=== PATIENT | male | born 1985 | race Caucasian/White ===

== ENCOUNTER 2020-03-30 17:06 | Inpatient (IN) | payer MEDICARE, MEDICAID ==
[~2020-03-30] VITALS: Ht 175.3 cm; Wt 114.1 kg
[~2020-03-30 17:06] MED LIST: CLON1TAB12 PO; DIVA500T2 PO; LIT300C PO; NICO-668 BC; PALI234D IM; QUET100T33 PO; QUET400T12 PO; TIZA4TAB5 PO
[2020-03-30] MEDS ORDERED: magnesium hydroxide 30ml (MOM) UD suspension PO PRN (21:20)
[2020-03-30] MEDS ORDERED: loperamide 2mg capsule PO PRN (21:20)
[2020-03-30] MEDS ORDERED: acetaminophen 325mg tablet PO PRN (21:20)
[2020-03-30] MEDS ORDERED: PALI234D IM (21:38)
[2020-03-30] MEDS ORDERED: NICO-668 MM (21:38)
[2020-03-30] MEDS ORDERED: CLON-527 PO (21:38)
[2020-03-30] MEDS ORDERED: QUET-1 PO (21:38)
[2020-03-30] MEDS ORDERED: QUET400T PO (21:38)
[2020-03-30] MEDS ORDERED: DIVA-76 PO ×2 (21:38)
[2020-03-30] MEDS ORDERED: TIZA4TAB11 PO (21:38)
[2020-03-30] MEDS ORDERED: LIT300C PO (21:38)
[2020-03-30] MEDS: LORazepam 1 MG tablet PO PRN (21:57)
--- NOTE | 2020-03-30 22:21 | NUR ---
RN PROGRESS NOTE: LEGAL HOLD: LPS Conserved/5150 for DTS REASON FOR ADMIT: Client reported increased auditory and visual hallucinations. Client hears voices coming from buildings saying, "We're going to kill you." Client believes others are controlling him. Client believes camera's are watching him in his car. Client is currently homeless and may not have been taking his meds. He had Invega Sustena IM on 03.14.20 and 03.15.20. Client has multiple small scabs on both hands from punching a mirror. THIS SHIFT: Client arrived at 21:10. He is disheveled with poor hygiene. Client was cooperative, participated with admission. Personal Belongings were inventoried and client took a shower. Changed into green scrubs. Offered a snack. Affect is flat and mood is anxious. Client thanked staff for their help. His anxiety is relatively high. Client perfers to wear his hat while on unit and while he is sleeping. Appears to be relieved to be on unit. DISCHARGE: Needs med stabilization and therapeutic environment.
--- NOTE | 2020-03-30 22:37 | NUR ---
Registration made a new chart on Client. The new chart needs to be combined with the old. I asked registration to take care of it. Please follow up.
--- NOTE | 2020-03-30 22:39 | NUR ---
Shaneka Flores IM given 03.14.20 and 03.15.20.
[2020-03-30] MEDS ORDERED: NICOTINE POLACRILEX 2 MG LOZENGE BC PRN (22:40)
[2020-03-30] MEDS ORDERED: paliperidone palmitate inj 234 MG/1.5 ML SYRINGE IM SCH (22:40)
[2020-03-30] MEDS: quetiapine 100mg tablet PO SCH (22:51)
[2020-03-31 07:38] VITALS: BP 117/66
[2020-03-31] MEDS: nicotine 21mg patch - 24 hr TD SCH ×2 (07:41→07:48)
[2020-03-31] MEDS: divalproex sodium 500mg tablet.DR PO SCH ×2 (07:41→20:13)
[2020-03-31] MEDS: QUEtiapine 25mg tablet PO SCH ×2 (07:42→12:53)
[2020-03-31] MEDS: quetiapine 100mg tablet PO SCH ×3 (07:42→20:13)
[2020-03-31] MEDS: tizanidine 4mg tablet PO SCH ×3 (07:42→15:26)
[2020-03-31] MEDS: lithium carbonate 150mg capsule PO SCH ×2 (07:43→20:12)
[2020-03-31] MEDS: clonazePAM 1mg tablet PO SCH ×3 (07:43→20:13)
--- NOTE | 2020-03-31 10:34 | NUR ---
NURSING PROGRESS NOTE Legal hold: 5150 Client on involuntary status for DTS Report received from MARIBEL Serrano with use of SBAR Why are they here: Client reported increased auditory and visual hallucinations. Client hears voices coming from buildings saying, "We're going to kill you." Client believes others are controlling him. Client believes camera's are watching him in his car. Client is currently homeless and may not have been taking his medications. Assessment What has happened this shift: Alert and oriented to self, place and circumstances. Up for breakfast and medications and then back to sleep. Having auditory command hallucinations to harm himself which he recognizes as such. Some visual disturbances. Although very cooperative, having difficulty expressing symptoms. Photos of wounds to hands were obtained. Slept for most of morning but easily arousable. States feels safe here. Medication compliant. S/I, H/I: denies wanting to act A/VH: Command Auditory and visual Sleep: napped frequently ADL's: needs encouragement Group attendance: none Were meds taken: yes Any med S/E: sleepiness Mental Status Exam Appearance: disheveled, wearing knitted hat with ear flaps Eye contact: poor Behavior: cooperative Speech: soft, slightly mumbled Mood: sad Affect: flat Thought process: hallucinating Thought Content: GEORGETTE Cognition: alert when awakened Insight: fair Judgment: fair Interventions PRN's used: none Therapeutic interventions: 1:1 assessment, establish rapport, active listening, reality orientation, medication education/administration/monitoring, encouragement to perform personal care and attend groups, maintained q15m safety checks. Restraints/seclusion/emergency medication: None Justification of Continued Inpatient Treatment: Requires interruption of current crisis, medication adjustments, and a safe and supportive environment to prevent readmission.
--- NOTE | 2020-03-31 10:53 | NUR ---
CM Presenting Issues: Pt is a re-admit after being d/c from [facility] on 03/06. Pt is readmitted due to GD concerns associated with a sxs of a severe mental illness. Interventions: SS had t/c with pt's [facility] STAR team's clinician, Ankur Ricketts [phone], per t/c STAR team had already completed a referral to [facility] requesting that pt be consider for LPS conservatorship. Ankur also informed SS that [facility] had indicated that pt meets criteria for a LPS evaluation. Ankur requested for the recent Declaration in Support of Appointment of LPS conservatorship be sent to him so he can fwd it to [facility]. Plan: Pt will receive eval to determine need for LPS conservatorship. SS will continue to monitor and engage [facility] in pt's dcp when appropriate. Maria Luisa Murphy LCSW Addendum: 03/31/20 at 1058 by Maria Luisa Murphy Amended: Links added.
[2020-03-31 12:18] LABS: HEMOGLOBIN A1C 5.5 % (4.5-6.2)
[2020-03-31 12:22] LABS: CHOL/HDL RATIO 2.9 (0.00-4.99); CHOLESTEROL 140 MG/DL (0-200); HDL CHOLESTEROL 49 MG/DL (35-60); LDL CHOLESTEROL 73 MG/DL (50-100); TRIGLYCERIDES 89 MG/DL (20-135)
[2020-03-31] MEDS: NICOTINE POLACRILEX 2 MG LOZENGE BC PRN ×4 (13:09→20:49)
[2020-03-31] MEDS: acetaminophen 325mg tablet PO PRN (13:10)
[2020-03-31 19:00] VITALS: BP 135/86
--- NOTE | 2020-04-01 00:47 | NUR ---
NURSING PROGRESS NOTE Legal hold: 5150 Client on involuntary status for DTS Report received from MARIBEL Serrano with use of SBAR Why are they here: Client reported increased auditory and visual hallucinations. Client hears voices coming from buildings saying, "We're going to kill you." Client believes others are controlling him. Client believes camera's are watching him in his car. Client is currently homeless and may not have been taking his medications. Assessment What has happened this shift: Pt active on the unit at various times during the evening shift. Pt appears slightly more agitated this evening. Pt asked why he hasnt been given his klonopin, but when checked, pt was given it earlier in the day. When informed of this, pt responded in an angry voice, why is she lying about it? Pt mostly kept to himself when out of his room, appearing like he did not want to interact with his peers. S/I, H/I: denies A/VH: Command Auditory and visual Sleep: napped frequently ADL's: needs encouragement Group attendance: none Were meds taken: yes Any med S/E: sleepiness Mental Status Exam Appearance: disheveled, wearing knitted hat with ear flaps Eye contact: poor Behavior: cooperative, slightly agitated Speech: soft, slightly mumbled Mood: sad Affect: flat Thought process: hallucinating Thought Content: GEORGETTE Cognition: alert when awakened Insight: fair Judgment: fair Interventions PRN's used: none Therapeutic interventions: 1:1 assessment, establish rapport, active listening, reality orientation, medication education/administration/monitoring, encouragement to perform personal care and attend groups, maintained q15m safety checks. Restraints/seclusion/emergency medication: None Justification of Continued Inpatient Treatment: Requires interruption of current crisis, medication adjustments, and a safe and supportive environment to prevent readmission.
[2020-04-01] MEDS: NICOTINE POLACRILEX 2 MG LOZENGE BC PRN ×6 (07:22→21:52)
[2020-04-01] MEDS: nicotine 21mg patch - 24 hr TD SCH (07:24)
[2020-04-01 07:26] VITALS: BP 150/78
[2020-04-01] MEDS: QUEtiapine 25mg tablet PO SCH ×2 (07:57→12:24)
[2020-04-01] MEDS: divalproex sodium 500mg tablet.DR PO SCH ×2 (07:57→20:14)
[2020-04-01] MEDS: clonazePAM 1mg tablet PO SCH ×3 (07:58→20:14)
[2020-04-01] MEDS: quetiapine 100mg tablet PO SCH ×3 (07:58→20:14)
[2020-04-01] MEDS: tizanidine 4mg tablet PO SCH ×3 (07:58→15:08)
[2020-04-01] MEDS: lithium carbonate 150mg capsule PO SCH ×2 (07:58→20:15)
[2020-04-01] MEDS: LORazepam 1 MG tablet PO PRN ×2 (09:23→15:07)
[2020-04-01] MEDS: acetaminophen 325mg tablet PO PRN ×2 (09:50→14:02)
[2020-04-01] MEDS ORDERED: OLANZapine 5mg rapidly disint. tablet PO ONE (11:15)
[2020-04-01] MEDS ORDERED: LORazepam 1 MG tablet PO ONE (11:15)
--- NOTE | 2020-04-01 15:35 | NUR ---
NURSING PROGRESS NOTE Legal hold: 5150 Client on involuntary status for DTS Report received from MARIBEL Serrano with use of SBAR Why are they here: Client reported increased auditory and visual hallucinations. Client hears voices coming from buildings saying, "We're going to kill you." Client believes others are controlling him. Client believes camera's are watching him in his car. Client is currently homeless and may not have been taking his medications. Assessment What has happened this shift: Patient awakened before breakfast wanting coffee and Gilles Beth which was provided. C/O sore on lip, refused offer of Anbesol. Had increasingly hard morning with auditory command hallucinations becoming severe. PRN's were used with little effect and Dr. Huddleston was notified. New order for one time Zydis and Ativan were received. Given at 1130 without much effect. Regular dose of Seroquel and Klonopin given at 1230 which helped a bit. Patient did not feel much relief until after 1500 dose of Zanaflex and another prn of Ativan. During all hallucinations patient was aware he was experiencing auditory hallucinations and recognized such as "the voices." He took all medications without incident and willingly. S/I, H/I: denies A/VH: Command Auditory Sleep: drifted off a few times ADL's: needs encouragement Group attendance: none Were meds taken: yes Any med S/E: none Mental Status Exam Appearance: disheveled Eye contact: poor Behavior: cooperative, agitated at times yelling back at the voices Speech: soft, slightly mumbled Mood: distressed with voices Affect: flat or agitated at times Thought process: hallucinating Thought Content: wants and asks for help to make voices stop Cognition: A&Ox4 Insight: fair Judgment: fair Interventions PRN's used: Ativan, Zydis, Tylenol, Gilles Beth Therapeutic interventions: 1:1 assessment, establish rapport, active listening, reality orientation, medication education/administration/monitoring, encouragement to perform personal care and attend groups, maintained q15m safety checks. Restraints/seclusion/emergency medication: None Justification of Continued Inpatient Treatment: Requires interruption of current crisis, medication adjustments, and a safe and supportive environment to prevent readmission.
[2020-04-01] MEDS ORDERED: OLANZapine **IM** 10 mg inj. IM ONE (17:00)
[2020-04-01] MEDS ORDERED: LORazepam 2 mg/ml vial IM ONE (17:00)
--- NOTE | 2020-04-01 17:19 | NUR ---
PATIENT CONTINUED TO BE AGITATED The patient continued to be tormented and agitated by command hallucinations. The patient requested this nurse to "call the doctor and get me a shot." Dr. Huddleston was notified of patient's distress and new order was received for IM injection of Zyprexa 10mg and Ativan 2mg. The patient willingly accepted the injection to left gluteal without incident.
[2020-04-02] MEDS: tizanidine 4mg tablet PO SCH ×4 (00:36→23:46)
[2020-04-02] MEDS: LORazepam 1 MG tablet PO PRN ×3 (00:36→21:23)
[2020-04-02] MEDS: mag hydrox/Alum hydrox/simeth 30ml oral suspension PO PRN (00:36)
[2020-04-02] MEDS: NICOTINE POLACRILEX 2 MG LOZENGE BC PRN ×5 (00:38→20:50)
--- NOTE | 2020-04-02 02:16 | NUR ---
NURSING PROGRESS NOTE Legal hold: 5150 Client on involuntary status for DTS Report received from MARIBEL Luciano with use of SBAR Why are they here: Client reported increased auditory and visual hallucinations. Client hears voices coming from buildings saying, "We're going to kill you." Client believes others are controlling him. Client believes camera's are watching him in his car. Client is currently homeless and may not have been taking his medications. Assessment What has happened this shift: Patient asleep in bed at start of shift. Woke up and came for a snack . He was agitated and paced in posadas wearing headphones. His speech is difficult to understand at times because he mumbles and speaks very quietly. It was unclear why he was agitated. He does not appear to be responding to internal Stimuli. When asked if he hears voices he said "Look in my chart" He took all HS meds and went back to sleep. Woke up about midnight agitated. Given PRN Ativan, Nicotine lozenge and scheduled Zanaflex. Pt angry and yelled at times calmed down and went back to sleep. S/I, H/I: denies A/VH: Command Auditory Sleep: Sleeping with a few interruptions ADL's: needs encouragement Group attendance: none Were meds taken: yes Any med S/E: none Mental Status Exam Appearance: disheveled Eye contact: poor Behavior: agitated, at times yelling Speech: soft, slightly mumbled Mood: angry agitated Affect: flat or agitated at times Thought process: hallucinating Thought Content: unable to assess Cognition: A&Ox4 Insight: fair Judgment: fair Interventions PRN's used: Ativan, Gilles Beth Therapeutic interventions: 1:1 assessment, establish rapport, active listening, reality orientation, medication education/administration/monitoring, encouragement to perform personal care and attend groups, maintained q15m safety checks. Restraints/seclusion/emergency medication: None Justification of Continued Inpatient Treatment: Requires interruption of current crisis, medication adjustments, and a safe and supportive environment to prevent readmission.
[2020-04-02 08:00] VITALS: BP 123/86
[2020-04-02] MEDS: nicotine 21mg patch - 24 hr TD SCH (08:00)
[2020-04-02 08:19] LABS: BASOPHILS # (AUTO) 0.1 X10'3 (0-0.2); EOSINOPHILS # (AUTO) 0.2 X10'3 (0-0.9); EOSINOPHILS % (AUTO) 3.1 % (0-6); HEMATOCRIT 46.4 % (42.0-52.0); HEMOGLOBIN 15.2 g/dl (14.0-17.9); LYMPHOCYTES # (AUTO) 2.1 X10'3 (1.1-4.8); LYMPHOCYTES % (AUTO) 39.9 % (21-51); MEAN CORPUSCULAR HEMOGLOBIN 28.4 PG (27.0-31.0); MEAN CORPUSCULAR HGB CONC 32.8 g/dL (33.0-36.5); MEAN CORPUSCULAR VOLUME 86.5 FL (78-98); MEAN PLATELET VOLUME 8.6 FL (7.4-10.4); MONOCYTES # (AUTO) 0.3 X10'3 (0-0.9); MONOCYTES % (AUTO) 5.6 % (2-12); NEUTROPHILS # (AUTO) 2.7 X10'3 (1.8-7.7); NEUTROPHILS % (AUTO) 50.4 % (42-75); PLATELET COUNT 244 X10'3 (140-440); RED BLOOD COUNT 5.36 X10'6 (4.70-6.10); RED CELL DISTRIBUTION WIDTH 15.2 % (11.5-14.5); WHITE BLOOD COUNT 5.3 X10'3 (4.5-11.0)
[2020-04-02] MEDS: quetiapine 100mg tablet PO SCH ×3 (08:23→20:09)
[2020-04-02] MEDS: clonazePAM 1mg tablet PO SCH ×3 (08:23→20:09)
[2020-04-02] MEDS: lithium carbonate 150mg capsule PO SCH ×2 (08:24→20:10)
[2020-04-02] MEDS: QUEtiapine 25mg tablet PO SCH ×2 (08:24→12:59)
[2020-04-02] MEDS: divalproex sodium 500mg tablet.DR PO SCH ×2 (08:24→20:10)
[2020-04-02] MEDS: acetaminophen 325mg tablet PO PRN ×2 (09:20→21:50)
[2020-04-02] MEDS ORDERED: NICOTINE POLACRILEX 4 MG LOZENGE BC PRN (09:25)
[2020-04-02] MEDS ORDERED: NICOTINE POLACRILEX 2 MG LOZENGE BC PRN (09:34)
[2020-04-02 09:39] LABS: ALANINE AMINOTRANSFERASE 21 U/L (12-78); ALBUMIN 3.8 G/DL (3.4-5.0); ALBUMIN/GLOBULIN RATIO 1.2 (1.1-1.5); ALKALINE PHOSPHATASE 59 IU/L (46-116); ANION GAP 12 (8-16); ASPARTATE AMINO TRANSFERASE 8 U/L (10-37); BILIRUBIN,TOTAL 0.2 MG/DL (0.1-1.0); BLOOD UREA NITROGEN 14 MG/DL (7-18); BUN/CREATININE RATIO 15.2 (5.4-32.0); CALCIUM 9.1 MG/DL (8.5-10.1); CHLORIDE 105 MMOL/L (99-107); CREATININE 0.92 MG/DL (0.60-1.10); GLUCOSE 92 MG/DL (70-104); POTASSIUM 4.8 MMOL/L (3.5-5.1); SODIUM 142 MMOL/L (135-145); TOTAL CARBON DIOXIDE 25.4 MMOL/L (24-32); eGFR > 90 ML/MIN
[2020-04-02] MEDS ORDERED: QUEtiapine 25mg tablet PO ONE (09:55)
--- NOTE | 2020-04-02 17:48 | NUR ---
NURSING PROGRESS NOTE Legal hold: 5150 Client on involuntary status for DTS Report received from Nabila Bunn RN with use of SBAR Why are they here: Client reported increased auditory and visual hallucinations. Client hears voices coming from buildings saying, "We're going to kill you." Client believes others are controlling him. Client believes camera's are watching him in his car. Client is currently homeless and may not have been taking his medications. Assessment What has happened this shift: Patient asleep with headphones on at change of shift. Took off headphones and has ear plugs in. Took ear plugs out to talk to this RN. When asked how he is doing he states "bad", and immediately put the headphones back on and closes his eyes. Pt cooperative with taking medications, and mumbled something about snorting the pills. When this was questioned, he laughed and stated "I'm just kidding, don't worry." Moved pt to his own room due to outbursts of yelling at the voices. Late morning patient states his voices are terrible and was given Ativan. Later in the afternoon patient began yelling in his room at the voices, "You can look in the bathroom! They're right in there!". Reassured pt of his safety (he had just received Klonopin which had not taken effect yet). S/I, H/I: denies A/VH: Command Auditory Sleep: Sleeping with a few interruptions ADL's: independent. Did not shower today Group attendance: none Were meds taken: yes Any med S/E: none Mental Status Exam Appearance: disheveled Eye contact: poor Behavior: agitated from A/H, yells at voices Speech: soft, mumbled Mood: agitated at times Affect: flat or agitated at times Thought process: linear Thought Content: paranoid delusions Cognition: A&Ox3 Insight: fair Judgment: fair Interventions PRN's used: Ativan, Gilles Beth Therapeutic interventions: 1:1 assessment, establish rapport, active listening, reality orientation, medication education/administration/monitoring, encouragement to perform personal care and attend groups, maintained q15m safety checks. Restraints/seclusion/emergency medication: None Justification of Continued Inpatient Treatment: Requires interruption of current crisis, medication adjustments, and a safe and supportive environment to prevent readmission.
[2020-04-02 20:00] VITALS: BP 133/92
--- NOTE | 2020-04-03 02:34 | NUR ---
NURSING PROGRESS NOTE Legal hold: 5150 Client on involuntary status for DTS Report received from MARIBEL Byrne with use of SBAR Why are they here: Client reported increased auditory and visual hallucinations. Client hears voices coming from buildings saying, "We're going to kill you." Client believes others are controlling him. Client believes camera's are watching him in his car. Client is currently homeless and may not have been taking his medications. Assessment What has happened this shift: The patient was pacing the halls at shift change. He stopped to talk to this flex o writer operator. He was mumbling, and speech is too soft. Then, he takes his finger and pushes into his larynx as if to plug a hole. His speech seems to be more clear. He explains that the 'voices' put a hole there, so he couldn't talk. A little later, after he had been medicated, he was on his bed. He started yelling at the voices, "get off me, get off me you fuckin' Georgian terrorist bitch, stop holding me down." He was seen shaking his leg trying to get her off it. He was given Ativan and a nicotine lozenge. He went to sleep until ~2330, when he got up and asked for more Ativan. It was too soon, so he paced for a while, asked for his jacket from his locker, then went back to his room. S/I, H/I: Denies A/VH: Command Auditory Sleep: See sleep assessment ADL's: Needs encouragement Group attendance: None Were meds taken: yes Any med S/E: None reported or observed Mental Status Exam Appearance: Disheveled man with hall and short hair, wearing unit scrubs andheadphones Eye contact: Good Behavior: Agitated, at times yelling, irritable Speech: soft, slightly mumbled Mood: angry agitated Affect: flat or agitated at times Thought process: hallucinating Thought Content: unable to assess Cognition: A&Ox4 Insight: fair Judgment: fair Interventions PRN's used: Ativan, Gilles Beth Therapeutic interventions: 1:1 assessment, establish rapport, active listening, reality orientation, medication education/administration/monitoring, encouragement to perform personal care and attend groups, maintained q15m safety checks. Restraints/seclusion/emergency medication: None Justification of Continued Inpatient Treatment: Requires interruption of current crisis, medication adjustments, and a safe and supportive environment to prevent readmission.
[2020-04-03] MEDS: QUEtiapine 25mg tablet PO SCH ×2 (07:00→12:22)
[2020-04-03] MEDS: NICOTINE POLACRILEX 2 MG LOZENGE BC PRN ×6 (07:00→19:02)
[2020-04-03] MEDS: quetiapine 100mg tablet PO SCH ×3 (07:00→20:14)
[2020-04-03 07:37] VITALS: BP 128/91
[2020-04-03] MEDS: lithium carbonate 150mg capsule PO SCH ×2 (08:15→20:14)
[2020-04-03] MEDS: tizanidine 4mg tablet PO SCH ×2 (08:15→16:36)
[2020-04-03] MEDS: divalproex sodium 500mg tablet.DR PO SCH ×2 (08:16→20:14)
[2020-04-03] MEDS: clonazePAM 1mg tablet PO SCH ×3 (08:16→20:15)
[2020-04-03] MEDS: LORazepam 1 MG tablet PO PRN ×2 (10:05→19:02)
--- NOTE | 2020-04-03 11:59 | NUR ---
Initial: Pt admit DX psychosis and schizophrenia per EMR. PO 75-100% avg regular diet meeting needs. LBM 04/02. No nutrition concerns at this time. Will continue to monitor. Rec: 1. continue regular diet 2. bowel care per rx 3. wts per rx Addendum: 04/03/20 at [address] Amended: Links added.
[2020-04-03] MEDS ORDERED: gabapentin 100mg capsule PO ONE (14:10)
--- NOTE | 2020-04-03 17:26 | NUR ---
NURSING PROGRESS NOTE Legal hold: 5250 Expires 04/16. Client on involuntary status for DTS Report received from MARIBEL Gonzales with use of SBAR Why are they here: Client reported increased auditory and visual hallucinations. Client hears voices coming from buildings saying, "We're going to kill you." Client believes others are controlling him. Client believes camera's are watching him in his car. Client is currently homeless and may not have been taking his medications. Assessment What has happened this shift: Received patient pacing in the posadas at shift change. Pt greets screenplay writer appropriately. Pt later came screenplay writer and requested an Ativan and Nicotine lozenge. Pt was administered his 0730 Klonopin. Pt was overheard in his room yelling. Headphones were given with effect. Pt went to breakfast then returned to his room to sleep. Pt was medication compliant. Pt had three separate outburst yelling in his room when asked "its the voices!" Pt was redirectable. Pt is also noted when walking down the posadas he is looking over his shoulder as if someone is following him. Pt requested an Ativan and asked this screenplay writer "will you stay with me to make sure it gets in my system." Pt believes the voices take his medication out of his stomach. Pt drink half of his wolf pitcher of water to consume one Ativan pill. After each administration of medication screenplay writer reassured pt that his medication was in his system, pt stated "thank you." S/I, H/I: Denies both. A/VH: Endorses and observed CAH and VH. Sleep: 2.25 hours per sleep assessment. Slept intermittently throughout the day. ADL's: Needs encouragement, but can perform independently. Group attendance: No Were meds taken: Yes, without hesitation. Any med S/E: None reported or observed Mental Status Exam Appearance: Disheveled man with hall and short hair, wearing unit scrub pants and hoodie. Eye contact: Good Behavior: Agitated, at times yelling, irritable. Can be cooperative. Speech: Mumbles, loud and rapid at times. Mood: Labile Affect: Flat Thought process: CAH/VH. Thought Content: Hallucinations. Cognition: A&Ox4 Insight: Poor. Judgment: Poor. Interventions PRN's used: Nicotine lozenge, Ativan, Therapeutic interventions: 1:1 assessment, establish rapport, active listening, reality orientation, medication education/administration/monitoring, encouragement to perform personal care and attend groups, maintained q15m safety checks. Restraints/seclusion/emergency medication: None Justification of Continued Inpatient Treatment: Patient continues to exhibit psychotic symptoms and mood lability, irritability. Patient continues to be a high risk for dishcarge and requires continued medication adjustment in a safe and supportive milieu. Pt isreasonably aware that he will be going for LPS conservatorship.
[2020-04-03 20:13] VITALS: BP 130/80
[2020-04-03] MEDS: gabapentin 300mg capsule PO SCH (20:14)
[2020-04-04] MEDS: NICOTINE POLACRILEX 2 MG LOZENGE BC PRN ×6 (03:05→22:31)
--- NOTE | 2020-04-04 03:34 | NUR ---
NURSING PROGRESS NOTE Legal hold: 5150 Client on involuntary status for DTS Report received from MARIBEL Byrne with use of SBAR Why are they here: Client reported increased auditory and visual hallucinations. Client hears voices coming from buildings saying, "We're going to kill you." Client believes others are controlling him. Client believes camera's are watching him in his car. Client is currently homeless and may not have been taking his medications. Assessment What has happened this shift: Received the patient walking the halls. He appears tired and withdrawn. He came up and greeted me by name, while asking for a nicotine lozenge. He continues pacing for a while, lays down for a few, then starts pacing again. He was more subdued tonight, and didn't have any outbursts. He has spent more time in his room tonight, like standing in front of his shelves staring at them for a while. He wears a hoodie with the botello covering his head. S/I, H/I: Denies A/VH: Command Auditory Sleep: See sleep assessment ADL's: Needs encouragement Group attendance: None Were meds taken: yes Any med S/E: None reported or observed Mental Status Exam Appearance: Disheveled man with hall and short hair, wearing unit scrubs and hoodie jacket Eye contact: Good Behavior: Agitated, at times yelling, irritable Speech: soft, slightly mumbled Mood: angry agitated Affect: flat or agitated at times Thought process: hallucinating Thought Content: unable to assess Cognition: A&Ox4 Insight: fair Judgment: fair Interventions PRN's used: Ativan, Gilles Beth Therapeutic interventions: 1:1 assessment, establish rapport, active listening, reality orientation, medication education/administration/monitoring, encouragement to perform personal care and attend groups, maintained q15m safety checks. Restraints/seclusion/emergency medication: None Justification of Continued Inpatient Treatment: Requires interruption of current crisis, medication adjustments, and a safe and supportive environment to prevent readmission.
[2020-04-04] MEDS: LORazepam 1 MG tablet PO PRN ×2 (04:16→18:18)
[2020-04-04] MEDS: QUEtiapine 25mg tablet PO SCH ×2 (07:20→12:46)
[2020-04-04] MEDS: quetiapine 100mg tablet PO SCH ×3 (07:20→20:03)
[2020-04-04] MEDS: gabapentin 100mg capsule PO SCH ×2 (07:20→12:46)
[2020-04-04 08:00] VITALS: BP 142/92
[2020-04-04] MEDS: lithium carbonate 150mg capsule PO SCH ×2 (08:31→20:04)
[2020-04-04] MEDS: clonazePAM 1mg tablet PO SCH ×3 (08:31→20:03)
[2020-04-04] MEDS: tizanidine 4mg tablet PO SCH ×3 (08:32→15:55)
[2020-04-04] MEDS: divalproex sodium 500mg tablet.DR PO SCH ×2 (08:32→20:03)
--- NOTE | 2020-04-04 14:44 | NUR ---
NURSING PROGRESS NOTE Legal hold: 5250 Expires 04/16. Client on involuntary status for DTS Report received from MARIBEL Boston with use of SBAR Why are they here: Client reported increased auditory and visual hallucinations. Client hears voices coming from buildings saying, "We're going to kill you." Client believes others are controlling him. Client believes camera's are watching him in his car. Client is currently homeless and may not have been taking his medications. Assessment What has happened this shift: Received patient awake in his room at shift change, not distress noted. Pt was a little calmer this morning. Pt was administered his 0730 medications then again at 0830. During AM med pass pt stated the voices in my head are stupid. Pt required no PRNs this morning and only requested one Nicotine lozenge. Pt still has some paranoia regarding his voices taking the medication out of his stomach, but he did not perseverate on thought. Pt attends meals and snacks then returns to his room to sit or nap. Pt utilizes headphone to distract from AH. Noted pt talking to A/VH, pt raises his voice, but does not yell. No PRNs required or requested as of this writing. S/I, H/I: Denies both. A/VH: Endorses and observed CAH and VH. Sleep: 5.0 hours per sleep assessment. Slept intermittently throughout the day. ADL's: Needs encouragement, but can perform independently. Group attendance: No Were meds taken: Yes, without hesitation. Any med S/E: None reported or observed Mental Status Exam Appearance: Disheveled man with hall and short hair, wearing unit scrub pants and hoodie. Pt wearing an aviator type hat. Eye contact: Fair Behavior: No outbursts, current paranoia. Can be cooperative. Isolates to room or ambulates halls. Speech: Mumbles, loud and rapid at times. Mood: Labile Affect: Flat Thought process: CAH/VH. Thought Content: Hallucinations. Cognition: A&Ox4 Insight: Poor. Judgment: Poor. Interventions PRN's used: Nicotine lozenge. Therapeutic interventions: 1:1 assessment, active listening, reality orientation, medication education/administration/monitoring, encouragement to perform personal care and attend groups, maintained q15m safety checks. Restraints/seclusion/emergency medication: None Justification of Continued Inpatient Treatment: Patient continues to exhibit psychotic symptoms and mood lability, irritability. Patient continues to be a high risk for discharge and requires continued medication adjustment in a safe and supportive milieu. Pt is reasonably aware that he will be going for LPS conservatorship.
--- NOTE | 2020-04-04 18:19 | NUR ---
Pt requested Ativan for agitation. Administered PRN 1 mg.
[2020-04-04] MEDS: gabapentin 300mg capsule PO SCH (20:04)
[2020-04-04 20:53] VITALS: BP 144/86
[2020-04-05] MEDS: traZODone 50mg tablet PO PRN (00:07)
[2020-04-05] MEDS: tizanidine 4mg tablet PO SCH ×3 (00:07→16:44)
[2020-04-05] MEDS: LORazepam 1 MG tablet PO PRN ×3 (00:07→23:11)
--- NOTE | 2020-04-05 02:24 | NUR ---
NURSING PROGRESS NOTE Legal hold: 5150 Client on involuntary status for DTS Report received from MARIBEL Byrne with use of SBAR Why are they here: Client reported increased auditory and visual hallucinations. Client hears voices coming from buildings saying, "We're going to kill you." Client believes others are controlling him. Client believes camera's are watching him in his car. Client is currently homeless and may not have been taking his medications. Assessment What has happened this shift: Received the patient walking the halls. He's wearing scrub pants with boots, heavy jacket, and furry cap. He's agitated with the 'voices', and just received Ativan. He requests a nicotine lozenge from this field underwriter. The patient spent a lot of the evening quietly in his room. When he gets restless, he gets up and paces. He naps for short periods. At one time tonight, he could be heard in his room loudly talking to his voices. This field underwriter approached his room, and asked him about his tormentor. "It's fuckin Satan, he keeps popping into my bathroom, and when I go in there to kick his teeth in, he leaves. I aint afraid of that punk ass bitch...I'll tear him apart when I catch him." He was provided his Zanaflex, Ativan, and Trazodone at that time. He laid down to sleep after that, and slept good for an hour or so, but is now up pacing again. S/I, H/I: Denies A/VH: Command Auditory Sleep: See sleep assessment ADL's: Needs encouragement Group attendance: None Were meds taken: yes Any med S/E: None reported or observed Mental Status Exam Appearance: Disheveled man with hall and short hair, wearing unit scrubs, heavy jacket, and furry cap. Eye contact: Good Behavior: Agitated, at times yelling, irritable, angry Speech: soft, slightly mumbled Mood: angry agitated Affect: flat or agitated at times Thought process: hallucinating Thought Content: unable to assess Cognition: A&Ox4 Insight: fair Judgment: fair Interventions PRN's used: Ativan, Nicotine Beth Therapeutic interventions: 1:1 assessment, establish rapport, active listening, reality orientation, medication education/administration/monitoring, encouragement to perform personal care and attend groups, maintained q15m safety checks. Restraints/seclusion/emergency medication: None Justification of Continued Inpatient Treatment: Requires interruption of current crisis, medication adjustments, and a safe and supportive environment to prevent readmission.
[2020-04-05] MEDS: lithium carbonate 150mg capsule PO SCH ×2 (07:15→20:08)
[2020-04-05] MEDS: clonazePAM 1mg tablet PO SCH ×3 (07:15→20:08)
[2020-04-05] MEDS: divalproex sodium 500mg tablet.DR PO SCH ×2 (07:15→20:06)
[2020-04-05] MEDS: quetiapine 100mg tablet PO SCH ×3 (07:16→20:07)
[2020-04-05] MEDS: gabapentin 100mg capsule PO SCH ×2 (07:16→11:33)
[2020-04-05] MEDS: QUEtiapine 25mg tablet PO SCH ×2 (07:16→11:32)
[2020-04-05 08:02] VITALS: BP 139/85
--- NOTE | 2020-04-05 12:11 | NUR ---
LPS Investigation Caryn from [employer] and George Gomez [facility], both met with Gianni on the unit yesterday. Caryn reported he only talked to them for about 2 minutes. She called to request information. Emailed her RN and Doctor's notes to assist with the investigation. DOMO Saldana
[2020-04-05] MEDS: NICOTINE POLACRILEX 2 MG LOZENGE BC PRN ×3 (12:43→20:59)
--- NOTE | 2020-04-05 17:25 | NUR ---
NURSING PROGRESS NOTE Legal hold: 5250 Expires 04/16. Client on involuntary status for DTS Report received from MARIBEL Boston with use of SBAR Why are they here: Client reported increased auditory and visual hallucinations. Client hears voices coming from buildings saying, "We're going to kill you." Client believes others are controlling him. Client believes camera's are watching him in his car. Client is currently homeless and may not have been taking his medications. Assessment What has happened this shift: Pt. awake at start of shift and pacing in halls with headphones on. Shortly after pt. became agitated due to AH that were threatening him. Pt. states, "The voices won't leave me alone". Pt. given AM medications with good effect. Pt. displays compulsive behaviors, when scanning pt.'s armband to give medications, pt. wanted only one particular bar code scanned and when it wasn't scanned pt. became agitated. Pt. ate breakfast and layed down. 1:1 done at bedside, pt. appears agitated with RNs questions. Pt. denies SI/but endorses AH/VH. S/I, H/I: Denies both. A/VH: Endorses and observed CAH and VH. Sleep: Pt. did not appear to nap today. ADL's: Needs encouragement, but can perform independently. Group attendance: No Were meds taken: Yes Any med S/E: None reported or observed Mental Status Exam Appearance: Disheveled man with hall and short hair, wearing unit scrub pants, hoodie, and jacket and winter hat. Eye contact: Fair Behavior: Pacing halls and listening to headphones. Agitated by voices. Yelling back at the voices. Speech: Mumbles, loud and rapid at times. Mood: Anxious, agitated. Affect: Flat Thought process: Paranoid delusions due to auditory hallucinations. Thought Content: Hallucinations. Cognition: A&Ox4 Insight: Poor. Judgment: Poor. Interventions PRN's used: Ativan x1 Therapeutic interventions: 1:1 assessment, active listening, reality orientation, medication education/administration/monitoring, encouragement to perform personal care and attend groups, maintained q15m safety checks. Restraints/seclusion/emergency medication: None Justification of Continued Inpatient Treatment: Patient continues to exhibit psychotic symptoms and mood lability, irritability. Patient continues to be a high risk for discharge and requires continued medication adjustment in a safe and supportive milieu. Pt is reasonably aware that he will be going for LPS conservatorship.
[2020-04-05 19:41] VITALS: BP 107/65
[2020-04-05] MEDS: gabapentin 400mg capsule PO SCH (20:31)
--- NOTE | 2020-04-05 20:51 | NUR ---
NURSING PROGRESS NOTE Legal hold: 5250 Expires 04/16. Client on involuntary status for DTS Report received from MARIBEL Schultz with use of SBAR Why are they here: Client reported increased auditory and visual hallucinations. Client hears voices coming from buildings saying, "We're going to kill you." Client believes others are controlling him. Client believes camera's are watching him in his car. Client is currently homeless and may not have been taking his medications. Assessment What has happened this shift: Pt is seen on the unit in wearing a coat and fuzzy hat. She smiles occasionally and after eating snack heads to his room and lays in bed with his hat on. He is cooperative with assessment and medication compliant. He asks what medications are in the cup and inspector automatic typewriter tells him what each pill is. Pt smiles and says thank you. When asked how his day was he replies, "better then yesterday." He denies SI/HI at this time. He does endorse auditory hallucinations, but does not go into detail. When inspector automatic typewriter tells him to have a good night and get some sleep and smiles and laughs for awhile and says , "okay okay okay okay." S/I, H/I: Denies both. A/VH: Endorses auditory hallucinations Sleep: see sleep assessment ADL's: Needs encouragement, but can perform independently. Group attendance: No Were meds taken: Yes Any med S/E: None reported or observed Mental Status Exam Appearance: Disheveled man with hall and short hair, wearing unit scrub pants, hoodie, and jacket and winter hat. Eye contact: Fair Behavior:cooperative, isolative Speech: Mumbles Mood: labile Affect: upbeat occasionally Thought process: Paranoid delusions due to auditory hallucinations. Thought Content: Hallucinations. Cognition: A&Ox4 Insight: Poor. Judgment: Poor. Interventions PRN's used: Therapeutic interventions: 1:1 assessment, active listening, reality orientation, medication education/administration/monitoring, encouragement to perform personal care and attend groups, maintained q15m safety checks. Restraints/seclusion/emergency medication: None Justification of Continued Inpatient Treatment: Patient continues to exhibit psychotic symptoms and mood lability, irritability. Patient continues to be a high risk for discharge and requires continued medication adjustment in a safe and supportive milieu. Pt is reasonably aware that he will be going for LPS conservatorship.
[2020-04-06] MEDS: NICOTINE POLACRILEX 2 MG LOZENGE BC PRN ×7 (01:09→20:54)
[2020-04-06] MEDS: tizanidine 4mg tablet PO SCH ×3 (07:25→16:56)
[2020-04-06] MEDS: QUEtiapine 25mg tablet PO SCH ×2 (07:25→12:28)
[2020-04-06] MEDS: quetiapine 100mg tablet PO SCH ×3 (07:25→20:45)
[2020-04-06] MEDS: divalproex sodium 500mg tablet.DR PO SCH ×2 (07:26→20:46)
[2020-04-06] MEDS: clonazePAM 1mg tablet PO SCH ×3 (07:26→20:46)
[2020-04-06] MEDS: gabapentin 100mg capsule PO SCH ×2 (07:26→12:28)
[2020-04-06] MEDS: lithium carbonate 150mg capsule PO SCH ×2 (07:27→20:47)
[2020-04-06 07:30] VITALS: BP 126/84
--- NOTE | 2020-04-06 17:20 | NUR ---
NURSING PROGRESS NOTE Legal hold: 5250 Expires 04/16. Client on involuntary status for DTS Report received from MARIBEL Boston with use of SBAR Why are they here: Client reported increased auditory and visual hallucinations. Client hears voices coming from buildings saying, "We're going to kill you." Client believes others are controlling him. Client believes camera's are watching him in his car. Client is currently homeless and may not have been taking his medications. Assessment What has happened this shift: Pt. awake at start of shift and pacing halls. Pt. took medications and ate all meals in community room. 1:1 done at bedside, pt. denies SI/HI, however, pt. reports AH, stating that voices are threatening him as well as the staff. Pt. denies VHAt time of noon medications pt. appeared agitated. When asked how pt. was feeling, pt. responded, I dont want to talk about it, Pt. then began perseverating on numbers. Pt. socially withdrawn and isolated to room most of the day. S/I, H/I: Denies both. A/VH: +AH. Denies VH Sleep: Pt. did not appear to nap today. ADL's: Independent with prompting. Group attendance: No Were meds taken: Yes Any med S/E: Pt. c/o restlessness from his Seroquel. Mental Status Exam Appearance: Disheveled man with hall and short hair, wearing unit scrub pants, hoodie, and jacket and winter hat. Eye contact: Fair Behavior: Pacing halls and listening to headphones. Looking out window in his room. Agitated by voices. Speech: Mumbles, loud and rapid at times. Mood: Anxious, agitated. Affect: Flat Thought process: Paranoid delusions due to auditory hallucinations. Patient is also circumstantial Thought Content: Hallucinations. Getting needs met. Cognition: A&Ox4 Insight: Poor. Judgment: Poor. Interventions PRN's used: Therapeutic interventions: 1:1 assessment, active listening, reality orientation, medication education/administration/monitoring, encouragement to perform personal care and attend groups, maintained q15m safety checks. Restraints/seclusion/emergency medication: None Justification of Continued Inpatient Treatment: Patient continues to exhibit psychotic symptoms and mood lability, irritability. Patient continues to be a high risk for discharge and requires continued medication adjustment in a safe and supportive milieu. Pt is reasonably aware that he will be going for LPS conservatorship.
--- NOTE | 2020-04-06 17:30 | NUR ---
NURSING PROGRESS NOTE Legal hold: 5250 Expires 04/16. Client on involuntary status for DTS Report received from MARIBEL Boston with use of SBAR Why are they here: Client reported increased auditory and visual hallucinations. Client hears voices coming from buildings saying, "We're going to kill you." Client believes others are controlling him. Client believes camera's are watching him in his car. Client is currently homeless and may not have been taking his medications. Assessment What has happened this shift: Pt. awake at start of shift and pacing halls. Pt. took medications and ate all meals in community room. 1:1 done at bedside, pt. denies SI/HI, however, pt. reports AH, stating that voices are threatening him as well as the staff. Pt. denies VHAt time of noon medications pt. appeared agitated. When asked how pt. was feeling, pt. responded, I dont want to talk about it, Pt. then began perseverating on numbers. Pt. socially withdrawn and isolated to room most of the day. Pt. requested nicotine lozenge and received a smaller lozenge than normal and pt. became upset. RN attempted to explain to the pt. that the dosage is the same, however, pt. did not understand. Pt. then slammed his door. S/I, H/I: Denies both. A/VH: +AH. Denies VH Sleep: Pt. did not appear to nap today. ADL's: Independent with prompting. Group attendance: No Were meds taken: Yes Any med S/E: Pt. c/o restlessness from his Seroquel. Mental Status Exam Appearance: Disheveled man with hall and short hair, wearing unit scrub pants, hoodie, and jacket and winter hat. Eye contact: Fair Behavior: Pacing halls and listening to headphones. Looking out window in his room. Agitated by voices. Speech: Mumbles, loud and rapid at times. Mood: Anxious, agitated. Affect: Flat Thought process: Paranoid delusions due to auditory hallucinations. Patient is also circumstantial Thought Content: Hallucinations. Getting needs met. Cognition: A&Ox4 Insight: Poor. Judgment: Poor. Interventions PRN's used: Therapeutic interventions: 1:1 assessment, active listening, reality orientation, medication education/administration/monitoring, encouragement to perform personal care and attend groups, maintained q15m safety checks. Restraints/seclusion/emergency medication: None Justification of Continued Inpatient Treatment: Patient continues to exhibit psychotic symptoms and mood lability, irritability. Patient continues to be a high risk for discharge and requires continued medication adjustment in a safe and supportive milieu. Pt is reasonably aware that he will be going for LPS conservatorship.
--- NOTE | 2020-04-06 17:31 | NUR ---
Pt. c/o of restless legs side effect from Seroquel and started on Cogentin 1mg BID.
[2020-04-06 20:00] VITALS: BP 124/85
[2020-04-06] MEDS: benztropine 1mg tablet PO SCH (20:45)
[2020-04-06] MEDS: gabapentin 400mg capsule PO SCH (20:48)
--- NOTE | 2020-04-06 22:39 | NUR ---
NURSING PROGRESS NOTE Legal hold: 5250 Expires 04/16. Client on involuntary status for DTS Report received from MARIBLE Schultz with use of SBAR Why are they here: Client reported increased auditory and visual hallucinations. Client hears voices coming from buildings saying, "We're going to kill you." Client believes others are controlling him. Client believes camera's are watching him in his car. Client is currently homeless and may not have been taking his medications. Assessment What has happened this shift: Pt isolates to his room most of shift. He is in a black jacket with the hoos up responding to internal stimuli. When asked how his day was he says, "not good." Aerobics Instructor asks why not he responds, "I am not talking about that." Aerobics Instructor asks if he is feeling SI/HI/ he responds, "I am not talking about that!" He remains distant and guarded. S/I, H/I: Denies both. A/VH: Endorses auditory hallucinations Sleep: see sleep assessment ADL's: Needs encouragement, but can perform independently. Group attendance: No Were meds taken: Yes Any med S/E: None reported or observed Mental Status Exam Appearance: Disheveled man with hall and short hair, wearing unit scrub pants, hoodie, and jacket and winter hat. Eye contact: Fair Behavior:cooperative, isolative Speech: Mumbles Mood: labile Affect: upbeat occasionally Thought process: Paranoid delusions due to auditory hallucinations. Thought Content: Hallucinations. Cognition: A&Ox4 Insight: Poor. Judgment: Poor. Interventions PRN's used: Therapeutic interventions: 1:1 assessment, active listening, reality orientation, medication education/administration/monitoring, encouragement to perform personal care and attend groups, maintained q15m safety checks. Restraints/seclusion/emergency medication: None Justification of Continued Inpatient Treatment: Patient continues to exhibit psychotic symptoms and mood lability, irritability. Patient continues to be a high risk for discharge and requires continued medication adjustment in a safe and supportive milieu. Pt is reasonably aware that he will be going for LPS conservatorship.
[2020-04-07] MEDS: NICOTINE POLACRILEX 2 MG LOZENGE BC PRN ×3 (00:30→17:37)
[2020-04-07] MEDS: gabapentin 100mg capsule PO SCH ×2 (07:37→11:49)
[2020-04-07] MEDS: benztropine 1mg tablet PO SCH ×2 (07:38→20:54)
[2020-04-07] MEDS: clonazePAM 1mg tablet PO SCH ×3 (07:38→20:53)
[2020-04-07] MEDS: quetiapine 100mg tablet PO SCH ×3 (07:38→20:53)
[2020-04-07] MEDS: divalproex sodium 500mg tablet.DR PO SCH ×2 (07:38→20:52)
[2020-04-07] MEDS: lithium carbonate 150mg capsule PO SCH ×2 (07:38→20:54)
[2020-04-07] MEDS: tizanidine 4mg tablet PO SCH ×3 (07:38→16:24)
[2020-04-07] MEDS: QUEtiapine 25mg tablet PO SCH ×2 (07:38→11:49)
[2020-04-07 08:16] VITALS: BP 133/90
[2020-04-07] MEDS: LORazepam 1 MG tablet PO PRN (09:05)
--- NOTE | 2020-04-07 17:22 | NUR ---
NURSING PROGRESS NOTE Legal hold: 5250 Expires 04/16. Client on involuntary status for DTS Report received from MARIBEL [place] with use of SBAR Why are they here: Client reported increased auditory and visual hallucinations. Client hears voices coming from buildings saying, "We're going to kill you." Client believes others are controlling him. Client believes camera's are watching him in his car. Client is currently homeless and may not have been taking his medications. Assessment What has happened this shift: RN assumed care of pt. at 0900am. RN received in report that pt. was stating that his brother was speaking to him and telling him that he was going to kill someone. When staff attempted to do reality testing, pt. insisted that his brothers threats were legitimate and that the police needed to be contacted. During this time pt. was agitated due to AH and given Ativan 1mg po with good effect. Later in the AM pt. c/o of anxiety and given noon time medications early. Pt. observed in room yelling at times but is able to control outbursts. Pt. seen wearing headphones in attempt to quiet voices. When asked what voices are telling him, pt. replies, I dont want to say. Pt. denies seeing VH. Pt. denies SI/HI. Pt. isolated to his room most of the day. Psychologist Dr. Vigil came to assess pt. for conservatorship. Pt. states, I dont want to speak to him. Psychologist approached pt. and pt. replied, Dont talk to me I want to go to [facility] I want to be conserved. Pt. wears overcoat, when asked about it, pt. states, I dont want my coat being taken. Pt.s Neurontin increased to 200 BID. Voices. Requested Ativan. S/I, H/I: Denies both. A/VH: +AH. Denies VH Sleep: Pt. did not appear to nap today. ADL's: Independent with prompting. Group attendance: No Were meds taken: Yes Any med S/E: Denies Mental Status Exam Appearance: Disheveled man with hall and short hair, wearing unit scrub pants, hoodie, winter jacket and winter hat. Eye contact: Fair Behavior: Pacing halls and listening to headphones. Looking out window in his room. Agitated by voices. Speech: Mumbles, loud and rapid at times. Mood: Anxious, agitated. Affect: Flat Thought process: Paranoid delusions due to auditory hallucinations. Circumstantial. Thought Content: Hallucinations. Getting needs met. Cognition: A&Ox4 Insight: Poor. Judgment: Poor. Interventions PRN's used: Ativan 1mg po. Nicotine x3 Therapeutic interventions: 1:1 assessment, active listening, reality orientation, medication education/administration/monitoring, encouragement to perform personal care and attend groups, maintained q15m safety checks. Restraints/seclusion/emergency medication: None Justification of Continued Inpatient Treatment: Patient continues to exhibit psychotic symptoms and mood lability, irritability. Patient continues to be a high risk for discharge and requires continued medication adjustment in a safe and supportive milieu. Pt is reasonably aware that he will be going for LPS conservatorship.
[2020-04-07 19:00] VITALS: BP 135/68
[2020-04-07] MEDS: gabapentin 400mg capsule PO SCH (20:54)
[2020-04-08] MEDS: tizanidine 4mg tablet PO SCH ×3 (00:18→16:08)
[2020-04-08] MEDS: traZODone 50mg tablet PO PRN (00:25)
[2020-04-08] MEDS: LORazepam 1 MG tablet PO PRN ×2 (00:25→09:41)
--- NOTE | 2020-04-08 03:29 | NUR ---
NURSING PROGRESS NOTE Legal hold: 5250 Expires 04/16. Client on involuntary status for DTS Report received from MARIBEL Gonzales with use of SBAR Why are they here: Client reported increased auditory and visual hallucinations. Client hears voices coming from buildings saying, "We're going to kill you." Client believes others are controlling him. Client believes camera's are watching him in his car. Client is currently homeless and may not have been taking his medications. Assessment What has happened this shift: Patient isolated in his room this shift. Patient came out of his room to request medication and snacks. Patient is quiet, appears to be responding to internal stimuli. Patient will not elaborate. Anxiety noted later in shift, patient not sleeping. Ativan given PO. Trazadone given for sleep. MOM given for stomach indigestion. Patient is cooperative. Primary complaint of indigestion, pain in joints. Patient is restless at times. Sleep is intermittent. Patient denies S/I or H/I. S/I, H/I: Denies both. A/VH: Denies. Sleep: Poor. Will tally at 0500 hours. . ADL's: Independent with prompting. Group attendance: No group on nights. Were meds taken: Yes, medication. Any med S/E: Denies. Mental Status Exam. Appearance: Disheveled. Eye contact: Fair Behavior: Isolating, Speech: Soft, mumbles at times. Mood: Anxious, mild agitation. Affect: Flat. Thought process: Circumstantial. Thought Content: Getting needs met.. Cognition: A&Ox4 Insight: Poor. Judgment: Poor. Interventions PRN's used: Trazidone, Ativan, MOM. Therapeutic interventions: 1:1 assessment, active listening, reality orientation, medication education/administration/monitoring, encouragement to perform personal care and attend groups, maintained q15m safety checks. Restraints/seclusion/emergency medication: None Justification of Continued Inpatient Treatment: Patient continues to exhibit psychotic symptoms and mood lability, irritability. Patient continues to be a high risk for discharge and requires continued medication adjustment in a safe and supportive milieu. Pt is reasonably aware that he will be going for LPS conservatorship.
[2020-04-08] MEDS: NICOTINE POLACRILEX 2 MG LOZENGE BC PRN ×4 (05:08→19:14)
--- NOTE | 2020-04-08 05:08 | NUR ---
Patient is awake and pacing the halls, he listens to music. Patient tells this feature writer he has insomnia, "there is nothing you can do about it, it just cycles." Patient is linear at this time, he does not look to be responding to internal stimuli.
[2020-04-08 08:00] VITALS: BP 131/80
[2020-04-08] MEDS: clonazePAM 1mg tablet PO SCH ×3 (08:34→20:44)
[2020-04-08] MEDS: benztropine 1mg tablet PO SCH ×2 (08:35→20:45)
[2020-04-08] MEDS: lithium carbonate 150mg capsule PO SCH ×2 (08:36→20:48)
[2020-04-08] MEDS: gabapentin 100mg capsule PO SCH ×2 (08:36→13:23)
[2020-04-08] MEDS: divalproex sodium 500mg tablet.DR PO SCH ×2 (08:37→20:44)
[2020-04-08] MEDS: QUEtiapine 25mg tablet PO SCH ×2 (08:37→13:23)
[2020-04-08] MEDS: quetiapine 100mg tablet PO SCH ×3 (08:38→20:45)
--- NOTE | 2020-04-08 15:59 | NUR ---
NURSING PROGRESS NOTE Legal hold: 5250 Expires 04/16. Client on involuntary status for DTS Report received from RN with use of SBAR Why are they here: Client reported increased auditory and visual hallucinations. Client hears voices coming from buildings saying, "We're going to kill you." Client believes others are controlling him. Client believes camera's are watching him in his car. Client is currently homeless and may not have been taking his medications. Assessment What has happened this shift: Received Pt in his room awake and writing on paper, and in no distress. Pt cooperative with vitals and meds throughout the day. Pt responds to voices and delusions, in the middle of the night he put a bone in my knee, I can feel it. Pt spent most of the day listening to music with headphones and isolating to his room. He spent time looking out the window and talked about a scene in the movie Jar Head r/t snipers and rooftops he was looking at. Pt was calm most of the day with a few moments of irritability at AHs and delusions r/t them. He continues to wear a winter hat and coat. Pt denies SI/HI. Endorses AHs but denies VH. S/I, H/I: Denies both A/VH: +AH. Denies VH Sleep: Did not sleep this shift ADL's: Independent with prompting Group attendance: NA Were meds taken: Yes Any med S/E: Denies Mental Status Exam Appearance: Disheveled, wearing winter cap and jacket Eye contact: Fair Behavior: Pacing halls and listening to headphones. Looking out window in his room. Labile yet cooperative Speech: Mumbles, loud and rapid at times Mood: Cooperative yet anxious at times Affect: Flat Thought process: Paranoid delusions r/t auditory hallucinations. Circumstantial Thought Content: Getting needs met. Responding to AH Cognition: A&Ox4 Insight: Poor. Judgment: Poor. Interventions PRN's used: Ativan 1mg po. Nicotine Beth. Therapeutic interventions: 1:1 assessment, active listening, reality orientation, medication education/administration/monitoring, encouragement to perform personal care and attend groups, maintained q15m safety checks. Restraints/seclusion/emergency medication: None Justification of Continued Inpatient Treatment: Patient continues to exhibit psychotic symptoms and mood lability, irritability. Patient continues to be a high risk for discharge and requires continued medication adjustment in a safe and supportive milieu. Pt is reasonably aware that he will be going for LPS conservatorship.
[2020-04-08] MEDS: gabapentin 400mg capsule PO SCH (19:46)
[2020-04-08] MEDS: acetaminophen 325mg tablet PO PRN (19:51)
[2020-04-08 20:00] VITALS: BP 121/85
--- NOTE | 2020-04-09 05:18 | NUR ---
NURSING PROGRESS NOTE Legal hold: 5250 Expires 04/16. Client on involuntary status for DTS Report received from MARIBEL Gonzales with use of SBAR Why are they here: Client reported increased auditory and visual hallucinations. Client hears voices coming from buildings saying, "We're going to kill you." Client believes others are controlling him. Client believes camera's are watching him in his car. Client is currently homeless and may not have been taking his medications. Assessment What has happened this shift: Pt isolated to room mostly but was observed to pace the halls a few times. He listened to headphones most of the shift. At initial assessment, pt stated his "knee was being removed in the middle of the night" and that "there are rape people on the unit." He stated "I can read you" and "I know you don't believe me". He was unable to be redirected from these thoughts but remained quiet in his room. Later in the shift, pt apologized for his comments stating "I'm sorry about that earlier. It just happens sometimes." Pt attended snack, and was medication compliant. He awoke one this evening to ask for water. S/I, H/I: Denies both. A/VH: Denies, but appears to be thought blocking at times Sleep: See Sleep Assessment ADL's: Independent with prompting Group attendance: N/A Were meds taken: Yes. Any med S/E: Denies. Mental Status Exam Appearance: Disheveled wearing personal clothing Eye contact: Fair Behavior: pacing, isolating to self Speech: Soft, mumbles at times. Mood: Labile Affect: Flat. Thought process: Circumstantial. Thought Content: snacks, medications Cognition: A&Ox4 Insight: Poor Judgment: Poor to fair Interventions PRN's used: Tylenol Therapeutic interventions: 1:1 assessment, active listening, reality orientation, medication education/administration/monitoring, encouragement to perform personal care and attend groups, maintained q15m safety checks. Restraints/seclusion/emergency medication: None Justification of Continued Inpatient Treatment: Patient continues to exhibit psychotic symptoms and mood lability, irritability. Patient continues to be a high risk for discharge and requires continued medication adjustment in a safe and supportive milieu. Pt is reasonably aware that he will be going for [facility] conservatorship.
[2020-04-09] MEDS: gabapentin 300mg capsule PO SCH ×2 (07:12→12:52)
[2020-04-09] MEDS: quetiapine 100mg tablet PO SCH ×3 (07:12→20:22)
[2020-04-09] MEDS: QUEtiapine 25mg tablet PO SCH ×2 (07:12→12:52)
[2020-04-09 08:48] VITALS: BP 136/86
[2020-04-09] MEDS: benztropine 1mg tablet PO SCH ×2 (08:48→20:18)
[2020-04-09] MEDS: clonazePAM 1mg tablet PO SCH ×3 (08:49→20:19)
[2020-04-09] MEDS: divalproex sodium 500mg tablet.DR PO SCH ×2 (08:49→20:19)
[2020-04-09] MEDS: tizanidine 4mg tablet PO SCH ×3 (08:49→16:09)
[2020-04-09] MEDS: NICOTINE POLACRILEX 2 MG LOZENGE BC PRN ×2 (11:04→16:10)
--- NOTE | 2020-04-09 15:19 | NUR ---
NURSING PROGRESS NOTE Legal hold: 5250 Expires 04/16. Client on involuntary status for DTS Report received from RN with use of SBAR. MARIBEL Eric Why are they here: Client reported increased auditory and visual hallucinations. Client hears voices coming from buildings saying, "We're going to kill you." Client believes others are controlling him. Client believes camera's are watching him in his car. Client is currently homeless and may not have been taking his medications. Assessment What has happened this shift: Received patient awake in his room sitting on side of bed. Pt greets sba underwriter. Pt cooperative with care and medications. Spends most of the day in his room listening to headphones. Comes out for meals and snacks, ambulates the halls. Pt continues with intermittent agitation r/t auditory hallucinations, pt is redirectable when needed. S/I, H/I: Denies both. A/VH: +AH. Denies VH. Sleep: 6.25 hours per sleep assessment. Intermittent naps today. ADL's: Independent with prompting Group attendance: Yes. AM only scheduled group. Were meds taken: Yes, without hesitation. Any med S/E: Pt denies, none observed. Mental Status Exam Appearance: Disheveled. Dressed in green unit scrubs, covered with a black jacket and diego cap. Eye contact: Fair Behavior: Pacing halls and listening to headphones. Labile yet cooperative Speech: Mumbles, loud and rapid at times Mood: Cooperative yet anxious at times Affect: Flat Thought process: Paranoid delusions r/t auditory hallucinations. Circumstantial Thought Content: Getting needs met. Responding to AH Cognition: A&Ox4 Insight: Poor. Judgment: Poor. Interventions PRN's used: Nicotine lozenges. Therapeutic interventions: 1:1 assessment, active listening, reality orientation, medication education/administration/monitoring, encouragement to perform personal care and attend groups, maintained q15m safety checks. Restraints/seclusion/emergency medication: None Justification of Continued Inpatient Treatment: Patient continues to exhibit psychotic symptoms and mood lability, irritability. Patient continues to be a high risk for discharge and requires continued medication adjustment in a safe and supportive milieu. Pt is reasonably aware that he will be going for LPS conservatorship.
[2020-04-09] MEDS: LORazepam 1 MG tablet PO PRN (16:10)
--- NOTE | 2020-04-09 16:10 | NUR ---
Patient requested Nicotine lozenge and Ativan. Will continue to monitor.
[2020-04-09] MEDS ORDERED: OLANZapine 5mg rapidly disint. tablet PO ONE (19:20)
[2020-04-09] MEDS: gabapentin 400mg capsule PO SCH (20:18)
[2020-04-09] MEDS: lithium carbonate 150mg capsule PO SCH (20:20)
[2020-04-09 20:45] VITALS: BP 128/88
[2020-04-10] MEDS: tizanidine 4mg tablet PO SCH ×3 (00:16→16:05)
--- NOTE | 2020-04-10 00:41 | NUR ---
NURSING PROGRESS NOTE Legal hold: 5250 Expires 04/16. Client on involuntary status for DTS Report received from RN with use of SBAR. MARIBEL Gonzales Why are they here: Client reported increased auditory and visual hallucinations. Client hears voices coming from buildings saying, "We're going to kill you." Client believes others are controlling him. Client believes camera's are watching him in his car. Client is currently homeless and may not have been taking his medications. Assessment What has happened this shift: Received patient awake in his room . Pt isolating to his room most of shift only coming out for snack and Prn.. Pt cooperative with care . Spends most of the day in his room listening to headphones. Pt continues with intermittent agitation r/t auditory hallucinations, pt is redirectable when needed. S/I, H/I: Denies both. A/VH: +AH. Denies VH. Sleep: 6.25 hours per sleep assessment. Intermittent naps today. ADL's: Independent with prompting Group attendance: Yes. AM only scheduled group. Were meds taken: Yes, without hesitation. Any med S/E: Pt denies, none observed. Mental Status Exam Appearance: Disheveled. Dressed in green unit scrubs, covered with a black jacket and diego cap. Eye contact: Fair Behavior: Pacing halls and listening to headphones. Labile yet cooperative Speech: Mumbles, loud and rapid at times Mood: Cooperative yet anxious at times Affect: Flat Thought process: Paranoid delusions r/t auditory hallucinations. Circumstantial Thought Content: Getting needs met. Responding to AH Cognition: A&Ox4 Insight: Poor. Judgment: Poor. Interventions PRN's used: Zyprexa Zydis Therapeutic interventions: 1:1 assessment, active listening, reality orientation, medication education/administration/monitoring, encouragement to perform personal care and attend groups, maintained q15m safety checks. Restraints/seclusion/emergency medication: None Justification of Continued Inpatient Treatment: Patient continues to exhibit psychotic symptoms and mood lability, irritability. Patient continues to be a high risk for discharge and requires continued medication adjustment in a safe and supportive milieu. Pt is reasonably aware that he will be going for LPS conservatorship.
[2020-04-10] MEDS: NICOTINE POLACRILEX 2 MG LOZENGE BC PRN ×5 (02:29→18:50)
[2020-04-10] MEDS: traZODone 50mg tablet PO PRN (02:48)
[2020-04-10] MEDS: gabapentin 300mg capsule PO SCH ×2 (07:02→12:46)
[2020-04-10] MEDS: QUEtiapine 25mg tablet PO SCH ×2 (07:02→12:46)
[2020-04-10] MEDS: quetiapine 100mg tablet PO SCH ×3 (07:03→20:16)
[2020-04-10 07:30] VITALS: BP 120/76
[2020-04-10] MEDS ORDERED: OLANZapine 5mg rapidly disint. tablet PO SCH (08:00)
[2020-04-10] MEDS: benztropine 1mg tablet PO SCH ×2 (08:54→20:16)
[2020-04-10] MEDS: clonazePAM 1mg tablet PO SCH ×3 (08:54→20:17)
[2020-04-10] MEDS: divalproex sodium 500mg tablet.DR PO SCH ×2 (08:54→20:15)
--- NOTE | 2020-04-10 09:02 | NUR ---
Hold pt's AM dose of Zyprexa Zydis. Authorized by Dr. Huddleston. Will administer BID dose at 1999.
[2020-04-10] MEDS: lithium carbonate 150mg capsule PO SCH (20:16)
[2020-04-10] MEDS: gabapentin 400mg capsule PO SCH (20:17)
[2020-04-10 20:29] VITALS: BP 145/84
[2020-04-11] MEDS: LORazepam 1 MG tablet PO PRN ×3 (02:48→21:20)
[2020-04-11] MEDS: NICOTINE POLACRILEX 2 MG LOZENGE BC PRN ×6 (05:36→19:04)
[2020-04-11] MEDS: quetiapine 100mg tablet PO SCH ×3 (07:24→20:09)
[2020-04-11] MEDS: gabapentin 300mg capsule PO SCH ×2 (07:24→12:46)
[2020-04-11] MEDS: QUEtiapine 25mg tablet PO SCH ×2 (07:24→12:46)
[2020-04-11 07:39] VITALS: BP 130/91
[2020-04-11] MEDS: benztropine 1mg tablet PO SCH ×2 (08:37→20:11)
[2020-04-11] MEDS: clonazePAM 1mg tablet PO SCH ×3 (08:37→20:10)
[2020-04-11] MEDS: tizanidine 4mg tablet PO SCH ×3 (08:37→16:23)
[2020-04-11] MEDS: divalproex sodium 500mg tablet.DR PO SCH ×2 (08:37→20:10)
[2020-04-11] MEDS ORDERED: OLANZapine 5mg rapidly disint. tablet PO ONE (13:35)
--- NOTE | 2020-04-11 13:41 | NUR ---
Reassessment: Pt PO 75-100% avg regular diet meeting needs. LBM 04/10. No nutrition concerns at this time. Will continue to monitor. Rec: 1. continue regular diet 2. bowel care per rx 3. wts per rx Addendum: 04/11/20 at [address] Amended: Links added.
--- NOTE | 2020-04-11 16:43 | NUR ---
NURSING PROGRESS NOTE Legal hold: 5250 Expires 04/16. Client on involuntary status for DTS Report received from RN with use of SBAR. MARIBEL Boston Why are they here: Client reported increased auditory and visual hallucinations. Client hears voices coming from buildings saying, "We're going to kill you." Client believes others are controlling him. Client believes camera's are watching him in his car. Client is currently homeless and may not have been taking his medications. Assessment What has happened this shift: Patient was lying in his bed at shift change, appeared to be sleeping without distress. Pt found underwriter mortgage loan and requested his morning Nicotine lozenge. When asked how he slept pt stated "I had visible dreams." He laughed then said "but I slept good." Pt continues to isolate to his room, but comes out for meals and snacks. Occasionally comes out for a short walk. Pt requested a "prn Zydis." Asked about voices pt stated "I talked to them for a while, now I am laying back resting." Pt states he sleeps "because there is nothing to do." Pt states he is reading the Bible and observed a [employer] magazine on shelf. Talking about medications pt said he thought "[facility] was trying to poison me." Pt then stated "I know that is not true." Pt is difficult to understand at times r/t his mumbling. No outbursts today. Still internally preoccupied, but shows more insight. S/I, H/I: Denies both. A/VH: +AH. Denies VH. Sleep: 5.0 hours per sleep assessment. Intermittent naps today. ADL's: Independent. Pt showered today. Group attendance: Declined. Were meds taken: Yes, without hesitation. Any med S/E: Pt denies, none observed. Mental Status Exam Appearance: Clean. Dressed in green unit scrubs, rubber solded boots, winter type cap. Eye contact: Fair Behavior: Isolates to room, usually listening to headset or reading his Bible. Out for meals and snacks. No outbursts today. Speech: Mumbles, loud and rapid at times Mood: Cooperative yet anxious at times Affect: Flat Thought process: Paranoid delusions r/t auditory hallucinations, BUT improving. Thought Content: Situational. Cognition: A&Ox4 Insight: Poor. Judgment: Poor. Interventions PRN's used: Nicotine lozenges, Ativan, Zydis 5mg. Therapeutic interventions: 1:1 assessment, active listening, reality orientation, medication education/administration/monitoring, encouragement to perform personal care and attend groups, maintained q15m safety checks. Restraints/seclusion/emergency medication: None Justification of Continued Inpatient Treatment: Patient continues to exhibit psychotic symptoms and mood lability, irritability. Patient continues to be a high risk for discharge and requires continued medication adjustment in a safe and supportive milieu. Pt is reasonably aware that he will be going for LPS conservatorship.
[2020-04-11] MEDS: lithium carbonate 150mg capsule PO SCH (20:10)
[2020-04-11] MEDS: gabapentin 400mg capsule PO SCH (20:10)
[2020-04-11] MEDS: traZODone 50mg tablet PO PRN (20:11)
[2020-04-11 20:31] VITALS: BP 146/94
--- NOTE | 2020-04-12 00:13 | NUR ---
NURSING PROGRESS NOTE Legal hold: 5250 Expires 04/16. Client on involuntary status for DTS Report received from RN with use of SBAR. Christian LÓPEZ Why are they here: Client reported increased auditory and visual hallucinations. Client hears voices coming from buildings saying, "We're going to kill you." Client believes others are controlling him. Client believes camera's are watching him in his car. Client is currently homeless and may not have been taking his medications. Assessment What has happened this shift: Patient continues to isolate to his room. Pt was cooperative but became agitated and hit the wall several times. Pt stated that he was mad because he awoke after taking his meds and could not go back to sleep. Prn Ativan and Trazodone given and helpful. S/I, H/I: Denies both. A/VH: +AH. Denies VH. Sleep: 5.0 hours per sleep assessment. Intermittent naps today. ADL's: Independent. Pt showered today. Group attendance: Declined. Were meds taken: Yes, without hesitation. Any med S/E: Pt denies, none observed. Mental Status Exam Appearance: Clean. Dressed in green unit scrubs, rubber solded boots, winter type cap. Eye contact: Fair Behavior: Isolates to room, usually listening to headset or reading his Bible. Out for meals and snacks. No outbursts today. Speech: Mumbles, loud and rapid at times Mood: Cooperative yet anxious at times Affect: Flat Thought process: Paranoid delusions r/t auditory hallucinations, BUT improving. Thought Content: Situational. Cognition: A&Ox4 Insight: Poor. Judgment: Poor. Interventions PRN's used: Nicotine lozenges, Ativan, Trazodone Therapeutic interventions: 1:1 assessment, active listening, reality orientation, medication education/administration/monitoring, encouragement to perform personal care and attend groups, maintained q15m safety checks. Restraints/seclusion/emergency medication: None Justification of Continued Inpatient Treatment: Patient continues to exhibit psychotic symptoms and mood lability, irritability. Patient continues to be a high risk for discharge and requires continued medication adjustment in a safe and supportive milieu. Pt is reasonably aware that he will be going for [facility] conservatorship.
[2020-04-12] MEDS: LORazepam 1 MG tablet PO PRN (06:07)
[2020-04-12] MEDS ORDERED: OLANZapine 5mg rapidly disint. tablet PO ONE (07:10)
[2020-04-12] MEDS: gabapentin 300mg capsule PO SCH ×2 (07:24→13:13)
[2020-04-12 08:00] VITALS: BP 134/92
[2020-04-12] MEDS: clonazePAM 1mg tablet PO SCH ×3 (08:37→20:31)
[2020-04-12] MEDS: quetiapine 100mg tablet PO SCH ×3 (08:38→20:31)
[2020-04-12] MEDS: benztropine 1mg tablet PO SCH ×2 (08:38→20:31)
[2020-04-12] MEDS: QUEtiapine 25mg tablet PO SCH ×2 (08:38→13:14)
[2020-04-12] MEDS: divalproex sodium 500mg tablet.DR PO SCH ×2 (08:39→20:30)
[2020-04-12] MEDS: tizanidine 4mg tablet PO SCH ×3 (08:39→16:49)
[2020-04-12] MEDS: NICOTINE POLACRILEX 2 MG LOZENGE BC PRN ×4 (08:41→18:15)
[2020-04-12] MEDS: OLANZapine 5mg rapidly disint. tablet PO PRN (13:19)
--- NOTE | 2020-04-12 15:18 | NUR ---
NURSING PROGRESS NOTE Legal hold: 5250 Expires 04/16. Client on involuntary status for DTS Report received from MARIBEL Boston with use of SBAR Why are they here: Client reported increased auditory and visual hallucinations. Client hears voices coming from buildings saying, "We're going to kill you." Client believes others are controlling him. Client believes camera's are watching him in his car. Client is currently homeless and may not have been taking his medications. Assessment What has happened this shift: Pt served [employer]. He continues to isolate to his room. He is seen throughout the day pacing the halls wearing a headset occasionally laughing out loud inappropriately. Pt slept zheng 6 hours last night. He was given Ativan 1mg by night staff right at the end of their shift then when this flex o writer operator walked out of report at 0630 pt asked this nurse, "why was the Zydis PRN stopped, "it helps me." Consult with Dr. Huddleston. Per doctor Flaquito Zydis 5mg one time dose give for agitation. stated he would put it back on the eMAR. S/I, H/I: Denies both. A/VH: +AH. Denies VH. Sleep: Rest on his bed during the day; his eyes are usually open ADL's: Independent; requires reminders and encouragement Group attendance: Declined. Were Meds taken: Yes, without hesitation. Any med S/E: Pt denies, none observed. Mental Status Exam Appearance: Clean. Dressed in green unit scrubs, rubber solded boots, winter type cap. Same clothes as yesterday. Eye contact: Fair Behavior: Isolates to room, usually listening to headset or reading his Bible. Out for meals and snacks. Speech: Mumbles, loud and rapid at times Mood: Cooperative yet anxious at times Affect: Flat Thought process: Paranoid delusions r/t auditory hallucinations, BUT improving. Thought Content: Situational. Cognition: A&Ox4 Insight: Poor. Judgment: Poor. Interventions PRN's used: Nicotine lozenges, Zydis 5mg x2 Therapeutic interventions: 1:1 assessment, provided therapeutic communication with active listening, reality orientation, medication education/administration/monitoring, encouragement to perform personal care and attend groups, maintained q15m safety checks. Restraints/seclusion/emergency medication: None Justification of Continued Inpatient Treatment: Patient continues to exhibit psychotic symptoms and mood lability, irritability. Patient continues to be a high risk for discharge and requires continued medication adjustment in a safe and supportive milieu. Pt is reasonably aware that he will be going for LPS conservatorship.
[2020-04-12 20:20] VITALS: BP 124/84
[2020-04-12] MEDS: gabapentin 400mg capsule PO SCH (20:29)
[2020-04-12] MEDS: lithium carbonate 150mg capsule PO SCH (20:30)
--- NOTE | 2020-04-12 22:45 | NUR ---
NURSING PROGRESS NOTE Legal hold: tcon Client on involuntary status for DTS Report received from MARIBEL Schultz with use of SBAR Why are they here: Client reported increased auditory and visual hallucinations. Client hears voices coming from buildings saying, "We're going to kill you." Client believes others are controlling him. Client believes camera's are watching him in his car. Client is currently homeless and may not have been taking his medications. Assessment What has happened this shift: Pt isolates to his room most of shift. He is in a black jacket with a winter hat on. Pt states his favorite animal is an elephant and his favorite color is green. He then says, "genius." He remains distant and guarded. He is not talkative and remains isolative. S/I, H/I: Denies both. A/VH: Endorses auditory hallucinations Sleep: see sleep assessment ADL's: Needs encouragement, but can perform independently. Group attendance: No Were meds taken: Yes Any med S/E: None reported or observed Mental Status Exam Appearance: Disheveled man with hall and short hair, wearing unit scrub pants, hoodie, and jacket and winter hat. Eye contact: Fair Behavior:cooperative, isolative Speech: Mumbles Mood: labile Affect: upbeat occasionally Thought process: Paranoid delusions due to auditory hallucinations. Thought Content: Hallucinations. Cognition: A&Ox4 Insight: Poor. Judgment: Poor. Interventions PRN's used: Therapeutic interventions: 1:1 assessment, active listening, reality orientation, medication education/administration/monitoring, encouragement to perform personal care and attend groups, maintained q15m safety checks. Restraints/seclusion/emergency medication: None Justification of Continued Inpatient Treatment: Patient continues to exhibit psychotic symptoms and mood lability, irritability. Patient continues to be a high risk for discharge and requires continued medication adjustment in a safe and supportive milieu. Pt is reasonably aware that he will be going for [facility] conservatorship. Addendum: 04/13/20 at 0600 by Viky Groves RN Pt is walking the halls in AM making his hands into a gun and pretending to shoot staff. Manager [employer] tells pt this is not appropriate and that what he is doing is threatening. Pt responds, "yes I can, I can do it." "I see the sick things you guys do to people here, raping people and plotting to murder." Manager [employer] tries to enforce reality and assure him of his safety, he responds, "they rape people." "Whatever."
[2020-04-13] MEDS: traZODone 50mg tablet PO PRN (00:49)
[2020-04-13] MEDS: NICOTINE POLACRILEX 2 MG LOZENGE BC PRN ×5 (00:49→16:25)
[2020-04-13] MEDS: gabapentin 300mg capsule PO SCH ×2 (07:29→12:37)
[2020-04-13] MEDS: clonazePAM 1mg tablet PO SCH ×3 (07:29→20:54)
[2020-04-13] MEDS: benztropine 1mg tablet PO SCH ×2 (07:30→20:54)
[2020-04-13] MEDS: quetiapine 100mg tablet PO SCH ×3 (07:30→20:53)
[2020-04-13] MEDS: divalproex sodium 500mg tablet.DR PO SCH ×2 (07:30→20:53)
[2020-04-13] MEDS: tizanidine 4mg tablet PO SCH ×3 (07:30→16:24)
[2020-04-13] MEDS: QUEtiapine 25mg tablet PO SCH ×2 (07:30→12:37)
[2020-04-13 08:00] VITALS: BP 130/83
[2020-04-13] MEDS: OLANZapine 5mg rapidly disint. tablet PO PRN ×2 (09:42→15:56)
[2020-04-13] MEDS: LORazepam 1 MG tablet PO PRN (11:21)
--- NOTE | 2020-04-13 14:46 | NUR ---
NURSING PROGRESS NOTE Legal hold: 5250 Expires 04/16. Client on involuntary status for DTS Report received from RN with use of EVIEARBrian Boston RN Why are they here: Client reported increased auditory and visual hallucinations. Client hears voices coming from buildings saying, "We're going to kill you." Client believes others are controlling him. Client believes camera's are watching him in his car. Client is currently homeless and may not have been taking his medications. Assessment What has happened this shift: Patient was up before breakfast requesting a nicotine lozenge at 0731. Pt was cooperative with routine medications. He appeared agitated walking down the [address]adas talking and swearing to himself after breakfast. Pt requested a Zydis and another nicotine lozenge at 0942. Asked pt if he wanted the Zydis to help with the voices. Pt replied, "yeah...the staff's voices are bothering me." Pt c/o his sleep cycle being off, "I don't know what's going on, I fall asleep at 9 and get up at 9, I get up at 9 and fall asleep at 9." Pt is delusional. He stated that he was missing the bone from his right knee. Pt felt both knees and said, "it's on this side but not on this one, it's just gone." Asked pt if his knee hurt, he denied pain. Realty orientation provided that knees don't always feel exactly the same but he is walking around fine so the bone must be there. Pt replied, "okay." Pt paces around the unit listening to the radio headphones, he is mostly isolative to self appears internally preoccupied, and responds to internal stimuli at times. Pt requested a PRN Ativan 1 mg at 1121. S/I, H/I: Pt denies. A/VH: Pt is evasive in his answers. Sleep: Pt slept 6 hours last night per noc shift report, takes short naps during the day. ADL's: Independent Group attendance: No Were meds taken: Yes Any med S/E: None noted or reported. Mental Status Exam Appearance: Stocky man with facial hair dressed for snow with a big heavy jacket and hat. Eye contact: Fair Behavior: Paces unit listening to radio headphones, mostly isolative to self, has brief periods of agitation and responds to internal stimuli at times. Speech: Mumbles, difficult to understand at times. Mood: Irritable, mild agitation Affect: Internally preoccupied Thought process: Bizarre, delusional, disorganized, some paranoia Thought Content: He is missing a bone from his knee, the staff's voices are bothering him, his sleep pattern is off. Cognition: A/O X 3 Insight: Impaired though is insightful enough to realize that he needs medication and to ask for PRNs when he needs them. Judgment: Impaired Interventions PRN's used: Nicotine lozenges, Zydis, Ativan Therapeutic interventions: 1:1 assessment, therapeutic communication, medication education/administration/monitoring, encouragement to perform personal care and attend groups, behavior monitoring and intervention, redirection, distraction, reality orientation, positive reinforcement provided, maintained Q 15 minute safety checks. Restraints/seclusion/emergency medication: None Justification of Continued Inpatient Treatment: Patient continues to exhibit psychotic symptoms and mood lability, irritability. Patient continues to be a high risk for discharge and requires continued medication adjustment in a safe and supportive milieu. Pt is reasonably aware that he will be going for [facility] conservatorship, pt has been served [employer] papers.
[2020-04-13] MEDS: lithium carbonate 150mg capsule PO SCH (20:54)
[2020-04-13] MEDS: gabapentin 400mg capsule PO SCH (20:54)
--- NOTE | 2020-04-13 22:04 | NUR ---
NURSING PROGRESS NOTE Legal hold: tcon Client on involuntary status for DTS Report received from MARIBEL Byrne with use of SBAR Why are they here: Client reported increased auditory and visual hallucinations. Client hears voices coming from buildings saying, "We're going to kill you." Client believes others are controlling him. Client believes camera's are watching him in his car. Client is currently homeless and may not have been taking his medications. Assessment What has happened this shift: Pt isolates to his room the entirety of the shift, mostly laying down. He refuses vital signs and physical assessment. He requests nicotine lozenges Q2 hours almost on the dot. Pt does not make good eye contact and remains distant. Top Loader asks if he is hearing any voices today and he responds, "nope" and pulls the covers over himself. S/I, H/I: Denies both. A/VH: denies Sleep: see sleep assessment ADL's: Needs encouragement, but can perform independently. Group attendance: No Were meds taken: Yes Any med S/E: None reported or observed Mental Status Exam Appearance: Disheveled man with hall and short hair, wearing unit scrub pants, hoodie, and jacket and winter hat. Eye contact: Fair Behavior:cooperative, isolative Speech: Mumbles Mood: labile Affect: upbeat occasionally Thought process: GEORGETTE Thought Content: GEORGETTE Cognition: A&Ox4 Insight: Poor. Judgment: Poor. Interventions PRN's used: Therapeutic interventions: 1:1 assessment, active listening, reality orientation, medication education/administration/monitoring, encouragement to perform personal care and attend groups, maintained q15m safety checks. Restraints/seclusion/emergency medication: None Justification of Continued Inpatient Treatment: Patient continues to exhibit psychotic symptoms and mood lability, irritability. Patient continues to be a high risk for discharge and requires continued medication adjustment in a safe and supportive milieu. Pt is reasonably aware that he will be going for LPS conservatorship.
[2020-04-14] MEDS: NICOTINE POLACRILEX 2 MG LOZENGE BC PRN ×6 (05:45→20:43)
[2020-04-14 08:00] VITALS: BP 133/95
[2020-04-14] MEDS: quetiapine 100mg tablet PO SCH ×3 (08:02→20:43)
[2020-04-14] MEDS: QUEtiapine 25mg tablet PO SCH ×2 (08:05→12:41)
[2020-04-14] MEDS: benztropine 1mg tablet PO SCH ×2 (08:05→20:44)
[2020-04-14] MEDS: gabapentin 300mg capsule PO SCH ×2 (08:06→12:41)
[2020-04-14] MEDS: clonazePAM 1mg tablet PO SCH ×3 (08:06→20:44)
[2020-04-14] MEDS: divalproex sodium 500mg tablet.DR PO SCH ×2 (08:06→20:44)
[2020-04-14] MEDS: tizanidine 4mg tablet PO SCH ×3 (08:06→16:22)
[2020-04-14] MEDS: OLANZapine 5mg rapidly disint. tablet PO PRN (11:52)
--- NOTE | 2020-04-14 14:48 | NUR ---
NURSING PROGRESS NOTE: Legal hold: 5250 Expires 04/16. Client on involuntary status for DTS Report received from RN with use of SBAR. Nabila Holliday RN Why are they here: Client reported increased auditory and visual hallucinations. Client hears voices coming from buildings saying, "We're going to kill you." Client believes others are controlling him. Client believes camera's are watching him in his car. Client is currently homeless and may not have been taking his medications. Assessment What has happened this shift: Patient was pleasant and cooperative with morning medications. He requested a Zydis later in the morning and was given Zydis 5 mg ODT at 1152. Pt conveyed that he asked for a PRN because of voices, "they just won't stop, I can't sleep." Pt reports that the voices say things like "shut up" or "do this, do that , don't do that." Pt paces in the hallway dressed as though to go outside in the snow listening to the radio headphones. Pt approached the manager of community relations after lunch to tell her that tomorrow is his birthday and to ask if he could have chocolate cake. Tomorrow actually is his birthday and staff is conspiring to make the chocolate cake request happen. S/I, H/I: Pt denies. A/VH: +AH Sleep: Pt slept 6.5 hours last night per noc shift report, takes short naps during the day. ADL's: Independent Group attendance: No groups today. Were meds taken: Yes Any med S/E: None noted or reported. Mental Status Exam Appearance: Stocky man with facial hair dressed for snow with a big heavy jacket and red and black lumberjack hat with radio headphones over that hat giving them the appearance of ear muffs. Eye contact: Fair to good. Behavior: Paces unit listening to radio headphones, mostly isolative to self and room, requests PRNs when he needs them. Speech: Mumbles, difficult to understand at times. Mood: Anxious Affect: Internally preoccupied Thought process: Internally preoccupied Thought Content: The voices won't stop, tomorrow is his birthday Cognition: A/O X 3 Insight: Impaired though is insightful enough to realize that he needs medication and to ask for PRNs when he needs them. Judgment: Fair Interventions PRN's used: Zydis, nicotine lozenges Therapeutic interventions: 1:1 assessment, therapeutic conversation, medication education/administration/monitoring, behavior monitoring and intervention, redirection, distraction, reality orientation, positive reinforcement provided, maintained Q 15 minute safety checks. Restraints/seclusion/emergency medication: None Justification of Continued Inpatient Treatment: Patient continues to exhibit psychotic symptoms and mood lability, irritability. Patient continues to be a high risk for discharge and requires continued medication adjustment in a safe and supportive milieu. Pt is reasonably aware that he will be going for [employer] conservatorship, pt has been served [facility] papers.
[2020-04-14 20:10] VITALS: BP 125/83
[2020-04-14] MEDS: gabapentin 400mg capsule PO SCH (20:43)
[2020-04-14] MEDS: traZODone 50mg tablet PO PRN (20:44)
[2020-04-14] MEDS: lithium carbonate 150mg capsule PO SCH (20:44)
[2020-04-15] MEDS: traZODone 50mg tablet PO PRN ×2 (02:17→20:27)
[2020-04-15] MEDS: LORazepam 1 MG tablet PO PRN ×2 (02:17→11:42)
[2020-04-15] MEDS: NICOTINE POLACRILEX 2 MG LOZENGE BC PRN ×7 (02:17→19:11)
--- NOTE | 2020-04-15 05:20 | NUR ---
NURSING PROGRESS NOTE: Legal hold: 5250 Client on involuntary status for DTS Report received from RN with use of SBAR. MARIBEL Byrne Why are they here: Client reported increased auditory and visual hallucinations. Client hears voices coming from buildings saying, "We're going to kill you." Client believes others are controlling him. Client believes camera's are watching him in his car. Client is currently homeless and may not have been taking his medications. Assessment What has happened this shift: Patient observed awake in his room at the beginning of shift. Pleasant and cooperative with care; compliant with medication. PRN Ativan, Trazodone and Nicotine lozenge provided. Patient denies SI, HI, A/VH this shift; appears internally preoccupied and no delusional thought expressed this shift. Patient participated in HS snack and briefly paced the unit prior to returning to his room. Patient appeared to have some difficulty sleeping prior to Trazodone and Ativan. S/I, H/I: Denies A/VH: Denies Sleep: Refer to sleep assessment ADL's: Independent Group attendance: NA Were meds taken: Yes Any med S/E: None observed or reported Mental Status Exam Appearance: Neat, appropriately dressed, wearing his beanie. Eye contact: Fair Behavior: Mostly isolative; listening to headphones, social with staff Speech: Mumbles, difficult to understand at times. Mood: Anxious Affect: Congruent to mood Thought process: Internally preoccupied Thought Content: Meeting needs Cognition: A/O X 3 Insight: Impaired Judgment: Fair Interventions PRN's used: Ativan, Trazodone and Nicotine lozenges Therapeutic interventions: 1:1 assessment, therapeutic conversation, medication education/administration/monitoring, behavior monitoring and intervention, redirection, distraction, reality orientation, positive reinforcement provided, maintained Q 15 minute safety checks. Restraints/seclusion/emergency medication: None Justification of Continued Inpatient Treatment: Patient continues to exhibit psychotic symptoms and mood lability, irritability. Patient continues to be a high risk for discharge and requires continued medication adjustment in a safe and supportive milieu. Pt is reasonably aware that he will be going for [facility] conservatorship, pt has been served [employer].
[2020-04-15] MEDS: quetiapine 100mg tablet PO SCH ×3 (07:43→20:24)
[2020-04-15] MEDS: QUEtiapine 25mg tablet PO SCH ×2 (07:43→11:43)
[2020-04-15] MEDS: tizanidine 4mg tablet PO SCH ×3 (07:44→16:25)
[2020-04-15] MEDS: benztropine 1mg tablet PO SCH ×2 (07:44→20:24)
[2020-04-15] MEDS: divalproex sodium 500mg tablet.DR PO SCH ×2 (07:44→20:24)
[2020-04-15] MEDS: clonazePAM 1mg tablet PO SCH ×3 (07:44→20:24)
[2020-04-15] MEDS: gabapentin 300mg capsule PO SCH ×2 (07:44→11:42)
[2020-04-15 08:00] VITALS: BP 126/76
--- NOTE | 2020-04-15 17:21 | NUR ---
NURSING PROGRESS NOTE: Legal hold: 5250 Expires 04/16. Client on involuntary status for DTS Report received from RN with use of SBAR. Nabila Holliday RN Why are they here: Client reported increased auditory and visual hallucinations. Client hears voices coming from buildings saying, "We're going to kill you." Client believes others are controlling him. Client believes camera's are watching him in his car. Client is currently homeless and may not have been taking his medications. Assessment What has happened this shift: Received pt sleeping in bed at shift change. Patient is medication compliant. Attends all meals and snacks in the community room. Patient is dressed in green scrub pants, t-shirt and coat with red and white hat. Patient is wearing earphones. Before a.m. medications, patient stated that he didnt want to talk and appeared to be responding to internal stimuli. S/I, H/I: Pt denies. A/VH: +AH Sleep: 5.25 hrs NOC, napped on and off throughout day. ADL's: Independent Group attendance: No groups today. Were meds taken: Yes Any med S/E: None noted or reported. Mental Status Exam Appearance: Clean and neat wearing scrub pants, t-shirt, heavy coat and red and black plaid hat. Eye contact: Fair to good. Behavior: Paces unit listening to radio headphones, mostly isolative to self and room, requests PRNs when he needs them. Speech: Mumbles, difficult to understand at times. Mood: Anxious Affect: Internally preoccupied Thought process: Internally preoccupied Thought Content: The voices wont stop. Today is his birthday. Cognition: A/O X 3 Insight: Impaired though is insightful enough to realize that he needs medication and to ask for PRNs when he needs them. Judgment: Fair Interventions PRN's used: nicotine lozenges Therapeutic interventions: 1:1 assessment, therapeutic conversation, medication education/administration/monitoring, behavior monitoring and intervention, redirection, distraction, reality orientation, positive reinforcement provided, maintained Q 15 minute safety checks. Restraints/seclusion/emergency medication: None Justification of Continued Inpatient Treatment: Patient continues to exhibit psychotic symptoms and mood lability, irritability. Patient continues to be a high risk for discharge and requires continued medication adjustment in a safe and supportive milieu. Pt is reasonably aware that he will be going for [facility] conservatorship, pt has been served [facility]CON papers.
[2020-04-15] MEDS: mag hydrox/Alum hydrox/simeth 30ml oral suspension PO PRN (19:11)
[2020-04-15 19:32] VITALS: BP 129/80
[2020-04-15] MEDS: lithium carbonate 150mg capsule PO SCH (20:24)
[2020-04-15] MEDS: gabapentin 400mg capsule PO SCH (20:24)
[2020-04-16] MEDS: NICOTINE POLACRILEX 2 MG LOZENGE BC PRN ×6 (03:39→23:19)
[2020-04-16] MEDS: OLANZapine 5mg rapidly disint. tablet PO PRN (05:01)
--- NOTE | 2020-04-16 05:45 | NUR ---
NURSING PROGRESS NOTE: Legal hold: TCON Client on involuntary status for DTS Report received from RN with use of SBAR. MARIBEL Byrne Why are they here: Client reported increased auditory and visual hallucinations. Client hears voices coming from buildings saying, "We're going to kill you." Client believes others are controlling him. Client believes camera's are watching him in his car. Client is currently homeless and may not have been taking his medications. Assessment What has happened this shift: Patient observed walking the posadas at the beginning of shift. Pleasant and cooperative with care; compliant with medication. PRN Trazodone and Nicotine lozenge provided upon request. Patient denies SI, HI, A/VH this shift. He had a big smile when told happy birthday and reported having a good day. He stayed in his room majority of shift, participated in HS snack, later observed sleeping and did not appear to be having difficulty sleeping. He woke early this AM and provided Zydis upon request. S/I, H/I: Denies A/VH: Denies Sleep: Refer to sleep assessment ADL's: Independent Group attendance: NA Were meds taken: Yes Any med S/E: None observed or reported Mental Status Exam Appearance: Neat, appropriately dressed, wearing his beanie. Eye contact: Fair Behavior: Mostly isolative; listening to headphones, social with staff Speech: Mumbles, difficult to understand at times. Mood: Euphoric Affect: Constricted Thought process: Internally preoccupied Thought Content: Meeting needs Cognition: A/O X 3 Insight: Impaired Judgment: Fair Interventions PRN's used: Zydis, Trazodone and Nicotine lozenges Therapeutic interventions: 1:1 assessment, therapeutic conversation, medication education/administration/monitoring, behavior monitoring and intervention, redirection, distraction, reality orientation, positive reinforcement provided, maintained Q 15 minute safety checks. Restraints/seclusion/emergency medication: None Justification of Continued Inpatient Treatment: Patient continues to exhibit psychotic symptoms and mood lability, irritability. Patient continues to be a high risk for discharge and requires continued medication adjustment in a safe and supportive milieu. Pt is reasonably aware that he will be going for [employer] conservatorship, pt has been served [employer].
[2020-04-16 07:48] VITALS: BP 137/93
[2020-04-16] MEDS: divalproex sodium 500mg tablet.DR PO SCH ×2 (07:59→20:19)
[2020-04-16] MEDS: QUEtiapine 25mg tablet PO SCH ×2 (07:59→12:27)
[2020-04-16] MEDS: clonazePAM 1mg tablet PO SCH ×3 (07:59→20:19)
[2020-04-16] MEDS: quetiapine 100mg tablet PO SCH ×3 (07:59→20:19)
[2020-04-16] MEDS: benztropine 1mg tablet PO SCH ×2 (07:59→20:19)
[2020-04-16] MEDS: gabapentin 300mg capsule PO SCH ×2 (08:00→12:28)
[2020-04-16] MEDS: tizanidine 4mg tablet PO SCH ×4 (08:00→23:19)
[2020-04-16] MEDS: LORazepam 1 MG tablet PO PRN (08:05)
--- NOTE | 2020-04-16 16:48 | NUR ---
NURSING PROGRESS NOTE: Legal hold: T-Con Client on involuntary status for DTS Report received from RN with use of SBAR. Antoine RN Why are they here: Client reported increased auditory and visual hallucinations. Client hears voices coming from buildings saying, "We're going to kill you." Client believes others are controlling him. Client believes camera's are watching him in his car. Client is currently homeless and may not have been taking his medications. Assessment What has happened this shift: Pt. awake sitting on his bed at shift change. Patient reports that the voices are bad, requests Ativan. Patient states that if he doesnt get Ativan he will likely start screaming up and down the halls. Ativan given and patient took a nap after morning medications. Patient seems to have some insight into his mental illness, and he knows when to ask for help. Patient has been tired today and has been sleeping on and off. S/I, H/I: Pt denies. A/VH: +AH Sleep: 6.5 hrs NOC, napped on and off throughout day. ADL's: Independent Group attendance: No groups today. Were meds taken: Yes Any med S/E: None noted or reported. Mental Status Exam Appearance: Clean and neat wearing scrub pants, t-shirt, heavy coat and red and black plaid hat. Eye contact: Fair to good. Behavior: Paces unit listening to radio headphones, mostly isolative to self and room, requests PRNs when he needs them. Speech: Mumbles, difficult to understand at times. Mood: Anxious Affect: Internally preoccupied Thought process: Internally preoccupied Thought Content: The voices are bad. Cognition: A/O X 3 Insight: Impaired though is insightful enough to realize that he needs medication and to ask for PRNs when he needs them. Judgment: Fair Interventions PRN's used: nicotine lozenges Therapeutic interventions: 1:1 assessment, therapeutic conversation, medication education/administration/monitoring, behavior monitoring and intervention, redirection, distraction, reality orientation, positive reinforcement provided, maintained Q 15 minute safety checks. Restraints/seclusion/emergency medication: None Justification of Continued Inpatient Treatment: Patient continues to exhibit psychotic symptoms and mood lability, irritability. Patient continues to be a high risk for discharge and requires continued medication adjustment in a safe and supportive milieu. Pt is reasonably aware that he will be going for [facility] conservatorship, pt has been served [employer] papers.
[2020-04-16 19:14] VITALS: BP 137/78
[2020-04-16] MEDS: traZODone 50mg tablet PO PRN ×2 (20:19→23:19)
[2020-04-16] MEDS: gabapentin 400mg capsule PO SCH (20:19)
[2020-04-16] MEDS: lithium carbonate 150mg capsule PO SCH (20:19)
[2020-04-17] MEDS: mag hydrox/Alum hydrox/simeth 30ml oral suspension PO PRN ×2 (03:04→22:12)
[2020-04-17] MEDS: NICOTINE POLACRILEX 2 MG LOZENGE BC PRN ×4 (03:04→22:12)
--- NOTE | 2020-04-17 04:48 | NUR ---
NURSING PROGRESS NOTE: Legal hold: TCON Client on involuntary status for DTS Report received from RN with use of SBAR. MARIBEL Byrne Why are they here: Client reported increased auditory and visual hallucinations. Client hears voices coming from buildings saying, "We're going to kill you." Client believes others are controlling him. Client believes camera's are watching him in his car. Client is currently homeless and may not have been taking his medications. Assessment What has happened this shift: Patient observed awake in his room at the beginning of shift. Pleasant and cooperative with care; compliant with medication. PRN Nicotine lozenge, Maalox and Trazodone provided upon request. Patient continues to deny SI, HI, A/VH this shift. Patient requested a slice of his birthday cake and lit up with a big smile and thankful when it was brought to him. Patient remained in his room the majority of the shift. He expressed some agitation with a female peer that kept shutting his door as it was startling him; he was easily verbally redirected. Patient is observed sleeping; appears to be sleeping without difficulty but with some interruption. S/I, H/I: Denies A/VH: Denies Sleep: Refer to sleep assessment ADL's: Independent Group attendance: NA Were meds taken: Yes Any med S/E: None observed or reported Mental Status Exam Appearance: Neat, appropriately dressed, wearing his beanie. Eye contact: Fair Behavior: Mostly isolative; pleasant and cooperative Speech: Mumbles, difficult to understand at times. Mood: Euphoric Affect: Constricted Thought process: Thought blocking Thought Content: Meeting needs Cognition: A/O X 3 Insight: Impaired Judgment: Fair Interventions PRN's used: Maalox, Trazodone and Nicotine lozenges Therapeutic interventions: 1:1 assessment, therapeutic conversation, medication education/administration/monitoring, behavior monitoring and intervention, redirection, distraction, reality orientation, positive reinforcement provided, maintained Q 15 minute safety checks. Restraints/seclusion/emergency medication: None Justification of Continued Inpatient Treatment: Patient continues to exhibit psychotic symptoms and mood lability, irritability. Patient continues to be a high risk for discharge and requires continued medication adjustment in a safe and supportive milieu. Pt is reasonably aware that he will be going for [employer] comatorship, pt has been served [employer].
[2020-04-17] MEDS: acetaminophen 325mg tablet PO PRN (06:04)
[2020-04-17] MEDS: gabapentin 300mg capsule PO SCH ×2 (07:33→12:42)
[2020-04-17] MEDS: clonazePAM 1mg tablet PO SCH ×3 (07:33→20:10)
[2020-04-17] MEDS: quetiapine 100mg tablet PO SCH ×3 (07:34→20:10)
[2020-04-17] MEDS: benztropine 1mg tablet PO SCH ×2 (07:34→20:11)
[2020-04-17] MEDS: divalproex sodium 500mg tablet.DR PO SCH ×2 (07:34→20:10)
[2020-04-17] MEDS: QUEtiapine 25mg tablet PO SCH ×2 (07:34→12:43)
[2020-04-17] MEDS: tizanidine 4mg tablet PO SCH ×2 (07:34→16:54)
[2020-04-17 07:48] VITALS: BP 128/68
--- NOTE | 2020-04-17 16:08 | NUR ---
CM-Placement Presenting Issues: Pt is on T-Con and has been isolating himself as a way to cope w/his psychoses. Since his admission, pt's been requesting help to get into an [facility] here in [place]. Per MDT consultation pt, is very close to baseline functioning and would benefit from placement services. Interventions: SS had t/c with [facility], left vm apprising [facility] of pt's readiness for placement. SS also faxed placement packet to [facility]. Plan: SS will contact [facility] to inform of placement readiness and engage [facility] & [facility] in dcp & placement activities. Maria Luisa Murphy LCSW Addendum: 04/17/20 at 1627 by Maria Luisa Murphy Amended: Links added.
--- NOTE | 2020-04-17 16:50 | NUR ---
NURSING PROGRESS NOTE: Legal hold: T-Con Client on involuntary status for DTS Report received from RN with use of PAL. MARIBEL Ramirez Why are they here: Client reported increased auditory and visual hallucinations. Client hears voices coming from buildings saying, "We're going to kill you." Client believes others are controlling him. Client believes camera's are watching him in his car. Client is currently homeless and may not have been taking his medications. Assessment What has happened this shift: Pt. awake and pacing halls and wearing headphones at change of shift. Pt. took all medications. While waiting for meds, pt. mumbling under his breath, "I'm just a guinnea pig, they are doing experiments on me". Pt. napped after medications. 1:1 done at bedside, pt. denies SI/HI, visual hallucinations, but states he heares voices that say, "awful things to me but they are more quiet now". Pt. napped after lunch. S/I, H/I: Denies A/VH: +AH that say "awful things to him". Sleep: napped x2 today. ADL's: Independent. Group attendance: No Were meds taken: Yes Any med S/E: Denies Mental Status Exam Appearance: Clean and neat wearing scrub pants, t-shirt, heavy coat and red and black plaid hat. Eye contact: Fair to good. Behavior: Paces unit listening to radio headphones, isolates to room often. Speech: Mumbles, difficult to understand at times. Mood: Anxious Affect: Congruent with mood. Thought process: Internally preoccupied Thought Content: Circumstantial. Cognition: A/O X 3 (Not to circumstance) Insight: Fair Judgment: Fair Interventions PRN's used: nicotine lozenges Therapeutic interventions: 1:1 assessment, therapeutic conversation, medication education/administration/monitoring, behavior monitoring and intervention, redirection, distraction, reality orientation, positive reinforcement provided, maintained Q 15 minute safety checks. Restraints/seclusion/emergency medication: None Justification of Continued Inpatient Treatment: Patient continues to exhibit psychotic symptoms and mood lability, irritability. Patient continues to be a high risk for discharge and requires continued medication adjustment in a safe and supportive milieu. Pt is reasonably aware that he will be going for [employer], pt has been served [employer].
[2020-04-17 19:25] VITALS: BP 125/84
[2020-04-17] MEDS: lithium carbonate 150mg capsule PO SCH (20:11)
[2020-04-17] MEDS: gabapentin 400mg capsule PO SCH (20:11)
[2020-04-17] MEDS: traZODone 50mg tablet PO PRN (20:11)
[2020-04-18] MEDS: LORazepam 1 MG tablet PO PRN ×3 (03:22→20:38)
--- NOTE | 2020-04-18 04:58 | NUR ---
NURSING PROGRESS NOTE: Legal hold: TCON Client on involuntary status for DTS Report received from RN with use of SBAR. MARIBEL Byrne Why are they here: Client reported increased auditory and visual hallucinations. Client hears voices coming from buildings saying, "We're going to kill you." Client believes others are controlling him. Client believes camera's are watching him in his car. Client is currently homeless and may not have been taking his medications. Assessment What has happened this shift: Patient observed laying in his room at the beginning of shift. Pleasant and cooperative with care; compliant with medication. PRN Trazodone, Ativan, Maalox and Nicotine lozenge provided upon request. Patient expressed his acid reflux is getting worse this shift. He originally refused HS snack but later came out to get a snack and quickly returned to bed. Patient continues to deny SI, HI, A/VH. He reports; I just want to sleep. Patient observed sleeping with some interruption d/t acid reflux. S/I, H/I: Denies A/VH: Denies Sleep: Refer to sleep assessment ADL's: Independent Group attendance: NA Were meds taken: Yes Any med S/E: None observed or reported Mental Status Exam Appearance: Neat, appropriately dressed, wearing his beanie. Eye contact: Fair Behavior: Mostly isolative; pleasant and cooperative Speech: Mumbles, difficult to understand at times. Mood: Depressed Affect: Constricted Thought process: Thought blocking Thought Content: Meeting needs; acid reflux is bothering him Cognition: A/O X 3 Insight: Impaired Judgment: Fair Interventions PRN's used: Ativan, Maalox, Trazodone and Nicotine lozenges Therapeutic interventions: 1:1 assessment, therapeutic conversation, medication education/administration/monitoring, behavior monitoring and intervention, redirection, distraction, reality orientation, positive reinforcement provided, maintained Q 15 minute safety checks. Restraints/seclusion/emergency medication: None Justification of Continued Inpatient Treatment: Patient continues to exhibit psychotic symptoms and mood lability, irritability. Patient continues to be a high risk for discharge and requires continued medication adjustment in a safe and supportive milieu. Pt is reasonably aware that he will be going for [employer] conservatorship, pt has been served [employer] papers.
[2020-04-18] MEDS: NICOTINE POLACRILEX 2 MG LOZENGE BC PRN ×4 (07:24→19:53)
[2020-04-18] MEDS: gabapentin 300mg capsule PO SCH ×2 (07:29→12:46)
[2020-04-18] MEDS: benztropine 1mg tablet PO SCH ×2 (07:29→20:37)
[2020-04-18] MEDS: clonazePAM 1mg tablet PO SCH ×3 (07:29→20:38)
[2020-04-18] MEDS: divalproex sodium 500mg tablet.DR PO SCH ×2 (07:29→20:37)
[2020-04-18] MEDS: QUEtiapine 25mg tablet PO SCH ×2 (07:30→12:46)
[2020-04-18] MEDS: quetiapine 100mg tablet PO SCH ×3 (07:30→20:37)
[2020-04-18] MEDS: tizanidine 4mg tablet PO SCH ×3 (07:31→16:47)
[2020-04-18 08:00] VITALS: BP 154/80
--- NOTE | 2020-04-18 10:14 | NUR ---
Reassessment: Pt continues eating well with average 75-100% PO intake on regular diet. Pt participating in HS snack per RN notes. LBM 04/15. D/w dietary to send prunes and prune juice with next meal to assist with bowel regularity. Will continue to follow and monitor need for further nutrition intervention. Rec: 1. continue regular diet 2. routine bowel care 3. scaled wts per rx Addendum: 04/18/20 at [address] Amended: Links added.
[2020-04-18] MEDS: mag hydrox/Alum hydrox/simeth 30ml oral suspension PO PRN ×2 (10:19→17:11)
--- NOTE | 2020-04-18 17:14 | NUR ---
NURSING PROGRESS NOTE: Legal hold: T-Con Client on involuntary status for DTS Report received SBAR hand-off from MARIBEL Boston Why are they here: Client reported increased auditory and visual hallucinations. Client hears voices coming from buildings saying, "We're going to kill you." Client believes others are controlling him. Client believes camera's are watching him in his car. Client is currently homeless and may not have been taking his medications. Assessment What has happened this shift: Pt. is asleep at start of shift. Pt. awake before breakfast and took medications. Pt. is friendly upon greeting, asking this RN how he is. Pt. pacing in halls with headphones. Pt. approaches RN and asks for Ativan prn. When asked about anxiety pt. states, My family abandoned me. Now they are tormenting me. 1:1 done at bedside. Pt. denies SI/HI. However, pt. reports +A/V hallucinations. Pt. reports command AH, states he has to appease the voices. Pt. states, If I read the Bible too much, the voices tell me to stop it. Pt. reports the voices are more quiet that previously. Pt. states, Im not screaming as much as I was. Im trying to work with the voices. Pt. also reports seeing shadows at times. Pt. napped in AM and after lunch. S/I, H/I: Denies A/VH: +CAH. Pt. states he must appease the voices Sleep: napped x2 today. ADL's: Independent. Group attendance: No Were meds taken: Yes Any med S/E: Denies Mental Status Exam Appearance: Clean but disheveled, wearing scrub pants, t-shirt, heavy coat and red and black plaid hat. Eye contact: Fair. Behavior: Paces unit, listening to radio headphones, isolates to room often and naps. Speech: Mumbles, difficult to understand at times. Mood: Anxious Affect: Congruent with mood. Thought process: Thought blocking. Disorganized. Thought Content: Circumstantial. Cognition: A/O X 3 (Not to circumstance) Insight: Fair Judgment: Fair Interventions PRN's used: Ativan 1mg po x1. Nicotine lozenges Therapeutic interventions: 1:1 assessment, therapeutic conversation, medication education/administration/monitoring, behavior monitoring and intervention, redirection, distraction, reality orientation, positive reinforcement provided, maintained Q 15 minute safety checks. Restraints/seclusion/emergency medication: None Justification of Continued Inpatient Treatment: Patient continues to exhibit psychotic symptoms and mood lability, irritability. Patient continues to be a high risk for discharge and requires continued medication adjustment in a safe and supportive milieu. Pt is reasonably aware that he will be going for [facility] conservatorship, pt has been served [facility] papers.
[2020-04-18] MEDS: OLANZapine 5mg rapidly disint. tablet PO PRN (18:44)
[2020-04-18 19:17] VITALS: BP 140/90
[2020-04-18] MEDS: lithium carbonate 150mg capsule PO SCH (20:37)
[2020-04-18] MEDS: traZODone 50mg tablet PO PRN (20:37)
[2020-04-18] MEDS: gabapentin 400mg capsule PO SCH (20:37)
[2020-04-19] MEDS: NICOTINE POLACRILEX 2 MG LOZENGE BC PRN ×5 (01:04→16:16)
[2020-04-19] MEDS: mag hydrox/Alum hydrox/simeth 30ml oral suspension PO PRN (01:04)
[2020-04-19] MEDS: LORazepam 1 MG tablet PO PRN (04:57)
--- NOTE | 2020-04-19 05:43 | NUR ---
NURSING PROGRESS NOTE: Legal hold: TCON Client on involuntary status for DTS Report received from RN with use of SBAR. MARIBEL Byrne Why are they here: Client reported increased auditory and visual hallucinations. Client hears voices coming from buildings saying, "We're going to kill you." Client believes others are controlling him. Client believes camera's are watching him in his car. Client is currently homeless and may not have been taking his medications. Assessment What has happened this shift: Patient observed laying on his bed and listening to headphones at the beginning of shift. Pleasant and cooperative with care; compliant with medication. PRN Ativan, Zydis, Trazodone, Maalox and Nicotine lozenges provided upon requests. Patient continues to deny SI, HI, VH but express AH that make him poke himself as he was observed aggressively poking at himself. Patient apologetic and reported he would calm down; senior technical writer reassured him provided PRN upon his request. Patient continues to report difficulty with acid reflux. He ate snack in his room and only came out to make requests this shift. Patient observed sleeping and does not appear to be having difficulty; some interruptions d/t anxiety and acid reflux. S/I, H/I: Denies A/VH: +AH Sleep: Refer to sleep assessment ADL's: Independent Group attendance: NA Were meds taken: Yes Any med S/E: None observed or reported Mental Status Exam Appearance: Neat, appropriately dressed, wearing his beanie. Eye contact: Fair Behavior: Mostly isolative; pleasant and cooperative Speech: Mumbles, difficult to understand at times. Mood: Depressed Affect: Constricted Thought process: Thought blocking Thought Content: Meeting needs; acid reflux, voices making him poke himself, increased anxiety Cognition: A/O X 3 Insight: Impaired Judgment: Fair Interventions PRN's used: Zydis, Ativan, Maalox, Trazodone and Nicotine lozenges Therapeutic interventions: 1:1 assessment, therapeutic conversation, medication education/administration/monitoring, behavior monitoring and intervention, redirection, distraction, reality orientation, positive reinforcement provided, maintained Q 15 minute safety checks. Restraints/seclusion/emergency medication: None Justification of Continued Inpatient Treatment: Patient continues to exhibit psychotic symptoms and mood lability, irritability. Patient continues to be a high risk for discharge and requires continued medication adjustment in a safe and supportive milieu. Pt is reasonably aware that he will be going for LPS conservatorship, pt has been served TCON papers.
[2020-04-19 08:04] VITALS: BP 126/93
[2020-04-19] MEDS: divalproex sodium 500mg tablet.DR PO SCH ×2 (08:06→20:52)
[2020-04-19] MEDS: QUEtiapine 25mg tablet PO SCH ×2 (08:06→13:28)
[2020-04-19] MEDS: gabapentin 300mg capsule PO SCH ×2 (08:06→13:28)
[2020-04-19] MEDS: benztropine 1mg tablet PO SCH ×2 (08:06→20:51)
[2020-04-19] MEDS: clonazePAM 1mg tablet PO SCH ×3 (08:06→20:52)
[2020-04-19] MEDS: tizanidine 4mg tablet PO SCH ×3 (08:06→16:17)
[2020-04-19] MEDS: quetiapine 100mg tablet PO SCH ×3 (08:06→20:52)
[2020-04-19] MEDS: OLANZapine 5mg rapidly disint. tablet PO PRN (09:31)
[2020-04-19] MEDS ORDERED: pantoprazole 40mg Tablet.DR PO ONE (10:10)
--- NOTE | 2020-04-19 16:51 | NUR ---
NURSING PROGRESS NOTE: Legal hold: T-Con Client on involuntary status for DTS Report received SBAR hand-off from MARIBEL Boston Why are they here: Client reported increased auditory and visual hallucinations. Client hears voices coming from buildings saying, "We're going to kill you." Client believes others are controlling him. Client believes camera's are watching him in his car. Client is currently homeless and may not have been taking his medications. Assessment What has happened this shift: Pt. is asleep at start of shift. Pt. awake for breakfast. Pt. ate all meals in community room. Pt. took all medications. Pt. napped after breakfast. 1:1 done at bedside, pt. continues to report +AH/VH, reports hearing the voices of his family as well as seeing shadows. Pt. reports feeling depressed, pt. states, Im from my family, Im worried about them. Pt. requested Zyprexa Zydis PRN and received with good effect. Pt. paces hallway listening to headphones, but mostly isolates to his room and naps. Pt. reports feeling better in the after states, Im feeling better now that my brother is out of my head. Then pt. mumbles something incoherent. S/I, H/I: Denies A/VH: +A/V hallucinations. Pt. reports his brother is saying derogatory things to him. Sleep: napped approximately 4 hours today between AM and afternoon. ADL's: Independent. Group attendance: No Were meds taken: Yes Any med S/E: Denies Mental Status Exam Appearance: Clean but disheveled, wearing scrub pants, t-shirt, heavy coat and red and black plaid hat. Eye contact: Fair. Behavior: Cooperative, paces unit, listening to radio headphones, isolates to room and naps. Speech: Mumbles, difficult to understand at times. Mood: Depressed, anxious Affect: Congruent with mood. Thought process: Thought blocking. Disorganized. Thought Content: Circumstantial. Concern for his family. Cognition: A/O X 3 (Not to circumstance) Insight: Fair Judgment: Fair Interventions PRN's used: Zyprexa Zydis x1. Nicotine lozenges Therapeutic interventions: 1:1 assessment, therapeutic conversation, medication education/administration/monitoring, behavior monitoring and intervention, redirection, distraction, reality orientation, positive reinforcement provided, maintained Q 15 minute safety checks. Restraints/seclusion/emergency medication: None Justification of Continued Inpatient Treatment: Patient continues to exhibit psychotic symptoms and mood lability, irritability. Patient continues to be a high risk for discharge and requires continued medication adjustment in a safe and supportive milieu. Pt is reasonably aware that he will be going for [facility] conservatorship, pt has been served TCON papers.
[2020-04-19 19:46] VITALS: BP 136/81
[2020-04-19] MEDS: gabapentin 400mg capsule PO SCH (20:51)
[2020-04-19] MEDS: lithium carbonate 150mg capsule PO SCH (20:52)
[2020-04-20] MEDS: tizanidine 4mg tablet PO SCH ×3 (00:49→15:14)
[2020-04-20] MEDS: mag hydrox/Alum hydrox/simeth 30ml oral suspension PO PRN (00:49)
--- NOTE | 2020-04-20 03:42 | NUR ---
NURSING PROGRESS NOTE: Gianni Legal hold: T-Con Client on involuntary status for DTS Report received SBAR hand-off from MARIBEL Schultz Why are they here: Client reported increased auditory and visual hallucinations. Client hears voices coming from buildings saying, "We're going to kill you." Client believes others are controlling him. Client believes camera's are watching him in his car. Client is currently homeless and may not have been taking his medications. Assessment What has happened this shift: Pt. in bed at change of shift, pt states he is feeling tired, did not want to talk, did not answer RN when asked mental health assessment. Could not assess S/I; H/I assessment. Pt took all medications without issue, calm and cooperative. Pt retired to bed early. S/I, H/I: could not assess A/VH: +A/V : could not assess Sleep: ADL's: Independent. Group attendance: No Were meds taken: Yes Any med S/E: Denies Mental Status Exam Appearance: Clean but disheveled, wearing scrub pants, t-shirt, heavy coat and red and black plaid hat. Eye contact: Fair. Behavior: Cooperative, paces unit, listening to radio headphones, isolates to room and naps. Speech: Mumbles, difficult to understand at times. Mood: Depressed, anxious Affect: Congruent with mood. Thought process: Thought blocking. Disorganized. Thought Content: Circumstantial. Cognition: A/O X 3 (Not to circumstance) Insight: Fair Judgment: Fair Interventions PRN's used: Nicotine lozenges Therapeutic interventions: 1:1 assessment, therapeutic conversation, medication education/administration/monitoring, behavior monitoring and intervention, redirection, distraction, reality orientation, positive reinforcement provided, maintained Q 15 minute safety checks. Restraints/seclusion/emergency medication: None Justification of Continued Inpatient Treatment: Patient continues to exhibit psychotic symptoms and mood lability, irritability. Patient continues to be a high risk for discharge and requires continued medication adjustment in a safe and supportive milieu. Pt is reasonably aware that he will be going for [employer] conservatorship, pt has been served [employer].
[2020-04-20] MEDS: NICOTINE POLACRILEX 2 MG LOZENGE BC PRN ×5 (06:06→21:03)
[2020-04-20] MEDS: OLANZapine 5mg rapidly disint. tablet PO PRN (06:27)
[2020-04-20] MEDS: LORazepam 1 MG tablet PO PRN ×2 (07:43→15:15)
[2020-04-20] MEDS: benztropine 1mg tablet PO SCH ×2 (07:44→20:43)
[2020-04-20] MEDS: pantoprazole 40mg Tablet.DR PO SCH (07:44)
[2020-04-20] MEDS: gabapentin 300mg capsule PO SCH ×2 (07:44→13:12)
[2020-04-20] MEDS: quetiapine 100mg tablet PO SCH ×3 (07:45→20:42)
[2020-04-20] MEDS: divalproex sodium 500mg tablet.DR PO SCH ×2 (07:45→20:42)
[2020-04-20] MEDS: QUEtiapine 25mg tablet PO SCH ×2 (07:46→13:12)
[2020-04-20] MEDS: clonazePAM 1mg tablet PO SCH ×3 (07:47→20:41)
[2020-04-20 08:06] VITALS: BP 143/87
--- NOTE | 2020-04-20 16:34 | NUR ---
NURSING PROGRESS NOTE: Legal hold: T-Con Client on involuntary status for DTS Report received SBAR hand-off from MARIBEL Boston Why are they here: Client reported increased auditory and visual hallucinations. Client hears voices coming from buildings saying, "We're going to kill you." Client believes others are controlling him. Client believes camera's are watching him in his car. Client is currently homeless and may not have been taking his medications. Assessment What has happened this shift: Patient was asleep at change of shift and up for breakfast. Patient is quiet and reserved. Patient asks for Nicotine lozenges and asked once for Ativan. Patient states he is doing "okay." Patient is hearing voices but does not elaborate. Patient does not respond when RN asked if patient is seeing things. Patient listens to music on his headphones and paces the halls. Patient does not go to group and keeps to himself. Patient napped in the afternoon. Patient is in the process of being conserved. S/I, H/I: Denies A/VH: +Audio hallucinations. probably visual but would not answer. Sleep: napped most of the afternoon ADL's: Independent. Group attendance: No Were meds taken: Yes Any med S/E: Denies Mental Status Exam Appearance: Patient took a shower today wearing his own clothes and his daily red and black plaid hat. Eye contact: Fair. Behavior: Cooperative, paces unit, listening to radio headphones, isolates to room and naps. Speech: Mumbles, difficult to understand at times. Poverty of speech. Mood: Depressed, anxious Affect: Congruent with mood. Thought process: Thought blocking. Disorganized. Thought Content: Circumstantial. Cognition: A/O X 3 (Not to circumstance) Insight: Fair Judgment: Fair Interventions PRN's used: Nicotine lozenges, Ativan x 1 Therapeutic interventions: 1:1 assessment, therapeutic conversation, medication education/administration/monitoring, behavior monitoring and intervention, redirection, distraction, reality orientation, positive reinforcement provided, maintained Q 15 minute safety checks. Restraints/seclusion/emergency medication: None Justification of Continued Inpatient Treatment: Patient continues to exhibit psychotic symptoms and mood lability, irritability. Patient continues to be a high risk for discharge and requires continued medication adjustment in a safe and supportive milieu. Pt is reasonably aware that he will be going for LPS conservatorship, pt has been served [employer] papers.
[2020-04-20 19:22] VITALS: BP 158/99
[2020-04-20] MEDS: gabapentin 400mg capsule PO SCH (20:41)
[2020-04-20] MEDS: lithium carbonate 150mg capsule PO SCH (20:41)
--- NOTE | 2020-04-21 03:44 | NUR ---
NURSING PROGRESS NOTE: Gianni: Legal hold: T-Con Client on involuntary status for DTS Report received SBAR hand-off from MARIBEL Schultz Why are they here: Client reported increased auditory and visual hallucinations. Client hears voices coming from buildings saying, "We're going to kill you." Client believes others are controlling him. Client believes camera's are watching him in his car. Client is currently homeless and may not have been taking his medications. Assessment What has happened this shift: Pt was lying in bed awake at change of shift. Patient is quiet and reserved. Patient states he is doing "okay." Patient is hearing voices and states that he is talking to his voices. Pt states, they are telling me jokes and making me laugh. Patient listens to music on his headphones and paces the halls. Pt requested nicotine lozenge. Pt up at 0200 requesting snacks/drinks, redirected to room. S/I, H/I: Denies A/VH: +Audio hallucinations. Talking to his voices Sleep: ADL's: Independent. Group attendance: No Were meds taken: Yes Any med S/E: Denies Mental Status Exam Appearance: Patient wearing his own clothes and his daily red and black plaid hat. Eye contact: Fair. Behavior: Cooperative, paces unit, listening to radio headphones, isolates to room Speech: Mumbles, difficult to understand at times. Poverty of speech. Mood: Depressed, anxious Affect: Congruent with mood. Thought process: Thought blocking. Disorganized. Thought Content: Circumstantial. Cognition: A/O X 3 (Not to circumstance) Insight: Fair Judgment: Fair Interventions PRN's used: Nicotine lozenges Therapeutic interventions: 1:1 assessment, therapeutic conversation, medication education/administration/monitoring, behavior monitoring and intervention, redirection, distraction, reality orientation, positive reinforcement provided, maintained Q 15 minute safety checks. Restraints/seclusion/emergency medication: None Justification of Continued Inpatient Treatment: Patient continues to exhibit psychotic symptoms and mood lability, irritability. Patient continues to be a high risk for discharge and requires continued medication adjustment in a safe and supportive milieu. Pt is reasonably aware that he will be going for [employer] conservatorship, pt has been served [id number].
[2020-04-21 08:00] VITALS: BP 113/82
[2020-04-21] MEDS: tizanidine 4mg tablet PO SCH ×3 (08:25→16:58)
[2020-04-21] MEDS: clonazePAM 1mg tablet PO SCH ×3 (08:26→20:26)
[2020-04-21] MEDS: pantoprazole 40mg Tablet.DR PO SCH (08:26)
[2020-04-21] MEDS: quetiapine 100mg tablet PO SCH ×3 (08:27→20:27)
[2020-04-21] MEDS: QUEtiapine 25mg tablet PO SCH ×2 (08:27→12:23)
[2020-04-21] MEDS: gabapentin 300mg capsule PO SCH ×2 (08:28→12:23)
[2020-04-21] MEDS: divalproex sodium 500mg tablet.DR PO SCH ×2 (08:29→20:27)
[2020-04-21] MEDS: benztropine 1mg tablet PO SCH ×2 (08:30→20:26)
[2020-04-21] MEDS: NICOTINE POLACRILEX 2 MG LOZENGE BC PRN ×4 (08:30→21:39)
[2020-04-21] MEDS: LORazepam 1 MG tablet PO PRN (09:59)
[2020-04-21] MEDS: OLANZapine 5mg rapidly disint. tablet PO PRN (10:04)
--- NOTE | 2020-04-21 17:35 | NUR ---
NURSING PROGRESS NOTE Legal hold: T-Con Client on involuntary status for GD/DTO Report received from RN with use of SBAR Why are they here: Client reported increased auditory and visual hallucinations. Client hears voices coming from buildings saying, "We're going to kill you." Client believes others are controlling him. Client believes camera's are watching him in his car. Client is currently homeless and may not have been taking his medications. Assessment What has happened this shift: Received Pt in bed sleeping w/o distress at beginning of shift. Pt awoke and was cooperative with vitals and attended breakfast and all meals and snacks, ate well and was appropriate with others. Pt became irritable and aggressive in mid morning, demanding a PRN for anxiety. He received Ativan and then Zyprexa which was helpful. He answered angrily that he did not want to talk about what was making him anxious. Pt appropriately isolated to his room for the rest of the morning. He came out for lunch and his mood was not reactive and he listened to music and walked after lunch. Pt continues to wear a winter jacket and hat around unit and denies being warm. After waking from nap he stated someone comes in my room when I sleep. My water wasnt empty and my shoes were moved. He does not entertain the possibility that he is wrong. S/I, H/I: Denies both A/VH: +AH. Denies VH Sleep: Did not sleep this shift ADL's: Independent with prompting Group attendance: NA Were meds taken: Yes Any med S/E: Denies Mental Status Exam Appearance: Disheveled, wearing winter cap and jacket Eye contact: Fair Behavior: Pacing halls and listening to headphones. Labile yet cooperative Speech: Mumbles, loud and rapid at times Mood: Anxious, paranoid Affect: Flat Thought process: Paranoid delusions r/t auditory hallucinations. Circumstantial Thought Content: Getting needs met. Responding to AH Cognition: A&Ox4 Insight: Poor. Judgment: Poor. Interventions PRN's used: Ativan 1mg, Zyprexa 10mg, Nicotine Beth.X2 Therapeutic interventions: 1:1 assessment, active listening, reality orientation, medication education/administration/monitoring, encouragement to perform personal care and attend groups, maintained q15m safety checks. Restraints/seclusion/emergency medication: None Justification of Continued Inpatient Treatment: Patient continues to exhibit psychotic symptoms and mood lability, irritability. Patient continues to be a high risk for discharge and requires continued medication adjustment in a safe and supportive milieu. Pt is reasonably aware that he will be going for LPS conservatorship.
[2020-04-21 19:37] VITALS: BP 146/97
[2020-04-21] MEDS: lithium carbonate 150mg capsule PO SCH (20:26)
[2020-04-21] MEDS: OLANZapine 5mg rapidly disint. tablet PO SCH (20:30)
[2020-04-21] MEDS: gabapentin 400mg capsule PO SCH (20:30)
[2020-04-22] MEDS: traZODone 50mg tablet PO PRN (01:52)
[2020-04-22] MEDS: NICOTINE POLACRILEX 2 MG LOZENGE BC PRN ×7 (01:52→20:25)
--- NOTE | 2020-04-22 03:17 | NUR ---
NURSING PROGRESS NOTE Gianni: Legal hold: T-Con Client on involuntary status for GD/DTO Report received from RN with use of SBAR Why are they here: Client reported increased auditory and visual hallucinations. Client hears voices coming from buildings saying, "We're going to kill you." Client believes others are controlling him. Client believes camera's are watching him in his car. Client is currently homeless and may not have been taking his medications. Assessment What has happened this shift: Received pt lying in bed resting, Pt stated he had an okay day, denied S/I and H/I. States he is hearing voices but doesn't go into detail about what they are saying. Pt gives me a blank stare after trying to ask furthur mental health questions. Pt calm and cooperative. Pt seen walking the hallways with headphones on before snack time. Pt in bed after medication administration. At 0200 pt requested trazadone and nicotine lozenge. S/I, H/I: Denies both A/VH: +AH. Denies VH Sleep: ADL's: Independent with prompting Group attendance: NA Were meds taken: Yes Any med S/E: Denies Mental Status Exam Appearance: Disheveled, wearing winter cap and jacket Eye contact: Fair Behavior: Pacing halls and listening to headphones. Labile yet cooperative Speech: Mumbles, loud and rapid at times Mood: Anxious, paranoid Affect: Flat Thought process: Paranoid delusions r/t auditory hallucinations. Circumstantial Thought Content: Getting needs met. Responding to AH Cognition: A&Ox4 Insight: Poor. Judgment: Poor. Interventions PRN's used: Nicotine Beth, trazadone Therapeutic interventions: 1:1 assessment, active listening, reality orientation, medication education/administration/monitoring, encouragement to perform personal care and attend groups, maintained q15m safety checks. Restraints/seclusion/emergency medication: None Justification of Continued Inpatient Treatment: Patient continues to exhibit psychotic symptoms and mood lability, irritability. Patient continues to be a high risk for discharge and requires continued medication adjustment in a safe and supportive milieu. Pt is reasonably aware that he will be going for LPS conservatorship.
[2020-04-22] MEDS: LORazepam 1 MG tablet PO PRN (06:46)
[2020-04-22 08:00] VITALS: BP 139/94
[2020-04-22] MEDS: QUEtiapine 25mg tablet PO SCH ×2 (08:47→13:17)
[2020-04-22] MEDS: clonazePAM 1mg tablet PO SCH ×3 (08:47→20:26)
[2020-04-22] MEDS: divalproex sodium 500mg tablet.DR PO SCH ×2 (08:48→20:27)
[2020-04-22] MEDS: quetiapine 100mg tablet PO SCH ×3 (08:48→20:26)
[2020-04-22] MEDS: gabapentin 300mg capsule PO SCH ×2 (08:49→13:17)
[2020-04-22] MEDS: tizanidine 4mg tablet PO SCH ×3 (08:49→16:05)
[2020-04-22] MEDS: benztropine 1mg tablet PO SCH ×2 (08:49→20:27)
[2020-04-22] MEDS: pantoprazole 40mg Tablet.DR PO SCH (08:49)
[2020-04-22] MEDS: OLANZapine 5mg rapidly disint. tablet PO SCH ×2 (08:50→20:26)
--- NOTE | 2020-04-22 16:18 | NUR ---
NURSING PROGRESS NOTE Legal hold: T-Con Client on involuntary status for GD/DTO Report received from MARIBEL Gonzalez with use of SBAR Why are they here: Client reported increased auditory and visual hallucinations. Client hears voices coming from buildings saying, "We're going to kill you." Client believes others are controlling him. Client believes camera's are watching him in his car. Client is currently homeless and may not have been taking his medications. Assessment What has happened this shift: Pt had a rough morning loudly RIS. Pt describes his internal stimuli as "mean, they want to hurt me." He also went into a loud physical description of a "person inside of me (with both hands at his stomach) and he hates me and wants to get out." Pt later shared, "things have been better this time." Pt self isolates when RIS until the "voices quiet down." S/I, H/I: Denies both A/VH: +AH. Denies VH Sleep: Did not sleep this shift ADL's: Independent with prompting Group attendance: NA Were Meds taken: Yes Any med S/E: Denies Mental Status Exam Appearance: Disheveled, wearing winter cap and jacket same clothes as yesterday Eye contact: Fair Behavior: Pacing halls and listening to headphones. Labile yet cooperative Speech: Mumbles, loud and rapid at times, pressured Mood: Anxious, paranoid Affect: Flat Thought process: Paranoid delusions r/t auditory hallucinations. Circumstantial Thought Content: Getting needs met. Responding to AH Cognition: A&Ox4 Insight: Poor. Judgment: Poor. Interventions PRN's used: Ativan 1mg, Nicotine Beth.X2 Therapeutic interventions: 1:1 assessment, provided therapeutic communication with active listening, medication administration/education/monitoring, encouragement to perform personal care and attend groups, maintained q15m safety checks. Restraints/seclusion/emergency medication: None Justification of Continued Inpatient Treatment: Patient continues to exhibit psychotic symptoms and mood lability, irritability. Patient continues to be a high risk for discharge and requires continued medication adjustment in a safe and supportive milieu. Pt is reasonably aware that he will be going for LPS conservatorship.
[2020-04-22 19:20] VITALS: BP 130/91
[2020-04-22] MEDS: gabapentin 400mg capsule PO SCH (20:26)
[2020-04-22] MEDS: lithium carbonate 150mg capsule PO SCH (20:27)
[2020-04-23] MEDS: NICOTINE POLACRILEX 2 MG LOZENGE BC PRN ×5 (06:09→20:28)
[2020-04-23 08:00] VITALS: BP 118/82
[2020-04-23] MEDS: pantoprazole 40mg Tablet.DR PO SCH (08:05)
[2020-04-23] MEDS: QUEtiapine 25mg tablet PO SCH ×2 (08:05→12:32)
[2020-04-23] MEDS: gabapentin 300mg capsule PO SCH ×2 (08:05→12:32)
[2020-04-23] MEDS: benztropine 1mg tablet PO SCH ×2 (08:05→20:06)
[2020-04-23] MEDS: tizanidine 4mg tablet PO SCH ×3 (08:06→16:43)
[2020-04-23] MEDS: divalproex sodium 500mg tablet.DR PO SCH ×2 (08:06→20:09)
[2020-04-23] MEDS: clonazePAM 1mg tablet PO SCH ×3 (08:06→20:08)
[2020-04-23] MEDS: OLANZapine 5mg rapidly disint. tablet PO SCH ×2 (08:06→20:08)
[2020-04-23] MEDS: quetiapine 100mg tablet PO SCH ×3 (08:06→20:10)
[2020-04-23] MEDS: LORazepam 1 MG tablet PO PRN (10:37)
[2020-04-23] MEDS: acetaminophen 325mg tablet PO PRN ×2 (13:41→19:09)
--- NOTE | 2020-04-23 14:11 | NUR ---
Nursing Progress Note: Legal hold: TCon Client on involuntary status for DTS Report received from nurse with use of SBAR: Antoine RN Why are they here: Client reported increased auditory and visual hallucinations. Client hears voices coming from buildings saying, "We're going to kill you." Client believes others are controlling him. Client believes camera's are watching him in his car. Client is currently homeless and may not have been taking his medications. Assessment What has happened this shift: Received pt. sleeping in bed at the beginning of the shift, he was awoken by staff to attend breakfast. Pt. continues to require some direction and encouragement. 1:1 completed afterwards at bedside, pt. presents as cooperative, anxious, isolative, and guarded. He denies any S/I or H/I, however admits to ongoing A/KEYES. When this ticket writer attempted to question pt. further regarding these A/KEYES he stated irritably, "They piss me off!" When questioned by this ticket writer regarding any thoughts that others may want to hurt him, pt. reports he believes his family wants to hurt him. When questioned further he states in a paranoid delusional way, "They talk to me in the supernatural." Pt. isolates in his room throughout much of the day, laying in bed and listening to headphones. He request's PRN Ativan for anxiety, administered with effectiveness. This ticket writer attempted to obtain follow-up wound pictures of the back of pt's bilateral hands, however he refused. Areas are scabbed and appear to be healing well and he denies any pain. Later, pt. requested PRN Tylenol for rt. ankle pain. He stated, "There's a dog with a color shocking me there." Medication administered with effectiveness. S/I, H/I: Denies A/VH: Ongoing A/KEYES and possible V/KEYES Sleep: Pt. reports he slept well, sleep hours are 8 ADL's: Pt. requires some direction and encouragement Group attendance: N/A Were meds taken: Yes Any med S/E: Yes Mental Status Exam Appearance: Slightly disheveled, scruffy hall, however appropriately dressed Eye contact: Fair Behavior: Cooperative, anxious, isolative, and guarded Speech: Soft and mumbles Mood: Guarded Affect: Constricted Thought process:Poverty of thought with possible thought blocking Thought Content: A/KEYES and paranoid delusions Cognition: A&O X3 Insight: Poor Judgment: Poor Interventions PRN's used: Ativan, Tylenol, and Nicotine Lozenge Therapeutic interventions: Maintained a safe and therapeutic environment, ensured contract for safety, provided clear and simple instructions, attempted to orient to reality, monitored behaviors and need for intervention, and maintained Q 15min safety checks. Restraints/seclusion/emergency medication: N/A Justification of Continued Inpatient Treatment: JAYLIN Lee, pt. continues to require titration of medications and a safe and supportive environment. Working on placement.
[2020-04-23 19:45] VITALS: BP 137/88
[2020-04-23] MEDS: gabapentin 400mg capsule PO SCH (20:10)
[2020-04-23] MEDS: lithium carbonate 150mg capsule PO SCH (20:10)
--- NOTE | 2020-04-24 00:56 | NUR ---
Nursing Progress Note: Legal hold: TCon Client on involuntary status for DTS Report received from nurse with use of SBAR: MARIBEL Gonzales Why are they here: Client reported increased auditory and visual hallucinations. Client hears voices coming from buildings saying, "We're going to kill you." Client believes others are controlling him. Client believes camera's are watching him in his car. Client is currently homeless and may not have been taking his medications. Assessment What has happened this shift: Received pt. in his room where he stayed all shift. Pt asked for Tylenol and a nicotine lozenge. Pt was calm and cooperative Med compliant this shift. Pt thanked this public relations writer for meds and stayed in his room S/I, H/I: Denies A/VH: Ongoing A/KEYES and possible V/KEYES Sleep: Pt. reports he slept well, sleep hours are 8 ADL's: Pt. requires some direction and encouragement Group attendance: N/A Were meds taken: Yes Any med S/E: Yes Mental Status Exam Appearance: Slightly disheveled, scruffy hall, however appropriately dressed Eye contact: Fair Behavior: Cooperative, anxious, isolative, and guarded Speech: Soft and mumbles Mood: Guarded Affect: Constricted Thought process:Poverty of thought with possible thought blocking Thought Content: A/KEYES and paranoid delusions Cognition: A&O X3 Insight: Poor Judgment: Poor Interventions PRN's used: Ativan, Tylenol, and Nicotine Lozenge Therapeutic interventions: Maintained a safe and therapeutic environment, ensured contract for safety, provided clear and simple instructions, attempted to orient to reality, monitored behaviors and need for intervention, and maintained Q 15min safety checks. Restraints/seclusion/emergency medication: N/A Justification of Continued Inpatient Treatment: JAYLIN Lee, pt. continues to require titration of medications and a safe and supportive environment. Working on placement.
[2020-04-24] MEDS: NICOTINE POLACRILEX 2 MG LOZENGE BC PRN ×7 (03:04→23:39)
[2020-04-24] MEDS: clonazePAM 1mg tablet PO SCH ×3 (07:46→20:08)
[2020-04-24] MEDS: gabapentin 300mg capsule PO SCH ×2 (07:47→12:59)
[2020-04-24] MEDS: benztropine 1mg tablet PO SCH ×2 (07:47→20:07)
[2020-04-24] MEDS: tizanidine 4mg tablet PO SCH ×3 (07:47→16:18)
[2020-04-24] MEDS: QUEtiapine 25mg tablet PO SCH ×2 (07:47→12:56)
[2020-04-24] MEDS: divalproex sodium 500mg tablet.DR PO SCH ×2 (07:47→20:09)
[2020-04-24] MEDS: quetiapine 100mg tablet PO SCH ×3 (07:47→20:10)
[2020-04-24] MEDS: OLANZapine 5mg rapidly disint. tablet PO SCH ×2 (07:47→20:08)
[2020-04-24] MEDS: pantoprazole 40mg Tablet.DR PO SCH (07:47)
[2020-04-24 08:00] VITALS: BP 122/94
[2020-04-24] MEDS ORDERED: quetiapine 100mg tablet PO PRN (09:05)
[2020-04-24] MEDS: ALPRAZolam 0.5mg tablet PO PRN ×3 (09:36→19:10)
[2020-04-24] MEDS: QUEtiapine 25mg tablet PO PRN ×2 (14:05→19:11)
--- NOTE | 2020-04-24 16:02 | NUR ---
NURSING PROGRESS NOTE Legal hold: T-Con Client on involuntary status for GD/DTO Report received from Ashley LÓPEZ with use of SBAR Why are they here: Client reported increased auditory and visual hallucinations. Client hears voices coming from buildings saying, "We're going to kill you." Client believes others are controlling him. Client believes camera's are watching him in his car. Client is currently homeless and may not have been taking his medications. Assessment What has happened this shift: Received pt asleep in. Pt up for all meals. Pt seemed calm in the morning; though, he did request xanax and seroquel for anxiety r/t internal stimuli. Later after lunch, pt seemed more bothered by the voices in his head which he said were his brother. Pt again received seroquel and xanax upon request. Pt encouraged to come to group, but refused and spent most of the day sitting in his room with headphones. S/I, H/I: Denies both A/VH: +AH. Denies VH Sleep: Did not sleep this shift ADL's: Independent with prompting Group attendance: NA Were meds taken: Yes Any med S/E: Denies Mental Status Exam Appearance: Disheveled, wearing winter cap and jacket Eye contact: Fair Behavior: Pacing halls and listening to headphones. Labile yet cooperative Speech: Mumbles, loud and rapid at times Mood: Anxious, paranoid Affect: Flat Thought process: Paranoid delusions r/t auditory hallucinations. Circumstantial Thought Content: Getting needs met. Responding to AH Cognition: A&Ox4 Insight: Poor. Judgment: Poor. Interventions PRN's used: seroquel x 2, xanax x 2, Nicotine Beth.X2 Therapeutic interventions: 1:1 assessment, active listening, reality orientation, medication education/administration/monitoring, encouragement to perform personal care and attend groups, maintained q15m safety checks. Restraints/seclusion/emergency medication: None Justification of Continued Inpatient Treatment: Patient continues to exhibit psychotic symptoms and mood lability, irritability. Patient continues to be a high risk for discharge and requires continued medication adjustment in a safe and supportive milieu. Pt is reasonably aware that he will be going for LPS conservatorship.
[2020-04-24] MEDS: lithium carbonate 150mg capsule PO SCH (20:08)
[2020-04-24] MEDS: gabapentin 400mg capsule PO SCH (20:10)
[2020-04-24 20:23] VITALS: BP 133/90
[2020-04-25] MEDS: tizanidine 4mg tablet PO SCH ×3 (00:14→16:53)
--- NOTE | 2020-04-25 00:25 | NUR ---
NURSING PROGRESS NOTE Legal hold: T-Con Client on involuntary status for GD/DTO Report received from Christian LÓPZE with use of SBAR Why are they here: Client reported increased auditory and visual hallucinations. Client hears voices coming from buildings saying, "We're going to kill you." Client believes others are controlling him. Client believes camera's are watching him in his car. Client is currently homeless and may not have been taking his medications. Assessment What has happened this shift: Received pt in his room this shift. Pt up for snack and meds. Pt seemed calm though, he did request Xanax and Seroquel for anxiety r/t internal stimuli. Pt wearing headphones in his room and fell asleep after med pass. S/I, H/I: Denies both A/VH: +AH. Denies VH Sleep: Did not sleep this shift ADL's: Independent with prompting Group attendance: NA Were meds taken: Yes Any med S/E: Denies Mental Status Exam Appearance: Disheveled, wearing winter cap and jacket Eye contact: Fair Behavior: Pacing halls and listening to headphones. Labile yet cooperative Speech: Mumbles, loud and rapid at times Mood: Anxious, paranoid Affect: Flat Thought process: Paranoid delusions r/t auditory hallucinations. Circumstantial Thought Content: Getting needs met. Responding to AH Cognition: A&Ox4 Insight: Poor. Judgment: Poor. Interventions PRN's used: seroquel , xanax , Nicotine Beth.X3 Therapeutic interventions: 1:1 assessment, active listening, reality orientation, medication education/administration/monitoring, encouragement to perform personal care and attend groups, maintained q15m safety checks. Restraints/seclusion/emergency medication: None Justification of Continued Inpatient Treatment: Patient continues to exhibit psychotic symptoms and mood lability, irritability. Patient continues to be a high risk for discharge and requires continued medication adjustment in a safe and supportive milieu. Pt is reasonably aware that he will be going for LPS conservatorship.
[2020-04-25] MEDS: ALPRAZolam 0.5mg tablet PO PRN ×2 (06:06→13:15)
[2020-04-25] MEDS: QUEtiapine 25mg tablet PO PRN (06:06)
[2020-04-25] MEDS: NICOTINE POLACRILEX 2 MG LOZENGE BC PRN ×4 (06:09→18:08)
[2020-04-25 07:29] VITALS: BP 123/85
[2020-04-25] MEDS: OLANZapine 5mg rapidly disint. tablet PO SCH ×2 (07:50→20:09)
[2020-04-25] MEDS: quetiapine 100mg tablet PO SCH ×3 (07:50→20:10)
[2020-04-25] MEDS: QUEtiapine 25mg tablet PO SCH ×2 (07:50→13:04)
[2020-04-25] MEDS: benztropine 1mg tablet PO SCH ×2 (07:51→20:09)
[2020-04-25] MEDS: clonazePAM 1mg tablet PO SCH ×3 (07:51→20:11)
[2020-04-25] MEDS: pantoprazole 40mg Tablet.DR PO SCH (07:51)
[2020-04-25] MEDS: gabapentin 300mg capsule PO SCH ×2 (07:51→13:04)
[2020-04-25] MEDS: divalproex sodium 500mg tablet.DR PO SCH ×2 (07:51→20:11)
--- NOTE | 2020-04-25 08:41 | NUR ---
CM-Placement Presenting Issues: Pt's is temporarily conserved and will need placement upon d/c. had referred pt to [facility]-Transition & Discharge Team for placement services. Interventions: hadt/c w/[facility]-TAD office & f/u on placement referral. Per t/c [facility] had referred pt to [facility] (on locked down due to COVID), [facility]; [facility] will f/u with [facility] re pt's referral and get back to later on in the week. Plan: will continue to engage [facility] & [facility] [place] in dcp and placement activities. Maria Luisa Murphy LCSW Addendum: 04/25/20 at 8189 by Maria Luisa Murphy Amended: Links added.
--- NOTE | 2020-04-25 12:31 | NUR ---
Reassessment: Pt continues eating well with average 75-100% PO intake on regular diet. LBM 04/22. D/w dietary to send prunes and prune juice with next meal to assist with bowel regularity. Will continue to follow and monitor need for further nutrition intervention. Rec: 1. continue regular diet 2. routine bowel care 3. scaled wts per rx Addendum: 04/25/20 at [address] Amended: Links added.
--- NOTE | 2020-04-25 15:06 | NUR ---
NURSING PROGRESS NOTE Legal hold: T-Con Client on involuntary status for GD/DTO Report received from Ashley LÓPEZ with use of SBAR Why are they here: Client reported increased auditory and visual hallucinations. Client hears voices coming from buildings saying, "We're going to kill you." Client believes others are controlling him. Client believes camera's are watching him in his car. Client is currently homeless and may not have been taking his medications. Assessment What has happened this shift: Pt received awake lying on bed. Pt up for breakfast and took am meds and cooperative with am assessment. Pt states he feels a little better than yesterday; though, he continues to complain of auditory hallucinations of his brother. Pt did not request seroquel PRN today which is also indicative of his being less tormented by int. stimuli. S/I, H/I: Denies both A/VH: +AH. Denies VH Sleep: Did not sleep this shift ADL's: Independent with prompting Group attendance: NA Were meds taken: Yes Any med S/E: Denies Mental Status Exam Appearance: Disheveled, wearing winter cap and jacket Eye contact: Fair Behavior: Pacing halls and listening to headphones. Labile yet cooperative Speech: Mumbles, loud and rapid at times Mood: Anxious, paranoid Affect: Flat Thought process: Paranoid delusions r/t auditory hallucinations. Circumstantial Thought Content: Getting needs met. Responding to AH Cognition: A&Ox4 Insight: Poor. Judgment: Poor. Interventions PRN's used: xanax, Nicotine Beth.X2 Therapeutic interventions: 1:1 assessment, active listening, reality orientation, medication education/administration/monitoring, encouragement to perform personal care and attend groups, maintained q15m safety checks. Restraints/seclusion/emergency medication: None Justification of Continued Inpatient Treatment: Patient continues to exhibit psychotic symptoms and mood lability, irritability. Patient continues to be a high risk for discharge and requires continued medication adjustment in a safe and supportive milieu. Pt is reasonably aware that he will be going for LPS conservatorship.
[2020-04-25] MEDS: gabapentin 400mg capsule PO SCH (20:09)
[2020-04-25] MEDS: lithium carbonate 150mg capsule PO SCH (20:11)
[2020-04-25 20:39] VITALS: BP 146/100
--- NOTE | 2020-04-26 00:39 | NUR ---
NURSING PROGRESS NOTE Legal hold: T-Con Client on involuntary status for GD/DTO Report received from Christian LÓPEZ with use of SBAR Why are they here: Client reported increased auditory and visual hallucinations. Client hears voices coming from buildings saying, "We're going to kill you." Client believes others are controlling him. Client believes camera's are watching him in his car. Client is currently homeless and may not have been taking his medications. Assessment What has happened this shift: Pt received sleeping in bed. Pt up for snack and took hs meds and cooperative with assessment. Pt states he feels more calm than yesterday; though, he continues to complain of auditory hallucinations of his brother. Pt did not request PRN today other than a nicotine lozenge. S/I, H/I: Denies both A/VH: +AH. Denies VH Sleep: Did not sleep this shift ADL's: Independent with prompting Group attendance: NA Were meds taken: Yes Any med S/E: Denies Mental Status Exam Appearance: Disheveled, wearing winter cap and jacket Eye contact: Fair Behavior: Pacing halls and listening to headphones. Labile yet cooperative Speech: Mumbles, loud and rapid at times Mood: Anxious, paranoid Affect: Flat Thought process: Paranoid delusions r/t auditory hallucinations. Circumstantial Thought Content: Getting needs met. Responding to AH Cognition: A&Ox4 Insight: Poor. Judgment: Poor. Interventions PRN's used: Nicotine Beth.X2 Therapeutic interventions: 1:1 assessment, active listening, reality orientation, medication education/administration/monitoring, encouragement to perform personal care and attend groups, maintained q15m safety checks. Restraints/seclusion/emergency medication: None Justification of Continued Inpatient Treatment: Patient continues to exhibit psychotic symptoms and mood lability, irritability. Patient continues to be a high risk for discharge and requires continued medication adjustment in a safe and supportive milieu. Pt is reasonably aware that he will be going for LPS conservatorship.
[2020-04-26] MEDS: NICOTINE POLACRILEX 2 MG LOZENGE BC PRN ×4 (05:02→16:53)
[2020-04-26] MEDS: ALPRAZolam 0.5mg tablet PO PRN ×2 (06:06→18:12)
[2020-04-26] MEDS: QUEtiapine 25mg tablet PO PRN ×2 (06:07→18:12)
[2020-04-26] MEDS: quetiapine 100mg tablet PO SCH ×3 (07:52→20:34)
[2020-04-26] MEDS: QUEtiapine 25mg tablet PO SCH ×2 (07:53→12:35)
[2020-04-26] MEDS: clonazePAM 1mg tablet PO SCH ×3 (07:54→20:32)
[2020-04-26] MEDS: OLANZapine 5mg rapidly disint. tablet PO SCH ×2 (07:54→20:33)
[2020-04-26] MEDS: benztropine 1mg tablet PO SCH ×2 (07:54→20:32)
[2020-04-26] MEDS: pantoprazole 40mg Tablet.DR PO SCH (07:54)
[2020-04-26] MEDS: divalproex sodium 500mg tablet.DR PO SCH ×2 (07:54→20:33)
[2020-04-26] MEDS: gabapentin 300mg capsule PO SCH ×2 (07:54→12:35)
[2020-04-26] MEDS: tizanidine 4mg tablet PO SCH ×3 (07:55→16:53)
[2020-04-26 08:33] VITALS: BP 147/95
--- NOTE | 2020-04-26 17:28 | NUR ---
NURSING PROGRESS NOTE Legal hold: T-Con Client on involuntary status for GD/DTO Report received from Ludy LÓPEZ with use of SBAR Why are they here: Client reported increased auditory and visual hallucinations. Client hears voices coming from buildings saying, "We're going to kill you." Client believes others are controlling him. Client believes camera's are watching him in his car. Client is currently homeless and may not have been taking his medications. Assessment What has happened this shift: Pt. awake shortly after change of shift and listening to headphones in his room. Pt. took all meds and ate all meals in the community room. 1:1 done at bedside, Pt. reports waking up multiple times in the night, but that he feels he got enough sleep. pt. states that the voices are telling him funny things, when asked what they are saying, pt. states, funny things, I like listening to them. Pt. also reports seeing shadows. Pt. denies symptoms of anxiety, depression, SI/HI. S/I, H/I: Denies A/VH: Reports hearing voices that tell him funny things as well as seeing shadows. Sleep: Pt napped intermittently. ADL's: Independent with prompting Group attendance: No Were meds taken: Yes Any med S/E: Denies Mental Status Exam Appearance: Disheveled, wearing heavy winter jacket and hat. Eye contact: Fair Behavior: Pacing halls and listening to headphones. Napping in his room. Speech: Mumbles softly and rapid at times Mood: Anxious Affect: Flat Thought process: Paranoid delusions r/t auditory hallucinations. Circumstantial. Thought Content: Getting needs met. Responding to AH. Cognition: A&Ox3 Insight: Poor. Judgment: Poor. Interventions PRN's used: Nicotine Therapeutic interventions: 1:1 assessment, active listening, reality orientation, medication education/administration/monitoring, encouragement to perform personal care and attend groups, maintained q15m safety checks. Restraints/seclusion/emergency medication: None Justification of Continued Inpatient Treatment: Patient continues to exhibit psychotic symptoms and mood lability, irritability. Patient continues to be a high risk for discharge and requires continued medication adjustment in a safe and supportive milieu. Pt is reasonably aware that he will be going for [facility] conservatorship. Addendum: 04/26/20 at 1823 by Mustapha Mahan RN Pt. reported anxiety, when asked what was causing his anxiety, pt. did not want to talk about it. Pt. given Xanax 1mg and Seroquel 50mg po.
[2020-04-26 19:40] VITALS: BP 134/82
[2020-04-26] MEDS: lithium carbonate 150mg capsule PO SCH (20:32)
[2020-04-26] MEDS: gabapentin 400mg capsule PO SCH (20:32)
--- NOTE | 2020-04-27 00:25 | NUR ---
NURSING PROGRESS NOTE Legal hold: tcon Client on involuntary status for DTS Report received from MARIBEL Schultz with use of SBAR Why are they here: Client reported increased auditory and visual hallucinations. Client hears voices coming from buildings saying, "We're going to kill you." Client believes others are controlling him. Client believes camera's are watching him in his car. Client is currently homeless and may not have been taking his medications. Assessment What has happened this shift: Pt isolates to his room most of shift but when he comes out he is pleasant. He is in a black jacket with a winter hat on. Pt says he had "a good day today." When asked how his AH were he responds, "not bad , I actually had a positive conversation with one today and it helped them." He then asks if poem writer wants to be a pirate because " you look like you want to be a pirate." He smiles and laughs after this statement and takes his HS medications with no issue. S/I, H/I: Denies both. A/VH: Endorses auditory hallucinations Sleep: see sleep assessment ADL's: Needs encouragement, but can perform independently. Group attendance: No Were meds taken: Yes Any med S/E: None reported or observed Mental Status Exam Appearance: wearing unit scrubs, and winter hat. Eye contact: Fair Behavior:cooperative, isolative Speech: Mumbles Mood: upbeat Affect: congruent with cosme Thought process: circumstantial Thought Content: Hallucinations. Cognition: A&Ox4 Insight: Poor. Judgment: Poor. Interventions PRN's used: Therapeutic interventions: 1:1 assessment, active listening, reality orientation, medication education/administration/monitoring, encouragement to perform personal care and attend groups, maintained q15m safety checks. Restraints/seclusion/emergency medication: None Justification of Continued Inpatient Treatment: Patient continues to exhibit psychotic symptoms and mood lability, irritability. Patient continues to be a high risk for discharge and requires continued medication adjustment in a safe and supportive milieu. Pt is reasonably aware that he will be going for LPS conservatorship.
[2020-04-27] MEDS: ALPRAZolam 0.5mg tablet PO PRN ×3 (03:01→20:26)
[2020-04-27] MEDS: clonazePAM 1mg tablet PO SCH ×3 (07:17→20:18)
[2020-04-27] MEDS: gabapentin 300mg capsule PO SCH ×2 (07:21→12:57)
[2020-04-27] MEDS: quetiapine 100mg tablet PO SCH ×3 (07:21→20:19)
[2020-04-27] MEDS: QUEtiapine 25mg tablet PO SCH ×2 (07:21→12:57)
[2020-04-27] MEDS: tizanidine 4mg tablet PO SCH ×3 (07:21→16:24)
[2020-04-27] MEDS: divalproex sodium 500mg tablet.DR PO SCH ×2 (07:21→20:18)
[2020-04-27] MEDS: pantoprazole 40mg Tablet.DR PO SCH (07:21)
[2020-04-27] MEDS: OLANZapine 5mg rapidly disint. tablet PO SCH ×2 (07:21→20:18)
[2020-04-27] MEDS: benztropine 1mg tablet PO SCH ×2 (07:21→20:18)
[2020-04-27 08:00] VITALS: BP 127/89
[2020-04-27] MEDS: NICOTINE POLACRILEX 2 MG LOZENGE BC PRN ×4 (10:21→19:36)
--- NOTE | 2020-04-27 17:21 | NUR ---
NURSING PROGRESS NOTE Legal hold: T-Con Client on involuntary status for GD/DTO Report received from Ludy LÓPEZ with use of SBAR Why are they here: Client reported increased auditory and visual hallucinations. Client hears voices coming from buildings saying, "We're going to kill you." Client believes others are controlling him. Client believes camera's are watching him in his car. Client is currently homeless and may not have been taking his medications. Assessment What has happened this shift: Pt. awake shortly after change of shift and listening to headphones in his room. Pt. took all meds and ate all meals in the community room. 1:1 done at bedside, Pt. reports that he slept well last night. Pt. reports that he continues to hear voices that tell him good things. Pt. states that he received a new voice today, and said the voice was saying nice things, but then states, but thats the problem. Pt. states, I may look like I have everything together on the outside, but on the inside Im not ok. Pt. then requested Xanax and received with good effect. Pt. participated in afternoon group. S/I, H/I: Denies A/VH: Reports hearing voices that tell him good things. Sleep: Pt. did not appear to nap during the day ADL's: Independent with prompting Group attendance: Yes Were meds taken: Yes Any med S/E: Denies Mental Status Exam Appearance: Disheveled, wearing heavy winter jacket and hat. Eye contact: Fair Behavior: Pacing halls and listening to headphones. Napping in his room. Speech: Mumbles softly and rapid at times Mood: Anxious Affect: Flat Thought process: Paranoid delusions r/t auditory hallucinations. Circumstantial. Thought Content: Getting needs met. Responding to AH. Cognition: A&Ox3 Insight: Poor. Judgment: Poor. Interventions PRN's used: Nicotine, Xanax Therapeutic interventions: 1:1 assessment, active listening, reality orientation, medication education/administration/monitoring, encouragement to perform personal care and attend groups, maintained q15m safety checks. Restraints/seclusion/emergency medication: None Justification of Continued Inpatient Treatment: Patient continues to exhibit psychotic symptoms and mood lability, irritability. Patient continues to be a high risk for discharge and requires continued medication adjustment in a safe and supportive milieu. Pt is reasonably aware that he will be going for LPS conservatorship.
[2020-04-27 19:00] VITALS: BP 157/102
[2020-04-27] MEDS: traZODone 50mg tablet PO PRN (20:18)
[2020-04-27] MEDS: gabapentin 400mg capsule PO SCH (20:18)
[2020-04-27] MEDS: lithium carbonate 150mg capsule PO SCH (20:19)
--- NOTE | 2020-04-28 04:54 | NUR ---
NURSING PROGRESS NOTE Legal hold: TCON Client on involuntary status for GD/DTO Report received from Caty LÓPEZ with use of SBAR Why are they here: Client reported increased auditory and visual hallucinations. Client hears voices coming from buildings saying, "We're going to kill you." Client believes others are controlling him. Client believes camera's are watching him in his car. Client is currently homeless and may not have been taking his medications. Assessment What has happened this shift: Patient pacing in his room at the beginning of shift. Pleasant and cooperative with care; compliant with medication. PRN Xanax and Nicotine lozenge provided upon request. Patient denies SI, HI, VH. He endorses AH but didn't want to explain. Patient apologetic toward play writer for "being jaramillo" and continued to explain "it just happens." Patient remained in his room the majority of the shift. Ate HS snack in his room. He is observed sleeping and does not appear to be having difficulty. S/I, H/I: Denies A/VH: Reports AH Sleep: Refer to sleep assessment ADL's: Independent Group attendance: NA Were meds taken: Yes Any med S/E: None observed or reported Mental Status Exam Appearance: Disheveled, wearing heavy winter jacket and hat. Eye contact: Fair Behavior: Pleasant, cooperative, isolative to room Speech: Mumbles softly and rapid at times Mood: Anxious Affect: Flat Thought process: Thought blocking Thought Content: Meeting needs; voices are bothering him Cognition: A&Ox3 Insight: Poor Judgment: Poor Interventions PRN's used: Nicotine lozenge, Xanax Therapeutic interventions: 1:1 assessment, active listening, reality orientation, medication education/administration/monitoring, encouragement to perform personal care and attend groups, maintained q15m safety checks. Restraints/seclusion/emergency medication: None Justification of Continued Inpatient Treatment: Patient continues to exhibit psychotic symptoms and mood lability, irritability. Patient continues to be a high risk for discharge and requires continued medication adjustment in a safe and supportive milieu. Pt is reasonably aware that he will be going for LPS conservatorship.
[2020-04-28] MEDS: NICOTINE POLACRILEX 2 MG LOZENGE BC PRN ×4 (05:40→16:58)
[2020-04-28] MEDS: ALPRAZolam 0.5mg tablet PO PRN ×3 (06:10→18:55)
[2020-04-28] MEDS: QUEtiapine 25mg tablet PO SCH ×2 (07:38→12:19)
[2020-04-28] MEDS: clonazePAM 1mg tablet PO SCH ×3 (07:38→20:02)
[2020-04-28] MEDS: OLANZapine 5mg rapidly disint. tablet PO SCH ×2 (07:38→20:02)
[2020-04-28] MEDS: tizanidine 4mg tablet PO SCH ×3 (07:38→16:14)
[2020-04-28] MEDS: quetiapine 100mg tablet PO SCH ×3 (07:38→20:03)
[2020-04-28] MEDS: benztropine 1mg tablet PO SCH ×2 (07:39→20:03)
[2020-04-28] MEDS: pantoprazole 40mg Tablet.DR PO SCH (07:39)
[2020-04-28] MEDS: divalproex sodium 500mg tablet.DR PO SCH ×2 (07:39→20:02)
[2020-04-28] MEDS: gabapentin 300mg capsule PO SCH ×2 (07:39→12:19)
[2020-04-28 08:00] VITALS: BP 134/93
[2020-04-28] MEDS: QUEtiapine 25mg tablet PO PRN ×2 (14:06→18:55)
--- NOTE | 2020-04-28 17:50 | NUR ---
NURSING PROGRESS NOTE Legal hold: T-Con Client on involuntary status for GD/DTO Report received from Nabila Holliday RN with use of SBAR Why are they here: Client reported increased auditory and visual hallucinations. Client hears voices coming from buildings saying, "We're going to kill you." Client believes others are controlling him. Client believes camera's are watching him in his car. Client is currently homeless and may not have been taking his medications. Assessment What has happened this shift: Pt. awake at start of shift and listening to headphones and pacing halls. Pt. took all meds and ate all meals in the community room. 1:1 done at bedside, pt. reports that the voices are yelling at each other and yelling at me. Pt. denies SI/HI, VH. Pt. overheard yelling in his room. Pt. given Xanax 1mg and Seroquel 50mg prn with good effect. S/I, H/I: Denies A/VH: +AH. -VH. Sleep: Pt. did not appear to nap during the day ADL's: Independent with prompting Group attendance: NA Were meds taken: Yes Any med S/E: Denies Mental Status Exam Appearance: Disheveled, wearing heavy winter jacket and hat. Eye contact: Fair Behavior: Mostly calm. Pacing halls and listening to headphones. Lying on bed and listening to headphones. Watching TV in Rec Room. Speech: Mumbles softly and rapid at times Mood: Anxious Affect: Flat Thought process: Paranoid delusions r/t auditory hallucinations. Circumstantial. Thought Content: Getting needs met. Responding to AH. Cognition: A&Ox3 Insight: Fair Judgment: Fair Interventions PRN's used: Nicotine, Xanax x1, Seroquel x1 Therapeutic interventions: 1:1 assessment, active listening, reality orientation, medication education/administration/monitoring, encouragement to perform personal care and attend groups, maintained q15m safety checks. Restraints/seclusion/emergency medication: None Justification of Continued Inpatient Treatment: Patient continues to exhibit psychotic symptoms and mood lability, irritability. Patient continues to be a high risk for discharge and requires continued medication adjustment in a safe and supportive milieu. Pt is reasonably aware that he will be going for [facility] conservatorship.
[2020-04-28 19:43] VITALS: BP 135/84
[2020-04-28] MEDS: gabapentin 400mg capsule PO SCH (20:02)
[2020-04-28] MEDS: traZODone 50mg tablet PO PRN (20:03)
[2020-04-28] MEDS: lithium carbonate 150mg capsule PO SCH (20:03)
[2020-04-29] MEDS: tizanidine 4mg tablet PO SCH ×3 (00:33→16:49)
[2020-04-29] MEDS: NICOTINE POLACRILEX 2 MG LOZENGE BC PRN ×5 (00:33→18:08)
--- NOTE | 2020-04-29 04:59 | NUR ---
NURSING PROGRESS NOTE Legal hold: TCON Client on involuntary status for GD/DTO Report received from Caty LÓPEZ with use of SBAR Why are they here: Client reported increased auditory and visual hallucinations. Client hears voices coming from buildings saying, "We're going to kill you." Client believes others are controlling him. Client believes camera's are watching him in his car. Client is currently homeless and may not have been taking his medications. Assessment What has happened this shift: Patient in his room pacing at the beginning of shift. Pleasant and cooperative with care; compliant with medication. PRN Xanax, Quetiapine, Trazodone and Nicotine lozenge provided this shift. Shortly after start of shift patient requested Xanax and Quetiapine and expressed paranoid thoughts of family wanting him locked away. He continued to explain the voices were bothering him. After receiving Xanax and Quetiapine patient laid down and briefly napped. When policy writer sales provided HS snack and meds patient expressed gratitude, "thank you miss; you saved my life." He briefly walked the unit prior to returning to bed. Patient observed sleeping and does not appear to be having difficulty sleeping. S/I, H/I: Denies A/VH: Reports AH Sleep: Refer to sleep assessment ADL's: Independent Group attendance: NA Were meds taken: Yes Any med S/E: None observed or reported Mental Status Exam Appearance: Disheveled, wearing heavy winter jacket and hat. Eye contact: Fair Behavior: Pleasant, cooperative, isolative to room Speech: Mumbles softly and rapid at times Mood: Anxious Affect: Flat Thought process: Paranoid Thought Content: Meeting needs; voices, all his family wanting him locked away Cognition: A&Ox3 Insight: Poor Judgment: Poor Interventions PRN's used: Nicotine lozenge, Xanax, Quetiapine, Trazodone Therapeutic interventions: 1:1 assessment, active listening, reality orientation, medication education/administration/monitoring, encouragement to perform personal care and attend groups, maintained q15m safety checks. Restraints/seclusion/emergency medication: None Justification of Continued Inpatient Treatment: Patient continues to exhibit psychotic symptoms and mood lability, irritability. Patient continues to be a high risk for discharge and requires continued medication adjustment in a safe and supportive milieu. Pt is reasonably aware that he will be going for [facility] conservatorship.
[2020-04-29 07:52] VITALS: BP 134/89
[2020-04-29] MEDS: clonazePAM 1mg tablet PO SCH ×3 (08:23→20:08)
[2020-04-29] MEDS: pantoprazole 40mg Tablet.DR PO SCH (08:23)
[2020-04-29] MEDS: benztropine 1mg tablet PO SCH ×2 (08:23→20:08)
[2020-04-29] MEDS: divalproex sodium 500mg tablet.DR PO SCH ×2 (08:24→20:08)
[2020-04-29] MEDS: gabapentin 300mg capsule PO SCH ×2 (08:24→12:56)
[2020-04-29] MEDS: OLANZapine 5mg rapidly disint. tablet PO SCH ×2 (08:25→20:07)
[2020-04-29] MEDS: QUEtiapine 25mg tablet PO SCH ×2 (08:25→12:56)
[2020-04-29] MEDS: quetiapine 100mg tablet PO SCH ×3 (08:25→20:07)
[2020-04-29] MEDS: ALPRAZolam 0.5mg tablet PO PRN ×2 (08:39→14:28)
--- NOTE | 2020-04-29 12:29 | NUR ---
NURSING PROGRESS NOTE Legal hold: T-Con Client on involuntary status for GD/DTO Report received from RN with use of SBAR Why are they here: Client reported increased auditory and visual hallucinations. Client hears voices coming from buildings saying, "We're going to kill you." Client believes others are controlling him. Client believes camera's are watching him in his car. Client is currently homeless and may not have been taking his medications. Assessment What has happened this shift: Received Pt in bed sleeping w/o distress at beginning of shift. Pt awoke and was cooperative with vitals and attended breakfast and all meals and snacks, ate well and was appropriate with others. Pt took AM meds w/o issue and was also given PRN Xanax for anxiety. Pt was pleasant and talkative, but anxious r/t a greater awareness of his psychotic sxs. He continues to enjoy listening to music and tends to isolate. Did not want to go out to patio and took a nap instead. Pt continues to wear a winter hat and warm clothing on unit. S/I, H/I: Denies both A/VH: +AH. Denies VH Sleep: Did not sleep this shift ADL's: Independent with prompting Group attendance: NA Were meds taken: Yes Any med S/E: Denies Mental Status Exam Appearance: Disheveled, wearing winter cap and jacket Eye contact: Fair Behavior: Cooperative, anxious, pacing halls with headphones Speech: Mumbles, loud and rapid at times Mood: Anxious, but pleasant Affect: Smiled at times Thought process: Circumstantial Thought Content: Getting needs met. Decreasing anxiety Cognition: A&Ox4 Insight: Poor. Judgment: Poor. Interventions PRN's used: Xanax, Nicotine Beth. Therapeutic interventions: 1:1 assessment, active listening, reality orientation, medication education/administration/monitoring, encouragement to perform personal care and attend groups, maintained q15m safety checks. Restraints/seclusion/emergency medication: None Justification of Continued Inpatient Treatment: Patient continues to exhibit psychotic symptoms and mood lability, irritability. Patient continues to be a high risk for discharge and requires continued medication adjustment in a safe and supportive milieu. Pt is reasonably aware that he will be going for LPS conservatorship.
[2020-04-29] MEDS: QUEtiapine 25mg tablet PO PRN (14:29)
[2020-04-29 19:42] VITALS: BP 127/83
[2020-04-29] MEDS: lithium carbonate 150mg capsule PO SCH (20:08)
[2020-04-29] MEDS: gabapentin 400mg capsule PO SCH (20:08)
[2020-04-29] MEDS: traZODone 50mg tablet PO PRN (20:08)
--- NOTE | 2020-04-30 05:01 | NUR ---
NURSING PROGRESS NOTE Legal hold: TCON Client on involuntary status for GD/DTO Report received from Caty LÓPEZ with use of SBAR Why are they here: Client reported increased auditory and visual hallucinations. Client hears voices coming from buildings saying, "We're going to kill you." Client believes others are controlling him. Client believes camera's are watching him in his car. Client is currently homeless and may not have been taking his medications. Assessment What has happened this shift: Patient observed sleeping in bed at the beginning of shift. Pleasant and cooperative with care; compliant with medication. PRN Trazodone and Nicotine lozenge provided. Patient denies SI, HI, A/VH this shift. Reports, "I've just been sleeping so good," with a big grin. Patient got up to eat HS snack and immediately returned to bed. Observed sleeping without difficulty. He woke early this AM and appears to in bright mood. S/I, H/I: Denies A/VH: Denies Sleep: Refer to sleep assessment ADL's: Independent Group attendance: NA Were meds taken: Yes Any med S/E: None observed or reported Mental Status Exam Appearance: Disheveled, wearing heavy winter jacket and hat. Eye contact: Good Behavior: Pleasant, cooperative, isolative to room Speech: Mumbles softly and rapid at times Mood: Euthymic, Tired Affect: Congruent to mood Thought process: Linear, no delusions expressed this shift Thought Content: Meeting needs; good sleep Cognition: A&Ox3 Insight: Poor Judgment: Poor Interventions PRN's used: Nicotine lozenge and Trazodone Therapeutic interventions: 1:1 assessment, active listening, reality orientation, medication education/administration/monitoring, encouragement to perform personal care and attend groups, maintained q15m safety checks. Restraints/seclusion/emergency medication: None Justification of Continued Inpatient Treatment: Patient continues to exhibit psychotic symptoms and mood lability, irritability. Patient continues to be a high risk for discharge and requires continued medication adjustment in a safe and supportive milieu. Pt is reasonably aware that he will be going for LPS conservatorship.
[2020-04-30 07:33] VITALS: BP 124/85
[2020-04-30] MEDS: QUEtiapine 25mg tablet PO SCH ×2 (07:45→12:29)
[2020-04-30] MEDS: benztropine 1mg tablet PO SCH ×2 (07:45→20:14)
[2020-04-30] MEDS: gabapentin 300mg capsule PO SCH ×2 (07:45→12:29)
[2020-04-30] MEDS: clonazePAM 1mg tablet PO SCH ×3 (07:45→20:14)
[2020-04-30] MEDS: divalproex sodium 500mg tablet.DR PO SCH ×2 (07:45→20:14)
[2020-04-30] MEDS: pantoprazole 40mg Tablet.DR PO SCH (07:45)
[2020-04-30] MEDS: quetiapine 100mg tablet PO SCH ×3 (07:45→20:14)
[2020-04-30] MEDS: tizanidine 4mg tablet PO SCH ×3 (07:45→16:50)
[2020-04-30] MEDS: OLANZapine 5mg rapidly disint. tablet PO SCH ×2 (07:45→20:14)
[2020-04-30] MEDS: ALPRAZolam 0.5mg tablet PO PRN ×2 (08:59→13:22)
[2020-04-30] MEDS: NICOTINE POLACRILEX 2 MG LOZENGE BC PRN ×4 (09:02→17:43)
--- NOTE | 2020-04-30 17:53 | NUR ---
NURSING PROGRESS NOTE Legal hold: T-Con Client on involuntary status for GD/DTO Report received from Nabila Holliday RN with use of SBAR Why are they here: Client reported increased auditory and visual hallucinations. Client hears voices coming from buildings saying, "We're going to kill you." Client believes others are controlling him. Client believes camera's are watching him in his car. Client is currently homeless and may not have been taking his medications. Assessment What has happened this shift: Pt. awake at beginning of shift and lying in bed with light on. Soon afterward pt. observed pacing halls and wearing headphones. Pt. took all medication and ate all meals in the community room. 1:1 done at bedside, pt. reports there is a copier field service technician artem movie going on in my head. Pt. states, Its funny but then says, Its kind of making me mad though But I dont want to talk about it. Pt. denies SI/HI V/H. Pt. requested Xanax for increased anxiety and received 1mg po with good effect, when asked about source of anxiety, pt. states, I dont want to talk about it. Medication was effective. In the afternoon pt. again requested Xananx and did not want to discuss his anxiety, medication was effective. Pt. observed pacing in the halls. Pt. c/o of urinary retention, states he is unable to completely empty his bladder. RN asked S/I, H/I: Denies A/VH: +AH. -VH. Sleep: Pt. did not appear to nap during the day ADL's: Independent with prompting Group attendance: NA Were meds taken: Yes Any med S/E: Denies Mental Status Exam Appearance: Disheveled, wearing heavy winter jacket and hat, green scrub bottoms and street shoes. Eye contact: Fair Behavior: Mostly calm. Pacing halls and listening to headphones. Lying on bed and listening to headphones. Speech: Mumbles softly and rapid at times. Mood: Anxious Affect: Flat Thought process: Though blocking due to internal stimuli. Circumstantial. Thought Content: Getting needs met. Responding to AH. Cognition: A&Ox3 Insight: Fair Judgment: Fair Interventions PRN's used: Nicotine, Xanax x2, Pt. refused Seroquel. Therapeutic interventions: 1:1 assessment, active listening, reality orientation, medication education/administration/monitoring, encouragement to perform personal care and attend groups, maintained q15m safety checks. Restraints/seclusion/emergency medication: None Justification of Continued Inpatient Treatment: Patient continues to exhibit psychotic symptoms and mood lability, irritability. Patient continues to be a high risk for discharge and requires continued medication adjustment in a safe and supportive milieu. Pt is reasonably aware that he will be going for LPS conservatorship.
--- NOTE | 2020-04-30 17:54 | NUR ---
Pt. c/o of urinary retention. RN informed provider and bladder scanner ordered for residual urine post void. PT. REFUSED BLADDER SCANNER. Pt. states, "I want to wait until tomorrow".
--- NOTE | 2020-04-30 18:15 | NUR ---
Pt. allowed RN to bladder scan him post-void and pt. had 159ml residual. RN informed Dr. Huddleston.
[2020-04-30 19:29] VITALS: BP 135/86
[2020-04-30] MEDS: gabapentin 400mg capsule PO SCH (20:14)
[2020-04-30] MEDS: traZODone 50mg tablet PO PRN (20:14)
[2020-04-30] MEDS: lithium carbonate 150mg capsule PO SCH (20:14)
[2020-05-01] MEDS: NICOTINE POLACRILEX 2 MG LOZENGE BC PRN ×4 (04:36→13:46)
--- NOTE | 2020-05-01 05:00 | NUR ---
NURSING PROGRESS NOTE Legal hold: TCON Client on involuntary status for GD/DTO Report received from Caty LÓPEZ with use of SBAR Why are they here: Client reported increased auditory and visual hallucinations. Client hears voices coming from buildings saying, "We're going to kill you." Client believes others are controlling him. Client believes camera's are watching him in his car. Client is currently homeless and may not have been taking his medications. Assessment What has happened this shift: Patient observed awake and pacing in his room and responding to IS at the beginning of shift. Pleasant and cooperative with care; compliant with medication. PRN Nicotine lozenge and Trazodone provided. Patient denies SI, HI, A/VH but when asked about hearing voices reports, "all day long." He continued to explain with a smile, "they're biblical, they're voices sent to me to help them, they need help." Patient ate HS snack in his room and shortly after retired to bed. He is observed sleeping and does not appear to be having difficulty. S/I, H/I: Denies A/VH: +AH Sleep: Refer to sleep assessment ADL's: Independent Group attendance: NA Were meds taken: Yes Any med S/E: None observed or reported Mental Status Exam Appearance: Disheveled, wearing heavy winter jacket and hat. Eye contact: Good Behavior: Pleasant, cooperative, isolative to room, responding to IS Speech: Mumbles softly and rapid at times Mood: Euthymic Affect: Congruent to mood Thought process: Linear with delusional content expressed this shift Thought Content: Meeting needs; hearing voices of people he feels he needs to help Cognition: A&Ox3 Insight: Poor Judgment: Poor Interventions PRN's used: Nicotine lozenge and Trazodone Therapeutic interventions: 1:1 assessment, active listening, reality orientation, medication education/administration/monitoring, encouragement to perform personal care and attend groups, maintained q15m safety checks. Restraints/seclusion/emergency medication: None Justification of Continued Inpatient Treatment: Patient continues to exhibit psychotic symptoms and mood lability, irritability. Patient continues to be a high risk for discharge and requires continued medication adjustment in a safe and supportive milieu. Pt is reasonably aware that he will be going for [facility] conservatorship.
[2020-05-01] MEDS: quetiapine 100mg tablet PO SCH ×3 (07:29→20:18)
[2020-05-01] MEDS: pantoprazole 40mg Tablet.DR PO SCH (07:29)
[2020-05-01] MEDS: tizanidine 4mg tablet PO SCH ×3 (07:29→16:27)
[2020-05-01] MEDS: gabapentin 300mg capsule PO SCH ×2 (07:29→13:07)
[2020-05-01] MEDS: divalproex sodium 500mg tablet.DR PO SCH ×2 (07:29→20:15)
[2020-05-01] MEDS: benztropine 1mg tablet PO SCH ×2 (07:29→20:14)
[2020-05-01] MEDS: clonazePAM 1mg tablet PO SCH ×3 (07:29→20:15)
[2020-05-01] MEDS: QUEtiapine 25mg tablet PO SCH ×2 (07:29→13:07)
[2020-05-01 07:30] VITALS: BP 134/101
[2020-05-01] MEDS: OLANZapine 5mg rapidly disint. tablet PO SCH ×2 (07:31→20:15)
[2020-05-01] MEDS: ALPRAZolam 0.5mg tablet PO PRN ×3 (08:33→18:13)
[2020-05-01] MEDS: acetaminophen 325mg tablet PO PRN (11:29)
--- NOTE | 2020-05-01 13:51 | NUR ---
Placement Presenting Issues: Pt's at baseline functioning and is awaiting placement from [facility]. Pt self reports that he is feeling much better, continues to experience AH but reports that they are no longer angry or telling him to hurt himself or anyone else. SS received t/c from [facility] requesting an updated placement packet as Pino Alfonso & Daisha RT have reviewed the initial referral packet and are requesting updates (MD & RN notes & current meds.). Interventions: SS printed requested info and sent it to Sofi Jones @ [facility]'s office via encrypted e-mail. Plan: SS will continue to engage & [facility] in placement & dcp activities. Maria Luisa Murphy LCSW Addendum: 05/01/20 at 1402 by Maria Luisa Murphy SS Amended: Links added.
--- NOTE | 2020-05-01 17:50 | NUR ---
NURSING PROGRESS NOTE Legal hold: T-Con Client on involuntary status for GD/DTO Report received from Ashley LÓPEZ with use of SBAR Why are they here: Client reported increased auditory and visual hallucinations. Client hears voices coming from buildings saying, "We're going to kill you." Client believes others are controlling him. Client believes camera's are watching him in his car. Client is currently homeless and may not have been taking his medications. Assessment What has happened this shift: Pt. awake at beginning of shift and sitting in his chair looking out the window. Pt. observed pacing halls and wearing headphones. Pt. took all medication and ate all meals in the community room. 1:1 done at bedside, pt. denies SI/HI, VH. Pt. reports +AH, pt. states, that he is hearing voices but does not know what they are saying. Pt. states, I think that means Im better what do you think? Pt. reports feeling some urinary retention but does not want to be bladder scanned. Pt. states, Ill let you know if it gets worse. Pt. was bladder scanned last night and had 159ML post void residual. Pt. requested Xanax for anxiety in the AM and received 1mg po with good effect. Pt. isolated mostly to his room during the day, napping intermittently. In afternoon pt. heard yelling and swearing loudly in his room. Pt. received another Xanax and again received 1mg po with good effect. S/I, H/I: Denies A/VH: +AH. -VH. Sleep: Pt. napped intermittently throughout the day. ADL's: Independent with prompting Group attendance: NA Were meds taken: Yes Any med S/E: Denies Mental Status Exam Appearance: Disheveled, wearing heavy winter jacket and hat, green scrub bottoms and street shoes. Eye contact: Fair Behavior: Mostly calm with some outbursts of yelling in his room. Pacing halls and listening to headphones. Lying on bed and listening to headphones. Speech: WNL but mumbles softly and rapid at times. Mood: Anxious Affect: Flat Thought process: Thought blocking due to internal stimuli. Circumstantial. Thought Content: Getting needs met. Responding to AH. Cognition: A&Ox3 Insight: Fair Judgment: Fair Interventions PRN's used: Nicotine, Xanax x2. Therapeutic interventions: 1:1 assessment, active listening, reality orientation, medication education/administration/monitoring, encouragement to perform personal care and attend groups, maintained q15m safety checks. Restraints/seclusion/emergency medication: None Justification of Continued Inpatient Treatment: Patient continues to exhibit psychotic symptoms and mood lability, irritability. Patient continues to be a high risk for discharge and requires continued medication adjustment in a safe and supportive milieu. Pt. is requesting conservatorship.
[2020-05-01 19:37] VITALS: BP 142/81
[2020-05-01] MEDS: lithium carbonate 150mg capsule PO SCH (20:16)
[2020-05-01] MEDS: gabapentin 400mg capsule PO SCH (20:16)
[2020-05-01] MEDS: traZODone 50mg tablet PO PRN (20:16)
--- NOTE | 2020-05-02 01:16 | NUR ---
NURSING PROGRESS NOTE Legal hold: T-Con Client on involuntary status for GD/DTO Report received from Caty LÓPEZ with use of SBAR Why are they here: Client reported increased auditory and visual hallucinations. Client hears voices coming from buildings saying, "We're going to kill you." Client believes others are controlling him. Client believes camera's are watching him in his car. Client is currently homeless and may not have been taking his medications. Assessment What has happened this shift: Pt. awake lying in bed at beginning of shift. Later out in posadas requested nicotine lozenge. Came to group room for snack, spent most of shift in room. Pt. took all medications. 1:1 done at bedside, pt. denies SI/HI, VH. Pt. reports +AH, pt. states, "I am getting better but that makes it harder for me." He did not elaborate. Asked if he thought the medications were helping he said yes if they don't steal them magically out of my stomach." Pt reports sometimes after he takes his meds he feels something weird in his stomach and Then he hears "them" taunting and laughing at him and saying "I got one". No c/o urinary retention S/I, H/I: Denies A/VH: +AH. -VH. Sleep: asleep at this time ADL's: Independent with prompting Group attendance: NA Were meds taken: Yes Any med S/E: Denies Mental Status Exam Appearance: Disheveled, wearing heavy winter jacket and hat, green scrub bottoms and street shoes. Eye contact: Fair Behavior: Calm and cooperative Speech: WNL but mumbles softly and rapid at times. Mood: Anxious Affect: Flat Thought process: Thought blocking due to internal stimuli. Circumstantial. Thought Content: Getting needs met. Responding to AH. Cognition: A&Ox3 Insight: Fair Judgment: Fair Interventions PRN's used: Nicotine, Therapeutic interventions: 1:1 assessment, active listening, reality orientation, medication education/administration/monitoring, encouragement to perform personal care and attend groups, maintained q15m safety checks. Restraints/seclusion/emergency medication: None Justification of Continued Inpatient Treatment: Patient continues to exhibit psychotic symptoms and mood lability, irritability. Patient continues to be a high risk for discharge and requires continued medication adjustment in a safe and supportive milieu. Pt. is requesting conservatorship.
[2020-05-02] MEDS: ALPRAZolam 0.5mg tablet PO PRN ×2 (04:55→13:55)
[2020-05-02] MEDS: NICOTINE POLACRILEX 2 MG LOZENGE BC PRN ×5 (05:00→18:01)
[2020-05-02] MEDS: quetiapine 100mg tablet PO SCH ×3 (07:44→20:34)
[2020-05-02] MEDS: gabapentin 300mg capsule PO SCH ×2 (07:46→12:58)
[2020-05-02] MEDS: OLANZapine 5mg rapidly disint. tablet PO SCH (07:46)
[2020-05-02] MEDS: pantoprazole 40mg Tablet.DR PO SCH (07:46)
[2020-05-02] MEDS: benztropine 1mg tablet PO SCH ×2 (07:46→20:35)
[2020-05-02] MEDS: tizanidine 4mg tablet PO SCH ×3 (07:47→16:24)
[2020-05-02 08:00] VITALS: BP 131/95
[2020-05-02] MEDS ORDERED: acetaminophen 325mg tablet PO PRN ×2 (08:40→17:50)
[2020-05-02] MEDS ORDERED: divalproex sodium 500mg tablet.DR PO ONE (09:25)
[2020-05-02] MEDS ORDERED: clonazePAM 1mg tablet PO ONE (09:25)
[2020-05-02] MEDS ORDERED: quetiapine 100mg tablet PO ONE (09:25)
--- NOTE | 2020-05-02 11:03 | NUR ---
Reassessment: Pt continues eating well with average 75-100% PO intake on regular diet. LB 05/01. No nutrition intervention warranted at this time. Will continue to follow. Rec: 1. continue regular diet 2. routine bowel care 3. scaled wts per rx Addendum: 05/02/20 at [address] Amended: Links added.
--- NOTE | 2020-05-02 16:08 | NUR ---
Reassessment: Pt continues eating well with average 75-100% PO intake on regular diet. LB 05/01. No nutrition concerns at this time. Will continue to follow. Rec: 1. continue regular diet 2. routine bowel care 3. scaled wts per rx Addendum: 05/02/20 at [address] Amended: Links added.
[2020-05-02 17:48] LABS: BASOPHILS % (AUTO) 0.5 % (0-1); EOSINOPHILS # (AUTO) 0.2 X10'3 (0-0.9); EOSINOPHILS % (AUTO) 2.9 % (0-6); HEMATOCRIT 43.5 % (42.0-52.0); HEMOGLOBIN 14.5 g/dl (14.0-17.9); LYMPHOCYTES # (AUTO) 2.8 X10'3 (1.1-4.8); LYMPHOCYTES % (AUTO) 44.6 % (21-51); MEAN CORPUSCULAR HEMOGLOBIN 28.6 PG (27.0-31.0); MEAN CORPUSCULAR HGB CONC 33.4 g/dL (33.0-36.5); MEAN CORPUSCULAR VOLUME 85.6 FL (78-98); MONOCYTES # (AUTO) 0.8 X10'3 (0-0.9); MONOCYTES % (AUTO) 12.2 % (2-12); NEUTROPHILS # (AUTO) 2.5 X10'3 (1.8-7.7); NEUTROPHILS % (AUTO) 39.8 % (42-75); PLATELET COUNT 163 X10'3 (140-440); RED BLOOD COUNT 5.08 X10'6 (4.70-6.10); RED CELL DISTRIBUTION WIDTH 15.2 % (11.5-14.5); WHITE BLOOD COUNT 6.3 X10'3 (4.5-11.0)
[2020-05-02] MEDS ORDERED: loperamide 2mg capsule PO PRN (17:50)
[2020-05-02] MEDS ORDERED: magnesium hydroxide 30ml (MOM) UD suspension PO PRN (17:50)
[2020-05-02] MEDS ORDERED: mag hydrox/Alum hydrox/simeth 30ml oral suspension PO PRN (17:50)
--- NOTE | 2020-05-02 17:56 | NUR ---
NURSING PROGRESS NOTE Legal hold: T-Con Client on involuntary status for GD/DTO Report received from Ludy LÓPEZ with use of SBAR Why are they here: Client reported increased auditory and visual hallucinations. Client hears voices coming from buildings saying, "We're going to kill you." Client believes others are controlling him. Client believes camera's are watching him in his car. Client is currently homeless and may not have been taking his medications. Assessment What has happened this shift: Pt. awake at start of shift and pacing posadas with headphones. Pt. took all medications and ate all meals in community room. 1:1 done at bedside, Pt. appears to be in a good mood and reports he is doing "good" and that he slept well. Pt. denies SI/HI, VH but +AH. Pt. reports hearing voices but is not sure what they are saying. In the afternoon pt. approached this RN with pensive look on his face and requested Xanax because he, "can't get away from these devils". Pt. took Xananx 1mg with good effect. Pt. had [facility] and [place] levels drawn this evening along with CBC and CMP. Results pending. S/I, H/I: Denies A/VH: +AH. -VH. Sleep: Pt. did not appear to nap on day shift. ADL's: Independent with prompting Group attendance: No Were meds taken: Yes Any med S/E: Denies Mental Status Exam Appearance: Disheveled, wearing heavy winter jacket and hat, green scrub bottoms and street shoes. Eye contact: Fair Behavior: Mostly calm with some outbursts of yelling in his room. Pacing halls and listening to headphones. Lying on bed and listening to headphones. Speech: WNL but mumbles softly and rapid at times. Mood: Anxious Affect: Flat Thought process: Thought blocking due to internal stimuli. Circumstantial. Thought Content: Getting needs met. Responding to AH. Cognition: A&Ox3 Insight: Fair Judgment: Fair Interventions PRN's used: Nicotine, Xanax x2. Therapeutic interventions: 1:1 assessment, active listening, reality orientation, medication education/administration/monitoring, encouragement to perform personal care and attend groups, maintained q15m safety checks. Restraints/seclusion/emergency medication: None Justification of Continued Inpatient Treatment: Patient continues to exhibit psychotic symptoms and mood lability, irritability. Patient continues to be a high risk for discharge and requires continued medication adjustment in a safe and supportive milieu. Pt. is requesting conservatorship.
[2020-05-02 18:04] LABS: ALANINE AMINOTRANSFERASE 18 U/L (12-78); ALBUMIN 3.6 G/DL (3.4-5.0); ALBUMIN/GLOBULIN RATIO 1.2 (1.1-1.5); ALKALINE PHOSPHATASE 51 IU/L (46-116); ANION GAP 9 (8-16); ASPARTATE AMINO TRANSFERASE 15 U/L (10-37); BILIRUBIN,TOTAL 0.2 MG/DL (0.1-1.0); BLOOD UREA NITROGEN 15 MG/DL (7-18); BUN/CREATININE RATIO 15.6 (5.4-32.0); CALCIUM 9.2 MG/DL (8.5-10.1); CHLORIDE 106 MMOL/L (99-107); CREATININE 0.96 MG/DL (0.60-1.10); GLUCOSE 111 MG/DL (70-104); POTASSIUM 4.3 MMOL/L (3.5-5.1); SODIUM 142 MMOL/L (135-145); TOTAL PROTEIN 6.6 G/DL (6.4-8.2); VALPROATE 79 UG/ML (50-100); eGFR 90 ML/MIN
[2020-05-02 19:26] VITALS: BP 142/90
[2020-05-02] MEDS: clonazePAM 1mg tablet PO SCH (20:34)
[2020-05-02] MEDS: divalproex sodium 500mg tablet.DR PO SCH (20:34)
[2020-05-02] MEDS: lithium carbonate 150mg capsule PO SCH (20:35)
[2020-05-02] MEDS: gabapentin 400mg capsule PO SCH (20:35)
--- NOTE | 2020-05-02 22:32 | NUR ---
NURSING PROGRESS NOTE Legal hold: tcon Client on involuntary status for DTS Report received from MARIBEL Schultz with use of SBAR Why are they here: Client reported increased auditory and visual hallucinations. Client hears voices coming from buildings saying, "We're going to kill you." Client believes others are controlling him. Client believes camera's are watching him in his car. Client is currently homeless and may not have been taking his medications. Assessment What has happened this shift: Pt isolates to his room most of shift, mostly laying in his bed with the lights off. He takes his HS medications with no issue. He states he is tired and ready for bed. He denies SI/HI. He nods his head when asked if he is experiencing any hallucinations, but will not expand on what they are. S/I, H/I: Denies both. A/VH: Endorses auditory hallucinations Sleep: see sleep assessment ADL's: Needs encouragement, but can perform independently. Group attendance: No Were meds taken: Yes Any med S/E: None reported or observed Mental Status Exam Appearance: wearing unit scrubs, and winter hat. Eye contact: Fair Behavior:cooperative, isolative Speech: Mumbles Mood: upbeat Affect: congruent with cosme Thought process: circumstantial Thought Content: Hallucinations. Cognition: A&Ox4 Insight: Poor. Judgment: Poor. Interventions PRN's used: Therapeutic interventions: 1:1 assessment, active listening, reality orientation, medication education/administration/monitoring, encouragement to perform personal care and attend groups, maintained q15m safety checks. Restraints/seclusion/emergency medication: None Justification of Continued Inpatient Treatment: Patient continues to exhibit psychotic symptoms and mood lability, irritability. Patient continues to be a high risk for discharge and requires continued medication adjustment in a safe and supportive milieu. Pt is reasonably aware that he will be going for LPS conservatorship.
[2020-05-03] MEDS: ALPRAZolam 0.5mg tablet PO PRN ×3 (05:52→18:39)
[2020-05-03] MEDS: NICOTINE POLACRILEX 2 MG LOZENGE BC PRN ×5 (05:53→18:57)
[2020-05-03 08:00] VITALS: BP 140/94
[2020-05-03] MEDS: gabapentin 300mg capsule PO SCH ×2 (08:22→11:35)
[2020-05-03] MEDS: QUEtiapine 25mg tablet PO SCH ×2 (08:22→11:35)
[2020-05-03] MEDS: quetiapine 100mg tablet PO SCH ×3 (08:22→20:16)
[2020-05-03] MEDS: clonazePAM 1mg tablet PO SCH ×2 (08:22→20:17)
[2020-05-03] MEDS: benztropine 1mg tablet PO SCH ×2 (08:23→20:18)
[2020-05-03] MEDS: pantoprazole 40mg Tablet.DR PO SCH (08:23)
[2020-05-03] MEDS: tizanidine 4mg tablet PO SCH ×3 (08:23→16:08)
[2020-05-03] MEDS: divalproex sodium 500mg tablet.DR PO SCH ×2 (08:23→20:17)
--- NOTE | 2020-05-03 15:56 | NUR ---
Nursing Progress Note: Legal hold: TCon Client on involuntary status for DTS Report received from nurse with use of SBAR: MARIBEL Boston Why are they here: Client reported increased auditory and visual hallucinations. Client hears voices coming from buildings saying, "We're going to kill you." Client believes others are controlling him. Client believes camera's are watching him in his car. Client is currently homeless and may not have been taking his medications. Assessment What has happened this shift: Received pt. up in the hallway at the beginning of the shift, he greeted this telegraphic typewriter repairer appropriately. Pt. reports he slept well until 0400, however he then had a nightmare and woke up angry, but asked for PRN Xanax with effectiveness. 1:1 completed at bedside, pt. continues to deny any S/I or H/I, however reports ongoing A/KEYES which tell him to hurt others sometimes. He states, "But I don't want to hurt others, I want to be kind." Pt. also reports paranoid delusions that others want to hurt him. When questioned further by this telegraphic typewriter repairer regarding specifically who he feels wants to hurt him, pt. stated, "I know people, who know people, but I want to keep that a secret otherwise people say Gianni said this or that." Pt. does admit that he is feeling better and believes his medications are working. He continues to be withdrawn in his room during the day listening to headphones, but does occasionally pace in the hallway and interact minimally with others. Pt. later requests PRN Xanax for anxiety , administered with effectiveness. S/I, H/I: Denies A/VH: Ongoing A/KEYES Sleep: Pt. reports he slept well, however awoke early at 0400, sleep hours are 8 ADL's: Pt. requires some direction and encouragement Group attendance: Yes Were meds taken: Yes Any med S/E: Yes Mental Status Exam Appearance: Wearing hunters hat, scruffy hall, however appropriately dressed Eye contact: Fair Behavior: Cooperative, anxious, withdrawn, and guarded Speech: Soft and mumbles Mood: Guarded Affect: Constricted Thought process:Poverty of thought Thought Content: A/KEYES and paranoid delusions Cognition: A&O X3 Insight: Poor Judgment: Poor Interventions PRN's used: Xanax and Nicotine Lozenge Therapeutic interventions: Maintained a safe and therapeutic environment, ensured contract for safety, provided clear and simple instructions, attempted to orient to reality, monitored behaviors and need for intervention, and maintained Q 15min safety checks. Restraints/seclusion/emergency medication: N/A Justification of Continued Inpatient Treatment: Per Dr. Huddleston, pt. continues to have psychotic s/s but is at baseline. He requires a safe and supportive environment and will discharge with housing is available.
[2020-05-03 19:24] VITALS: BP 135/88
[2020-05-03] MEDS: lithium carbonate 150mg capsule PO SCH (20:16)
[2020-05-03] MEDS: gabapentin 400mg capsule PO SCH (20:18)
--- NOTE | 2020-05-04 03:54 | NUR ---
NURSING PROGRESS NOTE Legal hold: tcon Client on involuntary status for DTS Report received from MARIBEL Schultz with use of SBAR Why are they here: Client reported increased auditory and visual hallucinations. Client hears voices coming from buildings saying, "We're going to kill you." Client believes others are controlling him. Client believes camera's are watching him in his car. Client is currently homeless and may not have been taking his medications. Assessment What has happened this shift: Pt isolates to his room most of shift. He is in a black jacket with a winter hat on.He remains distant and guarded most of the shift, but does smile and laugh when underwriter is doing 1:1 assessment. He is medication compliant. S/I, H/I: Denies both. A/VH: Endorses auditory hallucinations Sleep: see sleep assessment ADL's: Needs encouragement, but can perform independently. Group attendance: No Were meds taken: Yes Any med S/E: None reported or observed Mental Status Exam Appearance: Disheveled man with hall and short hair, wearing unit scrub pants, hoodie, and jacket and winter hat. Eye contact: Fair Behavior:cooperative, isolative Speech: Mumbles Mood: labile Affect: upbeat occasionally Thought process: Paranoid delusions due to auditory hallucinations. Thought Content: Hallucinations. Cognition: A&Ox4 Insight: Poor. Judgment: Poor. Interventions PRN's used: Therapeutic interventions: 1:1 assessment, active listening, reality orientation, medication education/administration/monitoring, encouragement to perform personal care and attend groups, maintained q15m safety checks. Restraints/seclusion/emergency medication: None Justification of Continued Inpatient Treatment: Patient continues to exhibit psychotic symptoms and mood lability, irritability. Patient continues to be a high risk for discharge and requires continued medication adjustment in a safe and supportive milieu. Pt is reasonably aware that he will be going for LPS conservatorship.
[2020-05-04] MEDS: NICOTINE POLACRILEX 2 MG LOZENGE BC PRN ×6 (06:42→20:11)
[2020-05-04] MEDS: ALPRAZolam 0.5mg tablet PO PRN ×2 (07:33→14:24)
[2020-05-04] MEDS: QUEtiapine 25mg tablet PO SCH ×2 (07:34→11:56)
[2020-05-04] MEDS: quetiapine 100mg tablet PO SCH ×3 (07:34→20:03)
[2020-05-04] MEDS: gabapentin 300mg capsule PO SCH ×2 (07:34→11:56)
[2020-05-04] MEDS: divalproex sodium 500mg tablet.DR PO SCH ×2 (07:34→20:01)
[2020-05-04] MEDS: tizanidine 4mg tablet PO SCH ×3 (07:34→16:18)
[2020-05-04] MEDS: benztropine 1mg tablet PO SCH ×2 (07:35→20:04)
[2020-05-04] MEDS: pantoprazole 40mg Tablet.DR PO SCH (07:35)
[2020-05-04 08:00] VITALS: BP 147/97
[2020-05-04] MEDS: clonazePAM 1mg tablet PO SCH ×2 (08:56→20:02)
--- NOTE | 2020-05-04 13:06 | NUR ---
Nursing Progress Note: Legal hold: LPS Client on involuntary status for DTS Report received from nurse with use of SBAR: MARIBEL Boston Why are they here: Client reported increased auditory and visual hallucinations. Client hears voices coming from buildings saying, "We're going to kill you." Client believes others are controlling him. Client believes camera's are watching him in his car. Client is currently homeless and may not have been taking his medications. Assessment What has happened this shift: Received pt. up in the hallway at the beginning of the shift, he greeted this investigative writer appropriately and reported he has been reading the Bible. He questioned this investigative writer, "If you had something in you of bad nature, would you want to starve it more of feed it more Judaism?" Pt. appears restless AEB pacing the hallway, and requests PRN Xanax administered with effectiveness. 1:1 completed at bedside, pt. again denies any S/I or H/I, however continues to report ongoing A/KEYES and is observed to be talking aloud to himself intermittently. Pt. states in a paranoid way, "To tell you the truth, I think someone's after me and it could be a problem, but I don't like violence." He reports the Xanax helps him keep these feeling under control. When further questioned by this investigative writer regarding his A/KEYES, pt. reports that the voices were much worse last night, but today he feels that "they" are trying to sort it out and all get along. Pt. continues to be withdrawn listening to headphones during the day, but does occasionally pace in the hallway and interact minimally with others. Later in the afternoon, pt. again appeared to have increased internal preoccupation and restlessness, her requested PRN Xanax. Medication administered with effectiveness. S/I, H/I: Denies A/VH: Ongoing A/KEYES Sleep: Pt. reports he slept well, sleep hours are 8.5 ADL's: Pt. requires some direction and encouragement Group attendance: Yes Were meds taken: Yes Any med S/E: Yes Mental Status Exam Appearance: Wearing hunters hat and headphones, appropriately dressed Eye contact: Fair Behavior: Cooperative, anxious, withdrawn, and guarded Speech: Soft and mumbles Mood: Guarded Affect: Constricted Thought process:Poverty of thought Thought Content: A/KEYES and paranoid delusions Cognition: A&O X3 Insight: Poor Judgment: Poor Interventions PRN's used: Xanax and Nicotine Lozenge Therapeutic interventions: Maintained a safe and therapeutic environment, ensured contract for safety, provided clear and simple instructions, attempted to orient to reality, monitored behaviors and need for intervention, and maintained Q 15min safety checks. Restraints/seclusion/emergency medication: N/A Justification of Continued Inpatient Treatment: Per Dr. Huddleston, pt. continues to have psychotic s/s but is at baseline. He requires a safe and supportive environment and will discharge with housing is available. Addendum: 05/04/20 at 1740 by Selma Cruz RN Pt. continued to have increased restlessness and agitation caused by internal preoccupation, however he was able to identify this and requested PRN Seroquel. Medication administered and will continue to monitor.
[2020-05-04] MEDS: QUEtiapine 25mg tablet PO PRN (17:37)
[2020-05-04 19:31] VITALS: BP 129/78
[2020-05-04] MEDS: gabapentin 400mg capsule PO SCH (20:02)
[2020-05-04] MEDS: lithium carbonate 150mg capsule PO SCH (20:03)
--- NOTE | 2020-05-04 21:56 | NUR ---
NURSING PROGRESS NOTE Legal hold: tcon Client on involuntary status for DTS Report received from MARIBEL Gonzales with use of SBAR Why are they here: Client reported increased auditory and visual hallucinations. Client hears voices coming from buildings saying, "We're going to kill you." Client believes others are controlling him. Client believes camera's are watching him in his car. Client is currently homeless and may not have been taking his medications. Assessment What has happened this shift: Pt isolates to his room most of shift, mostly laying in his bed with the lights off. He takes his HS medications with no issue. He states he is tired and ready for bed. He denies SI/HI. He nods his head when asked if he is experiencing any hallucinations. S/I, H/I: Denies both. A/VH: Endorses auditory hallucinations Sleep: see sleep assessment ADL's: Needs encouragement, but can perform independently. Group attendance: No Were meds taken: Yes Any med S/E: None reported or observed Mental Status Exam Appearance: wearing unit scrubs, and winter hat. Eye contact: Fair Behavior:cooperative, isolative Speech: Mumbles Mood: upbeat Affect: congruent with cosme Thought process: circumstantial Thought Content: Hallucinations. Cognition: A&Ox4 Insight: Poor. Judgment: Poor. Interventions PRN's used: Therapeutic interventions: 1:1 assessment, active listening, reality orientation, medication education/administration/monitoring, encouragement to perform personal care and attend groups, maintained q15m safety checks. Restraints/seclusion/emergency medication: None Justification of Continued Inpatient Treatment: Patient continues to exhibit psychotic symptoms and mood lability, irritability. Patient continues to be a high risk for discharge and requires continued medication adjustment in a safe and supportive milieu. Pt is reasonably aware that he will be going for LPS conservatorship.
[2020-05-05] MEDS: ALPRAZolam 0.5mg tablet PO PRN ×3 (04:52→18:27)
[2020-05-05] MEDS: NICOTINE POLACRILEX 2 MG LOZENGE BC PRN ×6 (04:52→21:26)
--- NOTE | 2020-05-05 06:12 | NUR ---
PT requests a nicotine kandis and prn xanax which is given to him. 30 minutes later pt approaches nurses station and says he accidentally swallowed the nicotine kandis. and requests another. Instrument Operator explains that he cannot get another one because it has not been 2 hours, but that he did have that kandis for 30 minutes. Pt yells "fuck" repeatedly and punches the rec room door full force atleast 5 times before walking down the hallway and to his room yelling "fuck." Instrument Operator talks to pt 2 minutes later and he is apologetic and says, "I just need something in my mouth because if I don't have something in my mouth I can't stop talking this nonsense and I didn't mean to wake anyone up I am such an asshole I will comply with whatever you want." Pt is reassured that everything is okay, he is given a piece of hard candy to suck on instead of a kandis. Pt's right hand is red and slightly swollen. Kolby Bateman called and consulted, Xrays ordered
[2020-05-05] MEDS: gabapentin 300mg capsule PO SCH ×2 (07:02→12:08)
[2020-05-05] MEDS: QUEtiapine 25mg tablet PO SCH ×2 (07:02→12:09)
[2020-05-05] MEDS: pantoprazole 40mg Tablet.DR PO SCH (07:02)
[2020-05-05] MEDS: tizanidine 4mg tablet PO SCH ×3 (07:03→15:45)
[2020-05-05] MEDS: benztropine 1mg tablet PO SCH ×2 (07:03→20:10)
[2020-05-05] MEDS: divalproex sodium 500mg tablet.DR PO SCH ×2 (07:03→20:11)
[2020-05-05] MEDS: quetiapine 100mg tablet PO SCH ×3 (07:04→20:09)
[2020-05-05] MEDS: clonazePAM 1mg tablet PO SCH ×2 (07:04→20:11)
[2020-05-05] MEDS: QUEtiapine 25mg tablet PO PRN (17:10)
--- NOTE | 2020-05-05 17:18 | NUR ---
Orthopedist consult: Pt had Dr Dye evaluate for his weekly visit. heard pt had punched a door and has a fracture. He states to call Ortho telephone ad taker. Called Dr Burgos office and left messages and multiple call backs. Then called ER and received Dr Burgos cell number. Dr Al states pt does not need surgery for his Triquetral fx and possible nondisplaced fx at base of fifth metacarpal. states "for comfort" pt can use a velcro splint or have the nurse orthopaedic place a splint "If pt will even keep it on". Went to ER and brought up velcro splint. Pt states he has no pain, does not want a splint and "I used [employer], you know it? Its a [employer]. I use it if I have to punch people in the face. I was just ignorant this morning and shouldn't have swallowed my nicotine lozenge." Explained to pt we will save his splint in his locker if he requires it late "for comfort."
--- NOTE | 2020-05-05 17:27 | NUR ---
Nursing Progress Note: NIDHI Kincaid Legal hold: TCon Client on involuntary status for DTS Report received from nurse with use of SBAR: MARIBEL Kumar Why are they here: Client reported increased auditory and visual hallucinations. Client hears voices coming from buildings saying, "We're going to kill you." Client believes others are controlling him. Client believes camera's are watching him in his car. Client is currently homeless and may not have been taking his medications. Assessment What has happened this shift: Pt awake at change of shift, the voices causing him to wake early and exhibit agitation to the point of punching his door hard enough to require an X-RAY. X-Ray report pending. Pt. continues to deny any S/I or H/I, however reports ongoing A/KEYES which tell him to hurt others sometimes. He states, "its just there." Pt. also reports paranoid delusions that they are after me and requested his morning medications as soon as possible. He spends most of the day in his room and listening to headphones, requests nicotine lozenges. Hospitalist, Hardik, stated according to the radiology report, pt needs to be seen by ortho. command and control officer conferred with MD Castro who directed the command and control officer to contact the oncall Orthopedic MD. This MD called, and message left. Awaiting call back. Pts hand is currently swollen; pt offered ice and pain medications but he continues to decline. Encouraged pt to not use that hand. S/I, H/I: Denies A/VH: +AH and VH, intensity fluctuates Sleep: Pt looks tired, Slept 6.25 hours ADL's: Pt. requires some direction and encouragement Group attendance: N/A Were meds taken: Yes Any med S/E: None observed nor reported Mental Status Exam Appearance: Wearing a hunters hat, scruffy hall, however appropriately dressed Eye contact: Fair to good Behavior: Cooperative, agitated, isolating to room, responding to IS Speech: Soft and mumbles Mood: Fine, Fine, Pt presents as restless Affect: Flat Thought process: Poverty of thought Thought Content: A/KEYES and paranoid delusions Cognition: A&O X3 Insight: Poor Judgment: Poor Interventions PRN's used: None Therapeutic interventions: Maintained a safe and therapeutic environment, ensured contract for safety, provided clear and simple instructions, attempted to orient to reality, monitored behaviors and need for intervention, and maintained Q 15min safety checks. Restraints/seclusion/emergency medication: N/A Justification of Continued Inpatient Treatment: Per Dr. Huddleston, pt. continues to have psychotic s/s but is at baseline. He requires a safe and supportive environment and will discharge with housing is available.
[2020-05-05 19:00] VITALS: BP 146/96
[2020-05-05] MEDS: gabapentin 400mg capsule PO SCH (20:10)
[2020-05-05] MEDS: lithium carbonate 150mg capsule PO SCH (20:10)
--- NOTE | 2020-05-05 23:48 | NUR ---
NURSING PROGRESS NOTE Legal hold: tcon Client on involuntary status for DTS Report received from MARIBEL Gonzales with use of SBAR Why are they here: Client reported increased auditory and visual hallucinations. Client hears voices coming from buildings saying, "We're going to kill you." Client believes others are controlling him. Client believes camera's are watching him in his car. Client is currently homeless and may not have been taking his medications. Assessment What has happened this shift: Pt requests nicotine kandis and Xanax prn at shift change which is given to him. He is responding to internal stimuli continuously. He is observed walking and talking under his breath. On assessment pt is pleasant and cooperative. Bonderite Operator asks what music he likes and he says Isaiah Emerson. Bonderite Operator plays a Led Zeppelin song for him which makes him happy. He states he likes reading and he likes Faith stuff. Bonderite Operator prints out some Faith art for him and an article. Pt states, Thank you, this is good, I had a bad day today. He endorses AH and denies VH/SI/HI. S/I, H/I: Denies both. A/VH: Endorses auditory hallucinations Sleep: see sleep assessment ADL's: Needs encouragement, but can perform independently. Group attendance: No Were meds taken: Yes Any med S/E: None reported or observed Mental Status Exam Appearance: wearing unit scrubs, and winter hat. Eye contact: Fair Behavior:cooperative, isolative Speech: Mumbles Mood: upbeat Affect: congruent with cosme Thought process: circumstantial Thought Content: Hallucinations. Cognition: A&Ox4 Insight: Poor. Judgment: Poor. Interventions PRN's used: Therapeutic interventions: 1:1 assessment, active listening, reality orientation, medication education/administration/monitoring, encouragement to perform personal care and attend groups, maintained q15m safety checks. Restraints/seclusion/emergency medication: None Justification of Continued Inpatient Treatment: Patient continues to exhibit psychotic symptoms and mood lability, irritability. Patient continues to be a high risk for discharge and requires continued medication adjustment in a safe and supportive milieu. Pt is reasonably aware that he will be going for [facility] conservatorship.
[2020-05-06] MEDS: NICOTINE POLACRILEX 2 MG LOZENGE BC PRN ×6 (05:04→20:47)
[2020-05-06] MEDS: ALPRAZolam 0.5mg tablet PO PRN ×3 (05:33→18:52)
[2020-05-06 07:38] VITALS: BP 141/100
[2020-05-06] MEDS: QUEtiapine 25mg tablet PO SCH ×2 (07:50→12:44)
[2020-05-06] MEDS: quetiapine 100mg tablet PO SCH ×3 (07:50→20:05)
[2020-05-06] MEDS: clonazePAM 1mg tablet PO SCH ×2 (07:51→20:05)
[2020-05-06] MEDS: pantoprazole 40mg Tablet.DR PO SCH (07:51)
[2020-05-06] MEDS: gabapentin 300mg capsule PO SCH ×2 (07:51→12:44)
[2020-05-06] MEDS: divalproex sodium 500mg tablet.DR PO SCH ×2 (07:51→20:06)
[2020-05-06] MEDS: benztropine 1mg tablet PO SCH ×2 (07:51→20:05)
[2020-05-06] MEDS: tizanidine 4mg tablet PO SCH ×3 (07:52→16:20)
[2020-05-06] MEDS: QUEtiapine 25mg tablet PO PRN ×2 (10:40→18:52)
--- NOTE | 2020-05-06 17:48 | NUR ---
NURSING PROGRESS NOTE Legal hold: TCON Client on involuntary status for DTS Report received from MARIBEL Gonzales with use of SBAR Why are they here: Client reported increased auditory and visual hallucinations. Client hears voices coming from buildings saying, "We're going to kill you." Client believes others are controlling him. Client believes camera's are watching him in his car. Client is currently homeless and may not have been taking his medications. Assessment What has happened this shift: RN assumed care at 1000. Pt. received Xanax at 9AMf for anxiety per report. Pt. awake and in room listening to headphones. Shortly afterward pt. overheard yelling in his room and talking to himself, stating, Just take your meds, Yes, Im going to take my meds But Im not going to drink that Crystal Lite they give us every morning. Crystal meth is what it is, I dont do that !. RN asked pt. if hes hearing voices, and pt. reports the voices are telling him they want to fight him. Pt. states, Im just going to let them beat me up, Im going to correction bait them. Pt. also reports he is tired of being here, pt. states, Im tired of being cooped up here, I have no room to move, I just want to go to [facility], or [place] already, pt. asking if he can talk with his social work lecturer but informed that they are not here on the weekend. RN asked pt. if he wanted a PRN for his anxiety and said, yes. Pt. given Seroquel 50mg po with good effect. S/I, H/I: Denies A/VH: Endorses auditory hallucinations that are threatening him. Sleep: Pt. did not appear to nap today. ADL's: Needs encouragement, but can perform independently. Group attendance: N/A Were meds taken: Yes Any med S/E: Denies Mental Status Exam Appearance: Wearing personal clothes and shoes, heavy winter jacket, and winter hat. Eye contact: Fair Behavior: Cooperative, socially withdrawn. Isolates to his room and pacing halls listening to headphones. Speech: Mumbles and yells at times when responding to internal stimuli, but mostly WNL. Mood: Anxious Affect: congruent with mood Thought process: Linear Thought Content: Hallucinations. Cognition: A&Ox4 Insight: Poor. Judgment: Poor. Interventions PRN's used: Xanax and Seroquel x1 Therapeutic interventions: Ensured contract for safety, maintained a safe and therapeutic environment, provided clear and simple instructions, encouraged participation on the unit, provided active listening and positive encouragement, and maintained Q 15 min safety checks. Restraints/seclusion/emergency medication: None Justification of Continued Inpatient Treatment: Patient continues to exhibit psychotic symptoms and mood lability, irritability. Patient continues to be a high risk for discharge and requires continued medication adjustment in a safe and supportive milieu. Pt is reasonably aware that he will be going for LPS conservatorship.
[2020-05-06 20:00] VITALS: BP 136/98
[2020-05-06] MEDS: gabapentin 400mg capsule PO SCH (20:05)
[2020-05-06] MEDS: lithium carbonate 150mg capsule PO SCH (20:05)
[2020-05-07] MEDS: NICOTINE POLACRILEX 2 MG LOZENGE BC PRN ×5 (04:15→17:08)
--- NOTE | 2020-05-07 04:46 | NUR ---
NURSING PROGRESS NOTE Legal hold: TCON Client on involuntary status for DTS Report received from MARIBEL Gonzales with use of SBAR Why are they here: Client reported increased auditory and visual hallucinations. Client hears voices coming from buildings saying, "We're going to kill you." Client believes others are controlling him. Client believes camera's are watching him in his car. Client is currently homeless and may not have been taking his medications. Assessment What has happened this shift: Patient was found change of shift pacing the halls and asked for a nicotine lozenge right away. Patient reported to the PCT when she was passing water that he was shooting shadow people and that he needed some medication. Patient was very anxious and isolating himself to his room. PRN Xanax and Seroquel was given. Patient thanked me later and stated he was feeling better. Patient came out of his room for snack time and was found pacing the halls. The patient took all his medications with no issues. Patient started up a conversation stating he was a lot older then he looks. He stated, On the inside I am a really old but the outside I am 35. S/I, H/I: Pt denies A/VH: Pt says he is hearing voices and sees shadow people Sleep: See sleep hours ADL's: Independent Group attendance: No evening group Were meds taken: Yes Any med S/E: Denies Mental Status Exam Appearance: Wearing personal clothes and shoes, winter hat. Eye contact: Good Behavior: Cooperative, Pacing halls listening to headphones, anxious Speech: Clear Mood: Anxious Affect: congruent with mood Thought process: Linear Thought Content: Hallucinations. Cognition: A&Ox4 Insight: Poor. Judgment: Poor. Interventions PRN's used: Xanax and Seroquel, nicotine lozenges Therapeutic interventions: Ensured contract for safety, maintained a safe and therapeutic environment, provided clear and simple instructions, encouraged participation on the unit, provided active listening and positive encouragement, and maintained Q 15 min safety checks. Restraints/seclusion/emergency medication: None Justification of Continued Inpatient Treatment: Patient continues to exhibit psychotic symptoms and mood lability, irritability. Patient continues to be a high risk for discharge and requires continued medication adjustment in a safe and supportive milieu. Pt is reasonably aware that he will be going for [facility] conservatorship.
[2020-05-07] MEDS: ALPRAZolam 0.5mg tablet PO PRN ×2 (06:50→14:56)
[2020-05-07] MEDS: QUEtiapine 25mg tablet PO SCH ×2 (07:57→12:54)
[2020-05-07] MEDS: benztropine 1mg tablet PO SCH ×2 (07:57→20:01)
[2020-05-07] MEDS: quetiapine 100mg tablet PO SCH ×3 (07:57→20:01)
[2020-05-07] MEDS: divalproex sodium 500mg tablet.DR PO SCH ×2 (07:57→20:01)
[2020-05-07] MEDS: clonazePAM 1mg tablet PO SCH ×2 (07:57→20:01)
[2020-05-07] MEDS: pantoprazole 40mg Tablet.DR PO SCH (07:58)
[2020-05-07] MEDS: tizanidine 4mg tablet PO SCH ×3 (07:58→16:19)
[2020-05-07] MEDS: gabapentin 300mg capsule PO SCH ×2 (08:01→12:53)
[2020-05-07] MEDS: QUEtiapine 25mg tablet PO PRN (09:42)
[2020-05-07] MEDS: acetaminophen 325mg tablet PO PRN ×2 (14:57→19:56)
--- NOTE | 2020-05-07 16:45 | NUR ---
NURSING PROGRESS NOTE Legal hold: TCON Client on involuntary status for DTS Report received from Nabila Bunn RN with use of SBAR Why are they here: Client reported increased auditory and visual hallucinations. Client hears voices coming from buildings saying, "We're going to kill you." Client believes others are controlling him. Client believes camera's are watching him in his car. Client is currently homeless and may not have been taking his medications. Assessment What has happened this shift: After receiving report, checked on patient, he was laying in bed. Patient stated he felt like he needed something to calm him down, gave PRN Xanax. Patient continued to state he was not feeling good. Patient refused to have vitals done. Patient was anxious and asked for his Nicotine lozenger about an hour after receiving his Xanax. Patient came to the observation room and said "I fell like I am going to smash my head in." "I need something to make this stop." "I'm not going to hurt anyone or myself, but I do feel like if I don't get something and someone bumped into me I might want to hit them." Patient had PRN Seroquel that I administered. He also asked to have the temperature lowered in his room. It was changed from 74 F to 69 F. Patient stated that that he was feeling like he "is in control of himself" after being medicated and having temperature lowered. Patient took all his medications with no issues. Patient had PRN Nicotine Lozenger at 10:10 and then returned to bed. Patient ambulated around a few times wrapped in blanket. Patient took afternoon medication without any issues. Patient cooperative with physical assignment. Patient was feeling anxious and his teeth were hurting gave Tylenol, and patient also received PRN Xanax. S/I, H/I: Pt denies A/VH: Pt says he is hearing voices and sees shadow people Sleep: See sleep hours ADL's: Independent Group attendance: No Friday group Were meds taken: Yes Any med S/E: Denies Mental Status Exam Appearance: Wearing personal clothes and shoes, winter hat. Eye contact: Good Behavior: Cooperative, patient stayed in room listening to headphones, anxious Speech: Clear Mood: Anxious Affect: congruent with mood Thought process: Linear Thought Content: Hallucinations. Cognition: A&Ox4 Insight: Poor. Judgment: Poor. Interventions PRN's used: Xanax x 2, Seroquel x 1, nicotine lozenges x 3, Tylenol x1 Therapeutic interventions: Ensured contract for safety, allowed to finish breakfast in bedroom, maintained a safe and therapeutic environment, provided clear and simple instructions, encouraged participation on the unit, provided active listening and positive encouragement, and maintained Q 15 min safety checks. Restraints/seclusion/emergency medication: None Justification of Continued Inpatient Treatment: Patient continues to exhibit psychotic symptoms and mood lability, irritability. Patient continues to be a high risk for discharge and requires continued medication adjustment in a safe and supportive milieu. Pt is reasonably aware that he will be going for LPS conservatorship.
[2020-05-07 19:50] VITALS: BP 151/102
[2020-05-07] MEDS: gabapentin 400mg capsule PO SCH (20:01)
[2020-05-07] MEDS: lithium carbonate 150mg capsule PO SCH (20:02)
--- NOTE | 2020-05-07 23:59 | NUR ---
Nursing Progress Note Legal hold: Tcon Client on involuntary status for DTS Report received from MARIBEL Gonzales with use of SBAR Why are they here: Client reported increased auditory and visual hallucinations. Client hears voices coming from buildings saying, "We're going to kill you." Client believes others are controlling him. Client believes camera's are watching him in his car. Client is currently homeless and may not have been taking his medications. Assessment What has happened this shift: At shift change, the patient was lying on his bed napping with the headphones on. Later, he comes to the charting room. This information writer heard him talking, looked up, and he stated, "I'm just talking to my voices." then he asked for some Tylenol, which was provided with some relief. He then went to get some snacks and came back for HS meds. As of this writing, the patient has not requested any other PRN's. S/I, H/I: Denies both. A/VH: Endorses auditory hallucinations Sleep: See sleep assessment ADL's: Needs encouragement, but can perform independently. Group attendance: No Were meds taken: Yes Any med S/E: None reported or observed Mental Status Exam Appearance: Wearing unit scrubs, winter jacket, and winter hat. Eye contact: Fair Behavior: cooperative, isolative, guarded Speech: Mumbles Mood: Morose Affect: Congruent with mood Thought process: Circumstantial Thought Content: Hallucinations. Cognition: A&Ox4 Insight: Poor. Judgment: Poor. Interventions PRN's used: Tylenol Therapeutic interventions: 1:1 assessment, active listening, reality orientation, medication education/administration/monitoring, encouragement to perform personal care and attend groups, maintained q15m safety checks. Restraints/seclusion/emergency medication: None Justification of Continued Inpatient Treatment: Patient continues to exhibit psychotic symptoms and mood lability, irritability. Patient continues to be a high risk for discharge and requires continued medication adjustment in a safe and supportive milieu. Pt is reasonably aware that he will be going for LPS conservatorship.
[2020-05-08] MEDS: ALPRAZolam 0.5mg tablet PO PRN ×5 (05:02→19:27)
--- NOTE | 2020-05-08 05:03 | NUR ---
The patient came and requested Xanax, which was provided, "I gotta stop it before it starts."
[2020-05-08] MEDS: NICOTINE POLACRILEX 2 MG LOZENGE BC PRN ×3 (05:25→19:18)
[2020-05-08] MEDS: divalproex sodium 500mg tablet.DR PO SCH ×2 (07:47→20:14)
[2020-05-08] MEDS: clonazePAM 1mg tablet PO SCH ×2 (07:47→20:14)
[2020-05-08] MEDS: pantoprazole 40mg Tablet.DR PO SCH (07:48)
[2020-05-08] MEDS: quetiapine 100mg tablet PO SCH ×3 (07:48→20:14)
[2020-05-08] MEDS: tizanidine 4mg tablet PO SCH ×3 (07:48→16:21)
[2020-05-08] MEDS: QUEtiapine 25mg tablet PO SCH ×2 (07:49→13:05)
[2020-05-08] MEDS: benztropine 1mg tablet PO SCH ×2 (07:49→20:14)
[2020-05-08] MEDS: gabapentin 300mg capsule PO SCH ×2 (07:49→13:05)
[2020-05-08 08:00] VITALS: BP 146/98
[2020-05-08] MEDS: QUEtiapine 25mg tablet PO PRN (08:52)
--- NOTE | 2020-05-08 09:03 | NUR ---
F/u 05/08: Pt PO fluctuates but steadily decreasing over past 4 days previously 75-100% now ~25%/refusing past 3 meals. Moderate BM's daily per EMR though unsure of accuracy. Will continue to monitor for PO trends and ONS needs. Rec: 1. continue regular diet; encourage PO 2. monitor for ONS needs if poor PO persists 3. routine bowel care 4. scaled wts per rx Addendum: 05/08/20 at [address] Amended: Links added.
--- NOTE | 2020-05-08 17:50 | NUR ---
NURSING PROGRESS NOTE Legal hold: TCON Client on involuntary status for DTS Report received from MARIBEL Ramirez with use of SBAR Why are they here: Client reported increased auditory and visual hallucinations. Client hears voices coming from buildings saying, "We're going to kill you." Client believes others are controlling him. Client believes camera's are watching him in his car. Client is currently homeless and may not have been taking his medications. Assessment What has happened this shift: Patient was awake and sitting up in bed with his light on just before 6 am. Patient was quiet and staring straight ahead. Patient is isolative. Patient walks around the unit with his jacket and hat. Patient denies suicidal/homicidal ideation but states he is hearing voices but he wouldn't/couldn't talk about them. Patient listens to music with headphones on in his room and paces the halls a little bit. He has been in the [email or web address] room watching [email or web address] But he mostly hangs out in his room. S/I, H/I: Pt denies A/VH: Hearing voices Sleep: several naps today ADL's: Independent Group attendance: No Were meds taken: Yes Any med S/E: Denies Mental Status Exam Appearance: Wearing personal clothes and shoes, winter hat. Eye contact: Good Behavior: Cooperative, patient stayed in room listening to headphones, anxious at times, isolative Speech: Clear Mood: Anxious Affect: congruent with mood Thought process: Linear Thought Content: Hallucinations. Cognition: A&Ox4 Insight: Poor. Judgment: Poor. Interventions PRN's used: Xanax x 2, Seroquel x 1, nicotine lozenges x 1 Therapeutic interventions: Ensured contract for safety, maintained a safe and therapeutic environment, provided clear and simple instructions, encouraged participation on the unit, provided active listening and positive encouragement, and maintained Q 15 min safety checks. Restraints/seclusion/emergency medication: None Justification of Continued Inpatient Treatment: Patient continues to exhibit psychotic symptoms and mood lability, irritability. Patient continues to be a high risk for discharge and requires continued medication adjustment in a safe and supportive milieu. Pt is reasonably aware that he will be going for [facility] conservatorship.
[2020-05-08] MEDS: gabapentin 400mg capsule PO SCH (20:14)
[2020-05-08] MEDS: lithium carbonate 150mg capsule PO SCH (20:15)
[2020-05-08 20:54] VITALS: BP 136/86
--- NOTE | 2020-05-09 00:34 | NUR ---
Nursing Progress Note Legal hold: Tcon Client on involuntary status for DTS Report received from MARIBEL Gonzales with use of SBAR Why are they here: Client reported increased auditory and visual hallucinations. Client hears voices coming from buildings saying, "We're going to kill you." Client believes others are controlling him. Client believes camera's are watching him in his car. Client is currently homeless and may not have been taking his medications. Assessment What has happened this shift: The patient was seen in his room at shift change. After a few minutes, he came and asked for a lozenge. He does not like the small size or shape. The patient isolated to his room until snack time. He lined up with the others, but there was an altercation in line. He immediately got out of line, "fuck this, I'll get snacks later. Fuckin' idiots." He went to his room and this comic writer, brought him snacks. He had just had Xanax, so did not request anything. The patient has been speaking clearly, without mumbling. He isolated to his room after he ate his snacks. S/I, H/I: Denies. A/VH: Endorses auditory hallucinations Sleep: See sleep assessment ADL's: Needs encouragement, but can perform independently. Group attendance: No Were meds taken: Yes Any med S/E: None reported or observed Mental Status Exam Appearance: Wearing unit scrubs, winter jacket, and winter hat. Eye contact: Fair Behavior: cooperative, isolative, guarded Speech: Clear tonight Mood: Tormented Affect: Constricted. Thought process: Circumstantial Thought Content: Hallucinations. Cognition: A&Ox4 Insight: Poor. Judgment: Poor. Interventions PRN's used: Nicotine lozenge, Xanax. Therapeutic interventions: 1:1 assessment, active listening, reality orientation, medication education/administration/monitoring, encouragement to perform personal care and attend groups, maintained q15m safety checks. Restraints/seclusion/emergency medication: None Justification of Continued Inpatient Treatment: Patient continues to exhibit psychotic symptoms and mood lability, irritability. Patient continues to be a high risk for discharge and requires continued medication adjustment in a safe and supportive milieu. Pt is reasonably aware that he will be going for [facility] conservatorship.
[2020-05-09] MEDS: ALPRAZolam 0.5mg tablet PO PRN ×3 (04:19→18:34)
[2020-05-09] MEDS: NICOTINE POLACRILEX 2 MG LOZENGE BC PRN ×5 (05:50→17:03)
[2020-05-09] MEDS: quetiapine 100mg tablet PO SCH ×3 (07:50→20:07)
[2020-05-09] MEDS: QUEtiapine 25mg tablet PO SCH ×2 (07:50→12:49)
[2020-05-09] MEDS: gabapentin 300mg capsule PO SCH ×2 (07:51→12:49)
[2020-05-09] MEDS: pantoprazole 40mg Tablet.DR PO SCH (07:51)
[2020-05-09] MEDS: clonazePAM 1mg tablet PO SCH ×2 (07:51→20:06)
[2020-05-09] MEDS: benztropine 1mg tablet PO SCH ×2 (07:51→20:06)
[2020-05-09] MEDS: divalproex sodium 500mg tablet.DR PO SCH ×2 (07:51→20:06)
[2020-05-09] MEDS: tizanidine 4mg tablet PO SCH ×3 (07:51→16:58)
[2020-05-09 08:35] VITALS: BP 145/94
[2020-05-09] MEDS: QUEtiapine 25mg tablet PO PRN ×2 (11:22→18:34)
--- NOTE | 2020-05-09 12:59 | NUR ---
NURSING PROGRESS NOTE Legal hold: T-Con Client on involuntary status for GD/DTO Report received from Ludy LÓPEZ with use of SBAR Why are they here: Client reported increased auditory and visual hallucinations. Client hears voices coming from buildings saying, "We're going to kill you." Client believes others are controlling him. Client believes camera's are watching him in his car. Client is currently homeless and may not have been taking his medications. Assessment What has happened this shift: Received pt awake in hallway. Pt experiencing a lot of internal stimuli today and at times was yelling loudly to the voices in the hallway, but was able to go to his room. Nicotine lozenge helped the yelling a little he says because it gives his mouth something to do so he won't yell. Pt also given xanax and seroquel with minimally positive effects. Pt denies suicidal and homicidal ideation. Pt polite with staff. S/I, H/I: Denies both A/VH: +AH. Denies VH Sleep: Did not sleep this shift ADL's: Independent with prompting Group attendance: NA Were meds taken: Yes Any med S/E: Denies Mental Status Exam Appearance: Disheveled, wearing winter cap and jacket Eye contact: Fair Behavior: Pacing halls and listening to headphones. Labile yet cooperative Speech: Mumbles, loud and rapid at times Mood: Anxious, paranoid Affect: Flat Thought process: Paranoid delusions r/t auditory hallucinations. Circumstantial Thought Content: Getting needs met. Responding to AH Cognition: A&Ox4 Insight: Poor. Judgment: Poor. Interventions PRN's used: seroquel x 2, xanax x 2, Nicotine Beth.X2 Therapeutic interventions: 1:1 assessment, active listening, reality orientation, medication education/administration/monitoring, encouragement to perform personal care and attend groups, maintained q15m safety checks. Restraints/seclusion/emergency medication: None Justification of Continued Inpatient Treatment: Patient continues to exhibit psychotic symptoms and mood lability, irritability. Patient continues to be a high risk for discharge and requires continued medication adjustment in a safe and supportive milieu. Pt is reasonably aware that he will be going for LPS conservatorship.
[2020-05-09] MEDS: gabapentin 400mg capsule PO SCH (20:06)
[2020-05-09] MEDS: lithium carbonate 150mg capsule PO SCH (20:06)
[2020-05-09 20:33] VITALS: BP 142/100
--- NOTE | 2020-05-09 23:20 | NUR ---
Nursing Progress Note Legal hold: Tcon Client on involuntary status for DTS Report received from MARIBEL Gonzales with use of SBAR Why are they here: Client reported increased auditory and visual hallucinations. Client hears voices coming from buildings saying, "We're going to kill you." Client believes others are controlling him. Client believes camera's are watching him in his car. Client is currently homeless and may not have been taking his medications. Assessment What has happened this shift: The patient was lying on his bed at shift change. He came out a few minutes later, and requested Xanax and Seroquel, "the voices are really bad right now." Those were provided and he went back to his room where he stayed until snack time. He was cooperative with HS med pass, and has not made any outbursts tonight. The patient has been requesting warm drinks to "help me stay warm." S/I, H/I: Denies. A/VH: Endorses auditory hallucinations Sleep: See sleep assessment ADL's: Needs encouragement, but can perform independently. Group attendance: No Were meds taken: Yes Any med S/E: None reported or observed Mental Status Exam Appearance: Wearing unit scrubs, jacket, and winter hat. Eye contact: Fair Behavior: cooperative, isolative, guarded, pacing Speech: Clear, with some mumbling Mood: Somber Affect: Constricted. Thought process: Circumstantial Thought Content: Hallucinations. Cognition: A&Ox4 Insight: Poor. Judgment: Poor. Interventions PRN's used: Nicotine lozenge, Xanax, Seroquel. Therapeutic interventions: 1:1 assessment, active listening, reality orientation, medication education/administration/monitoring, encouragement to perform personal care and attend groups, maintained q15m safety checks. Restraints/seclusion/emergency medication: None Justification of Continued Inpatient Treatment: Patient continues to exhibit psychotic symptoms and mood lability, irritability. Patient continues to be a high risk for discharge and requires continued medication adjustment in a safe and supportive milieu. Pt is reasonably aware that he will be going for LPS conservatorship.
[2020-05-10] MEDS: acetaminophen 325mg tablet PO PRN (03:43)
[2020-05-10] MEDS: NICOTINE POLACRILEX 2 MG LOZENGE BC PRN ×6 (03:43→18:30)
[2020-05-10] MEDS: ALPRAZolam 0.5mg tablet PO PRN (05:59)
[2020-05-10] MEDS: QUEtiapine 25mg tablet PO PRN (06:03)
[2020-05-10] MEDS: tizanidine 4mg tablet PO SCH ×3 (07:30→16:34)
[2020-05-10] MEDS: benztropine 1mg tablet PO SCH ×2 (07:31→20:03)
[2020-05-10] MEDS: pantoprazole 40mg Tablet.DR PO SCH (07:31)
[2020-05-10] MEDS: divalproex sodium 500mg tablet.DR PO SCH ×2 (07:31→20:03)
[2020-05-10] MEDS: QUEtiapine 25mg tablet PO SCH ×2 (07:31→11:48)
[2020-05-10] MEDS: quetiapine 100mg tablet PO SCH ×3 (07:31→20:02)
[2020-05-10] MEDS: gabapentin 300mg capsule PO SCH ×2 (07:31→11:48)
[2020-05-10] MEDS: clonazePAM 1mg tablet PO SCH ×2 (07:31→20:02)
[2020-05-10 07:48] VITALS: BP 129/88
[2020-05-10] MEDS ORDERED: thiothixene 2mg capsule PO ONE (12:40)
[2020-05-10] MEDS ORDERED: niacin 250mg tablet PO SCH (13:00)
[2020-05-10] MEDS: clonazePAM 1mg tablet PO PRN (13:48)
--- NOTE | 2020-05-10 15:42 | NUR ---
NURSING PROGRESS NOTE Legal hold: T-Con Client on involuntary status for GD/DTO Report received from RN with use of SBAR Why are they here: Client reported increased auditory and visual hallucinations. Client hears voices coming from buildings saying, "We're going to kill you." Client believes others are controlling him. Client believes camera's are watching him in his car. Client is currently homeless and may not have been taking his medications. Assessment What has happened this shift: Received Pt in his room talking to himself at beginning of shift. Pt awoke and was cooperative with vitals and attended breakfast and ate meals and snacks. Pt reports an increase in AHs I got a tough one in my head today. One hear and one hear pointing to his forehead and side of head. Pt anxious and at times yelling in his room. Pt able to ask for PRN medications and isolate in his room at times when voices are worse. Pt took AM meds w/o issue and was also given PRN Klonopin that was newly ordered again. Pt also received Thiothixene 6mg as a Now order. Pt was irritated anxious r/t increase of his psychotic sxs. He listened to music with headphones and walked the halls at times to cope. He was able to take a nap for a short while in afternoon and stated he was feeling a little better. S/I, H/I: Denies both A/VH: +AH. Denies VH Sleep: Short nap ADL's: Independent with prompting Group attendance: No Were meds taken: Yes Any med S/E: Denies Mental Status Exam Appearance: Disheveled, wearing winter cap and jacket Eye contact: Fair Behavior: Cooperative, anxious, yelling at AHs, pacing halls with headphones Speech: Mumbles, loud and rapid at times Mood: Anxious, irritable at AHs, yet appropriate with staff Affect: Irritated Thought process: Circumstial Thought Content: Dealing with Voices. Decreasing anxiety Cognition: A&Ox4 Insight: Poor. Judgment: Poor. Interventions PRN's used: Klonopin, Thiothixine, Nicotine Beth. Therapeutic interventions: 1:1 assessment, active listening, reality orientation, medication education/administration/monitoring, encouragement to perform personal care and attend groups, maintained q15m safety checks. Restraints/seclusion/emergency medication: None Justification of Continued Inpatient Treatment: Patient continues to exhibit psychotic symptoms and mood lability, irritability. Patient continues to be a high risk for discharge and requires continued medication adjustment in a safe and supportive milieu. Pt is aware that he will be going for LPS conservatorship.
[2020-05-10 19:40] VITALS: BP 145/97
[2020-05-10] MEDS: thiothixene 2mg capsule PO SCH (20:03)
[2020-05-10] MEDS: gabapentin 400mg capsule PO SCH (20:03)
--- NOTE | 2020-05-11 00:42 | NUR ---
NURSING PROGRESS NOTE Legal hold: tcon Client on involuntary status for DTS Report received from MARIBEL Schultz with use of SBAR Why are they here: Client reported increased auditory and visual hallucinations. Client hears voices coming from buildings saying, "We're going to kill you." Client believes others are controlling him. Client believes camera's are watching him in his car. Client is currently homeless and may not have been taking his medications. Assessment What has happened this shift: Pt isolates to his room most of shift, mostly laying across his bed. He takes his HS medications with no issue, he is happy to be started on the navane. He states he is tired and ready for bed. He denies SI/HI. He nods his head when asked if he is experiencing any hallucinations, but will not expand on what they are. S/I, H/I: Denies both. A/VH: Endorses auditory hallucinations Sleep: see sleep assessment ADL's: Needs encouragement, but can perform independently. Group attendance: No Were meds taken: Yes Any med S/E: None reported or observed Mental Status Exam Appearance: wearing unit scrubs, and winter hat. Eye contact: Fair Behavior:cooperative, isolative Speech: Mumbles Mood: upbeat Affect: congruent with cosme Thought process: circumstantial Thought Content: Hallucinations. Cognition: A&Ox4 Insight: Poor. Judgment: Poor. Interventions PRN's used: Therapeutic interventions: 1:1 assessment, active listening, reality orientation, medication education/administration/monitoring, encouragement to perform personal care and attend groups, maintained q15m safety checks. Restraints/seclusion/emergency medication: None Justification of Continued Inpatient Treatment: Patient continues to exhibit psychotic symptoms and mood lability, irritability. Patient continues to be a high risk for discharge and requires continued medication adjustment in a safe and supportive milieu. Pt is reasonably aware that he will be going for LPS conservatorship.
[2020-05-11] MEDS: NICOTINE POLACRILEX 2 MG LOZENGE BC PRN ×4 (05:07→17:15)
[2020-05-11] MEDS: divalproex sodium 500mg tablet.DR PO SCH ×2 (07:43→19:59)
[2020-05-11] MEDS: QUEtiapine 25mg tablet PO SCH ×2 (07:44→12:17)
[2020-05-11] MEDS: clonazePAM 1mg tablet PO SCH ×2 (07:44→19:59)
[2020-05-11] MEDS: benztropine 1mg tablet PO SCH ×2 (07:44→19:58)
[2020-05-11] MEDS: pantoprazole 40mg Tablet.DR PO SCH (07:44)
[2020-05-11] MEDS: gabapentin 300mg capsule PO SCH ×2 (07:44→12:17)
[2020-05-11] MEDS: thiothixene 2mg capsule PO SCH ×2 (07:44→20:00)
[2020-05-11] MEDS: quetiapine 100mg tablet PO SCH ×3 (07:44→19:58)
[2020-05-11 07:57] VITALS: BP 137/97
[2020-05-11] MEDS: tizanidine 4mg tablet PO SCH ×3 (08:02→16:10)
[2020-05-11] MEDS: clonazePAM 1mg tablet PO PRN (10:50)
--- NOTE | 2020-05-11 12:00 | NUR ---
Reassessment: PO intake fluctuates though averages 75-100% with two meal refusals since last RD assessment (05/08). LBM 05/10. No nutrition intervention warranted at this time. Will continue to follow. Rec: 1. continue regular diet; encourage PO 2. monitor for ONS needs if poor PO intake resumes 3. routine bowel care 4. scaled wts per rx Addendum: 05/11/20 at [address] Amended: Links added.
--- NOTE | 2020-05-11 15:21 | NUR ---
PLACEMENT UPDATE Declined at [facility], Declined at [facility] we have several clients on the unit now that have very similar SX and respond loudly and aggressively and it tends to amp everyone else up. Packet at [facility] and [facility]. DOMO Saldana
--- NOTE | 2020-05-11 16:03 | NUR ---
NURSING PROGRESS NOTE Legal hold: T-Con Client on involuntary status for GD/DTO Report received from Ludy LÓPEZ with use of SBAR Why are they here: Client reported increased auditory and visual hallucinations. Client hears voices coming from buildings saying, "We're going to kill you." Client believes others are controlling him. Client believes camera's are watching him in his car. Client is currently homeless and may not have been taking his medications. Assessment What has happened this shift: Received pt awake in hallway. Pt paced the unit at times, listening to headphones, but spent most of the day in his room with the headphones. Pt continues to endorse auditory hallucinations of his brother. Pt did not want to discuss content and pt appeared less troubled today and only requested PRN for anxiety x 1. Pt denies suicidal ideations and homicidal ideations. Pt cooperative and polite to staff even when obviously experiencing internal stimuli. S/I, H/I: Denies both A/VH: +AH. Denies VH Sleep: Did not sleep this shift ADL's: Independent with prompting Group attendance: NA Were meds taken: Yes Any med S/E: Denies Mental Status Exam Appearance: Disheveled, wearing winter cap and jacket Eye contact: Fair Behavior: Pacing halls and listening to headphones. Labile yet cooperative Speech: Mumbles, loud and rapid at times Mood: Anxious, paranoid Affect: Flat Thought process: Paranoid delusions r/t auditory hallucinations. Circumstantial Thought Content: Getting needs met. Responding to AH Cognition: A&Ox4 Insight: Poor. Judgment: Poor. Interventions PRN's used: klonopin, nicotine Beth.X2 Therapeutic interventions: 1:1 assessment, active listening, reality orientation, medication education/administration/monitoring, encouragement to perform personal care and attend groups, maintained q15m safety checks. Restraints/seclusion/emergency medication: None Justification of Continued Inpatient Treatment: Patient continues to exhibit psychotic symptoms and mood lability, irritability. Patient continues to be a high risk for discharge and requires continued medication adjustment in a safe and supportive milieu. Pt is reasonably aware that he will be going for LPS conservatorship.
[2020-05-11] MEDS: QUEtiapine 25mg tablet PO PRN (18:37)
[2020-05-11] MEDS ORDERED: thiothixene 2mg capsule PO ONE (18:40)
[2020-05-11] MEDS ORDERED: LORazepam 2 mg/ml vial IM ONE (18:40)
[2020-05-11] MEDS: gabapentin 400mg capsule PO SCH (19:58)
--- NOTE | 2020-05-11 21:29 | NUR ---
NURSING PROGRESS NOTE Legal hold: tcon Client on involuntary status for DTS Report received from MARIBEL Byrne with use of SBAR Why are they here: Client reported increased auditory and visual hallucinations. Client hears voices coming from buildings saying, "We're going to kill you." Client believes others are controlling him. Client believes camera's are watching him in his car. Client is currently homeless and may not have been taking his medications. Assessment What has happened this shift: Pt is extremely agitated on shift change. He approaches a male staff member aggressively in the hallway, "Do we have a fucking problem? Do I need to fucking hit someone in the face?" Staff attempts to calm pt down, he paces and is cursing and says he needs medication. 50 mg Seroquel PRN given, pt states, "50 mg of Seroquel? that's it? I need more or someone is getting hit in the face."Pt asks for a "shot" "please, I want to be able to actually hear the music!" called, 2mg ativan IM ordered and given with good effect. also ordered 6 mg thiothixene PO x1, trihexyphenidyl 6mg accidentally given instead, Dr. Castro notified, pharmacy consulted, no adverse effects observed. Radio Board Operator tells pt he received trihexyphenidyl, he says, "okay can I have a peanut butter and jelly sandwich please?" About 1 hour after the ativan pt is walking the halls less agitated and makes a joke with staff. He eats a snack and returns to his room in a better mood. S/I, H/I: shakes head A/VH: strong auditory hallucinations Sleep: see sleep assessment ADL's: Needs encouragement, but can perform independently. Group attendance: No Were meds taken: Yes Any med S/E: None reported or observed Mental Status Exam Appearance: wearing winter hat. Eye contact: Fair Behavior:aggressive, angry, confrontational, then cooperative and pleasant Speech: Mumbles Mood: angry to upbeat Affect: congruent with mood Thought process: circumstantial Thought Content: Hallucinations. Cognition: A&Ox4 Insight: Poor. Judgment: Poor Interventions PRN's used: Ativan 2mg Therapeutic interventions: 1:1 assessment, active listening, reality orientation, medication education/administration/monitoring, encouragement to perform personal care and attend groups, maintained q15m safety checks. Restraints/seclusion/emergency medication: None Justification of Continued Inpatient Treatment: Patient continues to exhibit psychotic symptoms and mood lability, irritability. Patient continues to be a high risk for discharge and requires continued medication adjustment in a safe and supportive milieu. Pt is reasonably aware that he will be going for LPS conservatorship.
[2020-05-12] MEDS: NICOTINE POLACRILEX 2 MG LOZENGE BC PRN ×5 (02:16→19:20)
[2020-05-12] MEDS: clonazePAM 1mg tablet PO PRN ×2 (04:59→22:49)
[2020-05-12] MEDS: thiothixene 2mg capsule PO SCH ×2 (07:35→20:09)
[2020-05-12] MEDS: clonazePAM 1mg tablet PO SCH ×2 (07:35→20:11)
[2020-05-12] MEDS: QUEtiapine 25mg tablet PO SCH ×2 (07:35→12:30)
[2020-05-12] MEDS: gabapentin 300mg capsule PO SCH ×2 (07:35→12:29)
[2020-05-12] MEDS: pantoprazole 40mg Tablet.DR PO SCH (07:35)
[2020-05-12] MEDS: divalproex sodium 500mg tablet.DR PO SCH ×2 (07:35→20:11)
[2020-05-12] MEDS: quetiapine 100mg tablet PO SCH ×3 (07:36→20:12)
[2020-05-12] MEDS: tizanidine 4mg tablet PO SCH ×3 (07:36→16:01)
[2020-05-12] MEDS: benztropine 1mg tablet PO SCH ×2 (07:36→20:11)
[2020-05-12 07:51] VITALS: BP 130/98
[2020-05-12] MEDS: QUEtiapine 25mg tablet PO PRN (09:53)
--- NOTE | 2020-05-12 13:32 | NUR ---
Shoe inserts: Dr. Laguerre asked to check with physical therapy re: shoe inserts for foot pain. Pt contacted and they do not carry/have them.
--- NOTE | 2020-05-12 15:47 | NUR ---
NURSING PROGRESS NOTE Legal hold: T-Con Client on involuntary status for GD/DTO Report received from Ludy LÓPEZ with use of SBAR Why are they here: Client reported increased auditory and visual hallucinations. Client hears voices coming from buildings saying, "We're going to kill you." Client believes others are controlling him. Client believes camera's are watching him in his car. Client is currently homeless and may not have been taking his medications. Assessment What has happened this shift: Received pt awake in hallway. Pt experiencing a lot of internal stimuli this morning and did not sleep well last night. Pt requested seroquel early for voices and then spent a lot of the day sleeping in bed with headphones on. Pt polite and cooperative with staff and denies suicidal and homicidal ideation. S/I, H/I: Denies both A/VH: +AH. Denies VH Sleep: Did not sleep this shift ADL's: Independent with prompting Group attendance: NA Were meds taken: Yes Any med S/E: Denies Mental Status Exam Appearance: Disheveled, wearing winter cap and jacket Eye contact: Fair Behavior: Pacing halls and listening to headphones. Labile yet cooperative Speech: Mumbles, loud and rapid at times Mood: Anxious, paranoid Affect: Flat Thought process: Paranoid delusions r/t auditory hallucinations. Circumstantial Thought Content: Getting needs met. Responding to AH Cognition: A&Ox4 Insight: Poor. Judgment: Poor. Interventions PRN's used: seroquel, Nicotine Beth.X2 Therapeutic interventions: 1:1 assessment, active listening, reality orientation, medication education/administration/monitoring, encouragement to perform personal care and attend groups, maintained q15m safety checks. Restraints/seclusion/emergency medication: None Justification of Continued Inpatient Treatment: Patient continues to exhibit psychotic symptoms and mood lability, irritability. Patient continues to be a high risk for discharge and requires continued medication adjustment in a safe and supportive milieu. Pt is reasonably aware that he will be going for LPS conservatorship.
[2020-05-12] MEDS ORDERED: niacin 250mg tablet PO SCH ×3 (19:59→20:00)
[2020-05-12] MEDS: gabapentin 400mg capsule PO SCH (20:12)
[2020-05-13] MEDS: tizanidine 4mg tablet PO SCH ×3 (00:04→16:12)
[2020-05-13] MEDS: NICOTINE POLACRILEX 2 MG LOZENGE BC PRN ×5 (00:15→17:06)
--- NOTE | 2020-05-13 02:48 | NUR ---
NURSING PROGRESS NOTE Legal hold: tcon Client on involuntary status for DTS Report received from MARIBEL Byrne with use of SBAR Why are they here: Client reported increased auditory and visual hallucinations. Client hears voices coming from buildings saying, "We're going to kill you." Client believes others are controlling him. Client believes camera's are watching him in his car. Client is currently homeless and may not have been taking his medications. Assessment What has happened this shift: Pt is seen pacing the halls with headphones on. He is observed talking with a female peer about [employer] and [employer]. He comes up wo insurance underwriter sales and says in a vast pace, "hey how are you? did you have a good day?" He has an intense gaze and tries to smile. Pt is cooperative with 1:1 assessment. He states he is still hearing voices, and requests his PRN xanax and nicotine kandis. PT has some trouble falling asleep, but is able to eventually. Overall pt has a good night with no outbursts. S/I, H/I: Denies both. A/VH: Endorses auditory hallucinations Sleep: see sleep assessment ADL's: Needs encouragement, but can perform independently. Group attendance: No Were meds taken: Yes Any med S/E: None reported or observed Mental Status Exam Appearance: wearing unit scrubs, and winter hat. Eye contact: Fair Behavior:cooperative, isolative Speech: Mumbles Mood: upbeat Affect: congruent with cosme Thought process: circumstantial Thought Content: Hallucinations. Cognition: A&Ox4 Insight: Poor. Judgment: Poor. Interventions PRN's used: xanax, nicotine Therapeutic interventions: 1:1 assessment, active listening, reality orientation, medication education/administration/monitoring, encouragement to perform personal care and attend groups, maintained q15m safety checks. Restraints/seclusion/emergency medication: None Justification of Continued Inpatient Treatment: Patient continues to exhibit psychotic symptoms and mood lability, irritability. Patient continues to be a high risk for discharge and requires continued medication adjustment in a safe and supportive milieu. Pt is reasonably aware that he will be going for [facility] conservatorship.
[2020-05-13] MEDS ORDERED: niacin 250mg tablet PO SCH (05:00)
[2020-05-13] MEDS: thiothixene 2mg capsule PO SCH ×2 (07:30→19:20)
[2020-05-13] MEDS: benztropine 1mg tablet PO SCH ×2 (07:31→19:19)
[2020-05-13] MEDS: gabapentin 300mg capsule PO SCH ×2 (07:31→12:53)
[2020-05-13] MEDS: quetiapine 100mg tablet PO SCH ×3 (07:31→20:01)
[2020-05-13] MEDS: clonazePAM 1mg tablet PO SCH ×2 (07:31→19:24)
[2020-05-13] MEDS: pantoprazole 40mg Tablet.DR PO SCH (07:31)
[2020-05-13] MEDS: divalproex sodium 500mg tablet.DR PO SCH ×2 (07:31→20:01)
[2020-05-13] MEDS: QUEtiapine 25mg tablet PO SCH ×2 (07:31→12:53)
[2020-05-13 07:47] VITALS: BP 139/97
[2020-05-13] MEDS: clonazePAM 1mg tablet PO PRN ×2 (08:55→18:25)
[2020-05-13] MEDS: LORazepam 1 MG tablet PO PRN (08:56)
--- NOTE | 2020-05-13 17:48 | NUR ---
NURSING PROGRESS NOTE Legal hold: T-Con Client on involuntary status for GD/DTO Report received from Nabila Bunn RN with use of SBAR Why are they here: Client reported increased auditory and visual hallucinations. Client hears voices coming from buildings saying, "We're going to kill you." Client believes others are controlling him. Client believes camera's are watching him in his car. Client is currently homeless and may not have been taking his medications. Assessment What has happened this shift: Pt. awake at start of shift and listening to headphones in his room. Pt. becoming increasingly agitated and given AM medications early with minimal effect. Pt. ate breakfast and went back to room. Shortly pt. loudly yelling in his room, These ghosts have to get out of here! Pt. cursing loudly and posturing like he is going to hit his sink. Pt. reports that voices are threatening him. Pt. offered PRN medication and pt. received Ativan 2mg and Klonopin 1mg with good effect. 1:1 done at bedside, pt. reports his voices were quieter now. Pt. does report +VH, states he sees shadows. S/I, H/I: Denies A/VH: + AH/VH. Sleep: Did not sleep this shift ADL's: Independent with prompting. Pt. trimmed his hall. Group attendance: No Were meds taken: Yes Any med S/E: Denies Mental Status Exam Appearance: Disheveled, wearing heavy winter hat and jacket Eye contact: Fair Behavior: Cooperative and Listening to headphones in his room. Pacing halls. Speech: WNL. Mood: Agitated and anxious Affect: Flat Thought process: Paranoid delusions r/t auditory hallucinations. Thought Content: Circumstantial. Responding to AH Cognition: A&Ox4 Insight: Poor. Judgment: Poor. Interventions PRN's used: Ativan 2mg po and Klonopin 1mg po x1, Nicotine Beth. Therapeutic interventions: 1:1 assessment, active listening, reality orientation, medication education/administration/monitoring, encouragement to perform personal care and attend groups, maintained q15m safety checks. Restraints/seclusion/emergency medication: None Justification of Continued Inpatient Treatment: Patient continues to exhibit psychotic symptoms and mood lability, irritability. Patient continues to be a high risk for discharge and requires continued medication adjustment in a safe and supportive milieu. Pt is reasonably aware that he will be going for LPS conservatorship.
[2020-05-13] MEDS: gabapentin 400mg capsule PO SCH (20:01)
--- NOTE | 2020-05-13 23:54 | NUR ---
NURSING PROGRESS NOTE Legal hold: tcon Client on involuntary status for DTS Report received from MARIBEL Byrne with use of SBAR Why are they here: Client reported increased auditory and visual hallucinations. Client hears voices coming from buildings saying, "We're going to kill you." Client believes others are controlling him. Client believes camera's are watching him in his car. Client is currently homeless and may not have been taking his medications. Assessment What has happened this shift: Pt mostly isolated to his room for evening shift. Pt was seen out of his room a couple times but not interacting with others. Pt denies having any complaints. When asked if he has any complaints, he stated, wouldnt matter if I did. Pt denies being suicidal but endorses auditory hallucinations. Pt accepted hs meds without issue and did not have any outbursts or behavior issues this shift. S/I, H/I: Denies both. A/VH: Endorses auditory hallucinations Sleep: see sleep assessment ADL's: Needs encouragement, but can perform independently. Group attendance: No Were meds taken: Yes Any med S/E: None reported or observed Mental Status Exam Appearance: wearing personal clothing Eye contact: Fair Behavior: cooperative, isolative Speech: Mumbles Mood: upbeat Affect: congruent with mood Thought process: circumstantial Thought Content: Hallucinations. Cognition: A&Ox4 Insight: Poor. Judgment: Poor. Interventions PRN's used: julia Therapeutic interventions: 1:1 assessment, active listening, reality orientation, medication education/administration/monitoring, encouragement to perform personal care and attend groups, maintained q15m safety checks. Restraints/seclusion/emergency medication: None Justification of Continued Inpatient Treatment: Patient continues to exhibit psychotic symptoms and mood lability, irritability. Patient continues to be a high risk for discharge and requires continued medication adjustment in a safe and supportive milieu. Pt is reasonably aware that he will be going for LPS conservatorship.
[2020-05-14] MEDS: QUEtiapine 25mg tablet PO SCH ×2 (07:26→12:49)
[2020-05-14] MEDS: gabapentin 300mg capsule PO SCH ×2 (07:26→12:49)
[2020-05-14] MEDS: pantoprazole 40mg Tablet.DR PO SCH (07:26)
[2020-05-14] MEDS: quetiapine 100mg tablet PO SCH ×3 (07:26→20:16)
[2020-05-14] MEDS: clonazePAM 1mg tablet PO SCH ×2 (07:27→20:15)
[2020-05-14] MEDS: benztropine 1mg tablet PO SCH ×2 (07:27→20:15)
[2020-05-14] MEDS: divalproex sodium 500mg tablet.DR PO SCH ×2 (07:27→20:16)
[2020-05-14] MEDS: tizanidine 4mg tablet PO SCH ×3 (07:28→17:12)
[2020-05-14] MEDS: thiothixene 2mg capsule PO SCH (07:29)
[2020-05-14] MEDS: NICOTINE POLACRILEX 2 MG LOZENGE BC PRN ×3 (07:29→18:34)
[2020-05-14 07:44] VITALS: BP 129/94
[2020-05-14] MEDS: LORazepam 1 MG tablet PO PRN ×2 (09:39→18:52)
[2020-05-14] MEDS: clonazePAM 1mg tablet PO PRN (13:04)
--- NOTE | 2020-05-14 13:57 | NUR ---
Nursing Progress Note: Legal hold: LPS Client on involuntary status for DTS Report received from nurse with use of SBAR: Nabila Bunn RN Why are they here: Client reported increased auditory and visual hallucinations. Client hears voices coming from buildings saying, "We're going to kill you." Client believes others are controlling him. Client believes camera's are watching him in his car. Client is currently homeless and may not have been taking his medications. Assessment What has happened this shift: Received pt. up in the hallway at the beginning of the shift, he greeted this underwriter solicitation director appropriately and proudly showed off his hall that he had recently shaved. Pt. stated laughing, "I look like a pirate! A bad pirate!" He intermittently appears restless and guarded AEB pacing the hallway wearing headphones. 1:1 completed at bedside after pt. attended breakfast in the Group Room, he continues to deny any S/I or H/I, however reports ongoing A/KEYES and is observed to be talking aloud to himself intermittently. Later in the morning, at approximately 0930, pt. becomes agitated r/t to his A/KEYES and is observed to be yelling loudly at them while walking down the hallway, "Shut up!" He requests PRN Ativan, medication administered with effectiveness. When further questioned by this underwriter solicitation director regarding his A/KEYES, pt. reports that they were telling him that a male staff member was trying to "Mess with him," however pt. realized this was not reality. He stated, "Please apologize to him (the male staff member) for me." Later in the afternoon, pt. again appeared to have increased internal preoccupation AEB yelling aloud in his room, he requested PRN Clonazepam, and medication administered with effectiveness, will continue to monitor. Pictures of bilateral knuckles obtained, abrasions appear to be scabbed over and healed, weekly pictures placed in chart. S/I, H/I: Denies A/VH: Admits to and is actively responding to A/KEYES Sleep: Pt. reports he slept well, sleep hours are 7 ADL's: Pt. requires some direction and encouragement Group attendance: N/A Were meds taken: Yes Any med S/E: Yes Mental Status Exam Appearance: Wearing aviator hat and headphones, appropriately dressed and hall neatly shaved Eye contact: Fair Behavior: Cooperative, restless. irritable/agitated at times, withdrawn, and guarded Speech: Soft and mumbles, however yells loudly at times when responding to internal preoccupation Mood: Pleasant, however guarded Affect: Labile Thought process: Mostly linear, requiring minimal redirection Thought Content: Ongoing A/KEYES Cognition: A&O X3 Insight: Poor Judgment: Poor Interventions PRN's used: Ativan, Clonazepam, and Nicotine Lozenge Therapeutic interventions: Maintained a safe and therapeutic environment, ensured contract for safety, provided clear and simple instructions, attempted to orient to reality, monitored behaviors and need for intervention, provided positive encouragement, and maintained Q 15min safety checks. Restraints/seclusion/emergency medication: N/A Justification of Continued Inpatient Treatment: Per , pt. continues to be quietly psychotic. He requires a safe and supportive environment and medication adjustments.
[2020-05-14 20:16] VITALS: BP 149/92
[2020-05-14] MEDS: gabapentin 400mg capsule PO SCH (20:16)
[2020-05-14] MEDS ORDERED: thiothixene 2mg capsule PO SCH (21:00)
--- NOTE | 2020-05-15 03:05 | NUR ---
Nursing Progress Note Legal hold: Tcon Client on involuntary status for DTS Report received from MARIBEL Gonzales with use of SBAR Why are they here: Client reported increased auditory and visual hallucinations. Client hears voices coming from buildings saying, "We're going to kill you." Client believes others are controlling him. Client believes camera's are watching him in his car. Client is currently homeless and may not have been taking his medications. Assessment What has happened this shift: The patient was seen in his room at shift change. He came up to this selling underwriter not long after and requested a nicotine lozenge, "It's been a while. I'm trying to cut back." He came back a little later and requested PRN Ativan, "The voices are getting bad, but I'm trying not to talk to them." The patient did not want to discuss the 'voices' tonight, but did say he wishes he could be a normal, "productive member of society." He has only been seen out of his room once for a lozenge, then back to bed. S/I, H/I: Denies. A/VH: Endorses auditory hallucinations Sleep: See sleep assessment ADL's: Needs encouragement, but can perform independently. Group attendance: No Were meds taken: Yes Any med S/E: None reported or observed Mental Status Exam Appearance: Wearing unit scrubs, jacket, and hat. Eye contact: Fair Behavior: cooperative, isolative, guarded. Speech: Clear, with some mumbling Mood: Somber Affect: Constricted. Thought process: Circumstantial Thought Content: Hallucinations. Cognition: A&Ox4 Insight: Poor. Judgment: Poor. Interventions PRN's used: Nicotine lozenge, Xanax, Seroquel. Therapeutic interventions: 1:1 assessment, active listening, reality orientation, medication education/administration/monitoring, encouragement to perform personal care and attend groups, maintained q15m safety checks. Restraints/seclusion/emergency medication: None Justification of Continued Inpatient Treatment: Patient continues to exhibit psychotic symptoms and mood lability, irritability. Patient continues to be a high risk for discharge and requires continued medication adjustment in a safe and supportive milieu. Pt is reasonably aware that he will be going for [facility] conservatorship.
[2020-05-15] MEDS: NICOTINE POLACRILEX 2 MG LOZENGE BC PRN ×5 (04:48→16:05)
[2020-05-15] MEDS: clonazePAM 1mg tablet PO PRN ×2 (06:09→13:26)
[2020-05-15 07:43] VITALS: BP 131/86
[2020-05-15] MEDS: divalproex sodium 500mg tablet.DR PO SCH ×2 (07:46→20:08)
[2020-05-15] MEDS: gabapentin 300mg capsule PO SCH ×2 (07:46→12:45)
[2020-05-15] MEDS: clonazePAM 1mg tablet PO SCH ×2 (07:46→20:07)
[2020-05-15] MEDS: quetiapine 100mg tablet PO SCH ×3 (07:46→20:09)
[2020-05-15] MEDS: pantoprazole 40mg Tablet.DR PO SCH (07:46)
[2020-05-15] MEDS: benztropine 1mg tablet PO SCH ×2 (07:46→20:07)
[2020-05-15] MEDS: QUEtiapine 25mg tablet PO SCH ×2 (07:46→12:46)
[2020-05-15] MEDS: tizanidine 4mg tablet PO SCH ×3 (07:49→16:04)
[2020-05-15] MEDS: LORazepam 1 MG tablet PO PRN (07:53)
[2020-05-15] MEDS ORDERED: thiothixene 2mg capsule PO SCH (08:00)
[2020-05-15] MEDS ORDERED: OLANZapine 5mg rapidly disint. tablet PO ONE (09:35)
[2020-05-15] MEDS ORDERED: LORazepam 1 MG tablet PO ONE (10:05)
--- NOTE | 2020-05-15 17:13 | NUR ---
NURSING PROGRESS NOTE Legal hold: T-Con Client on involuntary status for GD/DTO Report received from Ashley LÓPEZ with use of SBAR Why are they here: Client reported increased auditory and visual hallucinations. Client hears voices coming from buildings saying, "We're going to kill you." Client believes others are controlling him. Client believes camera's are watching him in his car. Client is currently homeless and may not have been taking his medications. Assessment What has happened this shift: Pt. awake at start of shift and listening to headphones in his room. Pt. took all meds and ate all meals in the community room. Pt. requested PRN Ativan 2mg po for increased anxiety with minimal effect.Pt. became agitated mid morning, yelling " you!" When asked what was going on, pt. states, "These ghosts won't leave me alone!" Pt. given one time dose of Zyprexa Zydis 10mg with minimal effect. Pt. continuing to yell at the voices. Pt. given a one time dose of Ativan 2mg po with good effect. Pt. then slept approx 2 hours. Pt. awoke for lunch. Pt. requested PRN Klonopin and received 1mg with good effect. 1:1 done at bedside, pt. denies SI/HI, VH. Pt. reports AH, voice that threaten him. S/I, H/I: Denies A/VH: + AH/VH. Sleep: Pt. napped approx 2 hours. ADL's: Independent with prompting. Group attendance: No Were meds taken: Yes Any med S/E: Denies Mental Status Exam Appearance: Disheveled, wearing heavy winter hat and jacket Eye contact: Fair Behavior: Cooperative, agitated and angry at times yelling back at voices. Pt. listening to headphones in his room and pacing halls. Speech: WNL. Mood: Agitated and anxious in the AM but euthymic in the afternoon. Affect: Congruent with mood. Thought process: Paranoid delusions r/t auditory hallucinations. Thought Content: Circumstantial. Responding to AH Cognition: A&Ox4 Insight: Poor. Judgment: Poor. Interventions PRN's used: Ativan 2mg po x2, Zyprexa Zydis 10mg x1 and Klonopin 1mg po x1, Nicotine Beth. Therapeutic interventions: 1:1 assessment, active listening, reality orientation, medication education/administration/monitoring, encouragement to perform personal care and attend groups, maintained q15m safety checks. Restraints/seclusion/emergency medication: None Justification of Continued Inpatient Treatment: Patient continues to exhibit psychotic symptoms and mood lability, irritability. Patient continues to be a high risk for discharge and requires continued medication adjustment in a safe and supportive milieu. Pt is reasonably aware that he will be going for LPS conservatorship.
[2020-05-15 20:00] VITALS: BP 137/89
[2020-05-15] MEDS: gabapentin 400mg capsule PO SCH (20:09)
[2020-05-15] MEDS: thiothixene 2mg capsule PO SCH (20:11)
--- NOTE | 2020-05-16 00:56 | NUR ---
NURSING PROGRESS NOTE Legal hold: T-Con Client on involuntary status for GD/DTO Report received from Caty LÓPEZ with use of SBAR Why are they here: Client reported increased auditory and visual hallucinations. Client hears voices coming from buildings saying, "We're going to kill you." Client believes others are controlling him. Client believes camera's are watching him in his car. Client is currently homeless and may not have been taking his medications. Assessment What has happened this shift: Pt. awake in his room at start of shift and listening to headphones . Pt. took all meds and ate all snack in his room. 1:1 done at bedside, pt. denies SI/HI, VH. Pt. reports AH, voice that threaten him. S/I, H/I: Denies A/VH: + AH/VH. Sleep: See sleep hours. ADL's: Independent with prompting. Group attendance: No Were meds taken: Yes Any med S/E: Denies Mental Status Exam Appearance: Disheveled, wearing heavy winter hat and jacket Eye contact: Fair Behavior: Cooperative, agitated and angry at times yelling back at voices. Pt. listening to headphones in his room and pacing halls. Speech: WNL. Mood: Agitated and anxious in the AM but euthymic in the afternoon. Affect: Congruent with mood. Thought process: Paranoid delusions r/t auditory hallucinations. Thought Content: Circumstantial. Responding to AH Cognition: A&Ox4 Insight: Poor. Judgment: Poor. Interventions PRN's used: none Therapeutic interventions: 1:1 assessment, active listening, reality orientation, medication education/administration/monitoring, encouragement to perform personal care and attend groups, maintained q15m safety checks. Restraints/seclusion/emergency medication: None Justification of Continued Inpatient Treatment: Patient continues to exhibit psychotic symptoms and mood lability, irritability. Patient continues to be a high risk for discharge and requires continued medication adjustment in a safe and supportive milieu. Pt is reasonably aware that he will be going for LPS conservatorship.
[2020-05-16] MEDS: NICOTINE POLACRILEX 2 MG LOZENGE BC PRN ×5 (06:01→22:02)
[2020-05-16] MEDS: clonazePAM 1mg tablet PO SCH ×2 (06:57→19:31)
[2020-05-16] MEDS: pantoprazole 40mg Tablet.DR PO SCH (07:33)
[2020-05-16] MEDS: gabapentin 300mg capsule PO SCH ×2 (07:33→12:42)
[2020-05-16] MEDS: benztropine 1mg tablet PO SCH ×2 (07:33→19:29)
[2020-05-16] MEDS: tizanidine 4mg tablet PO SCH ×3 (07:34→16:09)
[2020-05-16] MEDS: QUEtiapine 25mg tablet PO SCH ×2 (07:34→12:42)
[2020-05-16] MEDS: quetiapine 100mg tablet PO SCH ×3 (07:34→19:30)
[2020-05-16] MEDS: divalproex sodium 500mg tablet.DR PO SCH ×2 (07:35→19:31)
[2020-05-16 07:41] VITALS: BP 143/85
[2020-05-16] MEDS: clonazePAM 1mg tablet PO PRN (08:14)
[2020-05-16] MEDS: thiothixene 2mg capsule PO SCH ×2 (09:04→19:29)
[2020-05-16] MEDS: LORazepam 1 MG tablet PO PRN ×2 (09:27→16:44)
--- NOTE | 2020-05-16 12:02 | NUR ---
F/u 05/16: Pt PO 75-100% avg regular diet meeting needs. LB 05/14. Will continue to follow. Rec: 1. continue regular diet 2. routine bowel care 3. scaled wts per rx Addendum: 05/16/20 at [address] Amended: Links added.
--- NOTE | 2020-05-16 14:10 | NUR ---
NURSING PROGRESS NOTE Legal hold: T-Con Client on involuntary status for GD/DTO Report received from Ludy LÓPEZ with use of SBAR Why are they here: Client reported increased auditory and visual hallucinations. Client hears voices coming from buildings saying, "We're going to kill you." Client believes others are controlling him. Client believes camera's are watching him in his car. Client is currently homeless and may not have been taking his medications. Assessment What has happened this shift: Patient was up pacing early this morning, patient asked for a Klonpin @ 0750, patient states the voices are talking very negative and he can not hear anything other than negative voices. This headline writer gave patient his am medication which included a give klonpin. Patient then wanted his PRN Klonpin with in the hour. "Someone is gassing my room", "I know it is April but I don't want to know the date, if anyone will just talk to me it is better than theses voices". 0930 Patient asked for a Ativan, "the voices are not daniel away today, the radio is not even helping:. 1230 Patient is laying in his bed, med pass done, patient got out of bed and went towards the day room waiting for lunch. Gianni does ask for his PRN Nicotine Beth thought out the day. Patient self isolates most of the day, he does not engage with his peers. S/I, H/I: Denies A/VH: + AH/VH very loud Sleep: 8.0 last night, short 30 min nap today ADL's: Independent with prompting. Group attendance: No Were meds taken: Yes Any med S/E: Denies Mental Status Exam Appearance: Disheveled, wearing heavy winter hat and jacket Eye contact: Fair Behavior: Cooperative, Pt. listening to headphones in his room and pacing halls. Speech: WNL. Soft spoken today Mood: Agitated and anxious in the AM but euthymic in the afternoon. Affect: Congruent with mood. Thought process: Paranoid delusions r/t auditory hallucinations. Thought Content: Circumstantial. Responding to AH Cognition: A&Ox4 Insight: Poor. Judgment: Poor. Interventions PRN's used: Klonpin and Ativan for agitation today Therapeutic interventions: 1:1 assessment, active listening, reality orientation, medication education/administration/monitoring, encouragement to perform personal care and attend groups, maintained q15m safety checks. Restraints/seclusion/emergency medication: None Justification of Continued Inpatient Treatment: Patient continues to exhibit psychotic symptoms and mood lability, irritability, all while responding to voices. Patient continues to be a high risk for discharge and requires continued medication adjustment in a safe and supportive milieu. Patient is on a T-Con with [facility], due to failed out patient treatment plans.
--- NOTE | 2020-05-16 14:12 | NUR ---
Sent last week of notes and med list to [facility] office as Max Panchal requested them. DOMO Saldana
[2020-05-16] MEDS: gabapentin 400mg capsule PO SCH (19:29)
[2020-05-16 20:44] VITALS: BP 131/89
[2020-05-17] MEDS: tizanidine 4mg tablet PO SCH ×3 (00:10→16:26)
--- NOTE | 2020-05-17 01:25 | NUR ---
NURSING PROGRESS NOTE Legal hold: T-Con Client on involuntary status for GD/DTO Report received from Caty LÓPEZ with use of SBAR Why are they here: Client reported increased auditory and visual hallucinations. Client hears voices coming from buildings saying, "We're going to kill you." Client believes others are controlling him. Client believes camera's are watching him in his car. Client is currently homeless and may not have been taking his medications. Assessment What has happened this shift: Patient was in his room at the start of shift. Patient asked for a prn Mackenzie @ 1852 but did not have prn available Nicotine lozenge given and Hs meds given early and helpful. Patient states the voices are very active today. Patient self isolates most of the day, he does not engage with his peers. S/I, H/I: Denies A/VH: + AH/VH very loud Sleep: See sleep Hrs ADL's: Independent with prompting. Group attendance: No Were meds taken: Yes Any med S/E: Denies Mental Status Exam Appearance: Disheveled, wearing heavy winter hat and jacket Eye contact: Fair Behavior: Cooperative, Pt. listening to headphones in his room and pacing halls. Speech: WNL. Soft spoken today Mood: Agitated and anxious in the AM but euthymic in the afternoon. Affect: Congruent with mood. Thought process: Paranoid delusions r/t auditory hallucinations. Thought Content: Circumstantial. Responding to AH Cognition: A&Ox4 Insight: Poor. Judgment: Poor. Interventions PRN's used: Nicotine lozenge Therapeutic interventions: 1:1 assessment, active listening, reality orientation, medication education/administration/monitoring, encouragement to perform personal care and attend groups, maintained q15m safety checks. Restraints/seclusion/emergency medication: None Justification of Continued Inpatient Treatment: Patient continues to exhibit psychotic symptoms and mood lability, irritability, all while responding to voices. Patient continues to be a high risk for discharge and requires continued medication adjustment in a safe and supportive milieu. Patient is on a T-Con with [facility], due to failed out patient treatment plans.
[2020-05-17] MEDS: NICOTINE POLACRILEX 2 MG LOZENGE BC PRN ×4 (04:56→19:13)
[2020-05-17] MEDS: LORazepam 1 MG tablet PO PRN ×2 (06:53→19:13)
[2020-05-17 07:52] VITALS: BP 146/98
[2020-05-17] MEDS: clonazePAM 1mg tablet PO SCH ×2 (08:30→20:24)
[2020-05-17] MEDS: gabapentin 300mg capsule PO SCH ×2 (08:31→12:44)
[2020-05-17] MEDS: pantoprazole 40mg Tablet.DR PO SCH (08:31)
[2020-05-17] MEDS: QUEtiapine 25mg tablet PO SCH ×2 (08:31→12:43)
[2020-05-17] MEDS: quetiapine 100mg tablet PO SCH ×3 (08:32→20:23)
[2020-05-17] MEDS: divalproex sodium 500mg tablet.DR PO SCH ×2 (08:32→20:22)
[2020-05-17] MEDS: benztropine 1mg tablet PO SCH ×2 (08:32→20:24)
[2020-05-17] MEDS: thiothixene 2mg capsule PO SCH ×2 (08:33→20:18)
--- NOTE | 2020-05-17 13:30 | NUR ---
Consultations Presenting Issues: Pt's not doing well lately, appears to have regressed to aggressive and agitative bxs (hitting & banging lane, yelling & screaming at others, and loudly talking to self) in an effort to cope with some of his psychoses (voices disparaging him and commanding him to do things he does not want to do). In addition he's isolating himself again. Interventions: SS consulted MDT, per consultation MDT recommends that placement services be halted as pt will need more treatment time and attending physicians can make some medication changes and monitor their efficacy. SS had t/c with [facility]'s office and spoke w/[facility], per t/c, [facility] will stop sending packets out for pt until they receive updated referral for placement services. SS had t/c with Aram Panch[facility] and spoke w/Phyllis, PM, per t/c, Phyllis will refrain from making a decision re pt's placement referral until she receives updated referral packet from [facility]'s office. Plan: SS will engage pt in discussion re need for changes to his meds regiment and how it would assist in his placement. Maria Luisa Murphy LCSW Addendum: 05/17/20 at 1348 by Maria Luisa Murphy Amended: Links added.
--- NOTE | 2020-05-17 15:04 | NUR ---
NURSING PROGRESS NOTE Legal hold: T-Con Client on involuntary status for GD/DTO Report received from Ludy LÓPEZ with use of SBAR Why are they here: Client reported increased auditory and visual hallucinations. Client hears voices coming from buildings saying, "We're going to kill you." Client believes others are controlling him. Client believes camera's are watching him in his car. Client is currently homeless and may not have been taking his medications. Assessment What has happened this shift:Patient started the morning off asking for Ativan so that he can try to keep the voices calm today. During 1:1 assessment patient told this service writer that his family was abducted by bad people, they took 3 million dollars of his that was in gold coins, they had picture proving that they were their family members and that everyone should go with them, Gianni went on to say that he knew they weren't his family and what should he do if they come to this place to find him, this service writer assured Gianni that he is safe here and that only employees can get through our locked doors. Patient still wanted to know what to do if they did try to come get him, this service writer told Gianni to ask for staffs help and we would make sure that he was safe. Patient has fixed delusions about bad people coming after him. Patient was seen pacing the halls with and without head phones, Gianni did ask for Nicotine kandis today. S/I, H/I: Denies A/VH: + AH/VH very loud Sleep: 6.5 last night, short 30 min nap today ADL's: Independent with prompting. Group attendance: No Were meds taken: Yes Any med S/E: Denies Mental Status Exam Appearance: Disheveled, wearing dark waylon shirt today, unit seemed warmer than normal Eye contact: Fair Behavior: Cooperative, Pt. listening to headphones in his room and pacing halls. Speech: WNL. Soft spoken today Mood: flat Affect: Congruent with mood. Thought process: Paranoid delusions r/t auditory hallucinations. Thought Content: Circumstantial. Responding to AH Cognition: A&Ox4 Insight: Poor. Judgment: Poor. Interventions PRN's used: Ativan for agitation today Therapeutic interventions: 1:1 assessment, active listening, reality orientation, medication education/administration/monitoring, encouragement to perform personal care and attend groups, maintained q15m safety checks. Restraints/seclusion/emergency medication: None Justification of Continued Inpatient Treatment: Patient continues to exhibit psychotic symptoms and mood lability, irritability, all while responding to voices. Patient continues to be a high risk for discharge and requires continued medication adjustment in a safe and supportive milieu. Patient is on a T-Con with [facility], due to failed out patient treatment plans
--- NOTE | 2020-05-17 16:28 | NUR ---
1:1- Reality Testing Presenting Issues: Pt's been struggling to cope w/paranoiia & loud voices disparaging him. He has regressed to aggressive & agitative bxs (hitting lane, yelling at people not present). Interventions: SS met w/pt and utilized ME & CBT strategies to support pt in assessing his progress, and identify a desired outcome for his hospitalization. Per session, pt was able to recognize that he's not doing well and that the current meds regiment is not working well for him. Pt admits that a different antipsychotic may work better than what he's currently taking. SS informed pt about Max Panchal willing to consider him when his condition improves and asked him his thoughts on what he needs to improve his condition, pt states, "I'll try the Clozapine". Plan: SS will consult w/attending physician re pt's readiness to change meds. Maria Luisa Murphy LCSW Addendum: 05/17/20 at 1637 by Maria Luisa GARZA Amended: Links added.
[2020-05-17] MEDS: clonazePAM 1mg tablet PO PRN (16:40)
[2020-05-17 19:36] VITALS: BP 133/91
[2020-05-17] MEDS: gabapentin 400mg capsule PO SCH (20:23)
--- NOTE | 2020-05-18 00:59 | NUR ---
NURSING PROGRESS NOTE Legal hold: T-Con Client on involuntary status for GD/DTO Report received from Antoine RN with use of SBAR Why are they here: Client reported increased auditory and visual hallucinations. Client hears voices coming from buildings saying, "We're going to kill you." Client believes others are controlling him. Client believes camera's are watching him in his car. Client is currently homeless and may not have been taking his medications. Assessment What has happened this shift: PT requests PRN ativan and nicotine at shift change. He paces the halls with his headphones on, internally preoccupied but smiling. Lens Shaper Grinder asks if he is hearing voices, he responds, "yea but they are good ones." He takes his HS medications without issue and denies SI/HI. S/I, H/I: Denies A/VH: AH, "good voices" Sleep: See sleep Hours ADL's: Independent with prompting. Group attendance: No Were meds taken: Yes Any med S/E: Denies Mental Status Exam Appearance: neat, wearing a hat clean shaven Eye contact: Fair Behavior: Cooperative, Pt. listening to headphones in his room and pacing halls. Speech: WNL Mood: euthymic Affect: Congruent with mood. Thought process: internally preoccupied Thought Content: Circumstantial Cognition: A&Ox4 Insight: Poor. Judgment: Poor. Interventions PRN's used: Nicotine lozenge, ativan Therapeutic interventions: 1:1 assessment, active listening, reality orientation, medication education/administration/monitoring, encouragement to perform personal care and attend groups, maintained q15m safety checks. Restraints/seclusion/emergency medication: None Justification of Continued Inpatient Treatment: Patient continues to exhibit psychotic symptoms and mood lability, irritability, all while responding to voices. Patient continues to be a high risk for discharge and requires continued medication adjustment in a safe and supportive milieu. Patient is on a T-Con with [facility], due to failed out patient treatment plans.
[2020-05-18] MEDS: NICOTINE POLACRILEX 2 MG LOZENGE BC PRN ×4 (03:28→18:56)
[2020-05-18 08:00] VITALS: BP 131/97
[2020-05-18] MEDS: divalproex sodium 500mg tablet.DR PO SCH ×2 (08:01→20:02)
[2020-05-18] MEDS: quetiapine 100mg tablet PO SCH ×3 (08:01→21:00)
[2020-05-18] MEDS: QUEtiapine 25mg tablet PO SCH ×3 (08:02→21:00)
[2020-05-18] MEDS: pantoprazole 40mg Tablet.DR PO SCH (08:02)
[2020-05-18] MEDS: tizanidine 4mg tablet PO SCH ×3 (08:03→16:28)
[2020-05-18] MEDS: benztropine 1mg tablet PO SCH ×2 (08:03→20:02)
[2020-05-18] MEDS: clonazePAM 1mg tablet PO SCH ×2 (08:03→20:03)
[2020-05-18] MEDS: gabapentin 300mg capsule PO SCH ×2 (08:04→12:46)
[2020-05-18] MEDS: thiothixene 2mg capsule PO SCH ×2 (08:05→20:04)
[2020-05-18] MEDS: LORazepam 1 MG tablet PO PRN ×2 (10:08→16:27)
[2020-05-18] MEDS: acetaminophen 325mg tablet PO PRN (13:21)
[2020-05-18] MEDS: clonazePAM 1mg tablet PO PRN (13:22)
--- NOTE | 2020-05-18 16:43 | NUR ---
Placement Placement services have been suspended as pt's had regressed and MDT consultation recommends additional treatment time to stabilize pt. [facility] informed. Maria Luisa Murphy LCSW Addendum: 05/19/20 at 1645 by Maria Luisa Murphy SS Amended: Links added.
--- NOTE | 2020-05-18 17:42 | NUR ---
NURSING PROGRESS NOTE Legal hold: T-Con Client on involuntary status for GD/DTO Report received from Ludy LÓPEZ with use of SBAR Why are they here: Client reported increased auditory and visual hallucinations. Client hears voices coming from buildings saying, "We're going to kill you." Client believes others are controlling him. Client believes camera's are watching him in his car. Client is currently homeless and may not have been taking his medications. Assessment What has happened this shift: Patient was asleep at change of shift and awoken for breakfast. Patient was anxious throughout the day. Patient takes his medications as prescribed. Patient states he always is hearing voices but he would not say what they tell him. Patient does say they are loud. Patient would watch T.V., take naps, uses the headphones and sits and look out the window. Patient is polite when speaking to staff. Patient had a relatively good day except for some anxiety. S/I, H/I: Denies A/VH: + AH/VH yes Sleep: several naps ADL's: Independent with prompting. Group attendance: No Were meds taken: Yes Any med S/E: Denies Mental Status Exam Appearance: Disheveled, wearing dark waylon shirt and his cap. Eye contact: Fair Behavior: Cooperative, Pt. listening to headphones in his room and pacing halls. Speech: WNL. Soft spoken today Mood: flat Affect: Congruent with mood. Thought process: Paranoid delusions r/t auditory hallucinations. Thought Content: Circumstantial. Responding to AH Cognition: A&Ox4 Insight: Poor. Judgment: Poor. Interventions PRN's used: Ativan x 2 for agitation today, Klonopin, Nicotine lozenges Therapeutic interventions: 1:1 assessment, active listening, reality orientation, medication education/administration/monitoring, encouragement to perform personal care and attend groups, maintained q15m safety checks. Restraints/seclusion/emergency medication: None Justification of Continued Inpatient Treatment: Patient continues to exhibit psychotic symptoms and mood lability, irritability, all while responding to voices. Patient continues to be a high risk for discharge and requires continued medication adjustment in a safe and supportive milieu. Patient is on a T-Con with [facility], due to failed out patient treatment plans
[2020-05-18] MEDS ORDERED: OLANZapine 5mg rapidly disint. tablet PO ONE (18:45)
[2020-05-18 19:42] VITALS: BP 137/90
[2020-05-18] MEDS: gabapentin 400mg capsule PO SCH (20:02)
[2020-05-18] MEDS ORDERED: CLOZAPINE 25 MG oral disintegrating tablet PO SCH (21:00)
--- NOTE | 2020-05-18 23:46 | NUR ---
NURSING PROGRESS NOTE Legal hold: T-Con Client on involuntary status for GD/DTO Report received from Antoine RN with use of SBAR Why are they here: Client reported increased auditory and visual hallucinations. Client hears voices coming from buildings saying, "We're going to kill you." Client believes others are controlling him. Client believes camera's are watching him in his car. Client is currently homeless and may not have been taking his medications. Assessment What has happened this shift: Pt approaches writer producer at shift change with an apprehensive look on his face and he says, I really need something I am not doing well at all. He reports intense voices and is clenching his fists. It is too early to give Ativan or klonopin, writer producer consults with Dr. Vargas and Zyprexa zytiz 5mg x1 is given with good effect. decreased Seroquel to 250 mg HS. S/I, H/I: Denies A/VH: intense AH Sleep: See sleep Hours ADL's: Independent with prompting. Group attendance: No Were meds taken: Yes Any med S/E: Denies Mental Status Exam Appearance: neat, wearing a hat clean shaven Eye contact: Fair Behavior: Cooperative, Pt. listening to headphones in his room and pacing halls. Speech: WNL Mood: euthymic Affect: Congruent with mood. Thought process: internally preoccupied Thought Content: Circumstantial Cognition: A&Ox4 Insight: Poor. Judgment: Poor. Interventions PRN's used: Nicotine lozenge,zyprexa zytis Therapeutic interventions: 1:1 assessment, active listening, reality orientation, medication education/administration/monitoring, encouragement to perform personal care and attend groups, maintained q15m safety checks. Restraints/seclusion/emergency medication: None Justification of Continued Inpatient Treatment: Patient continues to exhibit psychotic symptoms and mood lability, irritability, all while responding to voices. Patient continues to be a high risk for discharge and requires continued medication adjustment in a safe and supportive milieu. Patient is on a T-Con with [facility], due to failed out patient treatment plans.
[2020-05-19] MEDS ORDERED: CLOZAPINE 25 MG oral disintegrating tablet PO SCH (07:30)
[2020-05-19] MEDS: tizanidine 4mg tablet PO SCH ×3 (07:49→16:00)
[2020-05-19] MEDS: divalproex sodium 500mg tablet.DR PO SCH ×2 (07:50→20:00)
[2020-05-19] MEDS: clonazePAM 1mg tablet PO SCH ×2 (07:50→19:34)
[2020-05-19] MEDS: benztropine 1mg tablet PO SCH ×2 (07:51→19:34)
[2020-05-19] MEDS: gabapentin 300mg capsule PO SCH ×2 (07:51→13:13)
[2020-05-19] MEDS: pantoprazole 40mg Tablet.DR PO SCH (07:51)
[2020-05-19] MEDS: quetiapine 100mg tablet PO SCH ×3 (07:52→20:00)
[2020-05-19] MEDS: thiothixene 2mg capsule PO SCH ×2 (07:54→20:00)
[2020-05-19 08:28] VITALS: BP 144/100
[2020-05-19] MEDS: NICOTINE POLACRILEX 2 MG LOZENGE BC PRN ×4 (09:40→19:07)
[2020-05-19] MEDS: LORazepam 1 MG tablet PO PRN ×2 (09:40→16:00)
[2020-05-19 14:39] LABS: BASOPHILS % (AUTO) 0.6 % (0-1); EOSINOPHILS # (AUTO) 0.2 X10'3 (0-0.9); EOSINOPHILS % (AUTO) 3.6 % (0-6); HEMATOCRIT 44.7 % (42.0-52.0); HEMOGLOBIN 14.9 g/dl (14.0-17.9); LYMPHOCYTES # (AUTO) 2.7 X10'3 (1.1-4.8); LYMPHOCYTES % (AUTO) 44.4 % (21-51); MEAN CORPUSCULAR HEMOGLOBIN 28.5 PG (27.0-31.0); MEAN CORPUSCULAR HGB CONC 33.4 g/dL (33.0-36.5); MEAN CORPUSCULAR VOLUME 85.3 FL (78-98); MEAN PLATELET VOLUME 7.7 FL (7.4-10.4); MONOCYTES # (AUTO) 0.7 X10'3 (0-0.9); MONOCYTES % (AUTO) 12.3 % (2-12); NEUTROPHILS # (AUTO) 2.4 X10'3 (1.8-7.7); NEUTROPHILS % (AUTO) 39.1 % (42-75); PLATELET COUNT 190 X10'3 (140-440); RED BLOOD COUNT 5.23 X10'6 (4.70-6.10); RED CELL DISTRIBUTION WIDTH 15.2 % (11.5-14.5)
--- NOTE | 2020-05-19 16:41 | NUR ---
NURSING PROGRESS NOTE Legal hold: T-Con Client on involuntary status for GD/DTO Report received from Ludy LÓPEZ with use of SBAR Why are they here: Client reported increased auditory and visual hallucinations. Client hears voices coming from buildings saying, "We're going to kill you." Client believes others are controlling him. Client believes camera's are watching him in his car. Client is currently homeless and may not have been taking his medications. Assessment What has happened this shift: Patient was asleep at change of shift and awoken for breakfast. Patient was anxious throughout the day. Patient takes his medications as prescribed. Patient states he is hearing voices. Patient would watch T.V., take naps, uses the headphones and sits and look out the window. Patient is polite when speaking to staff. Patient had one incident today where he was yelling in his room. RN went to his room and patient was washing his hands. Patient appears to be responding to the voices and yelling. Patient stopped once RN went into the room. Patient had a good day except for some anxiety/yelling at voices. S/I, H/I: Denies A/VH: + AH/VH yes Sleep: several naps ADL's: Independent with prompting. Group attendance: No groups Were meds taken: Yes Any med S/E: Denies Mental Status Exam Appearance: Disheveled, wearing a red shirt and his cap. Eye contact: Fair Behavior: Cooperative, Pt. listening to headphones in his room and pacing halls. Speech: WNL. Soft spoken Mood: flat Affect: Congruent with mood. Thought process: Paranoid delusions r/t auditory hallucinations. Thought Content: Circumstantial. Responding to AH Cognition: A&Ox4 Insight: Poor. Judgment: Poor. Interventions PRN's used: Ativan x 2 for agitation today, Nicotine lozenges Therapeutic interventions: 1:1 assessment, active listening, reality orientation, medication education/administration/monitoring, encouragement to perform personal care and attend groups, maintained q15m safety checks. Restraints/seclusion/emergency medication: None Justification of Continued Inpatient Treatment: Patient continues to exhibit psychotic symptoms and mood lability, irritability, all while responding to voices. Patient continues to be a high risk for discharge and requires continued medication adjustment in a safe and supportive milieu. Patient is on a T-Con with [facility], due to failed out patient treatment plans
[2020-05-19] MEDS: acetaminophen 325mg tablet PO PRN (19:03)
[2020-05-19 19:19] VITALS: BP 138/96
[2020-05-19] MEDS: clonazePAM 1mg tablet PO PRN (19:39)
[2020-05-19] MEDS: gabapentin 400mg capsule PO SCH (20:00)
[2020-05-19] MEDS: QUEtiapine 25mg tablet PO SCH (20:00)
--- NOTE | 2020-05-19 23:32 | NUR ---
NURSING PROGRESS NOTE Legal hold: T-Con Client on involuntary status for GD/DTO Report received from Antoine RN with use of SBAR Why are they here: Client reported increased auditory and visual hallucinations. Client hears voices coming from buildings saying, "We're going to kill you." Client believes others are controlling him. Client believes camera's are watching him in his car. Client is currently homeless and may not have been taking his medications. Assessment What has happened this shift: Pt was sitting calmly in his room at shift change. Pt appeared more relaxed and less stimulated by internal stimuli. Pts speech was also clearer than previous nights. Pt is still endorsing AH but states that they are better. Pt was cooperative for all assessments and care and did not have any behavior outbursts. Pt accepted hs meds without issue. S/I, H/I: Denies A/VH: intense AH Sleep: See sleep Hours ADL's: Independent with prompting. Group attendance: No Were meds taken: Yes Any med S/E: Denies Mental Status Exam Appearance: neat, wearing a hat clean shaven Eye contact: Fair Behavior: Cooperative, Pt. listening to headphones in his room. Speech: WNL Mood: euthymic Affect: Congruent with mood. Thought process: internally preoccupied Thought Content: Circumstantial Cognition: A&Ox4 Insight: Poor. Judgment: Poor. Interventions PRN's used: Nicotine lozenge, clonopin Therapeutic interventions: 1:1 assessment, active listening, reality orientation, medication education/administration/monitoring, encouragement to perform personal care and attend groups, maintained q15m safety checks. Restraints/seclusion/emergency medication: None Justification of Continued Inpatient Treatment: Patient continues to exhibit psychotic symptoms and mood lability, irritability, all while responding to voices. Patient continues to be a high risk for discharge and requires continued medication adjustment in a safe and supportive milieu. Patient is on a T-Con with [facility], due to failed out patient treatment plans.
[2020-05-20] MEDS: NICOTINE POLACRILEX 2 MG LOZENGE BC PRN ×7 (03:25→20:33)
[2020-05-20] MEDS: LORazepam 1 MG tablet PO PRN ×2 (06:18→18:26)
[2020-05-20 08:00] VITALS: BP 141/96
[2020-05-20] MEDS: benztropine 1mg tablet PO SCH ×2 (08:02→20:30)
[2020-05-20] MEDS: quetiapine 100mg tablet PO SCH ×3 (08:03→20:30)
[2020-05-20] MEDS: pantoprazole 40mg Tablet.DR PO SCH (08:03)
[2020-05-20] MEDS: clonazePAM 1mg tablet PO SCH ×2 (08:04→20:28)
[2020-05-20] MEDS: divalproex sodium 500mg tablet.DR PO SCH ×2 (08:04→20:29)
[2020-05-20] MEDS: gabapentin 300mg capsule PO SCH ×2 (08:04→12:20)
[2020-05-20] MEDS: thiothixene 2mg capsule PO SCH ×2 (08:05→20:31)
[2020-05-20] MEDS: tizanidine 4mg tablet PO SCH ×3 (08:05→16:00)
[2020-05-20] MEDS: clozapine 25mg tablet PO SCH (12:22)
[2020-05-20] MEDS: clonazePAM 1mg tablet PO PRN (13:57)
--- NOTE | 2020-05-20 17:09 | NUR ---
NURSING PROGRESS NOTE Legal hold: T-Con Client on involuntary status for GD/DTO Report received from Viky LÓPEZ with use of SBAR Why are they here: Client reported increased auditory and visual hallucinations. Client hears voices coming from buildings saying, "We're going to kill you." Client believes others are controlling him. Client believes camera's are watching him in his car. Client is currently homeless and may not have been taking his medications. Assessment What has happened this shift: Pt attended meals and took medications. He walked the halls and listened to headphones. He was pleasant. Requested PRNs for anxiety. He stated he was thinking about a family member that made him upset and he didnt want to think about him anymore. He responds externally to internal stimuli throughout the day. S/I, H/I: Pt Denies A/VH: + AH Sleep: 2 Naps during the day ADL's: Independent. Group attendance: No group or patio Were meds taken: Yes Any med S/E: None noted Mental Status Exam Appearance: Wears his own clothes and hat. Eye contact: Direct Behavior: Calm, cooperative, preoccupied with internal stimuli. Speech: Slightly mumbled Mood: Calm, mixed with anxious Affect: Congruent with mood. Thought process: Voices in his head Thought Content: Unable to assess Cognition: Alert Insight: Poor. Judgment: Poor. Interventions PRN's used: Nicotine lozenges, Clonazepam, Therapeutic interventions: 1:1 assessment, active listening, reality orientation, medication education/administration/monitoring, encouragement to perform personal care and attend groups, maintained q15m safety checks. Restraints/seclusion/emergency medication: None Justification of Continued Inpatient Treatment: Patient continues to exhibit psychotic symptoms and mood lability, irritability, all while responding to voices. Patient continues to be a high risk for discharge and requires continued medication adjustment in a safe and supportive milieu. Patient is on a T-Con with [facility], due to failed out patient treatment plans. Addendum: 05/20/20 at 1751 by Nini Suero RN Pt requested PRN Clonazepam this afternoon. RN went to give scheduled Zanaflex at 1600 and pt was sleeping soundly. Pt still sleeping sound until dinner at 1800. Pt has another scheduled dose Clonazepam at 1999. Zanaflex held at this x
[2020-05-20] MEDS: gabapentin 400mg capsule PO SCH (20:29)
[2020-05-20] MEDS: QUEtiapine 25mg tablet PO SCH (20:30)
[2020-05-20] MEDS ORDERED: clozapine 25mg tablet PO SCH (21:00)
--- NOTE | 2020-05-20 22:50 | NUR ---
Nursing Progress Note: Legal hold: T CON Report received from Teri LÓPEZ with use of SBAR Why are they here: Client reported increased auditory and visual hallucinations. Client hears voices coming from buildings saying, "We're going to kill you." Client believes others are controlling him. Client believes camera's are watching him in his car. Client is currently homeless and may not have been taking his medications. Assessment What has happened this shift: The patient started the shift upset and asking for ativan. He stated that he had a nightmare. Later during the evening assessment he stated that when he has a nightmare he gets angry and added, "But I'm starting to relax" He stated "Its mark ridiculous" that he has been here so long. He reports continued voices but they are less than when he was admitted. He denies that they are command in nature. He denies visual hallucinations. He had no behaviors that required redirection. No efforts to socialize with peers. S/I, H/I: Denied A/VH: Auditory hallucinations are less and he denied visual hallucinations ADL's: Appeared clean and dressed appropriately for the unit Group attendance: no groups this shift Were meds taken: the patient refused niacin and stated it was the wrong brand Any med S/E patient denied side effects. Mental Status Exam Appearance: Appeared clean wearing a hat Eye contact: only rarely Behavior: isolative, guarded Speech: Monotone, minimal Mood: anxious upset at the start of shift Affect: flat Thought process: impacted by internal stimuli, distracted, vague Thought Content: internal stimuli, situational difficulties Cognition: alert Insight: poor Judgment: poor Interventions PRN's used: ativan and nicotine lozenge Therapeutic interventions: One to one with the patient to assess for the severity of disordered thoughts and to establish and therapeutic relationship. He was assessed for medication side effects. He remains on q 15 minute safety checks. Restraints/seclusion/emergency medication: NA Justification of Continued Inpatient Treatment: The patient is here pending transfer to an IMD arranged by the public guardian's office.
[2020-05-21] MEDS: NICOTINE POLACRILEX 2 MG LOZENGE BC PRN ×5 (04:30→18:45)
[2020-05-21] MEDS: LORazepam 1 MG tablet PO PRN ×2 (06:02→16:11)
[2020-05-21] MEDS: pantoprazole 40mg Tablet.DR PO SCH (07:42)
[2020-05-21] MEDS: clozapine 25mg tablet PO SCH ×3 (07:42→20:01)
[2020-05-21] MEDS: benztropine 1mg tablet PO SCH ×2 (07:42→20:01)
[2020-05-21] MEDS: quetiapine 100mg tablet PO SCH ×3 (07:42→20:02)
[2020-05-21] MEDS: clonazePAM 1mg tablet PO SCH (07:42)
[2020-05-21] MEDS: divalproex sodium 500mg tablet.DR PO SCH ×2 (07:42→20:01)
[2020-05-21] MEDS: gabapentin 300mg capsule PO SCH ×2 (07:42→12:31)
[2020-05-21] MEDS: thiothixene 2mg capsule PO SCH ×2 (07:43→20:00)
[2020-05-21] MEDS: tizanidine 4mg tablet PO SCH ×3 (07:44→15:30)
[2020-05-21 08:03] VITALS: BP 128/89
[2020-05-21] MEDS: clonazePAM 1mg tablet PO PRN (08:44)
--- NOTE | 2020-05-21 09:27 | NUR ---
Nursing Progress Note: Legal hold: T-Con Client on involuntary status for DTS Report received from nurse with use of SBAR: MARIBEL Gonzales Why are they here: Client reported increased auditory and visual hallucinations. Client hears voices coming from buildings saying, "We're going to kill you." Client believes others are controlling him. Client believes camera's are watching him in his car. Client is currently homeless and may not have been taking his medications. Assessment What has happened this shift: Received pt. up in the hallway at the beginning of the shift pacing and wearing headphones, he attended breakfast in the Group Room with direction provided from staff. Pt. was observed to be internally preoccupied and was talking aloud to himself while eating, however he greeted this contract technical writer appropriately and was compliant with medications. Pt. retreated back to his room after eating and appeared to be napping, he continued to wear headphones. At approximately 0840, pt. was observed to be in his room exhibiting agitation and irritably talking loudly. He stated, "You piece of shit, everything you did to my family! Now everything you have is mine, get the f... out of my face!" This contract technical writer approached pt. and he requested PRN Clonazepam (he reports he is aware he only has two available for the day, and feels he needs one now). Medication administered, and active listening/positive encouragement provided by this contract technical writer. Pt. states, "I'm a bad person." He denies any S/I, H/I, or V/KEYES, but reports ongoing A/KEYES and paranoid delusions that others want to hurt him. Pt. was provided reassurance by this contract technical writer that he is not a bad person, he just continues to struggle with A/KEYES, and he reported some understanding. Afterwards, pt. laying in bed and appears calm, will continue to monitor. Bilateral knuckles abrasions appear to be healed, and pt. denies any pain in hands. Will continue to monitor. S/I, H/I: Denies A/VH: Admits to and is actively responding to A/KYEES Sleep: Sleep hours are 7, and pt. naps intermittently during the day ADL's: Pt. requires some direction and encouragement Group attendance: N/A Were meds taken: Yes Any med S/E: Yes Mental Status Exam Appearance: Neat and appropriately dressed Eye contact: Fair Behavior: Cooperative, restless. irritable/agitated at times, withdrawn, and guarded Speech: Soft and mumbles, however yells loudly at times when responding to internal preoccupation Mood: Guarded Affect: Constricted Thought process: Poverty of thought with possible thought blocking Thought Content: Ongoing A/KEYES and paranoid delusions Cognition: A&O X3 Insight: Poor Judgment: Poor Interventions PRN's used: Clonazepam and Nicotine Lozenge Therapeutic interventions: Maintained a safe and therapeutic environment, ensured contract for safety, provided clear and simple instructions, attempted to orient to reality, monitored behaviors and need for intervention, provided redirection and positive encouragement, and maintained Q 15min safety checks. Restraints/seclusion/emergency medication: N/A Justification of Continued Inpatient Treatment: Per JAYLIN Sen, pt. does not have a safety plan and continues to require titration of medications. Addendum: 05/21/20 at 1748 by Selma Cruz RN In the afternoon, pt. began banging the back of his head against his bedroom wall while sitting in bed. He was able to be redirected by this contract technical writer and when questioned why he was engaging in this behavior stated, "I do it to relive the pressure from all the voices in my head." Pt. denied the need for any pain medication, and agreed to notify staff if feeling the need engage in this behavior again. This incident was endorsed to JAYLIN Sen, and obtained new order for Seroquel 50mg Q6 PRN for agitation and hallucinations. Later in the evening, pt. began loudly talking gibberish in the Recreation Room and appeared very agitated. He was able to be redirected to his bedroom by this contract technical writer. PRN Ativan was administered with some effectiveness, and later PRN Seroquel given with effectiveness.
[2020-05-21] MEDS: QUEtiapine 25mg tablet PO PRN (16:58)
[2020-05-21 19:16] VITALS: BP 147/98
[2020-05-21] MEDS: gabapentin 400mg capsule PO SCH (20:01)
[2020-05-21] MEDS: clonazePAM 0.5mg tablet PO SCH (20:01)
--- NOTE | 2020-05-22 00:25 | NUR ---
Nursing Progress Note: Legal hold: T CON Report received from Christian LÓPEZ with use of SBAR Why are they here: Client reported increased auditory and visual hallucinations. Client hears voices coming from buildings saying, "We're going to kill you." Client believes others are controlling him. Client believes camera's are watching him in his car. Client is currently homeless and may not have been taking his medications. Assessment What has happened this shift: The patient was up on the unit but really was not having any meaningful social contact with others. He stated that tonight his anxiety was better. When asked about voices he stated "I always do" He stated that he felt an enemy entered into him and was trying to destroy his inner consciousness. He was asked how his energy level was and he stated that "basically I just want to sleep" until he is placed. He stated that he is worried about bothering others with his yelling. He denied visual hallucinations. He did state he had a female visitor and that made him happy and he wanted to be a father but then stated, "I shouldn't say that" He did not have any episode of yelling out tonight at this point. S/I, H/I: Denied A/VH: Auditory hallucinations are less and he denied visual hallucinations ADL's: Appeared clean and dressed appropriately for the unit Group attendance: no groups this shift Were meds taken: Yes Any med S/E patient denied side effects. Mental Status Exam Appearance: Appeared clean wearing a hat Eye contact: only rarely Behavior: isolative but polite when approached Speech: Monotone, minimal Mood: Anxious Affect: flat Thought process: impacted by internal stimuli, distracted Thought Content: internal stimuli, situational difficulties, stated he had a female visitor and he wanted to be a father. Cognition: alert Insight: poor Judgment: poor Interventions PRN's used: Nicotine Therapeutic interventions: One to one with the patient to assess for the severity of disordered thoughts and to establish and therapeutic relationship. He was assessed for medication side effects. He remains on q 15 minute safety checks. Restraints/seclusion/emergency medication: NA Justification of Continued Inpatient Treatment: The patient is here pending transfer to an IMD arranged by the public guardian's office.
[2020-05-22] MEDS: NICOTINE POLACRILEX 2 MG LOZENGE BC PRN ×6 (06:42→19:53)
[2020-05-22 07:32] VITALS: BP 148/84
[2020-05-22] MEDS: gabapentin 300mg capsule PO SCH ×2 (08:10→11:50)
[2020-05-22] MEDS: clozapine 25mg tablet PO SCH ×3 (08:10→20:01)
[2020-05-22] MEDS: QUEtiapine 25mg tablet PO SCH ×2 (08:11→11:50)
[2020-05-22] MEDS: pantoprazole 40mg Tablet.DR PO SCH (08:11)
[2020-05-22] MEDS: clonazePAM 0.5mg tablet PO SCH ×2 (08:12→20:02)
[2020-05-22] MEDS: divalproex sodium 500mg tablet.DR PO SCH ×2 (08:12→20:01)
[2020-05-22] MEDS: benztropine 1mg tablet PO SCH ×2 (08:12→20:01)
[2020-05-22] MEDS: tizanidine 4mg tablet PO SCH ×3 (08:13→16:52)
[2020-05-22] MEDS: thiothixene 2mg capsule PO SCH ×2 (08:14→20:02)
--- NOTE | 2020-05-22 09:05 | NUR ---
Placement: Presenting Issues: [facility] called requesting update re pt's readiness for placement services. Interventions: SS had t/c with [facility], updated [facility] on pt's new medication regiment & early progress. Per t/c, [facility] will not resume placement services until pt stabilizes on new meds regiment. Plan: SS will continue to monitor pt's progress and engage [facility] & [facility] in dcp & placement services. Maria Luisa Murphy LCSW Addendum: 05/23/20 at 0930 by Maria Luisa Murphy Amended: Links added.
--- NOTE | 2020-05-22 09:39 | NUR ---
F/u 05/22: Pt PO 75-100% avg regular diet meeting needs. LBM 05/21. Will continue to follow. Rec: 1. continue regular diet 2. routine bowel care 3. scaled wts per rx Addendum: 05/22/20 at [address] Amended: Links added.
[2020-05-22] MEDS: LORazepam 1 MG tablet PO PRN ×2 (10:18→18:08)
[2020-05-22] MEDS: clonazePAM 0.5mg tablet PO PRN (13:15)
--- NOTE | 2020-05-22 14:40 | NUR ---
Nursing Progress Note: Legal hold: T-Con Client on involuntary status for DTS Report received from nurse with use of SBAR: MARIBEL Ramirez Why are they here: Client reported increased auditory and visual hallucinations. Client hears voices coming from buildings saying, "We're going to kill you." Client believes others are controlling him. Client believes camera's are watching him in his car. Client is currently homeless and may not have been taking his medications. Assessment What has happened this shift: Received pt. sleeping at the beginning of the shift, he was awoken and attended breakfast in the Group Room with direction provided from staff. Pt. again retreated back to his room after eating, he remains withdrawn here throughout the day and is not observed to be interacting with others. At approximately 1030, pt. requested PRN Ativan r/t anxiety and agitation cause by ongoing A/KEYES. When questioned by this advertising copy writer regarding what the voices were saying, he stated, "I can't even tell you." Pt. does deny any paranoid delusions that others want to hurt him this shift. Medication administered, and active listening/positive encouragement provided by this advertising copy writer. Afterwards, pt. laying in bed and listening to headphones, will continue to monitor. Again, in the afternoon, pt. became slightly restless and irritable AEB pacing, he requested PRN Clonazepam, administered with effectiveness. Pt. has not exhibited any agitated outbursts this shift, will continue to monitor. S/I, H/I: Denies A/VH: Admits to and is actively responding to A/KEYES Sleep: Sleep hours are 8, and pt. reports he slept well ADL's: Pt. requires some direction and encouragement Group attendance: N/A Were meds taken: Yes Any med S/E: Yes Mental Status Exam Appearance: Neat and appropriately dressed Eye contact: Fair Behavior: Cooperative, restless, irritable/agitated at times, withdrawn, and guarded Speech: Soft and mumbles, no observed agitated outbursts Mood: Guarded Affect: Constricted Thought process: Poverty of thought with possible thought blocking Thought Content: Ongoing A/KEYES Cognition: A&O X3 Insight: Poor Judgment: Poor Interventions PRN's used: Ativan, Clonazepam, and Nicotine Lozenge Therapeutic interventions: Maintained a safe and therapeutic environment, ensured contract for safety, provided clear and simple instructions, attempted to orient to reality, monitored behaviors and need for intervention, provided redirection and positive encouragement, and maintained Q 15min safety checks. Restraints/seclusion/emergency medication: N/A Justification of Continued Inpatient Treatment: JAYLIN Lee, pt. does not have a safety plan and continues to require titration of medications.
[2020-05-22 19:31] VITALS: BP 146/98
[2020-05-22] MEDS: quetiapine 100mg tablet PO SCH (20:01)
[2020-05-22] MEDS: gabapentin 400mg capsule PO SCH (20:01)
--- NOTE | 2020-05-22 22:13 | NUR ---
Nursing Progress Note: Legal hold: T-Con Client on involuntary status for DTS Report received from nurse with use of SBAR: Gianni LÓPEZ Why are they here: Client reported increased auditory and visual hallucinations. Client hears voices coming from buildings saying, "We're going to kill you." Client believes others are controlling him. Client believes camera's are watching him in his car. Client is currently homeless and may not have been taking his medications. Assessment What has happened this shift: Pt was walking in the hallway at change of shift. Pt continues to isolate to himself. Asked pt about his day and he replied "everyday is a bad day when I'm here." Pt requested prn clonazepam and nicotine lozenge prior to med pass, gave pt nicotine lozenge and explained he had a scheduled clonazepam soon. Pt took evening meds after having a snack and thanked me for bringing his meds. Pt is polite and pleasant although c/o being here. S/I, H/I: Denies A/VH: Admits to and is actively responding to A/KEYES Sleep: See sleep hours ADL's: Pt. requires some direction and encouragement Group attendance: N/A Were meds taken: Yes Any med S/E: Yes Mental Status Exam Appearance: Neat and appropriately dressed Eye contact: Fair Behavior: Cooperative, restless, irritable/agitated at times, withdrawn, and guarded Speech: Soft and mumbles, no observed agitated outbursts Mood: Guarded Affect: Constricted Thought process: Poverty of thought with possible thought blocking Thought Content: Ongoing A/KEYES Cognition: A&O X3 Insight: Poor Judgment: Poor Interventions PRN's used: Nicotine Lozenge Therapeutic interventions: Maintained a safe and therapeutic environment, ensured contract for safety, provided clear and simple instructions, attempted to orient to reality, monitored behaviors and need for intervention, provided redirection and positive encouragement, and maintained Q 15min safety checks. Restraints/seclusion/emergency medication: N/A Justification of Continued Inpatient Treatment: Per JAYLIN Sen, pt. does not have a safety plan and continues to require titration of medications.
[2020-05-23 08:00] VITALS: BP 150/96
[2020-05-23] MEDS: tizanidine 4mg tablet PO SCH ×3 (08:10→15:10)
[2020-05-23] MEDS: clozapine 25mg tablet PO SCH ×3 (08:10→20:07)
[2020-05-23] MEDS: NICOTINE POLACRILEX 2 MG LOZENGE BC PRN ×4 (08:10→18:03)
[2020-05-23] MEDS: thiothixene 2mg capsule PO SCH ×2 (08:11→20:08)
[2020-05-23] MEDS: gabapentin 300mg capsule PO SCH ×2 (08:13→12:36)
[2020-05-23] MEDS: pantoprazole 40mg Tablet.DR PO SCH (08:14)
[2020-05-23] MEDS: QUEtiapine 25mg tablet PO SCH ×2 (08:14→12:36)
[2020-05-23] MEDS: benztropine 1mg tablet PO SCH ×2 (08:14→20:05)
[2020-05-23] MEDS: clonazePAM 0.5mg tablet PO SCH ×2 (08:15→20:06)
[2020-05-23] MEDS: divalproex sodium 500mg tablet.DR PO SCH ×2 (08:15→20:07)
[2020-05-23] MEDS: LORazepam 1 MG tablet PO PRN ×2 (09:13→18:15)
[2020-05-23] MEDS: acetaminophen 325mg tablet PO PRN (09:16)
--- NOTE | 2020-05-23 14:15 | NUR ---
Nursing Progress Note: Legal hold: T-Con Client on involuntary status for DTS Report received from nurse with use of SBAR: MARIBEL Boston Why are they here: Client reported increased auditory and visual hallucinations. Client hears voices coming from buildings saying, "We're going to kill you." Client believes others are controlling him. Client believes camera's are watching him in his car. Client is currently homeless and may not have been taking his medications. Assessment What has happened this shift: Received pt. sleeping at the beginning of the shift, he was awoken and attended breakfast in the Group Room with direction provided from staff. Pt. again retreated back to his room after eating, he was observed to be laughing aloud and responding to internal stimuli. When questioned by this justowriter operator regarding A/KEYES, pt. stated, "They are actually protecting me today." However, he refused to elaborate further and stated, "I'd rather not talk about it." Pt. continues to deny any thoughts that others want to hut him, and no delusional statements made. Pt. continues to wear headphones, and paces the hallway intermittently. Later, at approximately 0900, pt. was observed to be agitatedly yelling out in response to internal stimuli while in his room. Pt. yelled aloud, "I'm not doing that you Mother F...er!" He then began rapidly pacing in the hallway, and requested PRN Ativan, administered with effectiveness. Pt. also reported back pain and PRN Tylenol effective. As has been common for pt., in the afternoon, he again was observed to become increasingly restless and irritable AEB pacing and increased response to internal stimuli. PRN Clonazepam administered, and will continue to monitor. Pt. has not exhibited any agitated outbursts this shift, will continue to monitor. S/I, H/I: Denies A/VH: Admits to and is actively responding to A/KEYES Sleep: Sleep hours are 8.25, and pt. reports he slept well ADL's: Pt. requires some direction and encouragement Group attendance: No Were meds taken: Yes Any med S/E: Yes Mental Status Exam Appearance: Neat and appropriately dressed Eye contact: Fair Behavior: Cooperative, restless, irritable/agitated at times, withdrawn, and guarded Speech: Soft and mumbles, responds to closed-ended questions only Mood: Guarded Affect: Constricted Thought process: Poverty of thought with possible thought blocking Thought Content: Ongoing A/KEYES Cognition: A&O X3 Insight: Poor Judgment: Poor Interventions PRN's used: Ativan, Tylenol, and Nicotine Lozenge Therapeutic interventions: Maintained a safe and therapeutic environment, ensured contract for safety, provided clear and simple instructions, attempted to orient to reality, monitored behaviors and need for intervention, provided direction and positive encouragement, and maintained Q 15min safety checks. Restraints/seclusion/emergency medication: N/A Justification of Continued Inpatient Treatment: Per Dr. Huddleston, pt. continues to require titration of medications and is at baseline with psychotic s/s.
[2020-05-23] MEDS: clonazePAM 0.5mg tablet PO PRN (15:10)
[2020-05-23] MEDS: gabapentin 400mg capsule PO SCH (20:07)
[2020-05-23] MEDS: quetiapine 100mg tablet PO SCH (20:07)
[2020-05-23 20:40] VITALS: BP 201/112
--- NOTE | 2020-05-24 01:08 | NUR ---
Nursing Progress Note: Legal hold: T-Con Client on involuntary status for DTS/GD Report received from MARIBEL Gonzales with use of SBAR: Why are they here: Client reported increased auditory and visual hallucinations. Client hears voices coming from buildings saying, "We're going to kill you." Client believes others are controlling him. Client believes camera's are watching him in his car. Client is currently homeless and may not have been taking his medications. Assessment What has happened this shift: The patient was in his room at shift change. He came out and requested a Nicotine lozenge, but had just had one, so he went back. He isolated quietly in his room until snack time, then went back. He was pleasant at med pass, thanked me for lozenge and meds. He has remained in his room all night so far, and has not requested any other PRNs. S/I, H/I: Denies A/VH: Command AH. Sleep: See sleep hours ADL's: Needs encouragement Group attendance: N/A Were meds taken: Yes Any med S/E: None reported or observed. Mental Status Exam Appearance: Neatly groomed and dressed appropriately Eye contact: Fair Behavior: Cooperative, pleasant, polite, guarded, isolative. Speech: Soft-spoken, mumbles at times. Mood: Guarded Affect: Constricted Thought process: Poverty of thought with possible thought blocking Thought Content: Ongoing A/KEYES Cognition: A&O X3 Insight: Poor Judgment: Poor Interventions PRN's used: Nicotine Lozenge Therapeutic interventions: Maintained a safe and therapeutic environment, ensured contract for safety, provided clear and simple instructions, attempted to orient to reality, monitored behaviors and need for intervention, provided redirection and positive encouragement, and maintained Q 15min safety checks. Restraints/seclusion/emergency medication: N/A Justification of Continued Inpatient Treatment: JAYLIN Lee, pt. does not have a safety plan and continues to require titration of medications.
[2020-05-24] MEDS: NICOTINE POLACRILEX 2 MG LOZENGE BC PRN ×3 (07:31→19:48)
[2020-05-24] MEDS: LORazepam 1 MG tablet PO PRN ×2 (07:47→17:07)
[2020-05-24 08:07] VITALS: BP 134/87
[2020-05-24] MEDS: clonazePAM 0.5mg tablet PO SCH ×2 (08:18→20:24)
[2020-05-24] MEDS: tizanidine 4mg tablet PO SCH ×3 (08:18→16:32)
[2020-05-24] MEDS: gabapentin 300mg capsule PO SCH ×2 (08:19→12:32)
[2020-05-24] MEDS: divalproex sodium 500mg tablet.DR PO SCH ×2 (08:19→20:24)
[2020-05-24] MEDS: pantoprazole 40mg Tablet.DR PO SCH (08:19)
[2020-05-24] MEDS: clozapine 25mg tablet PO SCH ×3 (08:19→20:24)
[2020-05-24] MEDS: benztropine 1mg tablet PO SCH ×2 (08:19→20:23)
[2020-05-24] MEDS: QUEtiapine 25mg tablet PO SCH ×2 (08:19→12:32)
[2020-05-24] MEDS: thiothixene 2mg capsule PO SCH ×2 (08:19→20:25)
--- NOTE | 2020-05-24 13:27 | NUR ---
NURSING PROGRESS NOTE Legal hold: T-Con Client on involuntary status for GD/DTO Report received from Ludy LÓPEZ with use of SBAR Why are they here: Client reported increased auditory and visual hallucinations. Client hears voices coming from buildings saying, "We're going to kill you." Client believes others are controlling him. Client believes camera's are watching him in his car. Client is currently homeless and may not have been taking his medications. Assessment What has happened this shift:Patient started the morning off asking for Ativan so that he can try to keep the voices calm today. "This morning they started right when I woke up, they never go away I just want them to stop." Gianni self isolates, paces and does not interact with peer of staff. Patient will answer question with one or two words, but does not do any forward thinking. This morning after 1:1 assessment this job specification writer asked patient patient if he had any questions, patient stated "I did not think I was supposed to ask girl question, like from the movie The Tourist, you don't ask questions, you put your requests into different words so you get the results you want.", patient then wne t on to say "no". Gianni has not had any loud out bursts arguing with his voices so far today. S/I, H/I: Denies A/VH: + AH/VH they are always here Sleep: per noc 8.5 ADL's: Independent with prompting. Group attendance: No Were meds taken: Yes Any med S/E: Denies Mental Status Exam Appearance: unhappy, dressed as usual for him Eye contact: Fair Behavior: Cooperative, Pt. listening to headphones in his room and pacing halls. Speech: WNL. Soft spoken today Mood: flat Affect: Congruent with mood. Thought process: is paranoid Thought Content: worrisome Cognition: A&Ox4 Insight: Poor. Judgment: Poor. Interventions PRN's used: Ativan this morning, helpful Therapeutic interventions: 1:1 assessment, active listening, reality orientation, medication education/administration/monitoring, encouragement to perform personal care and attend groups, maintained q15m safety checks. Restraints/seclusion/emergency medication: None Justification of Continued Inpatient Treatment: Patient continues to exhibit psychotic symptoms and mood lability, irritability, all while responding to voices. Patient continues to be a high risk for discharge and requires continued medication adjustment in a safe and supportive milieu. Patient is on a T-Con with [facility], due to failed out patient treatment plans
--- NOTE | 2020-05-24 17:20 | NUR ---
1700 patient c/o anxiety due the the voices he has been hearing, Ativan 2mg po given.
[2020-05-24 20:11] VITALS: BP 132/102
[2020-05-24] MEDS: gabapentin 400mg capsule PO SCH (20:23)
[2020-05-24] MEDS: quetiapine 100mg tablet PO SCH (20:23)
--- NOTE | 2020-05-25 03:06 | NUR ---
NURSING PROGRESS NOTE Gianni Legal hold: T-Con Client on involuntary status for GD/DTO Report received from Antoine RN with use of SBAR Why are they here: Client reported increased auditory and visual hallucinations. Client hears voices coming from buildings saying, "We're going to kill you." Client believes others are controlling him. Client believes camera's are watching him in his car. Client is currently homeless and may not have been taking his medications. Assessment What has happened this shift:Patient in room at start of shift. 1:1 assessment completed, pt states he slept most of the day to keep the voices from "starting back up again." No complaints this shift, medication compliant. Gianni has not had any loud out bursts arguing with his voices so far today. S/I, H/I: Denies A/VH: + AH/VH they are always here Sleep: ADL's: Independent with prompting. Group attendance: No Were meds taken: Yes Any med S/E: Denies Mental Status Exam Appearance: unhappy, dressed as usual for him Eye contact: Fair Behavior: Cooperative, Pt. listening to headphones in his room and pacing halls. Speech: WNL. Soft spoken today Mood: flat Affect: Congruent with mood. Thought process: is paranoid Thought Content: worrisome Cognition: A&Ox4 Insight: Poor. Judgment: Poor. Interventions PRN's used: Therapeutic interventions: 1:1 assessment, active listening, reality orientation, medication education/administration/monitoring, encouragement to perform personal care and attend groups, maintained q15m safety checks. Restraints/seclusion/emergency medication: None Justification of Continued Inpatient Treatment: Patient continues to exhibit psychotic symptoms and mood lability, irritability, all while responding to voices. Patient continues to be a high risk for discharge and requires continued medication adjustment in a safe and supportive milieu. Patient is on a T-Con with [facility], due to failed out patient treatment plans
[2020-05-25] MEDS: NICOTINE POLACRILEX 2 MG LOZENGE BC PRN ×5 (06:03→21:40)
[2020-05-25] MEDS: clonazePAM 0.5mg tablet PO PRN ×2 (06:13→17:04)
[2020-05-25] MEDS: gabapentin 300mg capsule PO SCH ×2 (07:54→13:27)
[2020-05-25] MEDS: pantoprazole 40mg Tablet.DR PO SCH (07:54)
[2020-05-25] MEDS: QUEtiapine 25mg tablet PO SCH ×2 (07:54→13:26)
[2020-05-25] MEDS: benztropine 1mg tablet PO SCH ×2 (07:55→21:04)
[2020-05-25] MEDS: clonazePAM 0.5mg tablet PO SCH ×2 (07:56→21:05)
[2020-05-25] MEDS: divalproex sodium 500mg tablet.DR PO SCH ×2 (07:56→21:05)
[2020-05-25] MEDS: tizanidine 4mg tablet PO SCH ×3 (07:56→15:35)
[2020-05-25] MEDS: thiothixene 2mg capsule PO SCH ×2 (07:57→21:06)
[2020-05-25] MEDS: clozapine 25mg tablet PO SCH ×3 (07:57→21:05)
[2020-05-25 08:00] VITALS: BP 139/93
[2020-05-25] MEDS: LORazepam 1 MG tablet PO PRN ×2 (14:09→22:39)
--- NOTE | 2020-05-25 14:47 | NUR ---
NURSING PROGRESS NOTE Legal hold: T-Con Client on involuntary status for GD/DTO Report received from Ludy RN with use of SBAR Why are they here: Client reported increased auditory and visual hallucinations. Client hears voices coming from buildings saying, "We're going to kill you." Client believes others are controlling him. Client believes camera's are watching him in his car. Client is currently homeless and may not have been taking his medications. Assessment What has happened this shift: Patient was asleep at change of shift and up for breakfast. Patient given medication in his room and RN asking how patient was doing. Patient shakes his head no and states "I'm in a mental facility." RN expressed her sympathy. Patient has a flat affect. Patient yelled out when RN doing assessment. Patient states he is responding the voices and then yells back "I'm just sitting here doing nothing!" Patient got anxious in the afternoon and asked for Ativan. Patient watches T.V. with peers and will pace the posadas with headphones on Patient is pending final LPS hearing. S/I, H/I: Denies A/VH: + AH/VH they are always here Sleep: A couple of cat naps ADL's: Independent with prompting. Group attendance: No Were meds taken: Yes Any med S/E: Denies Mental Status Exam Appearance: unhappy, wearing his own clothes and a cap Eye contact: Fair Behavior: Cooperative, Pt. listening to headphones in his room and pacing halls. Speech: WNL. Soft spoken Mood: Depressed Affect: Flat Thought process: goal oriented Thought Content: depressed about being conserved Cognition: A&Ox4 Insight: Poor. Judgment: Poor. Interventions PRN's used: Ativan, Nicotine Therapeutic interventions: 1:1 assessment, active listening, reality orientation, medication education/administration/monitoring, encouragement to perform personal care and attend groups, maintained q15m safety checks. Restraints/seclusion/emergency medication: None Justification of Continued Inpatient Treatment: Patient continues to exhibit psychotic symptoms and mood lability, irritability, all while responding to voices. Patient continues to be a high risk for discharge and requires continued medication adjustment in a safe and supportive milieu. Patient is on a T-Con with [facility], due to failed out patient treatment plans
[2020-05-25] MEDS: QUEtiapine 25mg tablet PO PRN (17:09)
--- NOTE | 2020-05-25 18:00 | NUR ---
Patient states the voices are loud and he is very anxious. RN gave patient PRN Klonopin 0.5 mg, and Seroquel 50 mg a little earlier. Patient now states the voices are a little better (not as loud).
[2020-05-25 20:00] VITALS: BP 144/110
[2020-05-25] MEDS: gabapentin 400mg capsule PO SCH (21:04)
[2020-05-25] MEDS: quetiapine 100mg tablet PO SCH (21:05)
--- NOTE | 2020-05-26 04:33 | NUR ---
NURSING PROGRESS NOTE Gianni Legal hold: T-Con Client on involuntary status for GD/DTO Report received from Antoine RN with use of SBAR Why are they here: Client reported increased auditory and visual hallucinations. Client hears voices coming from buildings saying, "We're going to kill you." Client believes others are controlling him. Client believes camera's are watching him in his car. Client is currently homeless and may not have been taking his medications. Assessment What has happened this shift: Patient was awake in his room at change of shift, pt came out and asked for a specific RN, when I told him it was change of shift and asked if he needed anything he shook his head no and walked off to his room. 1:1 done at bedside, all medications administered, pt requested a snack and then thanked me for giving him his meds. Patient is pending final LPS hearing. S/I, H/I: Denies A/VH: + AH/VH they are always here Sleep: ADL's: Independent with prompting. Group attendance: No Were meds taken: Yes Any med S/E: Denies Mental Status Exam Appearance: unhappy, wearing his own clothes and a cap Eye contact: Fair Behavior: Cooperative, Pt. listening to headphones in his room and pacing halls. Speech: WNL. Soft spoken Mood: Depressed Affect: Flat Thought process: goal oriented Thought Content: depressed about being conserved Cognition: A&Ox4 Insight: Poor. Judgment: Poor. Interventions PRN's used: Ativan, Nicotine Therapeutic interventions: 1:1 assessment, active listening, reality orientation, medication education/administration/monitoring, encouragement to perform personal care and attend groups, maintained q15m safety checks. Restraints/seclusion/emergency medication: None Justification of Continued Inpatient Treatment: Patient continues to exhibit psychotic symptoms and mood lability, irritability, all while responding to voices. Patient continues to be a high risk for discharge and requires continued medication adjustment in a safe and supportive milieu. Patient is on a T-Con with [facility], due to failed out patient treatment plans
[2020-05-26] MEDS: QUEtiapine 25mg tablet PO SCH ×2 (07:57→13:06)
[2020-05-26] MEDS: clozapine 25mg tablet PO SCH ×3 (07:57→20:55)
[2020-05-26] MEDS: benztropine 1mg tablet PO SCH ×2 (07:57→20:55)
[2020-05-26] MEDS: gabapentin 300mg capsule PO SCH ×2 (07:57→13:06)
[2020-05-26] MEDS: divalproex sodium 500mg tablet.DR PO SCH ×2 (07:57→20:56)
[2020-05-26] MEDS: pantoprazole 40mg Tablet.DR PO SCH (07:57)
[2020-05-26] MEDS: thiothixene 2mg capsule PO SCH ×2 (07:58→20:56)
[2020-05-26] MEDS: clonazePAM 0.5mg tablet PO SCH ×2 (07:58→20:55)
[2020-05-26] MEDS: tizanidine 4mg tablet PO SCH ×3 (08:11→16:00)
[2020-05-26] MEDS: NICOTINE POLACRILEX 2 MG LOZENGE BC PRN ×3 (08:13→18:06)
[2020-05-26 14:42] LABS: BASOPHILS % (AUTO) 0.7 % (0-1); EOSINOPHILS # (AUTO) 0.1 X10'3 (0-0.9); EOSINOPHILS % (AUTO) 3.1 % (0-6); HEMATOCRIT 44.2 % (42.0-52.0); HEMOGLOBIN 14.6 g/dl (14.0-17.9); LYMPHOCYTES # (AUTO) 2.4 X10'3 (1.1-4.8); LYMPHOCYTES % (AUTO) 53.1 % (21-51); MEAN CORPUSCULAR HEMOGLOBIN 28.2 PG (27.0-31.0); MEAN CORPUSCULAR HGB CONC 33.1 g/dL (33.0-36.5); MEAN CORPUSCULAR VOLUME 85.1 FL (78-98); MONOCYTES # (AUTO) 0.4 X10'3 (0-0.9); MONOCYTES % (AUTO) 9.3 % (2-12); NEUTROPHILS # (AUTO) 1.6 X10'3 (1.8-7.7); NEUTROPHILS % (AUTO) 33.8 % (42-75); PLATELET COUNT 167 X10'3 (140-440); WHITE BLOOD COUNT 4.6 X10'3 (4.5-11.0)
--- NOTE | 2020-05-26 15:53 | NUR ---
NURSING PROGRESS NOTE Legal hold: T-Con Client on involuntary status for GD/DTO Report received from RN with use of SBAR Why are they here: Client reported increased auditory and visual hallucinations. Client hears voices coming from buildings saying, "We're going to kill you." Client believes others are controlling him. Client believes camera's are watching him in his car. Client is currently homeless and may not have been taking his medications. Assessment What has happened this shift: Received Pt in bed sleeping w/o distress at beginning of shift. Pt awoke and was cooperative with vitals and attended breakfast and all meals and snacks, ate well and was appropriate with others. Pt took AM meds w/o issue and used nicotine lozenges throughout the day. Pt napped in both AM and afternoon. He was overall cooperative and pleasant in conversation, being able to make joking comments. Pt appeared to be talking and pointing to something in his room while laying down. He did not appear to be tormented or irritated at AHs today and walked the halls calmly and watched TV in community room. Pt had labs drawn and refused an x-ray of his hand, stating its fineno, Im not into that. S/I, H/I: Denies both A/VH: +AH. Denies VH Sleep: Napped ADL's: Independent with prompting Group attendance: NA Were meds taken: Yes Any med S/E: Denies Mental Status Exam Appearance: Casual in own clothes, wearing a peak cap Eye contact: Good Behavior: Cooperative, pleasant Speech: Mumbles, coherent Mood: Euthymic Affect: Calm, congruent with mood Thought process: Circumstantial Thought Content: Getting needs met Cognition: A&Ox4 Insight: Poor. Judgment: Poor. Interventions PRN's used: Nicotine Beth. Therapeutic interventions: 1:1 assessment, active listening, reality orientation, medication education/administration/monitoring, encouragement to perform personal care and attend groups, maintained q15m safety checks. Restraints/seclusion/emergency medication: None Justification of Continued Inpatient Treatment: Patient continues to exhibit psychotic symptoms and mood lability. Patient continues to be a high risk for discharge and requires continued medication adjustment in a safe and supportive milieu. Pt is reasonably aware that he will be going for [facility] conservatorship.
[2020-05-26] MEDS: clonazePAM 0.5mg tablet PO PRN (19:01)
[2020-05-26] MEDS: quetiapine 100mg tablet PO SCH (20:55)
[2020-05-26] MEDS: gabapentin 400mg capsule PO SCH (20:55)
[2020-05-26] MEDS: LORazepam 1 MG tablet PO PRN (20:59)
--- NOTE | 2020-05-27 02:38 | NUR ---
NURSING PROGRESS NOTE Gianni Legal hold: T-Con Client on involuntary status for GD/DTO Report received from Caty LÓPEZ with use of SBAR Why are they here: Client reported increased auditory and visual hallucinations. Client hears voices coming from buildings saying, "We're going to kill you." Client believes others are controlling him. Client believes camera's are watching him in his car. Client is currently homeless and may not have been taking his medications. Assessment What has happened this shift: Received Pt pacing in the hallway at change of shift, 1:1 assessment done at bedside, pt stated hes doing ok today and he sleeps to keep his voices at bay. Pt had snack and took all prescribed medication, requested Ativan and Klonopin. No outbursts this evening noted, pt asleep shortly after NOC meds. S/I, H/I: Denies both A/VH: +AH. Denies VH Sleep: ADL's: Independent with prompting Group attendance: NA Were meds taken: Yes Any med S/E: Denies Mental Status Exam Appearance: Casual in own clothes, wearing a peak cap Eye contact: Good Behavior: Cooperative, pleasant Speech: Mumbles, coherent Mood: Euthymic Affect: Calm, congruent with mood Thought process: Circumstantial Thought Content: Getting needs met Cognition: A&Ox4 Insight: Poor. Judgment: Poor. Interventions PRN's used: Nicotine Beth. Ativan, Klonopin Therapeutic interventions: 1:1 assessment, active listening, reality orientation, medication education/administration/monitoring, encouragement to perform personal care and attend groups, maintained q15m safety checks. Restraints/seclusion/emergency medication: None Justification of Continued Inpatient Treatment: Patient continues to exhibit psychotic symptoms and mood lability. Patient continues to be a high risk for discharge and requires continued medication adjustment in a safe and supportive milieu. Pt is reasonably aware that he will be going for LPS conservatorship.
[2020-05-27 07:32] VITALS: BP 134/73
[2020-05-27] MEDS: clonazePAM 0.5mg tablet PO SCH ×2 (08:02→21:19)
[2020-05-27] MEDS: benztropine 1mg tablet PO SCH ×2 (08:02→21:18)
[2020-05-27] MEDS: QUEtiapine 25mg tablet PO SCH ×2 (08:02→12:42)
[2020-05-27] MEDS: divalproex sodium 500mg tablet.DR PO SCH ×2 (08:03→21:18)
[2020-05-27] MEDS: pantoprazole 40mg Tablet.DR PO SCH (08:03)
[2020-05-27] MEDS: thiothixene 2mg capsule PO SCH ×2 (08:03→21:19)
[2020-05-27] MEDS: gabapentin 300mg capsule PO SCH ×2 (08:03→12:42)
[2020-05-27] MEDS: tizanidine 4mg tablet PO SCH ×3 (08:03→16:11)
[2020-05-27] MEDS: clozapine 25mg tablet PO SCH ×3 (08:17→21:19)
[2020-05-27] MEDS: NICOTINE POLACRILEX 2 MG LOZENGE BC PRN ×3 (11:50→18:12)
[2020-05-27] MEDS: LORazepam 1 MG tablet PO PRN (16:07)
--- NOTE | 2020-05-27 16:52 | NUR ---
NURSING PROGRESS NOTE Legal hold: T-Con Client on involuntary status for GD/DTO Report received from Nabila Bunn RN with use of SBAR Why are they here: Client reported increased auditory and visual hallucinations. Client hears voices coming from buildings saying, "We're going to kill you." Client believes others are controlling him. Client believes camera's are watching him in his car. Client is currently homeless and may not have been taking his medications. Assessment What has happened this shift: Gianni had had some improvement in his mood since he started Clozaril, patient states he is excited to see if it (clozaril) works. Gianni does not have any forward thinking about discharge charge. "I think the county is going to do that when I am better or a least a little better". It should be know that patient has had negative voices for a long period of time and wants to have some freedom from them. "I can't leave, I am worried about what might happen". From past conversation with this procedure writer, I did not ask question regarding the voice from when Gianni was admitted as they were horrible thoughts about his family and a gang looking for them. Patient self isolates from peers and staff. Patient did ask for a Ativan for anxiety late in the day, patient states that it was helpful. S/I, H/I: Denies both A/VH: +AH, they seem better with my new medication, Denies VH Sleep: Napped ADL's: Independent with prompting Group attendance: NA Were meds taken: Yes Any med S/E: Denies Mental Status Exam Appearance: Casual in own clothes, wearing a peak cap Eye contact: Good Behavior: Cooperative, pleasant Speech: Mumbles, coherent Mood: Euthymic Affect: Calm, congruent with mood Thought process: Circumstantial Thought Content: Patitn hoping his new medcaiton will help him with "the bad voices". Cognition: A&Ox4 Insight: Poor. Judgment: Poor. Interventions PRN's used: Nicotine Beth. and Ativan Therapeutic interventions: 1:1 assessment, active listening, reality orientation, medication education/administration/monitoring, encouragement to perform personal care and attend groups, maintained q15m safety checks. Restraints/seclusion/emergency medication: None Justification of Continued Inpatient Treatment: Patient continues to exhibit psychotic symptoms and mood lability. Patient continues to be a high risk for discharge and requires continued medication adjustment in a safe and supportive milieu. Patient is reasonably aware that he will be going for LPS conservatorship.
[2020-05-27] MEDS: clonazePAM 0.5mg tablet PO PRN (18:12)
[2020-05-27 19:00] VITALS: BP 157/91
[2020-05-27] MEDS: gabapentin 400mg capsule PO SCH (21:18)
[2020-05-27] MEDS: quetiapine 100mg tablet PO SCH (21:18)
--- NOTE | 2020-05-28 04:12 | NUR ---
NURSING PROGRESS NOTE NIDHI Legal hold: T-Con Client on involuntary status for GD/DTO Report received from Caty LÓPEZ with use of SBAR Why are they here: Client reported increased auditory and visual hallucinations. Client hears voices coming from buildings saying, "We're going to kill you." Client believes others are controlling him. Client believes camera's are watching him in his car. Client is currently homeless and may not have been taking his medications. Assessment What has happened this shift: Pt came up to this RN stating that he needed to talk to me privately. We went to the room and Nidhi told me that his mom smoked cracked while with him and wondered if there was a shot I could give him. I told the pt no, there wasnt a shot I could give, Pt denied S/I and that his voices seem to be better today. Pt up for snacks and took all prescribed medications and then went to bed. S/I, H/I: Denies both A/VH: +AH, they seem better with my new medication Sleep: ADL's: Independent with prompting Group attendance: NA Were meds taken: Yes Any med S/E: Denies Mental Status Exam Appearance: Casual in own clothes, wearing a peak cap Eye contact: Good Behavior: Cooperative, pleasant Speech: Mumbles, coherent Mood: Euthymic Affect: Calm, congruent with mood Thought process: Circumstantial Thought Content: Hoping his new medication will help him with "the bad voices". Cognition: A&Ox4 Insight: Poor. Judgment: Poor. Interventions PRN's used: Therapeutic interventions: 1:1 assessment, active listening, reality orientation, medication education/administration/monitoring, encouragement to perform personal care and attend groups, maintained q15m safety checks. Restraints/seclusion/emergency medication: None Justification of Continued Inpatient Treatment: Patient continues to exhibit psychotic symptoms and mood lability. Patient continues to be a high risk for discharge and requires continued medication adjustment in a safe and supportive milieu. Patient is reasonably aware that he will be going for LPS conservatorship.
[2020-05-28] MEDS: pantoprazole 40mg Tablet.DR PO SCH (07:30)
[2020-05-28 08:00] VITALS: BP 126/88
[2020-05-28] MEDS: clozapine 25mg tablet PO SCH ×3 (08:36→20:22)
[2020-05-28] MEDS: thiothixene 2mg capsule PO SCH ×2 (08:36→20:24)
[2020-05-28] MEDS: divalproex sodium 500mg tablet.DR PO SCH ×2 (08:36→20:23)
[2020-05-28] MEDS: clonazePAM 0.5mg tablet PO SCH ×2 (08:36→20:25)
[2020-05-28] MEDS: tizanidine 4mg tablet PO SCH ×3 (08:37→15:25)
[2020-05-28] MEDS: benztropine 1mg tablet PO SCH ×2 (08:37→20:21)
[2020-05-28] MEDS: QUEtiapine 25mg tablet PO SCH ×2 (08:40→12:42)
[2020-05-28] MEDS: gabapentin 300mg capsule PO SCH ×2 (08:40→12:42)
[2020-05-28] MEDS: NICOTINE POLACRILEX 2 MG LOZENGE BC PRN ×5 (10:27→20:25)
[2020-05-28] MEDS: LORazepam 1 MG tablet PO PRN ×2 (10:28→16:43)
[2020-05-28] MEDS: clonazePAM 0.5mg tablet PO PRN (14:52)
[2020-05-28] MEDS: QUEtiapine 25mg tablet PO PRN (15:52)
--- NOTE | 2020-05-28 16:57 | NUR ---
NURSING PROGRESS NOTE Legal hold: T-Con Client on involuntary status for GD/DTO Report received from Nabila Bunn RN with use of SBAR Why are they here: Client reported increased auditory and visual hallucinations. Client hears voices coming from buildings saying, "We're going to kill you." Client believes others are controlling him. Client believes camera's are watching him in his car. Client is currently homeless and may not have been taking his medications. Assessment What has happened this shift: Gianni had had some improvement in his mood since he started Clozaril. Patient did not rest or nap thought out the day like usual. Gianni does not have any forward thinking about discharge charge. "I think the county is going to do that when I am better or a least a little better". Patient had the same conversation with this technical publications writer yesterday. Patient self isolates from peers and staff. 1028 PRN Ativan 2 mg po for negative voices 1454 PRN Klonipin 0.5 mg po for Anxiety per patient 1600 PRN Seroquel po for anxiety, patietn states Klonipin was not helpful 1645 PRN Ativan 2mg PO patient states the voice are telling him to hurt someone. Patient has agreed to stay in his room to let Ativan help (hopefully) Above PRN reported to Charge nurse for shift change. S/I, H/I: Denies both A/VH: +AH, worse today Sleep: 8.0 per NOC ADL's: Independent Group attendance: declined BINGO group "I don't want to be around people" Were meds taken: Yes Any med S/E: Niacin Rash Mental Status Exam Appearance: Casual in own clothes, wearing a peak cap Eye contact: Good Behavior: Cooperative, pleasant Speech: Mumbles, coherent Mood: Euthymic Affect: Calm, congruent with mood Thought process: Circumstantial Thought Content: Patitn hoping his new medcaiton will help him with "the bad voices". Cognition: A&Ox4 Insight: Poor. Judgment: Poor. Interventions PRN's used: Nicotine Beth. and Ativan Therapeutic interventions: 1:1 assessment, active listening, reality orientation, medication education/administration/monitoring, encouragement to perform personal care and attend groups, maintained q15m safety checks. Restraints/seclusion/emergency medication: None Justification of Continued Inpatient Treatment: Patient continues to exhibit psychotic symptoms and mood lability. Patient continues to be a high risk for discharge and requires continued medication adjustment in a safe and supportive milieu. Patient is reasonably aware that he will be going for LPS conservatorship.
[2020-05-28 20:12] VITALS: BP 138/89
[2020-05-28] MEDS: quetiapine 100mg tablet PO SCH (20:21)
[2020-05-28] MEDS: gabapentin 400mg capsule PO SCH (20:22)
--- NOTE | 2020-05-29 00:40 | NUR ---
NURSING PROGRESS NOTE Legal hold: T-Con Client on involuntary status for GD/DTO Report received from Caty LÓPEZ with use of SBAR Why are they here: Client reported increased auditory and visual hallucinations. Client hears voices coming from buildings saying, "We're going to kill you." Client believes others are controlling him. Client believes camera's are watching him in his car. Client is currently homeless and may not have been taking his medications. Assessment What has happened this shift: Gianni isolated to his room till snack time when he went to snack and returned to his room to eat. He asked for a nicotine lozenge that was his only prn . Pt c/o abdominal pain. Bowel assessment done normal with some mild tenderness lower left quad. Prn Maalox given and helpful Pt went to sleep after meds. S/I, H/I: Denies both A/VH: +AH, worse today Sleep: See sleep hrs. ADL's: Independent Group attendance: declined BINGO group "I don't want to be around people" Were meds taken: Yes Any med S/E: Niacin Rash Mental Status Exam Appearance: Casual in own clothes, wearing a peak cap Eye contact: Good Behavior: Cooperative, pleasant Speech: Mumbles, coherent Mood: Euthymic Affect: Calm, congruent with mood Thought process: Circumstantial Thought Content: Patitn hoping his new medcaiton will help him with "the bad voices". Cognition: A&Ox4 Insight: Poor. Judgment: Poor. Interventions PRN's used: Nicotine Beth. and Ativan Therapeutic interventions: 1:1 assessment, active listening, reality orientation, medication education/administration/monitoring, encouragement to perform personal care and attend groups, maintained q15m safety checks. Restraints/seclusion/emergency medication: None Justification of Continued Inpatient Treatment: Patient continues to exhibit psychotic symptoms and mood lability. Patient continues to be a high risk for discharge and requires continued medication adjustment in a safe and supportive milieu. Patient is reasonably aware that he will be going for LPS conservatorship.
[2020-05-29 07:38] VITALS: BP 121/85
[2020-05-29] MEDS: clonazePAM 0.5mg tablet PO SCH ×2 (08:20→20:12)
[2020-05-29] MEDS: QUEtiapine 25mg tablet PO SCH ×2 (08:20→12:41)
[2020-05-29] MEDS: pantoprazole 40mg Tablet.DR PO SCH (08:20)
[2020-05-29] MEDS: divalproex sodium 500mg tablet.DR PO SCH ×2 (08:20→20:13)
[2020-05-29] MEDS: gabapentin 300mg capsule PO SCH ×2 (08:20→12:41)
[2020-05-29] MEDS: tizanidine 4mg tablet PO SCH ×3 (08:21→15:58)
[2020-05-29] MEDS: clozapine 25mg tablet PO SCH ×2 (08:21→12:41)
[2020-05-29] MEDS: benztropine 1mg tablet PO SCH ×2 (08:21→20:15)
[2020-05-29] MEDS: thiothixene 2mg capsule PO SCH ×2 (08:21→20:18)
[2020-05-29] MEDS: NICOTINE POLACRILEX 2 MG LOZENGE BC PRN (13:10)
[2020-05-29] MEDS: LORazepam 1 MG tablet PO PRN ×2 (13:35→19:30)
--- NOTE | 2020-05-29 15:07 | NUR ---
NURSING PROGRESS NOTE Legal hold: T-Con Client on involuntary status for GD/DTO Report received from Ashley LÓPEZ with use of SBAR Why are they here: Client reported increased auditory and visual hallucinations. Client hears voices coming from buildings saying, "We're going to kill you." Client believes others are controlling him. Client believes camera's are watching him in his car. Client is currently homeless and may not have been taking his medications. Assessment What has happened this shift: Gianni had had some improvement in his mood since he started Clozaril. Patient did not rest or nap thought out the day like usual. Gianni does not have any forward thinking about discharge charge. "I think the county is going to do that when I am better or a least a little better". Patient had the same conversation with this sql report writer yesterday, Patient did ask for a Ativan @ 1330 because he is anxious about the gas discomfort that he has night. It should be know that the Ativan came shortly after a different patient was very loud. this sql report writer asked if that triggered his anxiety and he stated no and reflected back to the gas pain he had last night. Patient continues to self isolates from peers and staff. 1330 PRN Ativan 2 mg po for anxiety S/I, H/I: Denies both A/VH: +AH, not as bad as last night Sleep: 7.0 per NOC ADL's: Independent Group attendance: declined Were meds taken: Yes Any med S/E: Niacin Rash "it is ok I am use to it", Dr Taylor aware Mental Status Exam Appearance: Casual in own clothes, wearing a peak cap Eye contact: Good Behavior: Cooperative, pleasant Speech: Mumbles, coherent Mood: Euthymic Affect: Calm, congruent with mood Thought process: Circumstantial Thought Content: Pretty flat today Cognition: A&Ox4 Insight: Poor. Judgment: Poor. Interventions PRN's used: Nicotine Beth. and Ativan Therapeutic interventions: 1:1 assessment, active listening, reality orientation, medication education/administration/monitoring, encouragement to perform personal care and attend groups, maintained q15m safety checks. Restraints/seclusion/emergency medication: None Justification of Continued Inpatient Treatment: Patient continues to exhibit psychotic symptoms and mood lability. Patient continues to be a high risk for discharge and requires continued medication adjustment in a safe and supportive milieu. Patient is reasonably aware that he will be going for LPS conservatorship.
[2020-05-29] MEDS: clonazePAM 0.5mg tablet PO PRN (15:59)
--- NOTE | 2020-05-29 16:22 | NUR ---
F/u 05/22: Pt PO 75-100% avg regular diet meeting needs. LBM 05/28. No nutrition concerns at this time. Will continue to follow. Rec: 1. continue regular diet 2. routine bowel care 3. scaled wts per rx Addendum: 05/29/20 at [address] Amended: Links added.
[2020-05-29] MEDS: quetiapine 100mg tablet PO SCH (20:15)
[2020-05-29] MEDS: gabapentin 400mg capsule PO SCH (20:15)
[2020-05-29 20:28] VITALS: BP 133/88
[2020-05-29] MEDS: clozapine 100mg tablet PO SCH (20:30)
[2020-05-29] MEDS ORDERED: clozapine 25mg tablet PO SCH (21:00)
--- NOTE | 2020-05-30 00:50 | NUR ---
NURSING PROGRESS NOTE Legal hold: T-Con Client on involuntary status for GD/DTO Report received from Caty LÓPEZ with use of SBAR Why are they here: Client reported increased auditory and visual hallucinations. Client hears voices coming from buildings saying, "We're going to kill you." Client believes others are controlling him. Client believes camera's are watching him in his car. Client is currently homeless and may not have been taking his medications. Assessment What has happened this shift: Patient was in his room awake at change of shift. Pt stayed in his room most of shift coming out for snack. Pt was less agitated today voices where more tolerable per patient. PRN Ativan 2 mg po for anxiety that was helpful. Pt went to sleep after snack and Hs medication. S/I, H/I: Denies both A/VH: +AH, not as bad as last night Sleep: See sleep hrs. ADL's: Independent Group attendance: declined Were meds taken: Yes Any med S/E: Niacin Rash "it is ok I am use to it", Dr Taylor aware Mental Status Exam Appearance: Casual in own clothes, wearing a peak cap Eye contact: Good Behavior: Cooperative, pleasant Speech: Mumbles, coherent Mood: Euthymic Affect: Calm, congruent with mood Thought process: Circumstantial Thought Content: Pretty flat today Cognition: A&Ox4 Insight: Poor. Judgment: Poor. Interventions PRN's used: Nicotine Beth. and Ativan Therapeutic interventions: 1:1 assessment, active listening, reality orientation, medication education/administration/monitoring, encouragement to perform personal care and attend groups, maintained q15m safety checks. Restraints/seclusion/emergency medication: None Justification of Continued Inpatient Treatment: Patient continues to exhibit psychotic symptoms and mood lability. Patient continues to be a high risk for discharge and requires continued medication adjustment in a safe and supportive milieu. Patient is reasonably aware that he will be going for LPS conservatorship.
[2020-05-30] MEDS: gabapentin 300mg capsule PO SCH ×2 (07:30→13:09)
[2020-05-30 08:00] VITALS: BP 131/75
[2020-05-30] MEDS: tizanidine 4mg tablet PO SCH ×3 (08:44→15:54)
[2020-05-30] MEDS: clozapine 25mg tablet PO SCH ×2 (08:45→13:09)
[2020-05-30] MEDS: thiothixene 2mg capsule PO SCH ×2 (08:45→20:21)
[2020-05-30] MEDS: divalproex sodium 500mg tablet.DR PO SCH ×2 (08:45→20:20)
[2020-05-30] MEDS: benztropine 1mg tablet PO SCH ×2 (08:45→20:19)
[2020-05-30] MEDS: QUEtiapine 25mg tablet PO SCH ×2 (08:46→13:09)
[2020-05-30] MEDS: pantoprazole 40mg Tablet.DR PO SCH (08:46)
[2020-05-30] MEDS: clonazePAM 0.5mg tablet PO SCH ×2 (08:46→20:21)
[2020-05-30] MEDS: LORazepam 1 MG tablet PO PRN (13:09)
[2020-05-30] MEDS: NICOTINE POLACRILEX 2 MG LOZENGE BC PRN ×4 (13:09→19:28)
[2020-05-30] MEDS: clonazePAM 0.5mg tablet PO PRN (15:55)
--- NOTE | 2020-05-30 17:11 | NUR ---
NURSING PROGRESS NOTE Legal hold: T-Con Client on involuntary status for GD/DTO Report received from MARIBEL Boston with use of SBAR Why are they here: Client reported increased auditory and visual hallucinations. Client hears voices coming from buildings saying, "We're going to kill you." Client believes others are controlling him. Client believes camera's are watching him in his car. Client is currently homeless and may not have been taking his medications. Assessment What has happened this shift: Received patient sleeping at shift change, no distress noted. Pt slept through breakfast. Pt was awoken for AM medications. Pt presents as calm this morning. Pt denied AH r/t him sleeping, not today. Pt spent most of his day in his room, came out for snacks and meals. Noted no outburst today, only one time pt was walking down [address] raised voice I told you that wasnt okay! Pt reported some anxiety throughout the day, where PRNs were effective. S/I, H/I: Denies both A/VH: getting better. not while I sleep. Sleep: 8.75 hours per sleep assessment. Pt slept late this morning. ADL's: Independent Group attendance: declined Were meds taken: Yes, without hesitation.l Any med S/E: Niacin Rash "it is ok I am use to it", Dr. Huddleston aware Mental Status Exam Appearance: Casual in own clothes, wearing a peak cap Eye contact: Good Behavior: Cooperative, pleasant Speech: Mumbles, audible, minimal. Mood: Euthymic Affect: Flat Thought process: Some delusions. Thought Content: Situational Cognition: A&Ox4 Insight: Poor. Judgment: Poor. Interventions PRN's used: Nicotine lozenge, Ativan, Klonopin. Therapeutic interventions: 1:1 assessment, active listening, reality orientation, medication education/administration/monitoring, encouragement to perform personal care and attend groups, maintained q15m safety checks. Restraints/seclusion/emergency medication: None Justification of Continued Inpatient Treatment: Patient is still gravely disabled, he is able to perform his activities of daily living with some supervision, however is able to perform any instrumental activities of daily living as evident from his previous admissions. Pt is on a TCon.
[2020-05-30 20:08] VITALS: BP 141/86
[2020-05-30] MEDS: quetiapine 100mg tablet PO SCH (20:19)
[2020-05-30] MEDS: gabapentin 400mg capsule PO SCH (20:19)
[2020-05-30] MEDS: clozapine 100mg tablet PO SCH (20:20)
--- NOTE | 2020-05-31 00:11 | NUR ---
NURSING PROGRESS NOTE Legal hold: T-Con Client on involuntary status for GD/DTO Report received from MARIBEL Byrne with use of SBAR Why are they here: Client reported increased auditory and visual hallucinations. Client hears voices coming from buildings saying, "We're going to kill you." Client believes others are controlling him. Client believes camera's are watching him in his car. Client is currently homeless and may not have been taking his medications. Assessment What has happened this shift: Received patient sleeping at shift change, no distress noted. Pt was awoken and walked the pos[place] for awhile then sat in the rec room and watched tv for 15 min.Pt then asked for a Nicotine Lozenge. Pt presents as calm this shift. Pt denied AH r/t him sleeping, Pt spent most of his day in his room, came out for snacks . Noted no outburst today, S/I, H/I: Denies both A/VH: getting better. not while I sleep. Sleep: See sleep hrs. ADL's: Independent Group attendance: declined Were meds taken: Yes, without hesitation.l Any med S/E: Niacin Rash "it is ok I am use to it", Dr. Huddleston aware Mental Status Exam Appearance: Casual in own clothes, wearing a peak cap Eye contact: Good Behavior: Cooperative, pleasant Speech: Mumbles, audible, minimal. Mood: Euthymic Affect: Flat Thought process: Some delusions. Thought Content: Situational Cognition: A&Ox4 Insight: Poor. Judgment: Poor. Interventions PRN's used: Nicotine lozenge, Ativan, Klonopin. Therapeutic interventions: 1:1 assessment, active listening, reality orientation, medication education/administration/monitoring, encouragement to perform personal care and attend groups, maintained q15m safety checks. Restraints/seclusion/emergency medication: None Justification of Continued Inpatient Treatment: Patient is still gravely disabled, he is able to perform his activities of daily living with some supervision, however is able to perform any instrumental activities of daily living as evident from his previous admissions. Pt is on a TCon.
[2020-05-31 08:10] VITALS: BP 149/92
[2020-05-31] MEDS: tizanidine 4mg tablet PO SCH ×3 (08:38→16:30)
[2020-05-31] MEDS: pantoprazole 40mg Tablet.DR PO SCH (08:38)
[2020-05-31] MEDS: gabapentin 300mg capsule PO SCH ×2 (08:38→12:24)
[2020-05-31] MEDS: QUEtiapine 25mg tablet PO SCH ×2 (08:39→12:24)
[2020-05-31] MEDS: divalproex sodium 500mg tablet.DR PO SCH ×2 (08:39→20:10)
[2020-05-31] MEDS: thiothixene 2mg capsule PO SCH ×2 (08:39→20:09)
[2020-05-31] MEDS: clonazePAM 0.5mg tablet PO SCH ×2 (08:39→20:12)
[2020-05-31] MEDS: benztropine 1mg tablet PO SCH ×2 (08:39→20:11)
[2020-05-31] MEDS: clozapine 25mg tablet PO SCH ×2 (08:39→12:24)
[2020-05-31] MEDS: NICOTINE POLACRILEX 2 MG LOZENGE BC PRN ×3 (10:42→18:17)
[2020-05-31] MEDS: acetaminophen 325mg tablet PO PRN (10:43)
[2020-05-31] MEDS: LORazepam 1 MG tablet PO PRN ×2 (11:09→17:40)
--- NOTE | 2020-05-31 17:41 | NUR ---
Requested PRN Ativan "I just need it." Administered will continue to monitor.
[2020-05-31] MEDS: clonazePAM 0.5mg tablet PO PRN (19:21)
[2020-05-31 19:29] VITALS: BP 148/85
[2020-05-31] MEDS: gabapentin 400mg capsule PO SCH (20:10)
[2020-05-31] MEDS: clozapine 100mg tablet PO SCH (20:11)
[2020-05-31] MEDS: quetiapine 100mg tablet PO SCH (20:12)
--- NOTE | 2020-06-01 00:28 | NUR ---
NURSING PROGRESS NOTE Legal hold: tcon Client on involuntary status for DTS Report received from MARIBEL Schultz with use of SBAR Why are they here: Client reported increased auditory and visual hallucinations. Client hears voices coming from buildings saying, "We're going to kill you." Client believes others are controlling him. Client believes camera's are watching him in his car. Client is currently homeless and may not have been taking his medications. Assessment What has happened this shift: Pt is seen pacing the halls with headphones on. Pt is cooperative with 1:1 assessment. He states he is still hearing voices, they are "crazy" but laughs about it and says "I am doing good today." He requests a prn klonopin which is given to him with good effect. S/I, H/I: Denies both. A/VH: Endorses auditory hallucinations Sleep: see sleep assessment ADL's: Needs encouragement, but can perform independently. Group attendance: No Were meds taken: Yes Any med S/E: None reported or observed Mental Status Exam Appearance: wearing personal clothing and hat Eye contact: Fair Behavior:cooperative, isolative Speech: clear Mood: upbeat Affect: congruent with cosme Thought process: circumstantial Thought Content: snack . Cognition: A&Ox4 Insight: Poor. Judgment: Poor. Interventions PRN's used: prn klonopin Therapeutic interventions: 1:1 assessment, active listening, reality orientation, medication education/administration/monitoring, encouragement to perform personal care and attend groups, maintained q15m safety checks. Restraints/seclusion/emergency medication: None Justification of Continued Inpatient Treatment: Patient continues to exhibit psychotic symptoms and mood lability, irritability. Patient continues to be a high risk for discharge and requires continued medication adjustment in a safe and supportive milieu. Pt is reasonably aware that he will be going for LPS conservatorship.
[2020-06-01] MEDS: pantoprazole 40mg Tablet.DR PO SCH (08:03)
[2020-06-01] MEDS: clozapine 25mg tablet PO SCH ×3 (08:03→20:13)
[2020-06-01] MEDS: divalproex sodium 500mg tablet.DR PO SCH ×2 (08:04→20:12)
[2020-06-01] MEDS: clonazePAM 0.5mg tablet PO SCH ×2 (08:04→20:12)
[2020-06-01] MEDS: thiothixene 2mg capsule PO SCH ×2 (08:04→20:12)
[2020-06-01] MEDS: gabapentin 300mg capsule PO SCH ×2 (08:04→13:30)
[2020-06-01] MEDS: benztropine 1mg tablet PO SCH ×2 (08:04→20:12)
[2020-06-01] MEDS: QUEtiapine 25mg tablet PO SCH ×2 (08:04→13:30)
[2020-06-01] MEDS: tizanidine 4mg tablet PO SCH ×3 (08:10→15:36)
[2020-06-01] MEDS: LORazepam 1 MG tablet PO PRN (11:55)
[2020-06-01] MEDS: NICOTINE POLACRILEX 2 MG LOZENGE BC PRN ×3 (11:55→18:06)
--- NOTE | 2020-06-01 14:50 | NUR ---
NURSING PROGRESS NOTE Legal hold: T-Con Client on involuntary status for GD/DTO Report received from Ludy LÓPEZ with use of SBAR Why are they here: Client reported increased auditory and visual hallucinations. Client hears voices coming from buildings saying, "We're going to kill you." Client believes others are controlling him. Client believes camera's are watching him in his car. Client is currently homeless and may not have been taking his medications. Assessment What has happened this shift: Received pt awake in hallway. Pt denies experiencing internal stimuli today. Pt says, "No, I'm just talking to myself too much." Pt did request ativan x 1 and nicotine lozenges. Pt spent a lot of the day sleeping in bed with headphones on. Pt polite and cooperative with staff and denies suicidal and homicidal ideation. Pt affect remains blunted. S/I, H/I: Denies both A/VH: denies Sleep: Did not sleep this shift ADL's: Independent with prompting Group attendance: NA Were meds taken: Yes Any med S/E: Denies Mental Status Exam Appearance: Disheveled, wearing winter cap and jacket Eye contact: Fair Behavior: Pacing halls and listening to headphones. Labile yet cooperative Speech: Mumbles, loud and rapid at times Mood: Anxious, paranoid Affect: Flat Thought process: Paranoid delusions r/t auditory hallucinations. Circumstantial Thought Content: Getting needs met. Responding to AH Cognition: A&Ox4 Insight: Poor. Judgment: Poor. Interventions PRN's used: ativan, Nicotine Beth. Therapeutic interventions: 1:1 assessment, active listening, reality orientation, medication education/administration/monitoring, encouragement to perform personal care and attend groups, maintained q15m safety checks. Restraints/seclusion/emergency medication: None Justification of Continued Inpatient Treatment: Patient continues to exhibit psychotic symptoms and mood lability, irritability. Patient continues to be a high risk for discharge and requires continued medication adjustment in a safe and supportive milieu. Pt is reasonably aware that he will be going for LPS conservatorship.
[2020-06-01 20:00] VITALS: BP 145/86
[2020-06-01] MEDS: gabapentin 400mg capsule PO SCH (20:13)
[2020-06-01] MEDS: quetiapine 100mg tablet PO SCH (20:13)
[2020-06-01] MEDS: clozapine 100mg tablet PO SCH (20:14)
--- NOTE | 2020-06-01 22:54 | NUR ---
NURSING PROGRESS NOTE Legal hold: tcon Client on involuntary status for DTS Report received from MARIBEL Gonzales with use of SBAR Why are they here: Client reported increased auditory and visual hallucinations. Client hears voices coming from buildings saying, "We're going to kill you." Client believes others are controlling him. Client believes camera's are watching him in his car. Client is currently homeless and may not have been taking his medications. Assessment What has happened this shift: Pt is in an upbeat mood and approaches ghost writer and says "hey how are you? did you have a good day?" He eats snack and is observed happily listening to music. Pt is cooperative with 1:1 assessment. He responds to internal stimuli while walking the hallways with headphones on. Overall pt has a good night with no outbursts. S/I, H/I: Denies both. A/VH: Endorses auditory hallucinations Sleep: see sleep assessment ADL's: Needs encouragement, but can perform independently. Group attendance: No Were meds taken: Yes Any med S/E: None reported or observed Mental Status Exam Appearance: wearing own clothing Eye contact: Fair Behavior:cooperative, isolative Speech: Mumbles Mood: upbeat Affect: congruent with mood Thought process: circumstantial Thought Content: Hallucinations. Cognition: A&Ox4 Insight: Poor. Judgment: Poor. Interventions PRN's used: Therapeutic interventions: 1:1 assessment, active listening, reality orientation, medication education/administration/monitoring, encouragement to perform personal care and attend groups, maintained q15m safety checks. Restraints/seclusion/emergency medication: None Justification of Continued Inpatient Treatment: Patient continues to exhibit psychotic symptoms and mood lability, irritability. Patient continues to be a high risk for discharge and requires continued medication adjustment in a safe and supportive milieu. Pt is reasonably aware that he will be going for LPS conservatorship.
[2020-06-02 07:28] VITALS: BP 137/96
[2020-06-02] MEDS: clozapine 25mg tablet PO SCH ×3 (08:22→21:02)
[2020-06-02] MEDS: gabapentin 300mg capsule PO SCH ×2 (08:22→12:12)
[2020-06-02] MEDS: divalproex sodium 500mg tablet.DR PO SCH ×2 (08:23→21:03)
[2020-06-02] MEDS: benztropine 1mg tablet PO SCH ×2 (08:23→21:02)
[2020-06-02] MEDS: pantoprazole 40mg Tablet.DR PO SCH (08:23)
[2020-06-02] MEDS: QUEtiapine 25mg tablet PO SCH ×2 (08:23→12:12)
[2020-06-02] MEDS: clonazePAM 0.5mg tablet PO SCH ×2 (08:24→21:02)
[2020-06-02] MEDS: thiothixene 2mg capsule PO SCH ×2 (08:24→21:03)
[2020-06-02] MEDS: tizanidine 4mg tablet PO SCH ×3 (08:26→16:24)
[2020-06-02 10:20] LABS: BASOPHILS % (AUTO) 0.7 % (0-1); EOSINOPHILS # (AUTO) 0.2 X10'3 (0-0.9); EOSINOPHILS % (AUTO) 3.8 % (0-6); HEMATOCRIT 44.9 % (42.0-52.0); HEMOGLOBIN 14.9 g/dl (14.0-17.9); LYMPHOCYTES # (AUTO) 2.3 X10'3 (1.1-4.8); LYMPHOCYTES % (AUTO) 51.5 % (21-51); MEAN CORPUSCULAR HEMOGLOBIN 28.7 PG (27.0-31.0); MEAN CORPUSCULAR HGB CONC 33.3 g/dL (33.0-36.5); MEAN CORPUSCULAR VOLUME 86.1 FL (78-98); MEAN PLATELET VOLUME 8.2 FL (7.4-10.4); MONOCYTES # (AUTO) 0.6 X10'3 (0-0.9); MONOCYTES % (AUTO) 12.6 % (2-12); NEUTROPHILS # (AUTO) 1.4 X10'3 (1.8-7.7); NEUTROPHILS % (AUTO) 31.4 % (42-75); PLATELET COUNT 171 X10'3 (140-440); RED BLOOD COUNT 5.21 X10'6 (4.70-6.10); RED CELL DISTRIBUTION WIDTH 15.3 % (11.5-14.5); WHITE BLOOD COUNT 4.4 X10'3 (4.5-11.0)
[2020-06-02] MEDS: NICOTINE POLACRILEX 2 MG LOZENGE BC PRN ×3 (13:06→19:02)
[2020-06-02] MEDS: LORazepam 1 MG tablet PO PRN (14:44)
--- NOTE | 2020-06-02 16:15 | NUR ---
NURSING PROGRESS NOTE Legal hold: T-Con Client on involuntary status for GD/DTO Report received from RN with use of SBAR Why are they here: Client reported increased auditory and visual hallucinations. Client hears voices coming from buildings saying, "We're going to kill you." Client believes others are controlling him. Client believes camera's are watching him in his car. Client is currently homeless and may not have been taking his medications. Assessment What has happened this shift: Received Pt in bed sleeping w/o distress at beginning of shift. Pt awoke and was cooperative with vitals and attended breakfast and all meals. Pt took AM meds w/o issue and continues to use nicotine lozenges throughout the day. Pt slept most of the morning and was pleasant when awakened for meds or snacks. He continues to be cooperative and pleasant in conversation and communicates when his anxiety is high and requested a prn of Ativan in afternoon, which he received with good effect. Pt overall calm and cooperative today. S/I, H/I: Denies both A/VH: +AH. Denies VH Sleep: Napped ADL's: Independent with prompting Group attendance: NA Were meds taken: Yes Any med S/E: Denies Mental Status Exam Appearance: Casual in own clothes, continues wearing a peak cap Eye contact: Good Behavior: Cooperative, pleasant Speech: Mumbles, coherent Mood: Euthymic Affect: Calm, congruent with mood Thought process: Circumstantial Thought Content: Getting needs met Cognition: A&Ox4 Insight: Poor. Judgment: Poor. Interventions PRN's used: Nicotine Beth., Ativan Therapeutic interventions: 1:1 assessment, active listening, reality orientation, medication education/administration/monitoring, encouragement to perform personal care and attend groups, maintained q15m safety checks. Restraints/seclusion/emergency medication: None Justification of Continued Inpatient Treatment: Patient continues to exhibit psychotic symptoms and mood lability. Patient continues to be a high risk for discharge and requires continued medication adjustment in a safe and supportive milieu. Pt is reasonably aware that he will be going for LPS conservatorship.
[2020-06-02] MEDS: clonazePAM 0.5mg tablet PO PRN (17:55)
[2020-06-02 20:00] VITALS: BP 138/99
[2020-06-02] MEDS: gabapentin 400mg capsule PO SCH (21:02)
[2020-06-02] MEDS: clozapine 100mg tablet PO SCH (21:02)
[2020-06-02] MEDS: quetiapine 100mg tablet PO SCH (21:02)
--- NOTE | 2020-06-03 04:28 | NUR ---
NURSING PROGRESS NOTE Legal hold: T-con Client on involuntary status for DTS Report received from MARIBEL Gonzales with use of SBAR Why are they here: Client reported increased auditory and visual hallucinations. Client hears voices coming from buildings saying, "We're going to and may not have been taking his medications. Assessment What has happened this shift: Patient laying in bed, staring at the ceiling, at the beginning of shift. Pleasant and cooperative with care; compliant with medication. Patient denies SI, HI, A/VH this shift. Patient doesn't appear to be responding to IS but appears preoccupied at times; no delusional thought content expressed this shift. Patient appeared anxious during assessment and stayed in his room for a while; later observed pacing and smiling when flex o writer operator handed him snacks. Patient observed sleeping and does not appear to be having difficulty sleeping. S/I, H/I: Denies A/VH: Denies Sleep: Refer to sleep assessment ADL's: Independent Group attendance: NA Were meds taken: Yes Any med S/E: None observed or reported Mental Status Exam Appearance: Neat, appropriately dressed in personal attire. Eye contact: Fair Behavior: Pleasant and cooperative, isolative Speech: Mumbles Mood: Euphoric Affect: Anxious Thought process: Circumstantial Thought Content: Meeting needs, anxiety, snacks Cognition: A&Ox4 Insight: Poor. Judgment: Poor. Interventions PRN's used: Nicotine lozenge Therapeutic interventions: 1:1 assessment, active listening, reality orientation, medication education/administration/monitoring, encouragement to perform personal care and attend groups, maintained q15m safety checks. Restraints/seclusion/emergency medication: None Justification of Continued Inpatient Treatment: Patient continues to exhibit psychotic symptoms and mood lability, irritability. Patient continues to be a high risk for discharge and requires continued medication adjustment in a safe and supportive milieu. Pt is reasonably aware that he will be going for LPS conservatorship.
[2020-06-03 08:00] VITALS: BP 130/84
[2020-06-03] MEDS: gabapentin 300mg capsule PO SCH ×2 (08:05→12:40)
[2020-06-03] MEDS: pantoprazole 40mg Tablet.DR PO SCH (08:05)
[2020-06-03] MEDS: clozapine 25mg tablet PO SCH ×3 (08:05→21:25)
[2020-06-03] MEDS: benztropine 1mg tablet PO SCH ×2 (08:06→21:26)
[2020-06-03] MEDS: divalproex sodium 500mg tablet.DR PO SCH ×2 (08:06→21:33)
[2020-06-03] MEDS: QUEtiapine 25mg tablet PO SCH ×2 (08:06→12:40)
[2020-06-03] MEDS: clonazePAM 0.5mg tablet PO SCH ×2 (08:06→21:25)
[2020-06-03] MEDS: thiothixene 2mg capsule PO SCH ×2 (08:07→21:25)
[2020-06-03] MEDS: tizanidine 4mg tablet PO SCH ×3 (08:07→16:13)
[2020-06-03] MEDS: NICOTINE POLACRILEX 2 MG LOZENGE BC PRN ×3 (13:43→20:24)
[2020-06-03] MEDS: LORazepam 1 MG tablet PO PRN (15:37)
--- NOTE | 2020-06-03 17:33 | NUR ---
NURSING PROGRESS NOTE Legal hold: T-Con Client on involuntary status for GD/DTO Report received from RN with use of SBAR Why are they here: Client reported increased auditory and visual hallucinations. Client hears voices coming from buildings saying, "We're going to kill you." Client believes others are controlling him. Client believes camera's are watching him in his car. Client is currently homeless and may not have been taking his medications. Assessment What has happened this shift: Pt. resting at change of shift. 1:1 done at bedside. Cooperative with medications and assessment. Pt. was calm and pleasant this shift. PRN Ativan administered per pt. request stating he had anxiety from being in this place and feeling claustrophobic. PRN effective. Nicotine lozenge administer 1X this shift. S/I, H/I: Denies A/VH: Denies Sleep: Napped throughout the day ADL's: Independent with prompting Group attendance: No Were meds taken: Yes Any med S/E: Denies Mental Status Exam Appearance: Casual in own clothes Eye contact: Good Behavior: Cooperative, pleasant Speech: Mumbles, coherent Mood: Euthymic Affect: Calm, congruent with mood Thought process: Circumstantial Thought Content: Getting needs met Cognition: A&Ox4 Insight: Poor. Judgment: Poor. Interventions PRN's used: Nicotine Lozenge, Ativan Therapeutic interventions: 1:1 assessment, active listening, reality orientation, medication education/administration/monitoring, encouragement to perform personal care and attend groups, maintained q15m safety checks. Restraints/seclusion/emergency medication: None Justification of Continued Inpatient Treatment: Patient continues to exhibit psychotic symptoms and mood lability. Patient continues to be a high risk for discharge and requires continued medication adjustment in a safe and supportive milieu. Pt is reasonably aware that he will be going for LPS conservatorship.
[2020-06-03 20:00] VITALS: BP 140/97
[2020-06-03] MEDS: gabapentin 400mg capsule PO SCH (21:25)
[2020-06-03] MEDS: clozapine 100mg tablet PO SCH (21:25)
[2020-06-03] MEDS: quetiapine 100mg tablet PO SCH (21:26)
--- NOTE | 2020-06-04 05:38 | NUR ---
NURSING PROGRESS NOTE Legal hold: T-con Client on involuntary status for DTS Report received from MARIBEL Gonzales with use of SBAR Why are they here: Client reported increased auditory and visual hallucinations. Client hears voices coming from buildings saying, "We're going to and may not have been taking his medications. Assessment What has happened this shift: Patient in his room awake at the beginning of shift. Pleasant and cooperative with care; compliant with all medication. Patient denies SI, HI, VH. Reports +AH, "they're making too much noise." Patient remained in his bedroom this shift. Ate HS snack in his room and provided a huge smile when given potato chips that he requested. Patient observed sleeping and does not appear to be having difficulty. S/I, H/I: Denies A/VH: +AH Sleep: Refer to sleep assessment ADL's: Independent Group attendance: NA Were meds taken: Yes Any med S/E: None observed or reported Mental Status Exam Appearance: Neat, appropriately dressed in personal attire. Eye contact: Fair Behavior: Pleasant and cooperative, isolative Speech: Mumbles Mood: "OK" Affect: Anxious Thought process: Circumstantial Thought Content: Voices being too loud, anxiety, snacks Cognition: A&Ox4 Insight: Poor. Judgment: Poor. Interventions PRN's used: None Therapeutic interventions: 1:1 assessment, active listening, reality orientation, medication education/administration/monitoring, encouragement to perform personal care and attend groups, maintained q15m safety checks. Restraints/seclusion/emergency medication: None Justification of Continued Inpatient Treatment: Patient continues to exhibit psychotic symptoms and mood lability, irritability. Patient continues to be a high risk for discharge and requires continued medication adjustment in a safe and supportive milieu. Pt is reasonably aware that he will be going for LPS conservatorship.
[2020-06-04 07:23] VITALS: BP 126/93
[2020-06-04] MEDS: clozapine 25mg tablet PO SCH ×3 (07:30→20:28)
[2020-06-04] MEDS: pantoprazole 40mg Tablet.DR PO SCH (09:04)
[2020-06-04] MEDS: divalproex sodium 500mg tablet.DR PO SCH ×2 (09:04→20:29)
[2020-06-04] MEDS: clonazePAM 0.5mg tablet PO SCH ×2 (09:05→20:26)
[2020-06-04] MEDS: thiothixene 2mg capsule PO SCH ×2 (09:05→20:29)
[2020-06-04] MEDS: benztropine 1mg tablet PO SCH ×2 (09:05→20:27)
[2020-06-04] MEDS: gabapentin 300mg capsule PO SCH ×2 (09:05→12:32)
[2020-06-04] MEDS: tizanidine 4mg tablet PO SCH ×3 (09:06→16:22)
[2020-06-04] MEDS: QUEtiapine 25mg tablet PO SCH ×2 (09:06→12:32)
[2020-06-04] MEDS: NICOTINE POLACRILEX 2 MG LOZENGE BC PRN ×2 (12:32→20:33)
--- NOTE | 2020-06-04 17:14 | NUR ---
NURSING PROGRESS NOTE Legal hold: T-Con Client on involuntary status for GD/DTO Report received from Nabila Monroe RN with use of SBAR Why are they here: Client reported increased auditory and visual hallucinations. Client hears voices coming from buildings saying, "We're going to kill you." Client believes others are controlling him. Client believes camera's are watching him in his car. Client is currently homeless and may not have been taking his medications. Assessment What has happened this shift: Patient sleeping at shift change. Pt. sleeps through breakfast today. Patient spends most of the day sleeping and resting. Patient is medication compliant and compliant with care. Patient denies A/H today. No behavioral issues. S/I, H/I: Denies A/VH: Denies Sleep: Napped throughout the day ADL's: Independent with prompting Group attendance: No Were meds taken: Yes Any med S/E: Denies Mental Status Exam Appearance: Casual in own clothes Eye contact: Good Behavior: Cooperative, tired. Speech: Mumbles, coherent Mood: Euthymic Affect: Calm, congruent with mood Thought process: Circumstantial Thought Content: Getting needs met Cognition: A&Ox4 Insight: Poor. Judgment: Poor. Interventions PRN's used: Nicotine Lozenge Therapeutic interventions: 1:1 assessment, active listening, reality orientation, medication education/administration/monitoring, encouragement to perform personal care and attend groups, maintained q15m safety checks. Restraints/seclusion/emergency medication: None Justification of Continued Inpatient Treatment: Patient continues to exhibit psychotic symptoms and mood lability. Patient continues to be a high risk for discharge and requires continued medication adjustment in a safe and supportive milieu. Pt is reasonably aware that he will be going for LPS conservatorship.
[2020-06-04] MEDS: LORazepam 1 MG tablet PO PRN (19:29)
[2020-06-04] MEDS: clozapine 100mg tablet PO SCH (20:27)
[2020-06-04] MEDS: gabapentin 400mg capsule PO SCH (20:28)
[2020-06-04] MEDS: quetiapine 100mg tablet PO SCH (20:28)
[2020-06-04 20:38] VITALS: BP 134/83
--- NOTE | 2020-06-05 00:30 | NUR ---
NURSING PROGRESS NOTE Legal hold: T-Con Client on involuntary status for GD/DTO Report received from MARIBEL Gonzales with use of SBAR Why are they here: Client reported increased auditory and visual hallucinations. Client hears voices coming from buildings saying, "We're going to kill you." Client believes others are controlling him. Client believes camera's are watching him in his car. Client is currently homeless and may not have been taking his medications. Assessment What has happened this shift: Patient sleeping at shift change. Pt. spends most of the shift in his room and resting. Patient is medication compliant and compliant with care. Patient denies A/H today. No behavioral issues. S/I, H/I: Denies A/VH: Denies Sleep: See sleep hrs. ADL's: Independent with prompting Group attendance: No Were meds taken: Yes Any med S/E: Denies Mental Status Exam Appearance: Casual in own clothes Eye contact: Good Behavior: Cooperative, tired. Speech: Mumbles, coherent Mood: Euthymic Affect: Calm, congruent with mood Thought process: Circumstantial Thought Content: Getting needs met Cognition: A&Ox4 Insight: Poor. Judgment: Poor. Interventions PRN's used: Nicotine Lozenge, Ativan Therapeutic interventions: 1:1 assessment, active listening, reality orientation, medication education/administration/monitoring, encouragement to perform personal care and attend groups, maintained q15m safety checks. Restraints/seclusion/emergency medication: None Justification of Continued Inpatient Treatment: Patient continues to exhibit psychotic symptoms and mood lability. Patient continues to be a high risk for discharge and requires continued medication adjustment in a safe and supportive milieu. Pt is reasonably aware that he will be going for LPS conservatorship.
[2020-06-05 08:00] VITALS: BP 121/77
[2020-06-05] MEDS: tizanidine 4mg tablet PO SCH ×3 (08:30→16:01)
[2020-06-05] MEDS: clozapine 25mg tablet PO SCH ×3 (08:30→20:05)
[2020-06-05] MEDS: thiothixene 2mg capsule PO SCH ×2 (08:31→20:25)
[2020-06-05] MEDS: QUEtiapine 25mg tablet PO SCH ×2 (08:31→12:35)
[2020-06-05] MEDS: divalproex sodium 500mg tablet.DR PO SCH ×2 (08:31→20:05)
[2020-06-05] MEDS: clonazePAM 0.5mg tablet PO SCH ×2 (08:31→20:05)
[2020-06-05] MEDS: benztropine 1mg tablet PO SCH ×2 (08:31→20:05)
[2020-06-05] MEDS: gabapentin 300mg capsule PO SCH ×2 (08:31→12:34)
[2020-06-05] MEDS: pantoprazole 40mg Tablet.DR PO SCH (08:31)
[2020-06-05] MEDS: NICOTINE POLACRILEX 2 MG LOZENGE BC PRN ×4 (13:10→19:41)
--- NOTE | 2020-06-05 13:59 | NUR ---
NURSING PROGRESS NOTE Legal hold: T-Con Client on involuntary status for GD/DTO Report received from MARIBEL Ramirez with use of SBAR Why are they here: Patient reported increased auditory and visual hallucinations. Patient heard voices coming from the buildings saying, "We're going to kill you." Patient believes others are controlling him. And believes camera's are watching him in his car. Patient is currently homeless and may not have been taking his medications. Assessment What has happened this shift: Received patient sleeping at shift change, no distress noted. Pt declined breakfast and slept through most of the morning. Pt woke around 1100. Pt was compliant with medication and care. Pt is polite and voices being bored. Pt isolated to his room most of the shift, which is his usual routine. Out for meals and snacks then back to his room. Pt was encouraged to attend group, but declined. No delusional statements or behavioral issues noted as of this writing. S/I, H/I: Denies both. A/VH: Denies both. Sleep: 7.5 hours per sleep assessment. Napped throughout the day ADL's: Independent with prompting Group attendance: Declined Were meds taken: Yes, without issue. Any med S/E: None reported or observed. Mental Status Exam Appearance: Disheveled. Dressed appropriately own casual clothes. Eye contact: Good Behavior: Cooperative, isolates to self, polite. Speech: Mumbles, coherent Mood: Euthymic/bored. Affect: Calm, congruent with mood Thought process: Circumstantial Thought Content: Getting needs met Cognition: A&Ox4 Insight: Poor. Judgment: Poor. Interventions PRN's used: Nicotine Lozenge Therapeutic interventions: 1:1 assessment, active listening, reality orientation, medication education/administration/monitoring, encouragement to perform personal care and attend groups, maintained q15m safety checks. Restraints/seclusion/emergency medication: None Justification of Continued Inpatient Treatment: Patient continues to exhibit psychotic symptoms and mood lability. Patient continues to be a high risk for discharge and requires continued medication adjustment in a safe and supportive milieu. Pt is reasonably aware that he will be going for LPS conservatorship.
[2020-06-05] MEDS: LORazepam 1 MG tablet PO PRN (14:10)
--- NOTE | 2020-06-05 14:10 | NUR ---
Patient requested Ativan "I am just feeling anxious." Pt described like an esophageal burn, but states the "Ativan works." Declined the Maalox. Pt's bored and when asked if there is anything he likes to do or interests pt stated "I have none." Will continue to monitor.
[2020-06-05] MEDS: clonazePAM 0.5mg tablet PO PRN (20:04)
[2020-06-05] MEDS: gabapentin 400mg capsule PO SCH (20:06)
[2020-06-05] MEDS: quetiapine 100mg tablet PO SCH (20:06)
[2020-06-05] MEDS: clozapine 100mg tablet PO SCH (20:06)
[2020-06-05 20:10] VITALS: BP 158/100
--- NOTE | 2020-06-06 01:01 | NUR ---
NURSING PROGRESS NOTE Legal hold: T-Con Client on involuntary status for GD/DTO Report received from MARIBEL Gonzales with use of SBAR Why are they here: Patient reported increased auditory and visual hallucinations. Patient heard voices coming from the buildings saying, "We're going to kill you." Patient believes others are controlling him. And believes camera's are watching him in his car. Patient is currently homeless and may not have been taking his medications. Assessment What has happened this shift: Received patient sleeping at shift change, no distress noted. Pt isolated to his room most of the shift. Out for snacks then back to his room. No delusional statements or behavioral issues noted as of this writing. S/I, H/I: Denies both. A/VH: Denies both. Sleep: See sleep hrs, Tyrel ADL's: Independent with prompting Group attendance: Declined Were meds taken: Yes, without issue. Any med S/E: None reported or observed. Mental Status Exam Appearance: Disheveled. Dressed appropriately own casual clothes. Eye contact: Good Behavior: Cooperative, isolates to self, polite. Speech: Mumbles, coherent Mood: Euthymic/bored. Affect: Calm, congruent with mood Thought process: Circumstantial Thought Content: Getting needs met Cognition: A&Ox4 Insight: Poor. Judgment: Poor. Interventions PRN's used: Nicotine Lozenge Therapeutic interventions: 1:1 assessment, active listening, reality orientation, medication education/administration/monitoring, encouragement to perform personal care and attend groups, maintained q15m safety checks. Restraints/seclusion/emergency medication: None Justification of Continued Inpatient Treatment: Patient continues to exhibit psychotic symptoms and mood lability. Patient continues to be a high risk for discharge and requires continued medication adjustment in a safe and supportive milieu. Pt is reasonably aware that he will be going for LPS conservatorship.
--- NOTE | 2020-06-06 08:26 | NUR ---
1:1-Symptoms Management Presenting Issues: Pt's placement services had been put on hold as pt had regressed and struggled with his psychoses sxs and was reacting via verbal and physical outbursts aeb yelling and cursing at staff or people not visible, punching lane. Interventions: SS met w/pt and utilized CBT & MA strategies to engage him is assessing the severity of his sxs. Per session, pt able to report that his AH are "quieter, they're nice voices now". Pt also reports that I come out of my room now, I can talk to people without getting loud. SS praised pt for being able to recognize the difference with his bxs. Pt asked, "can you ask my conservator to look for a place for me again"? SS reviewed chart and noted that pt's bxs & activity level has improved on the milieu. However, pt's meds include quite a bit of PRN meds this may hinder placement efforts. Plan: SS will consult w/attending physician re PRN meds issues and pt's readiness for placement services. Maria Luisa Murphy LCSW Addendum: 06/07/20 at 0855 by Maria Luisa GARZA Amended: Links added.
[2020-06-06] MEDS: pantoprazole 40mg Tablet.DR PO SCH (08:37)
[2020-06-06] MEDS: divalproex sodium 500mg tablet.DR PO SCH ×2 (08:37→20:11)
[2020-06-06] MEDS: gabapentin 300mg capsule PO SCH ×2 (08:37→12:35)
[2020-06-06] MEDS: tizanidine 4mg tablet PO SCH ×3 (08:38→16:04)
[2020-06-06] MEDS: thiothixene 2mg capsule PO SCH ×2 (08:38→20:12)
[2020-06-06] MEDS: QUEtiapine 25mg tablet PO SCH ×2 (08:38→12:35)
[2020-06-06] MEDS: clonazePAM 0.5mg tablet PO SCH ×2 (08:38→20:13)
[2020-06-06] MEDS: benztropine 1mg tablet PO SCH ×2 (08:38→20:13)
[2020-06-06] MEDS: clozapine 25mg tablet PO SCH ×3 (08:38→20:12)
[2020-06-06 08:57] VITALS: BP 119/84
--- NOTE | 2020-06-06 14:35 | NUR ---
Reassessment: Pt continues with average 75-100% PO intake however recently declined with 100% PO intake of protein and 25% PO intake of starch. Pt participating in snacks per RN notes. LBM 06/03, documented with no GI symptoms in care trends. D/w dietary to send prunes and prune juice to assist with bowel regularity. PO intake likely to improve once pt with more consistent BMs. Will continue to follow and monitor need for further nutrition intervention. Rec: 1. continue regular diet 2. routine bowel care 3. scaled wts per rx Addendum: 06/06/20 at [address] Amended: Links added.
[2020-06-06] MEDS: LORazepam 1 MG tablet PO PRN ×2 (16:04→22:07)
--- NOTE | 2020-06-06 16:37 | NUR ---
NURSING PROGRESS NOTE Legal hold: T-Con Client on involuntary status for GD/DTO Report received from MARIBEL Boston with use of SBAR Why are they here: Patient reported increased auditory and visual hallucinations. Patient heard voices coming from the buildings saying, "We're going to kill you." Patient believes others are controlling him. And believes camera's are watching him in his car. Patient is currently homeless and may not have been taking his medications. Assessment What has happened this shift: Received patient sleeping at shift change, no distress noted. Pt slept through the morning was awoken for AM medication and again at 1200. Pt originally refused vitals, so vitals were obtained later in the morning. Pt was cooperative with care. Pt returned to his bed after lunch. Pt woke and showered, liens changed. Pt reports LBM was yesterday. Declined any interventions, will request prune juice at dinner. Pt requested PRN Ativan around 1600. Pt was calm. No outbursts or delusional statements made. S/I, H/I: Denies both. A/VH: Denies both. Sleep: 7.75 hours per sleep assessment. Napped throughout the day ADL's: Independent with prompting. Showered. Group attendance: No scheduled group today. Were meds taken: Yes, without issue. Any med S/E: None reported or observed. Mental Status Exam Appearance: Disheveled. Dressed appropriately own casual clothes. Eye contact: Good Behavior: Cooperative, isolates to self, polite. Sedated/fatigued. Speech: Mumbles, coherent Mood: Euthymic/bored. Affect: Calm, congruent with mood Thought process: Circumstantial Thought Content: Getting needs met. Bored. Cognition: A&Ox4 Insight: Fair Judgment: Fair. Interventions PRN's used: Nicotine lozenge, Ativan Therapeutic interventions: 1:1 assessment, active listening, reality orientation, medication education/administration/monitoring, encouragement to perform personal care and attend groups, maintained q15m safety checks. Restraints/seclusion/emergency medication: None Justification of Continued Inpatient Treatment: Patient continues to exhibit psychotic symptoms and mood lability. Patient continues to be a high risk for discharge and requires continued medication adjustment in a safe and supportive milieu. Pt is reasonably aware that he will be going for [facility] conservatorship.
[2020-06-06] MEDS: NICOTINE POLACRILEX 2 MG LOZENGE BC PRN ×2 (17:22→20:36)
[2020-06-06] MEDS: clonazePAM 0.5mg tablet PO PRN (19:22)
[2020-06-06 20:10] VITALS: BP 151/96
[2020-06-06] MEDS: clozapine 100mg tablet PO SCH (20:12)
[2020-06-06] MEDS: quetiapine 100mg tablet PO SCH (20:13)
[2020-06-06] MEDS: gabapentin 400mg capsule PO SCH (20:13)
--- NOTE | 2020-06-07 00:22 | NUR ---
NURSING PROGRESS NOTE Legal hold: T-Con Client on involuntary status for GD/DTO Report received from MARIBEL Gonzales with use of SBAR Why are they here: Patient reported increased auditory and visual hallucinations. Patient heard voices coming from the buildings saying, "We're going to kill you." Patient believes others are controlling him. And believes camera's are watching him in his car. Patient is currently homeless and may not have been taking his medications. Assessment What has happened this shift: Received patient awake and in posadas at shift change, no distress noted. Pt states he doing good today. Pt was calm. No outbursts or delusional statements made. Pt asked for prn Ativan to help him sleep S/I, H/I: Denies both. A/VH: Denies both. Sleep: See sleep hrs. ADL's: Independent with prompting. Showered. Group attendance: No scheduled group today. Were meds taken: Yes, without issue. Any med S/E: None reported or observed. Mental Status Exam Appearance: Disheveled. Dressed appropriately own casual clothes. Eye contact: Good Behavior: Cooperative, isolates to self, polite. Sedated/fatigued. Speech: Mumbles, coherent Mood: Euthymic/bored. Affect: Calm, congruent with mood Thought process: Circumstantial Thought Content: Getting needs met. Bored. Cognition: A&Ox4 Insight: Fair Judgment: Fair. Interventions PRN's used: Nicotine lozenge, Ativan Therapeutic interventions: 1:1 assessment, active listening, reality orientation, medication education/administration/monitoring, encouragement to perform personal care and attend groups, maintained q15m safety checks. Restraints/seclusion/emergency medication: None Justification of Continued Inpatient Treatment: Patient continues to exhibit psychotic symptoms and mood lability. Patient continues to be a high risk for discharge and requires continued medication adjustment in a safe and supportive milieu. Pt is reasonably aware that he will be going for LPS conservatorship.
[2020-06-07 08:00] VITALS: BP 124/93
[2020-06-07] MEDS: gabapentin 300mg capsule PO SCH ×2 (08:17→12:58)
[2020-06-07] MEDS: divalproex sodium 500mg tablet.DR PO SCH ×2 (08:17→20:30)
[2020-06-07] MEDS: benztropine 1mg tablet PO SCH ×2 (08:17→20:30)
[2020-06-07] MEDS: clozapine 25mg tablet PO SCH ×3 (08:17→20:31)
[2020-06-07] MEDS: thiothixene 2mg capsule PO SCH ×2 (08:17→20:30)
[2020-06-07] MEDS: QUEtiapine 25mg tablet PO SCH ×2 (08:18→12:59)
[2020-06-07] MEDS: pantoprazole 40mg Tablet.DR PO SCH (08:18)
[2020-06-07] MEDS: clonazePAM 0.5mg tablet PO SCH ×2 (08:18→20:30)
[2020-06-07] MEDS: tizanidine 4mg tablet PO SCH ×4 (08:18→23:24)
--- NOTE | 2020-06-07 10:02 | NUR ---
1:1-Emotional Regulation Presenting Issues: Pt's bxs have been improving since pt started taking Clozaril. Pt request to speak w/SS today as he continues to struggle with placement issues associated w/conservatorship. Interventions: SS met with pt and provided support for pt to process thoughts and emotions associated with placement frustration. Pt asked if SS can resume placement services for him. Plan: SS will consult w/attending physician re pt's PRNs as this will hinder placement services. Maria Luisa Murphy LCSW Addendum: 06/08/20 at 1022 by Maria Luisa GARZA Amended: Links added.
[2020-06-07] MEDS: NICOTINE POLACRILEX 2 MG LOZENGE BC PRN ×3 (13:11→19:24)
[2020-06-07] MEDS: LORazepam 1 MG tablet PO PRN (14:52)
[2020-06-07] MEDS: clonazePAM 0.5mg tablet PO PRN (15:40)
--- NOTE | 2020-06-07 17:50 | NUR ---
NURSING PROGRESS NOTE Legal hold: T-Con Client on involuntary status for GD/DTO Report received from MARIBEL Boston with use of SBAR Why are they here: Patient reported increased auditory and visual hallucinations. Patient heard voices coming from the buildings saying, "We're going to kill you." Patient believes others are controlling him. And believes camera's are watching him in his car. Patient is currently homeless and may not have been taking his medications. Assessment What has happened this shift: Received patient awake and in his room. Pt. isolated to his room most of the day. During interview pt. reports hearing voices that agitate him. Pt. paces the halls listening to headphones. Pt. reports that listening to headphones helps to quiet the voices. Pt. reports feeling anxious about his placement. States, theres no space to move here, I just want to go where Im supposed to go. Pt. requested Ativan PRN and received with moderate effect. Pt. requested Klonopin PRN and received with good effect. S/I, H/I: Denies A/VH: Denies Sleep: Napped intermittently throughout the day ADL's: Independent Group attendance: No scheduled group today. Were meds taken: Yes Any med S/E: None reported or observed. Mental Status Exam Appearance: Disheveled. Dressed appropriately own casual clothes. Eye contact: WNL Behavior: Cooperative, isolates to self, polite, socially withdrawn. Speech: WNL. Mood: Euthymic with some anxiety. Affect: Congruent with mood Thought process: Circumstantial Thought Content: Concerned about placement. Cognition: A&Ox4 Insight: Fair Judgment: Fair. Interventions PRN's used: Nicotine lozenge, Ativan, Klonopin x1 Therapeutic interventions: 1:1 assessment, active listening, reality orientation, medication education/administration/monitoring, encouragement to perform personal care and attend groups, maintained q15m safety checks. Restraints/seclusion/emergency medication: None Justification of Continued Inpatient Treatment: Patient continues to exhibit psychotic symptoms and mood lability. Patient continues to be a high risk for discharge and requires continued medication adjustment in a safe and supportive milieu. Pt is reasonably aware that he will be going for [facility] conservatorship.
[2020-06-07] MEDS: gabapentin 400mg capsule PO SCH (20:30)
[2020-06-07] MEDS: quetiapine 100mg tablet PO SCH (20:30)
[2020-06-07] MEDS: clozapine 100mg tablet PO SCH (20:30)
[2020-06-07 20:34] VITALS: BP 133/94
--- NOTE | 2020-06-08 04:38 | NUR ---
NURSING PROGRESS NOTE Gianni Legal hold: T-Con Client on involuntary status for GD/DTO Report received from MARIBEL Luciano with use of SBAR Why are they here: Patient reported increased auditory and visual hallucinations. Patient heard voices coming from the buildings saying, "We're going to kill you." Patient believes others are controlling him. And believes camera's are watching him in his car. Patient is currently homeless and may not have been taking his medications. Assessment What has happened this shift: Pt. isolates to room most of the evening, pt requested nicotine lozenge and states his voices are better each day and that the headphones help. Pt requested snacks and went to bed without any issues. S/I, H/I: Denies A/VH: Denies Sleep: ADL's: Independent Group attendance: Were meds taken: Yes Any med S/E: None reported or observed. Mental Status Exam Appearance: Disheveled. Dressed appropriately own casual clothes. Eye contact: WNL Behavior: Cooperative, isolates to self, polite, socially withdrawn. Speech: WNL. Mood: Euthymic with some anxiety. Affect: Congruent with mood Thought process: Circumstantial Thought Content: Concerned about placement. Cognition: A&Ox4 Insight: Fair Judgment: Fair. Interventions PRN's used: Nicotine lozenge Therapeutic interventions: 1:1 assessment, active listening, reality orientation, medication education/administration/monitoring, encouragement to perform personal care and attend groups, maintained q15m safety checks. Restraints/seclusion/emergency medication: None Justification of Continued Inpatient Treatment: Patient continues to exhibit psychotic symptoms and mood lability. Patient continues to be a high risk for discharge and requires continued medication adjustment in a safe and supportive milieu. Pt is reasonably aware that he will be going for LPS conservatorship.
[2020-06-08 08:00] VITALS: BP 138/82
[2020-06-08] MEDS: benztropine 1mg tablet PO SCH ×2 (08:22→20:57)
[2020-06-08] MEDS: divalproex sodium 500mg tablet.DR PO SCH ×2 (08:22→20:58)
[2020-06-08] MEDS: QUEtiapine 25mg tablet PO SCH ×2 (08:22→12:38)
[2020-06-08] MEDS: gabapentin 300mg capsule PO SCH ×2 (08:22→12:38)
[2020-06-08] MEDS: pantoprazole 40mg Tablet.DR PO SCH (08:22)
[2020-06-08] MEDS: tizanidine 4mg tablet PO SCH ×2 (08:23→16:38)
[2020-06-08] MEDS: thiothixene 2mg capsule PO SCH ×2 (08:23→20:57)
[2020-06-08] MEDS: clonazePAM 0.5mg tablet PO SCH ×2 (08:23→20:57)
[2020-06-08] MEDS: clozapine 25mg tablet PO SCH ×3 (08:23→20:58)
[2020-06-08] MEDS: NICOTINE POLACRILEX 2 MG LOZENGE BC PRN ×3 (08:23→18:52)
--- NOTE | 2020-06-08 10:22 | NUR ---
CM-Consultation Presenting Issues: Pt's requested that placement services be resumed for him. Interventions: SS met w/attending physician and consulted with him re the PRN meds that pt is on and how placement facilities may decline pt due to PRN meds. Per consultation, attending physician will address the PRN meds issue and recommends that placement services resume early next week. Plan: SS will continue to monitor pt's progress, provide 1:1 support and resume placement services next week if appropriate. Maria Luisa Murphy LCSW Addendum: 06/08/20 at 1027 by Maria Luisa Murphy Amended: Links added.
[2020-06-08] MEDS: ibuprofen tablet 400 MG TABLET PO SCH (16:38)
--- NOTE | 2020-06-08 17:42 | NUR ---
NURSING PROGRESS NOTE Legal hold: T-Con Client on involuntary status for GD/DTO Report received from MARIBEL Boston with use of SBAR Why are they here: Patient reported increased auditory and visual hallucinations. Patient heard voices coming from the buildings saying, "We're going to kill you." Patient believes others are controlling him. And believes camera's are watching him in his car. Patient is currently homeless and may not have been taking his medications. Assessment What has happened this shift: Received patient asleep in his room. Pt. isolated to his room most of the day. During interview pt. continues to report voices that threaten him. Pt. paces the halls listening to headphones. Pt. reports that listening to headphones helps to quiet the voices but doesnt always work. Pt. reports feeling frustrated living without much personal space. Pt. showered in the afternoon. S/I, H/I: Denies A/VH: Denies Sleep: Napped intermittently throughout the day ADL's: Independent. Pt. showered today. Group attendance: No scheduled group today. Were meds taken: Yes Any med S/E: None reported or observed. Mental Status Exam Appearance: Disheveled. Dressed appropriately own casual clothes. Eye contact: WNL Behavior: Cooperative, isolates to self, polite, socially withdrawn. Speech: WNL. Mood: Euthymic with some anxiety. Affect: Congruent with mood Thought process: Linear Thought Content: Circumstantial. Cognition: A&Ox4 Insight: Fair Judgment: Fair. Interventions PRN's used: Nicotine lozenge Therapeutic interventions: 1:1 assessment, active listening, reality orientation, medication education/administration/monitoring, encouragement to perform personal care and attend groups, maintained q15m safety checks. Restraints/seclusion/emergency medication: None Justification of Continued Inpatient Treatment: Patient continues to exhibit psychotic symptoms and mood lability. Patient continues to be a high risk for discharge and requires continued medication adjustment in a safe and supportive milieu. Pt is reasonably aware that he will be going for [facility] conservatorship.
[2020-06-08 20:00] VITALS: BP 129/95
[2020-06-08] MEDS: quetiapine 100mg tablet PO SCH (20:57)
[2020-06-08] MEDS: gabapentin 400mg capsule PO SCH (20:57)
[2020-06-08] MEDS: clozapine 100mg tablet PO SCH (20:57)
[2020-06-09] MEDS: tizanidine 4mg tablet PO SCH ×3 (00:19→16:18)
--- NOTE | 2020-06-09 03:06 | NUR ---
NURSING PROGRESS NOTE Gianni Legal hold: T-Con Client on involuntary status for GD/DTO Report received from MARIBEL Byrne with use of SBAR Why are they here: Patient reported increased auditory and visual hallucinations. Patient heard voices coming from the buildings saying, "We're going to kill you." Patient believes others are controlling him. And believes camera's are watching him in his car. Patient is currently homeless and may not have been taking his medications. Assessment What has happened this shift: Received patient up walking in the hallways listening to headphones. Pt requested nicotine lozenge, Pt. isolated to his room most of the evening. Pt. continues to report voices and that listening to headphones help. S/I, H/I: Denies A/VH: Denies Sleep: ADL's: Independent Group attendance: No scheduled group today. Were meds taken: Yes Any med S/E: None reported or observed. Mental Status Exam Appearance: Disheveled. Dressed appropriately own casual clothes. Eye contact: WNL Behavior: Cooperative, isolates to self, polite, socially withdrawn. Speech: WNL. Mood: Euthymic with some anxiety. Affect: Congruent with mood Thought process: Linear Thought Content: Circumstantial. Cognition: A&Ox4 Insight: Fair Judgment: Fair. Interventions PRN's used: Nicotine lozenge Therapeutic interventions: 1:1 assessment, active listening, reality orientation, medication education/administration/monitoring, encouragement to perform personal care and attend groups, maintained q15m safety checks. Restraints/seclusion/emergency medication: None Justification of Continued Inpatient Treatment: Patient continues to exhibit psychotic symptoms and mood lability. Patient continues to be a high risk for discharge and requires continued medication adjustment in a safe and supportive milieu. Pt is reasonably aware that he will be going for LPS conservatorship.
[2020-06-09 07:06] LABS: BASOPHILS # (AUTO) 0.1 X10'3 (0-0.2); BASOPHILS % (AUTO) 0.7 % (0-1); EOSINOPHILS # (AUTO) 0.2 X10'3 (0-0.9); EOSINOPHILS % (AUTO) 2.9 % (0-6); HEMATOCRIT 42.5 % (42.0-52.0); HEMOGLOBIN 14.2 g/dl (14.0-17.9); LYMPHOCYTES # (AUTO) 3.3 X10'3 (1.1-4.8); MEAN CORPUSCULAR HEMOGLOBIN 28.5 PG (27.0-31.0); MEAN CORPUSCULAR HGB CONC 33.3 g/dL (33.0-36.5); MEAN CORPUSCULAR VOLUME 85.6 FL (78-98); MEAN PLATELET VOLUME 7.9 FL (7.4-10.4); MONOCYTES # (AUTO) 0.7 X10'3 (0-0.9); NEUTROPHILS # (AUTO) 3.1 X10'3 (1.8-7.7); NEUTROPHILS % (AUTO) 41.4 % (42-75); PLATELET COUNT 150 X10'3 (140-440); RED BLOOD COUNT 4.97 X10'6 (4.70-6.10); RED CELL DISTRIBUTION WIDTH 15.3 % (11.5-14.5); WHITE BLOOD COUNT 7.4 X10'3 (4.5-11.0)
[2020-06-09 08:00] VITALS: BP 131/82
[2020-06-09] MEDS: gabapentin 300mg capsule PO SCH ×2 (08:45→12:37)
[2020-06-09] MEDS: thiothixene 2mg capsule PO SCH ×2 (08:45→20:44)
[2020-06-09] MEDS: divalproex sodium 500mg tablet.DR PO SCH ×2 (08:45→20:43)
[2020-06-09] MEDS: clonazePAM 0.5mg tablet PO SCH ×2 (08:45→20:42)
[2020-06-09] MEDS: clozapine 25mg tablet PO SCH ×3 (08:45→20:43)
[2020-06-09] MEDS: pantoprazole 40mg Tablet.DR PO SCH (08:46)
[2020-06-09] MEDS: benztropine 1mg tablet PO SCH ×2 (08:46→20:42)
[2020-06-09] MEDS: ibuprofen tablet 400 MG TABLET PO SCH ×3 (08:46→16:47)
[2020-06-09] MEDS: QUEtiapine 25mg tablet PO SCH ×2 (08:46→12:37)
[2020-06-09] MEDS: NICOTINE POLACRILEX 2 MG LOZENGE BC PRN ×3 (11:49→18:55)
--- NOTE | 2020-06-09 17:42 | NUR ---
NURSING PROGRESS NOTE Legal hold: T-Con Client on involuntary status for GD/DTO Report received from MARIBEL Mclean with use of SBAR Why are they here: Patient reported increased auditory and visual hallucinations. Patient heard voices coming from the buildings saying, "We're going to kill you." Patient believes others are controlling him. And believes camera's are watching him in his car. Patient is currently homeless and may not have been taking his medications. Assessment What has happened this shift: Received patient asleep in his room. Pt. isolated to his room most of the the AM. 1:1 done at bedside, pt. reports his voices are quiet today. Pt. denies SI/HI, A/V hallucinations. Pt. reports he is looking forward to placement. In afternoon pt. observed playing Monopoly with peers and students, pt. won and was stating that he was pleased about it. S/I, H/I: Denies A/VH: Denies Sleep: Napped intermittently throughout the day ADL's: Independent. Pt. showered today. Group attendance: No scheduled group today. Were meds taken: Yes Any med S/E: None reported or observed. Mental Status Exam Appearance: Clean, neat, dressed appropriately own casual clothes. Eye contact: WNL Behavior: Cooperative, isolative in the AM, polite, playing games with peers and students. Speech: WNL. Mood: Euthymic with some anxiety. Affect: Congruent with mood Thought process: Linear Thought Content: Circumstantial. Cognition: A&Ox4 Insight: Fair Judgment: Fair. Interventions PRN's used: Nicotine lozenge Therapeutic interventions: 1:1 assessment, active listening, reality orientation, medication education/administration/monitoring, encouragement to perform personal care and attend groups, maintained q15m safety checks. Restraints/seclusion/emergency medication: None Justification of Continued Inpatient Treatment: Patient continues to exhibit psychotic symptoms and mood lability. Patient continues to be a high risk for discharge and requires continued medication adjustment in a safe and supportive milieu. Pt is reasonably aware that he will be going for LPS conservatorship.
[2020-06-09 19:00] VITALS: BP 139/96
[2020-06-09 19:28] LABS: BASOPHILS % (AUTO) 0.5 % (0-1); EOSINOPHILS # (AUTO) 0.2 X10'3 (0-0.9); EOSINOPHILS % (AUTO) 2.3 % (0-6); HEMOGLOBIN 14.9 g/dl (14.0-17.9); LYMPHOCYTES # (AUTO) 2.5 X10'3 (1.1-4.8); LYMPHOCYTES % (AUTO) 37.5 % (21-51); MEAN CORPUSCULAR HEMOGLOBIN 28.3 PG (27.0-31.0); MEAN CORPUSCULAR VOLUME 85.6 FL (78-98); MEAN PLATELET VOLUME 8.1 FL (7.4-10.4); MONOCYTES # (AUTO) 0.9 X10'3 (0-0.9); MONOCYTES % (AUTO) 13.5 % (2-12); NEUTROPHILS % (AUTO) 46.2 % (42-75); PLATELET COUNT 169 X10'3 (140-440); RED BLOOD COUNT 5.26 X10'6 (4.70-6.10); RED CELL DISTRIBUTION WIDTH 15.4 % (11.5-14.5); WHITE BLOOD COUNT 6.5 X10'3 (4.5-11.0)
[2020-06-09 19:36] LABS: ALANINE AMINOTRANSFERASE 25 U/L (12-78); ALBUMIN 3.6 G/DL (3.4-5.0); ALKALINE PHOSPHATASE 66 IU/L (46-116); ANION GAP 10 (8-16); ASPARTATE AMINO TRANSFERASE 6 U/L (10-37); BILIRUBIN,TOTAL 0.2 MG/DL (0.1-1.0); BLOOD UREA NITROGEN 16 MG/DL (7-18); BUN/CREATININE RATIO 17.2 (5.4-32.0); CALCIUM 8.8 MG/DL (8.5-10.1); CHLORIDE 106 MMOL/L (99-107); CREATININE 0.93 MG/DL (0.60-1.10); GLUCOSE 98 MG/DL (70-104); POTASSIUM 4.4 MMOL/L (3.5-5.1); SODIUM 142 MMOL/L (135-145); TOTAL CARBON DIOXIDE 26.4 MMOL/L (24-32); TOTAL PROTEIN 7.2 G/DL (6.4-8.2); eGFR > 90 ML/MIN
[2020-06-09] MEDS: quetiapine 100mg tablet PO SCH (20:42)
[2020-06-09] MEDS: gabapentin 400mg capsule PO SCH (20:42)
[2020-06-09] MEDS: clozapine 100mg tablet PO SCH (20:43)
[2020-06-09] MEDS: traZODone 50mg tablet PO PRN (22:46)
--- NOTE | 2020-06-10 03:17 | NUR ---
NURSING PROGRESS NOTE Gianni Legal hold: T-Con Client on involuntary status for GD/DTO Report received from MARIBEL Byrne with use of SBAR Why are they here: Patient reported increased auditory and visual hallucinations. Patient heard voices coming from the buildings saying, "We're going to kill you." Patient believes others are controlling him. And believes camera's are watching him in his car. Patient is currently homeless and may not have been taking his medications. Assessment What has happened this shift: Pt up and walking the hallways smiling and polite with peers and staff. Pt talking with peers in the rec room. 1:1 done at bedside, pt. reports his voices are quiet today. Pt. denies SI/HI, A/V hallucinations. Pt had an x-ray done this evening of his LLQ for abdominal pain. Pt up requesting PRN medication to help him sleep, provider ordered 100MG of trazadone. S/I, H/I: Denies A/VH: Denies Sleep: ADL's: Independent. Group attendance Were meds taken: Yes Any med S/E: None reported or observed. Mental Status Exam Appearance: Clean, neat, dressed appropriately own casual clothes. Eye contact: WNL Behavior: Cooperative, isolative Speech: WNL. Mood: Euthymic with some anxiety. Affect: Congruent with mood Thought process: Linear Thought Content: Circumstantial. Cognition: A&Ox4 Insight: Fair Judgment: Fair. Interventions PRN's used: Nicotine lozenge, trazadone Therapeutic interventions: 1:1 assessment, active listening, reality orientation, medication education/administration/monitoring, encouragement to perform personal care and attend groups, maintained q15m safety checks. Restraints/seclusion/emergency medication: None Justification of Continued Inpatient Treatment: Patient continues to exhibit psychotic symptoms and mood lability. Patient continues to be a high risk for discharge and requires continued medication adjustment in a safe and supportive milieu. Pt is reasonably aware that he will be going for LPS conservatorship.
[2020-06-10 07:33] VITALS: BP 124/75
[2020-06-10] MEDS: thiothixene 2mg capsule PO SCH ×2 (08:28→19:01)
[2020-06-10] MEDS: clozapine 25mg tablet PO SCH ×3 (08:28→20:06)
[2020-06-10] MEDS: QUEtiapine 25mg tablet PO SCH ×2 (08:28→12:49)
[2020-06-10] MEDS: clonazePAM 0.5mg tablet PO SCH ×3 (08:28→21:00)
[2020-06-10] MEDS: benztropine 1mg tablet PO SCH ×2 (08:28→19:00)
[2020-06-10] MEDS: gabapentin 300mg capsule PO SCH ×2 (08:29→12:50)
[2020-06-10] MEDS: divalproex sodium 500mg tablet.DR PO SCH ×2 (08:29→20:06)
[2020-06-10] MEDS: pantoprazole 40mg Tablet.DR PO SCH (08:30)
[2020-06-10] MEDS: ibuprofen tablet 400 MG TABLET PO SCH ×3 (08:30→16:35)
[2020-06-10] MEDS: tizanidine 4mg tablet PO SCH ×3 (08:31→16:30)
[2020-06-10] MEDS: NICOTINE POLACRILEX 2 MG LOZENGE BC PRN ×3 (13:04→20:24)
--- NOTE | 2020-06-10 17:02 | NUR ---
Gianni NURSING PROGRESS NOTE Gianni Legal hold: T-Con Client on involuntary status for GD/DTO Report received from MARIBEL Eric with use of SBAR Why are they here: Patient reported increased auditory and visual hallucinations. Patient heard voices coming from the buildings saying, "We're going to kill you." Patient believes others are controlling him. And believes camera's are watching him in his car. Patient is currently homeless and may not have been taking his medications. Assessment What has happened this shift: Pt slept through breakfast this am. He states he just didnt want it. He took most of his medications but refused Niacin stating Im going to talk to the Dr about coming off of it. He also refused Motrin. When asked about BMs and LLQ pain pt states Im fine. Pt refuses any MOM. He napped off and on and sat in the tv room. He is short in his answers and responds minimally and irritated. Toward the end of shift his mood changed and he was pleasant but focused on meds . S/I, H/I: Pt does not respond A/VH: Responds to Internal stimuli Sleep: Some naps during the day ADL's: Independent. Group attendance: No Were meds taken: Yes, but refused Niacin, motrin (and MOM prn) Any med S/E: None noted Mental Status Exam Appearance: Wearing his own clothes and hat Eye contact: Mumbles Behavior: Isolative. Speech: WNL. Mood: Somewhat labile Affect: Blunted Thought process: Unable to assess Thought Content: Circumstantial, meds focused. Cognition: Alert Insight: Fair Judgment: Fair. Interventions PRN's used: Nicotine lozenges, Therapeutic interventions: 1:1 assessment, active listening, reality orientation, medication education/administration/monitoring, encouragement to perform personal care and attend groups, maintained q15m safety checks. Restraints/seclusion/emergency medication: None Justification of Continued Inpatient Treatment: Patient continues to exhibit psychotic symptoms and mood lability. Patient continues to be a high risk for discharge and requires continued medication adjustment in a safe and supportive milieu. Pt is reasonably aware that he will be going for LPS conservatorship.
[2020-06-10] MEDS: traZODone 50mg tablet PO PRN (19:03)
[2020-06-10 20:00] VITALS: BP 151/95
[2020-06-10] MEDS: gabapentin 400mg capsule PO SCH (20:06)
[2020-06-10] MEDS: clozapine 100mg tablet PO SCH (20:06)
[2020-06-10] MEDS: quetiapine 100mg tablet PO SCH (20:06)
--- NOTE | 2020-06-11 00:27 | NUR ---
NURSING PROGRESS NOTE Gianni Legal hold: T-Con Client on involuntary status for GD/DTO Report received from MARIBEL Byrne with use of SBAR Why are they here: Patient reported increased auditory and visual hallucinations. Patient heard voices coming from the buildings saying, "We're going to kill you." Patient believes others are controlling him. And believes camera's are watching him in his car. Patient is currently homeless and may not have been taking his medications. Assessment What has happened this shift: pt was active on the unit, walking at times and also watching tv in the rec room. Pt is polite and cooperative for all assessments and care. Pt requested additional Klonopin but was ok with trying Seroquel to help him sleep. Pt denied having any complaints and accepted hs meds without issue. S/I, H/I: Denies A/VH: Denies Sleep: ADL's: Independent. Group attendance Were meds taken: Yes Any med S/E: None reported or observed. Mental Status Exam Appearance: Clean, neat, dressed appropriately own casual clothes. Eye contact: WNL Behavior: Cooperative, isolative Speech: WNL. Mood: Euthymic with some anxiety. Affect: Congruent with mood Thought process: Linear Thought Content: Circumstantial. Cognition: A&Ox4 Insight: Fair Judgment: Fair. Interventions PRN's used: Nicotine lozenge, trazadone Therapeutic interventions: 1:1 assessment, active listening, reality orientation, medication education/administration/monitoring, encouragement to perform personal care and attend groups, maintained q15m safety checks. Restraints/seclusion/emergency medication: None Justification of Continued Inpatient Treatment: Patient continues to exhibit psychotic symptoms and mood lability. Patient continues to be a high risk for discharge and requires continued medication adjustment in a safe and supportive milieu. Pt is reasonably aware that he will be going for LPS conservatorship.
[2020-06-11] MEDS: gabapentin 300mg capsule PO SCH ×2 (07:30→12:40)
[2020-06-11] MEDS: QUEtiapine 25mg tablet PO SCH ×2 (07:30→12:40)
[2020-06-11] MEDS: pantoprazole 40mg Tablet.DR PO SCH (07:30)
[2020-06-11 07:48] VITALS: BP 135/77
[2020-06-11] MEDS: thiothixene 2mg capsule PO SCH ×2 (08:59→20:19)
[2020-06-11] MEDS: divalproex sodium 500mg tablet.DR PO SCH ×2 (09:00→20:20)
[2020-06-11] MEDS: benztropine 1mg tablet PO SCH ×2 (09:00→20:20)
[2020-06-11] MEDS: clozapine 25mg tablet PO SCH ×3 (09:00→20:21)
[2020-06-11] MEDS: tizanidine 4mg tablet PO SCH ×3 (09:00→16:32)
[2020-06-11] MEDS: ibuprofen tablet 400 MG TABLET PO SCH ×3 (09:00→16:34)
[2020-06-11] MEDS: clonazePAM 0.5mg tablet PO SCH ×3 (09:02→19:17)
[2020-06-11] MEDS: NICOTINE POLACRILEX 2 MG LOZENGE BC PRN ×3 (09:34→21:11)
--- NOTE | 2020-06-11 16:23 | NUR ---
NURSING PROGRESS NOTE Gianni Legal hold: T-Con Client on involuntary status for GD Report received from Nabila Bunn RN with use of SBAR Why are they here: Patient reported increased auditory and visual hallucinations. Patient heard voices coming from the buildings saying, "We're going to kill you." Patient believes others are controlling him. And believes camera's are watching him in his car. Patient is currently homeless and may not have been taking his medications. Assessment What has happened this shift: Gianni was up for breakfast this morning and quickly retreated to his room, this engineering technical writer brought in morning medication along with prune juice, do to c/o constipation, patient I cannot drink that I dont want anything to drink, I really can drink anything. Patient did take his medication with a small sip of water. This engineering technical writer explained to Gianni that I would be doing an assessment of his belly to determine if he needs help getting his stool to move. Patient seemed to be agreeable. Gianni states that he had a BM yesterday and he is avoiding any prune juice or assessments, I have gone to the bathroom Patients mother called today asking about visiting hours and how her son was doing, Gianni seemed happy to hear that his mother called and is requesting that we try to get her phone number so that he can call her in the future. S/I, H/I: Denies A/VH: Denies Sleep: per NOC 8.5 ADL's: Independent. Group attendance: none today Were meds taken: Yes Any med S/E: None reported or observed. Mental Status Exam Appearance: Clean, neat, dressed appropriately own casual clothes. Eye contact: WNL Behavior: Cooperative, isolative Speech: WNL. Mood: Euthymic with some anxiety. Affect: Congruent with mood Thought process: Linear Thought Content: Circumstantial. Cognition: A&Ox4 Insight: Fair Judgment: Fair. Interventions PRN's used: Nicotine lozenge Therapeutic interventions: 1:1 assessment, active listening, reality orientation, medication education/administration/monitoring, encouragement to perform personal care and attend groups, maintained q15m safety checks. Restraints/seclusion/emergency medication: None Justification of Continued Inpatient Treatment: Gianni is on a T-con with [facility] due to failed outpatient treatment plan.
[2020-06-11] MEDS: gabapentin 400mg capsule PO SCH (20:19)
[2020-06-11] MEDS: clozapine 100mg tablet PO SCH (20:20)
[2020-06-11] MEDS: quetiapine 100mg tablet PO SCH (20:21)
[2020-06-11 20:31] VITALS: BP 142/90
[2020-06-11] MEDS: docusate sod 250mg capsule PO SCH (21:10)
--- NOTE | 2020-06-11 23:56 | NUR ---
NURSING PROGRESS NOTE Gianni Legal hold: T-Con Client on involuntary status for GD Report received from Caty LÓPEZ with use of SBAR Why are they here: Patient reported increased auditory and visual hallucinations. Patient heard voices coming from the buildings saying, "We're going to kill you." Patient believes others are controlling him. And believes camera's are watching him in his car. Patient is currently homeless and may not have been taking his medications. Assessment What has happened this shift: Gianni was in his room at shift change.Pt asked for a Nicotine lozenge and thirty min latter he asked for his Klonopin early and JAYLIN Millan ok'd it. Pt states he wanted it early because he wanted to stay up for a little while and watch tv.. Patient did take his medication then went to bed about an hour later. Pt states that he had another bowl movement today. S/I, H/I: Denies A/VH: Denies Sleep: per NOC 8.5 ADL's: Independent. Group attendance: none today Were meds taken: Yes Any med S/E: None reported or observed. Mental Status Exam Appearance: Clean, neat, dressed appropriately own casual clothes. Eye contact: WNL Behavior: Cooperative, isolative Speech: WNL. Mood: Euthymic with some anxiety. Affect: Congruent with mood Thought process: Linear Thought Content: Circumstantial. Cognition: A&Ox4 Insight: Fair Judgment: Fair. Interventions PRN's used: Nicotine lozenge Therapeutic interventions: 1:1 assessment, active listening, reality orientation, medication education/administration/monitoring, encouragement to perform personal care and attend groups, maintained q15m safety checks. Restraints/seclusion/emergency medication: None Justification of Continued Inpatient Treatment: Gianni is on a T-con with [facility] due to failed outpatient treatment plan.
[2020-06-12 07:30] VITALS: BP 121/67
[2020-06-12] MEDS: clonazePAM 0.5mg tablet PO SCH ×3 (08:00→20:11)
--- NOTE | 2020-06-12 08:21 | NUR ---
F/u 06/12: Pt PO 75-100% avg regular diet meeting needs. BM 06/09 documented as constipated but also w /formed daily BM's per EMR likely error; receiving routine colace. No nutrition concerns at this time. Will continue to monitor. Rec: 1. continue regular diet 2. routine bowel care 3. weekly wts Addendum: 06/12/20 at [address] Amended: Links added.
[2020-06-12] MEDS: ibuprofen tablet 400 MG TABLET PO SCH ×3 (10:41→16:56)
[2020-06-12] MEDS: benztropine 1mg tablet PO SCH ×2 (10:41→20:10)
[2020-06-12] MEDS: thiothixene 2mg capsule PO SCH ×2 (10:41→20:09)
[2020-06-12] MEDS: gabapentin 300mg capsule PO SCH ×2 (10:42→13:38)
[2020-06-12] MEDS: divalproex sodium 500mg tablet.DR PO SCH ×2 (10:42→20:11)
[2020-06-12] MEDS: clozapine 25mg tablet PO SCH ×3 (10:42→20:11)
[2020-06-12] MEDS: pantoprazole 40mg Tablet.DR PO SCH (10:43)
[2020-06-12] MEDS: QUEtiapine 25mg tablet PO SCH ×2 (10:43→13:38)
[2020-06-12] MEDS: tizanidine 4mg tablet PO SCH ×3 (10:43→15:34)
[2020-06-12] MEDS: NICOTINE POLACRILEX 2 MG LOZENGE BC PRN ×3 (11:20→22:03)
[2020-06-12] MEDS ORDERED: clonazePAM 0.5mg tablet PO ONE (15:30)
--- NOTE | 2020-06-12 16:38 | NUR ---
NURSING PROGRESS NOTE: NIDHI Legal hold: T-Con Client on involuntary status for GD Report received from MARIBEL Ramirez with use of SBAR Why are they here: Patient reported increased auditory and visual hallucinations. Patient heard voices coming from the buildings saying, "We're going to kill you." Patient believes others are controlling him. And believes camera's are watching him in his car. Patient is currently homeless and may not have been taking his medications. Assessment What has happened this shift: Received patient sleeping at shift change, no distress noted. Pt sleeps late as his normal routine. Compliant with medication and care. Held AM Klonopin 0.5mg r/t sedation. Observed mild hand tremors while pt was taking meds. Pt reports LBM yesterday and states It was fine. Reports stool was not hard. Malt Loader encouraged fluids, ambulation, pt was administered prune juice, but declined MOM. Abdomen is firm and slightly tender upon palpation. Malt Loader educated pt on the importance of regular BM. Pt reports minimal AH in the morning, but related differently to provider. Klonopin 0.5 mg ONCE dose was administered with effect. Pt declined patio break with group. Pt isolated to his room most of the day listening to headphones. S/I, H/I: Denies both. A/VH: Denied both, but r/t provider voices were bad. Sleep: 6.75 hours per sleep assessment. Slept throughout the day. ADL's: Independent. Group attendance: No scheduled group today. Were meds taken: Yes, without hesitation. Held AM Klonopin. Any med S/E: None reported or observed. Mental Status Exam Appearance: Clean, neat, dressed appropriately own casual clothes. Eye contact: Good. Behavior: Cooperative, isolative, calm. Speech: Audible, normal rate/rhythm. Mood: Euthymic with some anxiety. Affect: Congruent with mood Thought process: Linear Thought Content: Wants to discharge. Cognition: A&Ox4 Insight: Fair Judgment: Fair. Interventions PRN's used: Nicotine lozenge Therapeutic interventions: 1:1 assessment, active listening, reality orientation, medication education/administration/monitoring, encouragement to perform personal care and attend groups, maintained Q15m safety checks. Restraints/seclusion/emergency medication: N/A Justification of Continued Inpatient Treatment: Nidhi is on a T-con with [facility] due to failed outpatient treatment plan. Patient is waiting placement.
[2020-06-12 20:02] VITALS: BP 148/100
[2020-06-12] MEDS: docusate sod 250mg capsule PO SCH (20:09)
[2020-06-12] MEDS: clozapine 100mg tablet PO SCH (20:10)
[2020-06-12] MEDS: gabapentin 400mg capsule PO SCH (20:10)
[2020-06-12] MEDS: quetiapine 100mg tablet PO SCH (20:10)
[2020-06-13] MEDS: pantoprazole 40mg Tablet.DR PO SCH (07:44)
[2020-06-13] MEDS: clonazePAM 0.5mg tablet PO SCH ×3 (07:44→20:08)
[2020-06-13] MEDS: QUEtiapine 25mg tablet PO SCH ×2 (07:44→12:46)
[2020-06-13] MEDS: ibuprofen tablet 400 MG TABLET PO SCH ×3 (07:44→17:55)
[2020-06-13] MEDS: benztropine 1mg tablet PO SCH ×2 (07:44→20:07)
[2020-06-13] MEDS: thiothixene 2mg capsule PO SCH ×2 (07:44→20:07)
[2020-06-13] MEDS: divalproex sodium 500mg tablet.DR PO SCH ×2 (07:44→20:08)
[2020-06-13] MEDS: tizanidine 4mg tablet PO SCH ×3 (07:44→16:23)
[2020-06-13] MEDS: gabapentin 300mg capsule PO SCH ×2 (07:45→12:45)
[2020-06-13] MEDS: clozapine 25mg tablet PO SCH ×3 (07:45→20:09)
[2020-06-13 08:55] VITALS: BP 133/97
--- NOTE | 2020-06-13 09:14 | NUR ---
PLACEMENT UPDATE Sent last [address] and RN notes to [facility] office with med list in order for them to seek placement. DOMO Saldana
[2020-06-13 11:28] VITALS: BP 133/97
[2020-06-13] MEDS: NICOTINE POLACRILEX 2 MG LOZENGE BC PRN ×3 (11:33→20:30)
[2020-06-13] MEDS: QUEtiapine 25mg tablet PO PRN (14:58)
--- NOTE | 2020-06-13 17:12 | NUR ---
NURSING PROGRESS NOTE: NIDHI Legal hold: T-Con Client on involuntary status for GD Report received from MARIBEL Boston with use of SBAR Why are they here: Patient reported increased auditory and visual hallucinations. Patient heard voices coming from the buildings saying, "We're going to kill you." Patient believes others are controlling him. And believes cameras are watching him in his car. Patient is currently homeless and may not have been taking his medications. Assessment What has happened this shift: Received patient sleeping at shift change, no distress noted. Pt sleeps late as his normal routine. Compliant with medication and care. Pt received a visit from his mother today, who told him she had bad news. Pts brother had a severe suicide attempt by cutting up his arms. Pts mother went into detail about incident. Pt appeared to handle it well during visitation, but voiced I think he did because we havent talked. Pt stated his brother got out of senior living as he was coming into [facility]. Furniture Removalist'S Assistant reinforced to pt that he was not responsible for his brothers actions. Furniture Removalist'S Assistant heard one small outburst from patient pt as he sat in his room. Pt stated I am trying to keep the medicine in my stomach, it comes out with magic. The voices control me sometimes. Pt declined a PRN at that time, but later came and requested PRN Seroquel. PRN was effective as pt was resting comfortably as of this writing (1710). Will continue to monitor and endorse to next shift. No abdominal complaints today. S/I, H/I: Denies both. A/VH: See note above. Sleep: 7.0 hours per sleep assessment. Slept throughout the day. ADL's: Independent. Group attendance: No scheduled group today. Were meds taken: Yes, without hesitation. Any med S/E: None reported or observed. Mental Status Exam Appearance: Clean, neat, dressed appropriately own casual clothes. Eye contact: Good. Behavior: Cooperative, isolative, calm. Once outburst. Speech: Audible, normal rate/rhythm. Mood: Euthymic with some anxiety. Affect: Congruent with mood Thought process: Linear Thought Content: Wants to discharge. Cognition: A&Ox4 Insight: Fair Judgment: Fair. Interventions PRN's used: Nicotine lozenge Therapeutic interventions: 1:1 assessment, active listening, reality orientation, medication education/administration/monitoring, encouragement to perform personal care and attend groups, maintained Q15m safety checks. Restraints/seclusion/emergency medication: N/A Justification of Continued Inpatient Treatment: Nidhi is on a T-con with [facility] due to failed outpatient treatment plan. Patient is waiting placement.
[2020-06-13] MEDS: docusate sod 250mg capsule PO SCH (20:07)
[2020-06-13] MEDS: gabapentin 400mg capsule PO SCH (20:08)
[2020-06-13] MEDS: clozapine 100mg tablet PO SCH (20:08)
[2020-06-13] MEDS: quetiapine 100mg tablet PO SCH (20:08)
[2020-06-13 20:27] VITALS: BP 137/84
--- NOTE | 2020-06-13 23:53 | NUR ---
NURSING PROGRESS NOTE: NIDHI Legal hold: T-Con Client on involuntary status for GD Report received from MARIBEL Byrne with use of SBAR Why are they here: Patient reported increased auditory and visual hallucinations. Patient heard voices coming from the buildings saying, "We're going to kill you." Patient believes others are controlling him. And believes cameras are watching him in his car. Patient is currently homeless and may not have been taking his medications. Assessment What has happened this shift: Received patient sleeping at shift change, no distress noted. Compliant with medication and care. Pt seemed to handle the information this shift about his brothers suicide attempt. He was pleasant and thankful when helped with his request. Pt got up and ate snack in group room before going back to bed. No abdominal complaints today. S/I, H/I: Denies both. A/VH: See note above. Sleep: See sleep hrs. ADL's: Independent. Group attendance: No scheduled group today. Were meds taken: Yes, without hesitation. Any med S/E: None reported or observed. Mental Status Exam Appearance: Clean, neat, dressed appropriately own casual clothes. Eye contact: Good. Behavior: Cooperative, isolative, calm. Once outburst. Speech: Audible, normal rate/rhythm. Mood: Euthymic with some anxiety. Affect: Congruent with mood Thought process: Linear Thought Content: Wants to discharge. Cognition: A&Ox4 Insight: Fair Judgment: Fair. Interventions PRN's used: Nicotine lozenge Therapeutic interventions: 1:1 assessment, active listening, reality orientation, medication education/administration/monitoring, encouragement to perform personal care and attend groups, maintained Q15m safety checks. Restraints/seclusion/emergency medication: N/A Justification of Continued Inpatient Treatment: Nidhi is on a T-con with [facility] due to failed outpatient treatment plan. Patient is waiting placement.
[2020-06-14 08:11] VITALS: BP 144/84
[2020-06-14] MEDS: tizanidine 4mg tablet PO SCH ×3 (08:34→12:42)
[2020-06-14] MEDS: pantoprazole 40mg Tablet.DR PO SCH (08:35)
[2020-06-14] MEDS: clonazePAM 0.5mg tablet PO SCH ×3 (08:35→20:40)
[2020-06-14] MEDS: gabapentin 300mg capsule PO SCH ×2 (08:35→12:41)
[2020-06-14] MEDS: divalproex sodium 500mg tablet.DR PO SCH ×2 (08:35→20:40)
[2020-06-14] MEDS: clozapine 25mg tablet PO SCH ×3 (08:35→20:40)
[2020-06-14] MEDS: QUEtiapine 25mg tablet PO SCH ×2 (08:36→12:41)
[2020-06-14] MEDS: thiothixene 2mg capsule PO SCH ×2 (08:36→20:39)
[2020-06-14] MEDS: benztropine 1mg tablet PO SCH ×2 (08:36→20:40)
[2020-06-14] MEDS: ibuprofen tablet 400 MG TABLET PO SCH ×3 (08:37→16:52)
[2020-06-14] MEDS: NICOTINE POLACRILEX 2 MG LOZENGE BC PRN ×3 (13:01→19:09)
--- NOTE | 2020-06-14 17:04 | NUR ---
NURSING PROGRESS NOTE: NIDHI Legal hold: T-Con Client on involuntary status for GD Report received from MARIBEL Boston with use of SBAR Why are they here: Patient reported increased auditory and visual hallucinations. Patient heard voices coming from the buildings saying, "We're going to kill you." Patient believes others are controlling him. And believes cameras are watching him in his car. Patient is currently homeless and may not have been taking his medications. Assessment What has happened this shift: Patient sleeping at shift change, no distress noted. Pt sleeps in, but is compliant with medication and care. Noted to abdominal complaints today. Pt was more visible on unit and presented with a bright affect. Pt reports the voices are good (meaning they are better today.) Pt remained awake for a good portion of the afternoon and participated in a game of Cancer Genetics with peers. No outbursts or delusional statements made. No PRNs required as of this writing. S/I, H/I: Denies both. A/VH: See note above. Sleep: 8.0 hours per sleep assessment. Slept in late. ADL's: Independent. Group attendance: No scheduled group today. Were meds taken: Yes, without hesitation. Any med S/E: None reported or observed. Mental Status Exam Appearance: Disheveled. Dressed appropriately own casual clothes. Eye contact: Good. Behavior: Cooperative, isolative, calm. Speech: Audible, normal rate/rhythm. Mood: Euthymic with some brightening. Affect: Congruent with mood Thought process: Linear Thought Content: Wants to discharge. Cognition: A&Ox4 Insight: Fair Judgment: Fair. Interventions PRN's used: Nicotine lozenge Therapeutic interventions: 1:1 assessment, active listening, reality orientation, medication education/administration/monitoring, encouragement to perform personal care and attend groups, maintained Q15m safety checks. Restraints/seclusion/emergency medication: N/A Justification of Continued Inpatient Treatment: Nidhi is on a T-con with [facility] due to failed outpatient treatment plan. Patient is waiting placement.
[2020-06-14] MEDS: QUEtiapine 25mg tablet PO PRN (18:59)
[2020-06-14] MEDS: acetaminophen 325mg tablet PO PRN (19:11)
--- NOTE | 2020-06-14 19:37 | NUR ---
Pts nurse notified me that pt is complaining of some chest discomfort and palpations, I went with her to assess pt. his B/P was taken and manually was 150/110 P 72 and irregular, R 18, pt does report feeling like a shocking sensation is occuring and point to his lower chest area and showed the pain going from L to R side of lower chest, denies pain, no diaphoresis, does c/o of sob, but breathing does not appear labored, O2 sat 95% on RA, notified Dr Castro and he ordered EKG to be done now to r/o cardiac cause.
[2020-06-14 20:00] VITALS: BP 110/77
[2020-06-14] MEDS: clozapine 100mg tablet PO SCH (20:39)
[2020-06-14] MEDS: docusate sod 250mg capsule PO SCH (20:39)
[2020-06-14] MEDS: quetiapine 100mg tablet PO SCH (20:39)
[2020-06-14] MEDS: gabapentin 400mg capsule PO SCH (20:40)
[2020-06-15] MEDS: tizanidine 4mg tablet PO SCH ×3 (00:15→16:53)
[2020-06-15] MEDS: NICOTINE POLACRILEX 2 MG LOZENGE BC PRN ×3 (02:06→16:53)
--- NOTE | 2020-06-15 02:20 | NUR ---
NURSING PROGRESS NOTE: NIDHI Jordan Legal hold: T-Con Client on involuntary status for GD Report received from Antoine RN with use of SBAR Why are they here: Patient reported increased auditory and visual hallucinations. Patient heard voices coming from the buildings saying, "We're going to kill you." Patient believes others are controlling him. And believes cameras are watching him in his car. Patient is currently homeless and may not have been taking his medications. Assessment What has happened this shift: Patient came up to the nursing station and c/o some left shoulder intermittent pain (2/10) and thought it could be anxiety induced. Lungs and heart were clear upon auscultation, 50MG Seroquel and 650MG Tylenol given. 15 minutes later patient c/o of chest discomfort with palpitations, radiating from his left mid chest down to his right lower abdomen. (510). CN notified and went into the room with this RN to assess patient. Manual BP 150/110, P 72 and irregular, R 18, no diaphoresis, no nausea, c/o SOB but breathing not labored. EKG done which revealed NSR/NONSTEMI per ER Doctor. Pt up for snacks and took all NOC medications without incident. Pt stated he felt better (more relaxed) and his pain is 1/10. S/I, H/I: Denies both. A/VH: Denies Sleep: ADL's: Independent. Group attendance: Were meds taken: Yes, without hesitation. Any med S/E: None reported or observed. Mental Status Exam Appearance: Disheveled. Dressed appropriately own casual clothes. Eye contact: Good. Behavior: Cooperative, isolative, calm. Speech: Audible, normal rate/rhythm. Mood: Euthymic with some brightening. Affect: Congruent with mood Thought process: Linear Thought Content: Wants to discharge. Cognition: A&Ox4 Insight: Fair Judgment: Fair. Interventions PRN's used: Nicotine lozenge, Tylenol, Seroquel Therapeutic interventions: 1:1 assessment, active listening, reality orientation, medication education/administration/monitoring, encouragement to perform personal care and attend groups, maintained Q15m safety checks. Restraints/seclusion/emergency medication: N/A Justification of Continued Inpatient Treatment: Nidhi is on a T-con with [facility] due to failed outpatient treatment plan. Patient is waiting placement.
[2020-06-15] MEDS: QUEtiapine 25mg tablet PO PRN (03:27)
[2020-06-15 08:00] VITALS: BP 139/71
[2020-06-15] MEDS: ibuprofen tablet 400 MG TABLET PO SCH ×3 (08:59→16:53)
[2020-06-15] MEDS: gabapentin 300mg capsule PO SCH ×2 (09:00→13:29)
[2020-06-15] MEDS: pantoprazole 40mg Tablet.DR PO SCH (09:00)
[2020-06-15] MEDS: thiothixene 2mg capsule PO SCH ×2 (09:00→20:40)
[2020-06-15] MEDS: clonazePAM 0.5mg tablet PO SCH ×3 (09:00→20:40)
[2020-06-15] MEDS: QUEtiapine 25mg tablet PO SCH ×2 (09:00→13:29)
[2020-06-15] MEDS: benztropine 1mg tablet PO SCH ×2 (09:00→20:40)
[2020-06-15] MEDS: clozapine 25mg tablet PO SCH ×3 (09:01→20:41)
[2020-06-15] MEDS: divalproex sodium 500mg tablet.DR PO SCH ×2 (09:01→20:41)
--- NOTE | 2020-06-15 09:51 | NUR ---
PLACEMENT UPDATE Packet sent to [facility] Panchal [facility] and [place]. DOMO Saldana
[2020-06-15 16:48] LABS: CLARITY,URINE SLIGHTLY CLOUDY (Clear); COLOR,URINE YELLOW (Yellow); GLUCOSE, URINE NEGATIVE (Neg); KETONES,URINE 15 mg/dl (Neg); LEUKOCYTE ESTERASE ,URINE NEGATIVE (Neg); NITRITES, URINE NEGATIVE (Neg); OCCULT BLOOD,URINE NEGATIVE (Neg); PROTEIN,URINE NEGATIVE (Neg)
--- NOTE | 2020-06-15 16:59 | NUR ---
Nursing Progress Note: Legal hold: T-Con Client on involuntary status for DTS Report received from nurse with use of SBAR: MARIBEL Boston Why are they here: Client reported increased auditory and visual hallucinations. Client hears voices coming from buildings saying, "We're going to kill you." Client believes others are controlling him. Client believes camera's are watching him in his car. Client is currently homeless and may not have been taking his medications. Assessment What has happened this shift: Received pt. sleeping at the beginning of the shift, he refused breakfast and was awoken later by this song writer to administer AM medications. Pt. was compliant with medications and then retreated back to bed, he continued to isolate here throughout the shift napping intermittently. Pt. denies any pain and no c/o chest pain reported this shift. Pt. awoke later in the afternoon and consumed his lunch. 1:1 completed at bedside, pt. denies any A/KEYES when questioned by this song writer and states, "I just woke up and they aren't saying anything." However, he appears somewhat internally preoccupied AEB distractibility. When questioned regarding any paranoid thoughts that others would like to hurt him, pt. admitted to feeling some fear and stated, "Somebody always wants to hurt somebody." Upon further questioning by this song writer, pt. denied fearing harm from any particular person. Ordered UA obtained for patient and results pending at this time. He denies any pain or frequency with urination and also reported that he was able to have a BM yesterday. Will endorse to Noc shift and continue to monitor. S/I, H/I: Denies A/VH: Denies, however appears somewhat internally preoccupied AEB distractibility Sleep: Recorded sleep hours are 4, however pt. naps intermittently throughout the shift ADL's: Pt. requires some direction and encouragement Group attendance: N/A Were meds taken: Yes Any med S/E: Yes Mental Status Exam Appearance: Neat and appropriately dressed Eye contact: Fair Behavior: Cooperative, fatigued, guarded and withdrawn Speech: Soft and mumbles, responds to closed-ended questions only Mood: Guarded Affect: Constricted Thought process: Poverty of thought with possible thought blocking Thought Content: Possible A/KEYES and paranoid delusions Cognition: A&O X3 Insight: Poor Judgment: Poor Interventions PRN's used: Nicotine Lozenge Therapeutic interventions: Maintained a safe and therapeutic environment, ensured contract for safety, provided clear and simple instructions, attempted to orient to reality, monitored behaviors and need for intervention, provided direction and positive encouragement, obtained ordered U/A, and maintained Q 15min safety checks. Restraints/seclusion/emergency medication: N/A Justification of Continued Inpatient Treatment: Per JAYLIN Millan, pt. continues to require a safe and supportive environment and is stable at this time. Addendum: 06/15/20 at 1716 by Selma Cruz RN U/A results back and WNL, no culture indicated at this time.
[2020-06-15 17:05] LABS: UA COLLECTION TYPE CLN CATCH MIDSTREAM
[2020-06-15 17:06] LABS: MUCUS STRANDS MODERATE /LPF (Neg); SQUAMOUS EPITHELIAL CELL,UR FEW /LPF (FEW)
[2020-06-15 17:07] LABS: WBC,URINE 0-4 /HPF (0-4)
[2020-06-15 17:08] LABS: AMORPHOUS PHOSPHATES 3+; BACTERIA,URINE NONE SEEN /HPF (Neg); RBC,URINE NONE SEEN /HPF (0-2)
[2020-06-15 19:34] VITALS: BP 156/95
[2020-06-15] MEDS: docusate sod 250mg capsule PO SCH (20:40)
[2020-06-15] MEDS: quetiapine 100mg tablet PO SCH (20:40)
[2020-06-15] MEDS: clozapine 100mg tablet PO SCH (20:40)
[2020-06-15] MEDS: gabapentin 400mg capsule PO SCH (20:40)
--- NOTE | 2020-06-16 03:12 | NUR ---
Nursing Progress Note: Gianni Jordan Legal hold: T-Con Client on involuntary status for DTS Report received from nurse with use of SBAR: Antoine RN Why are they here: Client reported increased auditory and visual hallucinations. Client hears voices coming from buildings saying, "We're going to kill you." Client believes others are controlling him. Client believes camera's are watching him in his car. Client is currently homeless and may not have been taking his medications. Assessment What has happened this shift: Received pt. up in the rec room watching music videos with peers. Pt. was compliant with medications. Pt. denies any pain and no c/o chest pain reported this shift. 1:1 completed at bedside, pt. denies any A/KEYES when questioned by this field underwriter and states, "voices are better today, I dont hear anything right now. However, he appears somewhat internally preoccupied AEB distractibility. S/I, H/I: Denies A/VH: Denies, however appears somewhat internally preoccupied AEB distractibility Sleep: ADL's: Pt. requires some direction and encouragement Group attendance: N/A Were meds taken: Yes Any med S/E: Yes Mental Status Exam Appearance: Neat and appropriately dressed Eye contact: Fair Behavior: Cooperative, fatigued, guarded and withdrawn Speech: Soft and mumbles, responds to closed-ended questions only Mood: Guarded Affect: Constricted Thought process: Poverty of thought with possible thought blocking Thought Content: Possible A/KEYES and paranoid delusions Cognition: A&O X3 Insight: Poor Judgment: Poor Interventions PRN's used: Nicotine Lozenge Therapeutic interventions: Maintained a safe and therapeutic environment, ensured contract for safety, provided clear and simple instructions, attempted to orient to reality, monitored behaviors and need for intervention, provided direction and positive encouragement, obtained ordered U/A, and maintained Q 15min safety checks. Restraints/seclusion/emergency medication: N/A
[2020-06-16] MEDS: pantoprazole 40mg Tablet.DR PO SCH (07:30)
[2020-06-16] MEDS: gabapentin 300mg capsule PO SCH ×2 (07:30→12:33)
[2020-06-16] MEDS: QUEtiapine 25mg tablet PO SCH ×2 (07:30→12:33)
[2020-06-16 07:32] LABS: BASOPHILS % (AUTO) 0.4 % (0-1); EOSINOPHILS # (AUTO) 0.2 X10'3 (0-0.9); HEMATOCRIT 43.7 % (42.0-52.0); HEMOGLOBIN 14.5 g/dl (14.0-17.9); LYMPHOCYTES # (AUTO) 3.4 X10'3 (1.1-4.8); LYMPHOCYTES % (AUTO) 45.1 % (21-51); MEAN CORPUSCULAR HEMOGLOBIN 28.4 PG (27.0-31.0); MEAN CORPUSCULAR HGB CONC 33.3 g/dL (33.0-36.5); MEAN CORPUSCULAR VOLUME 85.3 FL (78-98); MONOCYTES # (AUTO) 0.6 X10'3 (0-0.9); MONOCYTES % (AUTO) 8.1 % (2-12); NEUTROPHILS # (AUTO) 3.3 X10'3 (1.8-7.7); NEUTROPHILS % (AUTO) 43.4 % (42-75); PLATELET COUNT 209 X10'3 (140-440); RED BLOOD COUNT 5.12 X10'6 (4.70-6.10); RED CELL DISTRIBUTION WIDTH 15.1 % (11.5-14.5); WHITE BLOOD COUNT 7.7 X10'3 (4.5-11.0)
[2020-06-16 08:22] VITALS: BP 100/52
[2020-06-16] MEDS: benztropine 1mg tablet PO SCH ×2 (08:52→20:43)
[2020-06-16] MEDS: tizanidine 4mg tablet PO SCH ×3 (08:52→16:15)
[2020-06-16] MEDS: clonazePAM 0.5mg tablet PO SCH ×3 (08:52→20:43)
[2020-06-16] MEDS: clozapine 25mg tablet PO SCH ×3 (08:52→20:43)
[2020-06-16] MEDS: thiothixene 2mg capsule PO SCH ×2 (08:53→20:43)
[2020-06-16] MEDS: divalproex sodium 500mg tablet.DR PO SCH ×2 (08:53→20:44)
[2020-06-16] MEDS: ibuprofen tablet 400 MG TABLET PO SCH ×3 (08:54→17:38)
[2020-06-16] MEDS: NICOTINE POLACRILEX 2 MG LOZENGE BC PRN ×4 (11:46→20:48)
--- NOTE | 2020-06-16 13:39 | NUR ---
Nursing Progress Note: Legal hold: T-Con Client on involuntary status for GD Report received from nurse with use of SBAR: Caridad RN Why are they here: Client reported increased auditory and visual hallucinations. Client hears voices coming from buildings saying, "We're going to kill you." Client believes others are controlling him. Client believes camera's are watching him in his car. Client is currently homeless and may not have been taking his medications. Assessment Per NOC Gianni had a good nights rest, patient slept through breakfast this morning, patient states "I am just tired". Patient took morning medication and allowed bedside assessment. Patient states I am still hearing voices but they are not as loud, "the voices tell me to remember that people are always after people". Gianni isolates to his room and does not interact with peers, patient will speak with staff, although patient does not do any forward thinking. S/I, H/I: Denies A/VH: Denies, however appears somewhat internally preoccupied AEB distractibility Sleep: Recorded sleep hours are 8.75 however pt. naps intermittently throughout the shift ADL's: Pt. requires some direction and encouragement Group attendance: N/A Were meds taken: Yes Any med S/E: Yes Mental Status Exam Appearance: Neat and appropriately dressed Eye contact: Fair Behavior: Cooperative, fatigued, guarded and withdrawn Speech: Soft and mumbles, responds to closed-ended questions only Mood: Guarded Affect: Constricted Thought process: Poverty of thought with possible thought blocking Thought Content: Possible A/KEYES and paranoid delusions Cognition: A&O X3 Insight: Poor Judgment: Poor Interventions PRN's used: Nicotine Lozenge Therapeutic interventions: Maintained a safe and therapeutic environment, ensured contract for safety, provided clear and simple instructions, attempted to orient to reality, monitored behaviors and need for intervention, provided direction and positive encouragement, obtained ordered U/A, and maintained Q 15min safety checks. Restraints/seclusion/emergency medication: N/A Justification of Continued Inpatient Treatment: Gianni is on a T-con with [facility]. Gianni is unable to plan for a safe discharge due to his mental illness.
--- NOTE | 2020-06-16 14:31 | NUR ---
PLACEMENT UPDATE Gianni has been accepted at [facility]. They are trying to get him admitted on Friday06/19/20 pending negative TB and Covid results. Requested chest x-ray and Covid test. DOMO Saldana
--- NOTE | 2020-06-16 15:25 | NUR ---
DISCHARGE Friday06/19/20 Gianni will be discharging on Friday as he has been accepted at [facility]. [facility] [employer] plans on picking him up around 9:30 AM. Gianni and JAYLIN Ramirez, both apprised. DOMO Saldana
[2020-06-16 20:00] VITALS: BP 139/97
[2020-06-16] MEDS: gabapentin 400mg capsule PO SCH (20:43)
[2020-06-16] MEDS: quetiapine 100mg tablet PO SCH (20:43)
[2020-06-16] MEDS: clozapine 100mg tablet PO SCH (20:43)
[2020-06-16] MEDS: docusate sod 250mg capsule PO SCH (20:43)
[2020-06-17] MEDS: tizanidine 4mg tablet PO SCH ×3 (01:11→16:17)
[2020-06-17] MEDS: NICOTINE POLACRILEX 2 MG LOZENGE BC PRN ×2 (01:11→18:05)
--- NOTE | 2020-06-17 02:46 | NUR ---
Nursing Progress Note: Gianni Jordan Legal hold: T-Con Client on involuntary status for GD Report received from nurse with use of SBAR: Antoine RN Why are they here: Client reported increased auditory and visual hallucinations. Client hears voices coming from buildings saying, "We're going to kill you." Client believes others are controlling him. Client believes camera's are watching him in his car. Client is currently homeless and may not have been taking his medications. Assessment Received pt isolating in room, pt took all prescribed medications, calm and cooperative with care. Pt stated he had a fair day and his voices sound like they are behind me. Gianni isolates to his room and does not interact with peers, patient will speak with staff, although patient does not do any forward thinking. Pt took NOC meds and went back to his room. S/I, H/I: Denies A/VH: Denies, however appears somewhat internally preoccupied AEB distractibility Sleep: ADL's: Pt. requires some direction and encouragement Group attendance: N/A Were meds taken: Yes Any med S/E: Yes Mental Status Exam Appearance: Neat and appropriately dressed Eye contact: Fair Behavior: Cooperative, fatigued, guarded and withdrawn Speech: Soft and mumbles, responds to closed-ended questions only Mood: Guarded Affect: Constricted Thought process: Poverty of thought with possible thought blocking Thought Content: Possible A/KEYES and paranoid delusions Cognition: A&O X3 Insight: Poor Judgment: Poor Interventions PRN's used: Nicotine Lozenge Therapeutic interventions: Maintained a safe and therapeutic environment, ensured contract for safety, provided clear and simple instructions, attempted to orient to reality, monitored behaviors and need for intervention, provided direction and positive encouragement, obtained ordered U/A, and maintained Q 15min safety checks. Restraints/seclusion/emergency medication: N/A Justification of Continued Inpatient Treatment: Gianni is on a T-con with [facility]. Gianni is unable to plan for a safe discharge due to his mental illness.
[2020-06-17] MEDS: gabapentin 300mg capsule PO SCH ×2 (07:30→12:34)
[2020-06-17 08:18] VITALS: BP 138/88
[2020-06-17] MEDS: ibuprofen tablet 400 MG TABLET PO SCH ×3 (08:41→16:17)
[2020-06-17] MEDS: clonazePAM 0.5mg tablet PO SCH ×3 (08:41→21:07)
[2020-06-17] MEDS: divalproex sodium 500mg tablet.DR PO SCH ×2 (08:41→21:07)
[2020-06-17] MEDS: benztropine 1mg tablet PO SCH ×2 (08:41→21:05)
[2020-06-17] MEDS: thiothixene 2mg capsule PO SCH ×2 (08:42→21:05)
[2020-06-17] MEDS: pantoprazole 40mg Tablet.DR PO SCH (08:45)
[2020-06-17] MEDS: clozapine 25mg tablet PO SCH ×3 (08:45→21:07)
[2020-06-17] MEDS: QUEtiapine 25mg tablet PO SCH ×2 (08:46→12:34)
--- NOTE | 2020-06-17 13:13 | NUR ---
Nursing Progress Note: Legal hold: T-Con Client on involuntary status for GD Report received from nurse with use of SBAR: Nabila Bunn RN Why are they here: Client reported increased auditory and visual hallucinations. Client hears voices coming from buildings saying, "We're going to kill you." Client believes others are controlling him. Client believes camera's are watching him in his car. Client is currently homeless and may not have been taking his medications. Assessment Patient has been about the same for the past few days. Gianni was awake for all three meals today, medication taken with out prompting. Patient did ask for Nicotine Lozgens today. Gianni told this sports book writer a story about a picture in the hallway, patient states that he is sure that the picture of a filed in [place], [place], Gianni seemed happy and reflective. Gianni isolates to his room most of the day. S/I, H/I: Denies A/VH: Denies, "the voice are further away from me, I can hear them but they are less intense" Sleep: Recorded sleep hours are 6.0however pt. naps intermittently throughout the shift ADL's: Pt. requires some direction and encouragement Group attendance: N/A Were meds taken: Yes Any med S/E: none mentioned Mental Status Exam Appearance: Neat and appropriately dressed Eye contact: Fair Behavior: Cooperative, fatigued, guarded Speech: Soft and clear today Mood: Guarded Affect: Brighter than usual Thought process: Linear today Thought Content: "I feel happy today" Cognition: A&O X3 Insight: Poor Judgment: Poor Interventions PRN's used: Nicotine Lozenge Therapeutic interventions: Maintained a safe and therapeutic environment, ensured contract for safety, provided clear and simple instructions, attempted to orient to reality, monitored behaviors and need for intervention, provided direction and positive encouragement, and maintained Q 15min safety checks. Restraints/seclusion/emergency medication: N/A Justification of Continued Inpatient Treatment: Gianni is on a T-con with [facility]. Gianni is unable to plan for a safe discharge due to his mental illness. Plan is for a 06/19/2020 discharge to [facility] via [facility]
[2020-06-17 19:50] VITALS: BP 101/68
[2020-06-17] MEDS: clozapine 100mg tablet PO SCH (21:06)
[2020-06-17] MEDS: docusate sod 250mg capsule PO SCH (21:07)
[2020-06-17] MEDS: gabapentin 400mg capsule PO SCH (21:08)
[2020-06-17] MEDS: quetiapine 100mg tablet PO SCH (21:08)
--- NOTE | 2020-06-18 01:45 | NUR ---
Nursing Progress Note: Legal hold: T-Con Client on involuntary status for GD Report received from nurse with use of SBAR: Christian RN Why are they here: Client reported increased auditory and visual hallucinations. Client hears voices coming from buildings saying, "We're going to kill you." Client believes others are controlling him. Client believes camera's are watching him in his car. Client is currently homeless and may not have been taking his medications. Assessment Pt isolated to room this shift except came out briefly went to group room for snack. Pt pleasant and cooperative this shift. Describes his mood as anxious. Per pt his anxiety is caused by voices that talk very fast so he has to answer them very fast. Sometimes the voices tel stories sometimes they criticize him. Per pt he is being discharged to [place] Friday. He feels ready to go and is looking forward to discharge. S/I, H/I: Denies A/VH: AH Sleep: asleep at his time ADL's: Pt. requires some direction and encouragement Group attendance: N/A Were meds taken: Yes Any med S/E: none mentioned Mental Status Exam Appearance: Neat and appropriately dressed Eye contact: Fair Behavior: Cooperative, fatigued, guarded Speech: Soft and clear today Mood: Guarded Affect: Brighter than usual Thought process: Linear today Thought Content: "I feel happy today" Cognition: A&O X3 Insight: Poor Judgment: Poor Interventions PRN's used: Nicotine Lozenge Therapeutic interventions: Maintained a safe and therapeutic environment, ensured contract for safety, provided clear and simple instructions, attempted to orient to reality, monitored behaviors and need for intervention, provided direction and positive encouragement, and maintained Q 15min safety checks. Restraints/seclusion/emergency medication: N/A Justification of Continued Inpatient Treatment: Gianni is on a T-con with [facility]. Gianni is unable to plan for a safe discharge due to his mental illness. Plan is for a 06/19/2020 discharge to [facility] via [facility] [employer]
[2020-06-18] MEDS: pantoprazole 40mg Tablet.DR PO SCH (07:30)
[2020-06-18] MEDS: clozapine 25mg tablet PO SCH ×3 (07:30→20:14)
[2020-06-18] MEDS: gabapentin 300mg capsule PO SCH ×2 (07:30→11:58)
[2020-06-18] MEDS: QUEtiapine 25mg tablet PO SCH ×2 (07:30→11:57)
[2020-06-18 08:00] VITALS: BP 142/98
[2020-06-18] MEDS: ibuprofen tablet 400 MG TABLET PO SCH ×3 (08:55→16:36)
[2020-06-18] MEDS: benztropine 1mg tablet PO SCH ×2 (08:55→20:13)
[2020-06-18] MEDS: tizanidine 4mg tablet PO SCH ×3 (08:55→16:36)
[2020-06-18] MEDS: thiothixene 2mg capsule PO SCH ×2 (08:55→20:15)
[2020-06-18] MEDS: divalproex sodium 500mg tablet.DR PO SCH ×2 (08:56→20:15)
[2020-06-18] MEDS: clonazePAM 0.5mg tablet PO SCH ×3 (08:56→20:19)
--- NOTE | 2020-06-18 13:24 | NUR ---
Nursing Progress Note: Legal hold: T-Con Client on involuntary status for GD Report received from nurse with use of SBAR: Nabila Bunn RN Why are they here: Client reported increased auditory and visual hallucinations. Client hears voices coming from buildings saying, "We're going to kill you." Client believes others are controlling him. Client believes camera's are watching him in his car. Client is currently homeless and may not have been taking his medications. Assessment Patient has been about the same for the past few days. Gianni was awake for all three meals today, medication taken with out prompting. Patient did ask for Nicotine Lozgens today. Gianni isolates to his room most of the day. S/I, H/I: Denies A/VH: Denies, "the voice are further away from me, I can hear them but they are less intense", "which is a good thing, because I knwo they will always be there" Sleep: Recorded sleep hours are 6.25 however pt. naps intermittently throughout the shift ADL's: Pt. requires some direction and encouragement Group attendance: N/A Were meds taken: Yes Any med S/E: none mentioned Mental Status Exam Appearance: Neat and appropriately dressed Eye contact: Fair Behavior: Cooperative, fatigued, guarded Speech: Soft and clear today Mood: Guarded Affect: Brighter than usual Thought process: Linear today Thought Content: "I am going to [place] tomorrow" Cognition: A&O X3 Insight: Poor Judgment: Poor Interventions PRN's used: Nicotine Lozenge Therapeutic interventions: Maintained a safe and therapeutic environment, ensured contract for safety, provided clear and simple instructions, attempted to orient to reality, monitored behaviors and need for intervention, provided direction and positive encouragement, and maintained Q 15min safety checks. Restraints/seclusion/emergency medication: N/A Justification of Continued Inpatient Treatment: Gianni is on a T-con with [facility]. Gianni is unable to plan for a safe discharge due to his mental illness. Plan is for a 06/19/2020 discharge to [facility] via [employer]
[2020-06-18] MEDS ORDERED: THIO2CAP2 PO (16:50)
[2020-06-18] MEDS ORDERED: COL250C PO (16:50)
[2020-06-18] MEDS ORDERED: PANT40TA54 PO (16:50)
[2020-06-18] MEDS ORDERED: BENZ1TAB7 PO (16:50)
[2020-06-18] MEDS ORDERED: CLOZ25TA12 PO ×2 (16:50)
[2020-06-18] MEDS ORDERED: QUET100T33 PO (16:50)
[2020-06-18] MEDS ORDERED: NIACIN PO (16:50)
[2020-06-18] MEDS ORDERED: CLON0.5T4 PO (16:50)
[2020-06-18] MEDS ORDERED: TRAZ-251 PO (16:50)
[2020-06-18] MEDS ORDERED: DIVA500T2 PO ×2 (16:50)
[2020-06-18] MEDS ORDERED: QUET25TA34 PO ×2 (16:50)
[2020-06-18] MEDS ORDERED: GABA-534 PO (16:50)
[2020-06-18] MEDS ORDERED: CLOZ100T13 PO (16:50)
[2020-06-18] MEDS ORDERED: gabapentin capsule PO (16:50)
[2020-06-18] MEDS: NICOTINE POLACRILEX 2 MG LOZENGE BC PRN (17:46)
[2020-06-18 19:15] VITALS: BP 152/96
[2020-06-18] MEDS: docusate sod 250mg capsule PO SCH (20:13)
[2020-06-18] MEDS: clozapine 100mg tablet PO SCH (20:13)
[2020-06-18] MEDS: gabapentin 400mg capsule PO SCH (20:13)
[2020-06-18] MEDS: quetiapine 100mg tablet PO SCH (20:14)
[2020-06-18] MEDS: traZODone 50mg tablet PO PRN (21:33)
--- NOTE | 2020-06-19 00:50 | NUR ---
Nursing Progress Note: Legal hold: T-Con Client on involuntary status for GD Report received from nurse with use of SBAR: Christian RN Why are they here: Client reported increased auditory and visual hallucinations. Client hears voices coming from buildings saying, "We're going to kill you." Client believes others are controlling him. Client believes camera's are watching him in his car. Client is currently homeless and may not have been taking his medications. Assessment Patient isolated to his room till snack time ate snack in group room. Pt was in a good mood this shift stateing he is happy to be going to a new place. He did not appear to be responding to internal stimuli this shift. S/I, H/I: Denies A/VH: Denies, "the voice are further away from me, I can hear them but they are less intense", "which is a good thing, because I knwo they will always be there" Sleep: Recorded sleep hours are 6.25 however pt. naps intermittently throughout the shift ADL's: Pt. requires some direction and encouragement Group attendance: N/A Were meds taken: Yes Any med S/E: none mentioned Mental Status Exam Appearance: Neat and appropriately dressed Eye contact: Fair Behavior: Cooperative, fatigued, guarded Speech: Soft and clear today Mood: Guarded Affect: Brighter than usual Thought process: Linear today Thought Content: "I am going to [place] tomorrow" Cognition: A&O X3 Insight: Poor Judgment: Poor Interventions PRN's used: Nicotine Lozenge Therapeutic interventions: Maintained a safe and therapeutic environment, ensured contract for safety, provided clear and simple instructions, attempted to orient to reality, monitored behaviors and need for intervention, provided direction and positive encouragement, and maintained Q 15min safety checks. Restraints/seclusion/emergency medication: N/A Justification of Continued Inpatient Treatment: Gianni is on a T-con with [facility]. Gianni is unable to plan for a safe discharge due to his mental illness. Plan is for a 06/19/2020 discharge to [facility] via [facility]
[2020-06-19] MEDS: QUEtiapine 25mg tablet PO SCH (07:32)
[2020-06-19] MEDS: gabapentin 300mg capsule PO SCH (07:32)
[2020-06-19] MEDS: pantoprazole 40mg Tablet.DR PO SCH (07:33)
[2020-06-19] MEDS: divalproex sodium 500mg tablet.DR PO SCH (07:33)
[2020-06-19] MEDS: benztropine 1mg tablet PO SCH (07:33)
[2020-06-19] MEDS: clonazePAM 0.5mg tablet PO SCH (07:33)
[2020-06-19] MEDS: thiothixene 2mg capsule PO SCH (07:34)
[2020-06-19] MEDS: clozapine 25mg tablet PO SCH (07:34)
[2020-06-19 07:47] VITALS: BP 138/99
[2020-06-19] MEDS: ibuprofen tablet 400 MG TABLET PO SCH (08:49)
[2020-06-19] MEDS: NICOTINE POLACRILEX 2 MG LOZENGE BC PRN (08:50)
[2020-06-19] MEDS: tizanidine 4mg tablet PO SCH ×2 (08:55)
--- NOTE | 2020-06-19 09:41 | NUR ---
drier helper Note: Patient happy to be leaving. Patient is calm and cooperative. No suicidal/homicidal ideation. Patient is aware of having to be quarantined for 2 weeks at [facility]. Patient is not so happy about that. Patient has all his belongings. RN collected an MRSA swab and a COVID swab at 0730. Patient calm, ambulatory, steady gait with [facility] [employer] employee driving the patient to [facility].
== END 2020-06-19 09:47 | DRG 885 ==
LOC: ADULT MH 21:05
PROVIDERS: ADMIT Psychiatry & Neurology Psychiatry; ATTEND Psychiatry & Neurology Psychiatry
DX: F25.0 Schizoaffective disorder, bipolar type (principal); F17.210 Nicotine dependence, cigarettes, uncomplicated; E66.3 Overweight; G89.29 Other chronic pain; Z20.822 Contact with and (suspected) exposure to COVID-19; S60.512A Abrasion of left hand, initial encounter; S60.511A Abrasion of right hand, initial encounter; M54.9 Dorsalgia, unspecified; K59.00 Constipation, unspecified; K21.9 Gastro-esophageal reflux disease without esophagitis; W22.09XA Striking against other stationary object, initial encounter; Z59.0 Homelessness; Z79.899 Other long term (current) drug therapy; Z91.14 Patient's other noncompliance with medication regimen; Z68.37 Body mass index [BMI] 37.0-37.9, adult; Z71.6 Tobacco abuse counseling; Y93.89 Activity, other specified; Y92.89 Other specified places as the place of occurrence of the external cause; Y99.8 Other external cause status
CPT/HCPCS: 36415; 71045; 73130; 74018; 80053; 80061; 80164; 80178; 81001; 83036; 85025; 87081; 87426; J2060; J3490

== ENCOUNTER 2020-09-23 11:09 | Emergency (ER) | payer MEDICARE, MEDICAID ==
[~2020-09-23] VITALS: Ht 175.3 cm; Wt 100.0 kg
[~2020-09-23 11:09] MED LIST changes: +BENZ1TAB7 PO; +CLON0.5T4 PO; -CLON1TAB12 PO; +CLOZ100T13 PO; +CLOZ25TA12 PO; +COL250C PO; +GABA-534 PO; -LIT300C PO; +NIACIN PO; -NICO-668 BC; +NICO-668 MM; -PALI234D IM; +PANT40TA54 PO; +QUET25TA34 PO; -QUET400T12 PO; +THIO2CAP2 PO; +TIZA4TAB11 PO; -TIZA4TAB5 PO; +TRAZ-251 PO; +gabapentin capsule PO
--- NOTE | 2020-09-23 11:20 | NUR ---
Attempted to contact pt's conservator. She is not in her office, air export operations agent phone number called and air export operations agent conservator will return call.
--- NOTE | 2020-09-23 11:26 | NUR ---
Spoke to [facility] regarding pt. Call [phone] with any questions or concerns.
[2020-09-23] MEDS ORDERED: dexamethasone sod phosphate 10mg/ml inj IV STA (11:47)
[2020-09-23] MEDS ORDERED: normal saline 1000ML IV soln IVB ONE (11:50)
[2020-09-23] MEDS ORDERED: CefTRIAXone 2gm/D5W 50ml BAG 50 ML IV ONE (11:50)
[2020-09-23] MEDS ORDERED: ketorolac trometh. 30mg/ml inj. IV ONE (11:50)
[2020-09-23] MEDS ORDERED: AZIT-63 PO (12:29)
--- NOTE | 2020-09-23 12:41 | NUR ---
Spoke to Max about return transportation. RN is at lunch for approx 15 mins and will ahve to return call.
[2020-09-23 13:15] VITALS: BP 135/79
== END 2020-09-23 13:17 | disposition home or self-care (01) ==
LOC: ER 11:10
DX: J02.0 Streptococcal pharyngitis (principal); I10 Essential (primary) hypertension; K21.9 Gastro-esophageal reflux disease without esophagitis; F17.210 Nicotine dependence, cigarettes, uncomplicated; Z88.0 Allergy status to penicillin; Z79.899 Other long term (current) drug therapy
CPT/HCPCS: 87880; 96365; 96375; 99284; J0696; J1100; J1885; J7030

== ENCOUNTER 2022-06-06 14:38 | Emergency (ER) | payer MEDICARE, MEDICAID ==
[~2022-06-06] VITALS: Ht 175.3 cm; Wt 75.0 kg
[~2022-06-06 14:38] MED LIST changes: -BENZ1TAB7 PO; +BENZ1TAB78 PO; -QUET100T33 PO; +QUET100T34 PO; -QUET25TA34 PO; +QUET25TA36 PO
[2022-06-06 17:13] LABS: BASOPHILS % (AUTO) 0.3 % (0-1); EOSINOPHILS # (AUTO) 0.1 X10'3 (0-0.9); EOSINOPHILS % (AUTO) 0.6 % (0-6); HEMATOCRIT 41.3 % (42.0-52.0); HEMOGLOBIN 13.7 g/dl (14.0-17.9); LYMPHOCYTES # (AUTO) 1.8 X10'3 (1.1-4.8); LYMPHOCYTES % (AUTO) 16.3 % (21-51); MEAN CORPUSCULAR HEMOGLOBIN 30.3 PG (27.0-31.0); MEAN CORPUSCULAR HGB CONC 33.2 g/dL (33.0-36.5); MEAN CORPUSCULAR VOLUME 91.3 FL (78-98); MEAN PLATELET VOLUME 8.8 FL (7.4-10.4); MONOCYTES # (AUTO) 0.7 X10'3 (0-0.9); MONOCYTES % (AUTO) 6.4 % (2-12); NEUTROPHILS # (AUTO) 8.6 X10'3 (1.8-7.7); NEUTROPHILS % (AUTO) 76.4 % (42-75); PLATELET COUNT 214 X10'3 (140-440); RED BLOOD COUNT 4.52 X10'6 (4.70-6.10); RED CELL DISTRIBUTION WIDTH 14.4 % (11.5-14.5); WHITE BLOOD COUNT 11.3 X10'3 (4.5-11.0)
[2022-06-06] MEDS ORDERED: azithromycin 250mg tablet PO ONE (17:15)
[2022-06-06] MEDS ORDERED: CefTRIAXone 2gm/D5W 50ml BAG 50 ML IV ONE (17:15)
[2022-06-06 17:37] LABS: ALANINE AMINOTRANSFERASE 27 U/L (12-78); ALBUMIN 3.5 G/DL (3.4-5.0); ALKALINE PHOSPHATASE 57 IU/L (46-116); ANION GAP 8 (8-16); ASPARTATE AMINO TRANSFERASE 32 U/L (10-37); BILIRUBIN,TOTAL 0.2 MG/DL (0.1-1.0); BLOOD UREA NITROGEN 10 MG/DL (7-18); BUN/CREATININE RATIO 13.7 (5.4-32.0); CALCIUM 8.8 MG/DL (8.5-10.1); CHLORIDE 106 MMOL/L (99-107); CREATININE 0.73 MG/DL (0.60-1.10); GLUCOSE 96 MG/DL (70-104); POTASSIUM 4.2 MMOL/L (3.5-5.1); SODIUM 142 MMOL/L (135-145); TOTAL CARBON DIOXIDE 27.8 MMOL/L (24-32); TOTAL PROTEIN 7.1 G/DL (6.4-8.2); eGFR > 90 ML/MIN
[2022-06-06 18:14] LABS: D-DIMER 0.23 MG/L FEU (0-0.50)
[2022-06-06] MEDS ORDERED: DOXY100C43 PO (18:32)
--- NOTE | 2022-06-06 19:17 | NUR ---
CALLED TO GIVE REPORT TO PRIMARY RN AT [facility] AT [phone].PRIMARY RN IN CONCERNED ABOUT STROKE ,INFORMED THAT PT WAS NEGATIVE ON STROKE SCALE FOR US ,INFORMED IF SHE WOULD LIKE TO TALK TO DR SCHNEIDER .DR SCHNEIDER IS TALKING TO PRIMARY RN AT THIS TIME .
[2022-06-06 19:20] VITALS: BP 122/80
[2022-06-06] MEDS ORDERED: AMOX-580 PO (19:26)
--- NOTE | 2022-06-06 19:32 | NUR ---
ANGELO CARPIO RN SPOKE TO PRIMARY RN AT [facility] WHO IS REQUESTING TO SEND THE PT IN [place] .CHARGE AWARE ABOUT PT {CONSERVED},AGREE TO GIVE [facility] RIDE BACK TO [id number]
== END 2022-06-06 21:19 | disposition home or self-care (01) ==
LOC: ER 14:38
DX: J40 Bronchitis, not specified as acute or chronic (principal); I10 Essential (primary) hypertension; K21.9 Gastro-esophageal reflux disease without esophagitis; F31.9 Bipolar disorder, unspecified; Z88.0 Allergy status to penicillin
CPT/HCPCS: 36415; 71046; 73080; 80053; 83605; 83880; 84145; 85025; 85379; 87040; 93005; 96365; 99285; J0696

== ENCOUNTER 2023-05-16 22:47 | Emergency (ER) | payer MEDICARE, MEDICAID ==
[~2023-05-16] VITALS: Ht 175.3 cm; Wt 107.0 kg
[~2023-05-16 22:47] MED LIST changes: -COL250C PO; +DOCU-396 PO; -GABA-534 PO; +GABA-535 PO
[2023-05-16 22:49] VITALS: RESP 18; TEMP 97.8
[2023-05-17] MEDS: mag hydrox/Alum hydrox/simeth 30ml oral suspension PO ONE (02:04)
[2023-05-17] MEDS: pantoprazole 40mg Tablet.DR PO SCH (02:04)
[2023-05-17] MEDS: LIDOcaine Viscous 15ml cup MM PRN (02:04)
[2023-05-17 02:30] LABS: ALBUMIN 3.8 G/DL (3.4-5.0); ANION GAP 13 (8-16); BLOOD UREA NITROGEN 11 MG/DL (7-18); BUN/CREATININE RATIO 12.2 (10.0-20.0); CALCIUM 8.6 MG/DL (8.5-10.1); CHLORIDE 105 MMOL/L (99-107); GLUCOSE 104 MG/DL (70-104); POTASSIUM 3.9 MMOL/L (3.5-5.1); SODIUM 142 MMOL/L (135-145); TOTAL CARBON DIOXIDE 24.5 MMOL/L (24-32); eCRCL 112 ML/MIN; eGFR > 90 ML/MIN
[2023-05-17 02:32] LABS: BASOPHILS # (AUTO) 0.1 X10'3 (0-0.2); BASOPHILS % (AUTO) 0.8 % (0-1); EOSINOPHILS # (AUTO) 0.2 X10'3 (0-0.9); EOSINOPHILS % (AUTO) 2.4 % (0-6); HEMATOCRIT 40.8 % (42.0-52.0); HEMOGLOBIN 13.8 g/dl (14.0-17.9); LYMPHOCYTES # (AUTO) 3.6 X10'3 (1.1-4.8); LYMPHOCYTES % (AUTO) 36.6 % (21-51); MEAN CORPUSCULAR HEMOGLOBIN 29.8 PG (27.0-31.0); MEAN CORPUSCULAR HGB CONC 33.8 g/dL (33.0-36.5); MEAN CORPUSCULAR VOLUME 88.2 FL (78-98); MEAN PLATELET VOLUME 8.7 FL (7.4-10.4); MONOCYTES # (AUTO) 0.9 X10'3 (0-0.9); MONOCYTES % (AUTO) 8.6 % (2-12); NEUTROPHILS # (AUTO) 5.1 X10'3 (1.8-7.7); NEUTROPHILS % (AUTO) 51.6 % (42-75); PLATELET COUNT 243 X10'3 (140-440); RED BLOOD COUNT 4.62 X10'6 (4.70-6.10); RED CELL DISTRIBUTION WIDTH 14.6 % (11.5-14.5); WHITE BLOOD COUNT 9.9 X10'3 (4.5-11.0)
[2023-05-17 02:35] LABS: APTT 27 SECONDS (22-32); PROTHROMBIN TIME 10.8 SECONDS (9.0-12.0)
[2023-05-17] MEDS ORDERED: ONDA4TAB12 PO (04:25)
[2023-05-17] MEDS ORDERED: PANT40SU2 PO (04:25)
[2023-05-17 04:38] VITALS: BP 131/84; PULSE 80; O2SAT 96
== END 2023-05-17 04:40 | disposition home or self-care (01) ==
LOC: ER 22:48
DX: K29.70 Gastritis, unspecified, without bleeding (principal); K92.2 Gastrointestinal hemorrhage, unspecified; K21.9 Gastro-esophageal reflux disease without esophagitis; I10 Essential (primary) hypertension; F31.9 Bipolar disorder, unspecified; F20.9 Schizophrenia, unspecified; Z88.0 Allergy status to penicillin; Z79.899 Other long term (current) drug therapy
CPT/HCPCS: 36415; 80048; 85025; 85610; 85730; 99283

== ENCOUNTER 2023-05-19 16:09 | Inpatient (IN) | payer MEDICARE, MEDICAID ==
[~2023-05-19] VITALS: Ht 175.3 cm; Wt 104.9 kg
[~2023-05-19 16:09] MED LIST changes: +ONDA4TAB12 PO; +PANT40SU2 PO
[2023-05-19 18:04] LABS: BASOPHILS % (AUTO) 0.4 % (0-1); EOSINOPHILS # (AUTO) 0.1 X10'3 (0-0.9); EOSINOPHILS % (AUTO) 0.8 % (0-6); HEMATOCRIT 42.9 % (42.0-52.0); HEMOGLOBIN 14.6 g/dl (14.0-17.9); LYMPHOCYTES # (AUTO) 3.3 X10'3 (1.1-4.8); LYMPHOCYTES % (AUTO) 31.5 % (21-51); MEAN CORPUSCULAR HEMOGLOBIN 29.7 PG (27.0-31.0); MEAN CORPUSCULAR VOLUME 87.4 FL (78-98); MEAN PLATELET VOLUME 8.4 FL (7.4-10.4); MONOCYTES % (AUTO) 9.1 % (2-12); NEUTROPHILS # (AUTO) 6.2 X10'3 (1.8-7.7); NEUTROPHILS % (AUTO) 58.2 % (42-75); PLATELET COUNT 266 X10'3 (140-440); RED BLOOD COUNT 4.91 X10'6 (4.70-6.10); RED CELL DISTRIBUTION WIDTH 14.6 % (11.5-14.5); WHITE BLOOD COUNT 10.6 X10'3 (4.5-11.0)
[2023-05-19 18:29] LABS: ALBUMIN 4.2 G/DL (3.4-5.0); ANION GAP 11 (8-16); BLOOD UREA NITROGEN 9 MG/DL (7-18); BUN/CREATININE RATIO 9.1 (10.0-20.0); CALCIUM 8.8 MG/DL (8.5-10.1); CHLORIDE 102 MMOL/L (99-107); CREATININE 0.99 MG/DL (0.60-1.10); ETHANOL < 10 MG/DL (<10); GLUCOSE 89 MG/DL (70-104); POTASSIUM 3.6 MMOL/L (3.5-5.1); SODIUM 138 MMOL/L (135-145); THYROID STIMULATING HORMONE 2.47 ulU/ml (0.34-4.50); eCRCL 102 ML/MIN; eGFR 85 ML/MIN
[2023-05-19] MEDS ORDERED: BENZ1TAB93 PO (18:43)
[2023-05-19] MEDS ORDERED: SERT100T PO (18:43)
[2023-05-19] MEDS ORDERED: CLON0.5T23 PO (18:43)
[2023-05-19] MEDS ORDERED: BUSP10TA11 PO (18:43)
[2023-05-19] MEDS ORDERED: CLOZ100T PO (18:43)
[2023-05-19 18:51] LABS: BILIRUBIN,URINE NEGATIVE (Neg); CLARITY,URINE SLIGHTLY CLOUDY (Clear); COLOR,URINE YELLOW (Yellow); GLUCOSE, URINE NEGATIVE (Neg); KETONES,URINE NEGATIVE (Neg); LEUKOCYTE ESTERASE ,URINE NEGATIVE (Neg); NITRITES, URINE NEGATIVE (Neg); OCCULT BLOOD,URINE NEGATIVE (Neg); PH,URINE 6.5 (4.8-8.0); PROTEIN,URINE NEGATIVE (Neg); UROBILINOGEN,URINE 0.2 E.U/dL (0.2-1.0)
[2023-05-19 18:53] LABS: UA COLLECTION TYPE CLN CATCH MIDSTREAM
[2023-05-19] MEDS ORDERED: CLOZ50TA9 PO (18:53)
[2023-05-19] MEDS ORDERED: CLOZ100T21 PO (18:53)
[2023-05-19] MEDS ORDERED: CLOZ100T13 PO ×2 (18:53)
[2023-05-19 18:55] LABS: BACTERIA,URINE NONE SEEN /HPF (Neg); HYALINE CASTS 0-3 /LPF (NEGATIVE); RBC,URINE NONE SEEN /HPF (0-2); SQUAMOUS EPITHELIAL CELL,UR NONE SEEN /LPF (FEW); WBC,URINE NONE SEEN /HPF (0-4)
[2023-05-19 18:57] LABS: URINE AMPHETAMINE SCREEN NEGATIVE (Neg); URINE BARBITUATE SCREEN NEGATIVE (Neg); URINE BENZODIAZEPINES SCREEN POSITIVE (Neg); URINE CANNABINOID SCREEN NEGATIVE (Neg); URINE COCAINE SCREEN NEGATIVE (Neg); URINE METHADONE SCREEN NEGATIVE (Neg); URINE OPIATE SCREEN NEGATIVE (Neg); URINE PHENCYCLIDINE SCREEN NEGATIVE (Neg)
[2023-05-19] MEDS ORDERED: SERT-434 PO (19:10)
[2023-05-19] MEDS: clonazePAM 0.5mg tablet PO SCH (20:00)
[2023-05-19] MEDS: benztropine 1mg tablet PO SCH (20:12)
[2023-05-19] MEDS: sertraline 50mg tablet PO SCH (20:13)
[2023-05-19] MEDS: clozapine 100mg tablet PO SCH (20:14)
[2023-05-20] MEDS: clozapine 25mg tablet PO SCH (08:00)
[2023-05-20] MEDS: clozapine 100mg tablet PO SCH ×2 (08:00→17:50)
[2023-05-20 16:51] VITALS: BP 138/91; PULSE 96; RESP 16; TEMP 97.9; O2SAT 93
[2023-05-20 17:22] VITALS: RESP 16; O2SAT 93
[2023-05-20 19:10] VITALS: RESP 16
[2023-05-20] MEDS ORDERED: acetaminophen 325mg tablet PO PRN (19:20)
[2023-05-20] MEDS ORDERED: loperamide 2mg capsule PO PRN (19:20)
[2023-05-20 20:01] VITALS: BP 121/75; PULSE 81; RESP 16; TEMP 97.6; O2SAT 95
[2023-05-20] MEDS: acetaminophen 325mg tablet PO PRN (21:56)
[2023-05-21 07:00] VITALS: RESP 16; O2SAT 99
[2023-05-21 08:00] VITALS: BP 130/83; PULSE 86; RESP 16; TEMP 97.8; O2SAT 99
[2023-05-21] MEDS: nicotine 21mg patch - 24 hr TD SCH (08:21)
[2023-05-21] MEDS: clozapine 25mg tablet PO SCH (13:11)
[2023-05-21 19:30] VITALS: BP 135/89; PULSE 93; RESP 16; TEMP 97.6; O2SAT 97
[2023-05-22] MEDS: mag hydrox/Alum hydrox/simeth 30ml oral suspension PO PRN (03:37)
[2023-05-22 07:00] VITALS: RESP 16; O2SAT 96
[2023-05-22 08:00] VITALS: BP 115/63; PULSE 82; RESP 16; TEMP 97.7; O2SAT 96
[2023-05-22] MEDS: NICOTINE POLACRILEX 2 MG LOZENGE BC PRN (08:34)
[2023-05-22 19:30] VITALS: BP 135/88; PULSE 100; RESP 17; TEMP 97.8; O2SAT 97
[2023-05-23 07:00] VITALS: RESP 16; O2SAT 98
[2023-05-23 08:00] VITALS: BP 128/74; PULSE 65; RESP 16; TEMP 97.4; O2SAT 98
[2023-05-23 20:24] VITALS: BP 143/95; PULSE 115; RESP 16; TEMP 97.2; O2SAT 98
[2023-05-24 07:00] VITALS: RESP 16; O2SAT 98
[2023-05-24 08:00] VITALS: BP 121/92; PULSE 85; RESP 16; TEMP 98.1; O2SAT 98
[2023-05-24] MEDS: mirtazapine 15mg tablet PO SCH (19:55)
[2023-05-24 20:00] VITALS: BP 143/96; PULSE 116; RESP 16; TEMP 97.5; O2SAT 96
[2023-05-24] MEDS: mirtazapine 15mg tablet PO ONE (21:21)
[2023-05-25 07:30] VITALS: BP 124/82; PULSE 100; RESP 16; TEMP 98.2; O2SAT 98
[2023-05-25 09:28] VITALS: RESP 16
[2023-05-25] MEDS: magnesium hydroxide 30ml (MOM) UD suspension PO PRN (09:36)
[2023-05-25] MEDS: busPIRone 5mg tablet PO PRN (17:31)
[2023-05-25 19:00] VITALS: RESP 16; RESP 18; O2SAT 95; O2SAT 96
[2023-05-25 20:00] VITALS: BP 132/86; PULSE 98; RESP 16; TEMP 97.7; O2SAT 96
[2023-05-25] MEDS: mirtazapine 15mg tablet PO SCH (20:12)
[2023-05-26] MEDS: ibuprofen tablet 400 MG TABLET PO PRN (07:21)
[2023-05-26 07:31] VITALS: BP 140/94; PULSE 97; RESP 16; TEMP 97.7; O2SAT 97
[2023-05-26 07:35] VITALS: RESP 16; O2SAT 97
[2023-05-26] MEDS: hydrOXYzine 25 MG tablet PO ONE (08:01)
[2023-05-26 12:17] LABS: CLOZ+NORCLOZ TOTAL 655 ng/mL (.); NORCLOZAPINE, SERUM 113 ng/mL (Not Estab.)
[2023-05-26 12:38] LABS: CLOZAPINE, SERUM SEE COMMENTS
[2023-05-26 19:00] VITALS: RESP 18; O2SAT 95
[2023-05-26 20:00] VITALS: BP 139/87; PULSE 101; RESP 18; TEMP 97.2; O2SAT 95
[2023-05-27 07:00] VITALS: RESP 14; O2SAT 93
[2023-05-27 08:00] VITALS: BP 141/78; PULSE 78; RESP 14; TEMP 97.6; O2SAT 93
[2023-05-27 20:00] VITALS: BP 178/80; PULSE 85; RESP 16; TEMP 97.2; O2SAT 98
[2023-05-28 08:00] VITALS: BP 130/80; PULSE 88; RESP 16; TEMP 98; O2SAT 96
[2023-05-28] MEDS: clozapine 25mg tablet PO SCH (13:19)
[2023-05-28] MEDS: clozapine 100mg tablet PO SCH (13:19)
[2023-05-28 19:30] VITALS: BP 136/90; PULSE 88; RESP 16; TEMP 98; O2SAT 95
[2023-05-29 07:59] VITALS: BP 138/92; PULSE 56; RESP 12; TEMP 98.2; O2SAT 93
[2023-05-29] MEDS: hydrOXYzine 25 MG tablet PO PRN (13:25)
[2023-05-29 20:00] VITALS: BP 131/86; PULSE 90; RESP 16; TEMP 98.4; O2SAT 97
[2023-05-30 08:00] VITALS: BP 119/73; PULSE 89; RESP 16; TEMP 98.3; O2SAT 97
[2023-05-30 19:30] VITALS: BP 121/82; PULSE 93; RESP 19; TEMP 97.3; O2SAT 95
[2023-05-31 08:00] VITALS: BP 119/73; PULSE 89; RESP 16; TEMP 97.5; O2SAT 99
[2023-05-31 19:30] VITALS: BP 134/80; PULSE 94; RESP 15; TEMP 97.9; O2SAT 96
[2023-06-01 07:00] VITALS: RESP 16
[2023-06-01 08:00] VITALS: BP 116/73; PULSE 88; RESP 16; TEMP 97.5; O2SAT 95
[2023-06-01 19:30] VITALS: BP 143/99; PULSE 89; RESP 18; TEMP 97; O2SAT 94
[2023-06-02 07:00] VITALS: RESP 18; O2SAT 94
[2023-06-02 08:00] VITALS: BP 142/91; PULSE 73; RESP 18; TEMP 98; O2SAT 99
[2023-06-02 19:44] VITALS: RESP 18; O2SAT 96
[2023-06-02 20:43] VITALS: BP 122/85; PULSE 98; RESP 18; TEMP 97.3; O2SAT 96
[2023-06-02] MEDS ORDERED: traZODone 50mg tablet PO SCH (23:10)
[2023-06-02] MEDS: traZODone 50mg tablet PO PRN (23:21)
[2023-06-03 07:30] VITALS: BP 113/68; PULSE 74; RESP 16; TEMP 97.3; O2SAT 95
[2023-06-03 13:07] LABS: BASOPHILS % (AUTO) 0.4 % (0-1); EOSINOPHILS # (AUTO) 0.2 X10'3 (0-0.9); EOSINOPHILS % (AUTO) 2.3 % (0-6); HEMATOCRIT 43.2 % (42.0-52.0); HEMOGLOBIN 14.8 g/dl (14.0-17.9); LYMPHOCYTES # (AUTO) 2.3 X10'3 (1.1-4.8); MEAN CORPUSCULAR HEMOGLOBIN 29.6 PG (27.0-31.0); MEAN CORPUSCULAR HGB CONC 34.2 g/dL (33.0-36.5); MEAN CORPUSCULAR VOLUME 86.6 FL (78-98); MEAN PLATELET VOLUME 8.1 FL (7.4-10.4); MONOCYTES # (AUTO) 0.4 X10'3 (0-0.9); MONOCYTES % (AUTO) 4.4 % (2-12); NEUTROPHILS # (AUTO) 5.7 X10'3 (1.8-7.7); NEUTROPHILS % (AUTO) 65.9 % (42-75); PLATELET COUNT 244 X10'3 (140-440); RED BLOOD COUNT 4.99 X10'6 (4.70-6.10); RED CELL DISTRIBUTION WIDTH 14.1 % (11.5-14.5); WHITE BLOOD COUNT 8.7 X10'3 (4.5-11.0)
[2023-06-03] MEDS ORDERED: TRAZ-251 PO (14:46)
[2023-06-03] MEDS ORDERED: MIRT-67 PO (14:46)
[2023-06-03] MEDS ORDERED: SERT-434 PO (14:46)
[2023-06-03] MEDS ORDERED: HYDR-3686 PO (14:46)
[2023-06-03] MEDS ORDERED: NICO-907 BC (14:46)
[2023-06-03] MEDS ORDERED: BENZ1TAB78 PO (14:46)
[2023-06-03] MEDS ORDERED: CLOZ100T13 PO (14:46)
[2023-06-03] MEDS ORDERED: CLON-565 PO (14:46)
[2023-06-03] MEDS ORDERED: BUSP10TA10 PO (14:46)
[2023-06-03] MEDS ORDERED: CLON0.5T4 PO (15:01)
[2023-06-03] MEDS ORDERED: CLOZ25TA12 PO (15:01)
[2023-06-03 20:09] VITALS: BP 137/79; PULSE 91; RESP 14; TEMP 97.4; O2SAT 97
[2023-06-04 07:00] VITALS: RESP 18; O2SAT 98
[2023-06-04 08:00] VITALS: BP 130/80; PULSE 91; RESP 18; TEMP 97; O2SAT 98
== END 2023-06-04 14:05 | disposition home or self-care (01) | DRG 885 ==
LOC: ER 16:09 → ED HOLD 05-20 08:30 → ADULT MH 05-20 17:07
PROVIDERS: ADMIT Psychiatry & Neurology Psychiatry; ATTEND Psychiatry & Neurology Psychiatry
PROC: GZHZZZZ Group Psychotherapy (ICD-10-PCS; principal; 2023-05-22)
PROC: GZ51ZZZ Individual Psychotherapy, Behavioral (ICD-10-PCS; 2023-05-22)
DX: F25.0 Schizoaffective disorder, bipolar type (principal); T42.4X1A Poisoning by benzodiazepines, accidental (unintentional), initial encounter; R45.851 Suicidal ideations; I10 Essential (primary) hypertension; K21.9 Gastro-esophageal reflux disease without esophagitis; Z20.822 Contact with and (suspected) exposure to COVID-19; G89.29 Other chronic pain; M54.9 Dorsalgia, unspecified; F17.210 Nicotine dependence, cigarettes, uncomplicated; Y92.89 Other specified places as the place of occurrence of the external cause; Z79.899 Other long term (current) drug therapy; Z88.0 Allergy status to penicillin
CPT/HCPCS: 36415; 80048; 80305; 80320; 81001; 84443; 85025; 87081; 87811; 93005; 99285; Q0177

== ENCOUNTER 2023-11-23 00:03 | Emergency (ER) | payer MEDICARE, MEDICAID ==
[~2023-11-23] VITALS: Ht 175.3 cm; Wt 109.1 kg
[~2023-11-23 00:03] MED LIST changes: +BUSP10TA10 PO; +CLON0.5T23 PO; -DIVA500T2 PO; -DOCU-396 PO; -GABA-535 PO; +HYDR-3686 PO; +MIRT-67 PO; -NIACIN PO; -NICO-668 MM; +NICO-907 BC; -ONDA4TAB12 PO; -PANT40SU2 PO; -PANT40TA54 PO; -QUET100T34 PO; -QUET25TA36 PO; +SERT-434 PO; -THIO2CAP2 PO; -TIZA4TAB11 PO; -gabapentin capsule PO
[2023-11-23] MEDS: ketorolac trometh 30MG/ML vial 30 MG/ML VIAL IM ONE (01:10)
[2023-11-23] MEDS: cyclobenzaprine 10mg tablet PO ONE (01:11)
--- NOTE | 2023-11-23 01:12 | NUR ---
Patient to xray
--- NOTE | 2023-11-23 01:25 | NUR ---
Back from Xray
[2023-11-23] MEDS ORDERED: LIDO700A32 TOP (04:15)
[2023-11-23] MEDS ORDERED: NAPR-1166 PO (04:15)
[2023-11-23] MEDS ORDERED: CYCL5TAB PO (04:15)
[2023-11-23 04:29] VITALS: BP 113/83; PULSE 89; RESP 18; TEMP 98.3; O2SAT 96
== END 2023-11-23 04:31 | disposition home or self-care (01) ==
LOC: ER 00:04
DX: M54.50 Low back pain, unspecified (principal); I10 Essential (primary) hypertension; K21.9 Gastro-esophageal reflux disease without esophagitis; G89.29 Other chronic pain; F31.9 Bipolar disorder, unspecified; F20.9 Schizophrenia, unspecified; F17.200 Nicotine dependence, unspecified, uncomplicated; F12.90 Cannabis use, unspecified, uncomplicated; Z88.0 Allergy status to penicillin; Z79.899 Other long term (current) drug therapy; Z72.89 Other problems related to lifestyle
CPT/HCPCS: 72100; 96372; 99285; J1885

== ENCOUNTER 2024-03-08 14:07 | Emergency (ER) | payer MEDICARE, MEDICAID ==
[~2024-03-08] VITALS: Ht 175.3 cm; Wt 104.5 kg
[~2024-03-08 14:07] MED LIST changes: +CYCL-920 PO; +LIDO700A32 TOP; +NAPR-1166 PO
[2024-03-08 17:09] LABS: BASOPHILS % (AUTO) 0.4 % (0-1); EOSINOPHILS # (AUTO) 0.1 X10'3 (0-0.9); HEMATOCRIT 44.5 % (42.0-52.0); HEMOGLOBIN 14.8 g/dl (14.0-17.9); LYMPHOCYTES # (AUTO) 3.6 X10'3 (1.1-4.8); LYMPHOCYTES % (AUTO) 30.4 % (21-51); MEAN CORPUSCULAR HEMOGLOBIN 27.8 PG (27.0-31.0); MEAN CORPUSCULAR HGB CONC 33.3 g/dL (33.0-36.5); MEAN CORPUSCULAR VOLUME 83.3 FL (78-98); MEAN PLATELET VOLUME 8.1 FL (7.4-10.4); MONOCYTES # (AUTO) 0.7 X10'3 (0-0.9); NEUTROPHILS # (AUTO) 7.3 X10'3 (1.8-7.7); NEUTROPHILS % (AUTO) 62.2 % (42-75); PLATELET COUNT 307 X10'3 (140-440); RED BLOOD COUNT 5.34 X10'6 (4.70-6.10); RED CELL DISTRIBUTION WIDTH 14.8 % (11.5-14.5); WHITE BLOOD COUNT 11.7 X10'3 (4.5-11.0)
[2024-03-08 17:23] LABS: ALANINE AMINOTRANSFERASE 26 U/L (12-78); ALBUMIN 4.1 G/DL (3.4-5.0); ALBUMIN/GLOBULIN RATIO 1.1 (1.1-1.5); ALKALINE PHOSPHATASE 104 IU/L (46-116); ANION GAP 11 (8-16); ASPARTATE AMINO TRANSFERASE 14 U/L (10-37); BILIRUBIN,TOTAL 0.3 MG/DL (0.1-1.0); BLOOD UREA NITROGEN 9 MG/DL (7-18); BUN/CREATININE RATIO 8.5 (10.0-20.0); CALCIUM 9.4 MG/DL (8.5-10.1); CHLORIDE 104 MMOL/L (99-107); CREATININE 1.06 MG/DL (0.60-1.10); GLUCOSE 88 MG/DL (70-104); POTASSIUM 3.6 MMOL/L (3.5-5.1); SODIUM 139 MMOL/L (135-145); TOTAL CARBON DIOXIDE 24.1 MMOL/L (24-32); eCRCL 95 ML/MIN; eGFR 79 ML/MIN
[2024-03-08 17:34] LABS: CREATINE KINASE 214 U/L (39-308); FREE T4 (FREE THYROXINE) 0.85 NG/DL (0.73-1.40)
[2024-03-08 18:12] LABS: THYROID STIMULATING HORMONE 1.13 ulU/ml (0.34-4.50)
[2024-03-08 20:28] LABS: BILIRUBIN,URINE MODERATE (Neg); CLARITY,URINE SLIGHTLY CLOUDY (Clear); COLOR,URINE YELLOW (Yellow); GLUCOSE, URINE NEGATIVE (Neg); KETONES,URINE 15 mg/dl (Neg); LEUKOCYTE ESTERASE ,URINE NEGATIVE (Neg); NITRITES, URINE NEGATIVE (Neg); OCCULT BLOOD,URINE NEGATIVE (Neg); PH,URINE 5.5 (4.8-8.0); PROTEIN,URINE 30 mg/dl (Neg)
[2024-03-08 20:36] LABS: UA COLLECTION TYPE CLN CATCH MIDSTREAM
[2024-03-08 20:38] LABS: BACTERIA,URINE 1+ /HPF (Neg); RBC,URINE NONE SEEN /HPF (0-2); SQUAMOUS EPITHELIAL CELL,UR FEW /LPF (FEW); WBC,URINE 0-4 /HPF (0-4)
[2024-03-08 20:39] LABS: CAL OXALATE CRYSTALS 1+ /HPF (NEGATIVE); MUCUS STRANDS MODERATE /LPF (Neg)
[2024-03-08] MEDS ORDERED: KEP500T PO (21:10)
[2024-03-08] MEDS: ibuprofen tablet 400 MG TABLET PO ONE (21:25)
[2024-03-08 21:43] VITALS: BP 124/70; PULSE 86; RESP 18; TEMP 97.8; O2SAT 98
== END 2024-03-08 21:45 | disposition home or self-care (01) ==
LOC: ER 14:07
DX: G40.909 Epilepsy, unspecified, not intractable, without status epilepticus (principal); I10 Essential (primary) hypertension; K21.9 Gastro-esophageal reflux disease without esophagitis; F20.9 Schizophrenia, unspecified; F31.9 Bipolar disorder, unspecified; F12.90 Cannabis use, unspecified, uncomplicated; Z88.0 Allergy status to penicillin
CPT/HCPCS: 36415; 70450; 71045; 80053; 81001; 82550; 83605; 84439; 84443; 84484; 85025; 93005; 99285